=== PATIENT | female | born 1990 | race Caucasian/White ===

== ENCOUNTER 2020-11-30 12:18 | Inpatient (IN) ==
--- NOTE | 2020-11-30 12:40 | Emergency Department Note ---
Impression & Plan Psychosis, Hallucinations ED Provider Note Provider: Kip Lopez MD DATE OF SERVICE: 11/30/2020 CHIEF COMPLAINT: Depression HISTORY OF PRESENT ILLNESS: Patient is a 30-year-old female brought in by EMS today evidently was found wandering outside without clothes on. Neighbors felt saw her and called EMS. Patient reports that she is not really been taking her medications due to "distortions ". She reports that she has been having some loose [place] of hearing some voices and feels a bit anxious and depressed. Denies wanting to harm her self or others. Patient states she currently lives alone. She states has been out walking to try to clear her mind. Patient does present with bag of multiple prescription bottles in them. Patient states she feels thirsty. Patient states she has not been sleeping. Patient denies pain. Patient does not always answer all questions and occasionally will just sit quietly in the room. She occasionally looks around the room. REVIEW OF SYSTEMS: A total of 10 review of systems was obtained and negative except as stated above in the HPI although she is quite a poor historian and only answers some questions. PAST MEDICAL HISTORY: As noted above MEDICATIONS: Reviewed the patient's medications that she presents with. SOCIAL HISTORY: PHYSICAL EXAM: GENERAL: alert and oriented in no acute distress seated on bed, somewhat tearful Head: normocephalic and atraumatic EYES: No injection, discharge or icterus. NECK: Trachea midline. ENT: Mucous membranes pink and moist. LUNGS: Airway patent. No retractions. Breath sounds clear with good air entry bilaterally. HEART: Regular rate and rhythm. No chest wall tenderness ABDOMEN: Soft and non-tender, without guarding or rebound. SKIN: Acyanotic, warm, dry, without rashes EXTREMITIES: Without swelling, tenderness or deformity NEUROLOGICAL: No focal deficits. No aphasia. No facial droop or slurred speech. Ambulatory. Psych: Patient appears somewhat anxious and admits to depression. She denies SI or HI. Patient does appear to be looking around the room and possibly reacting to external stimuli. Patient with lack of insight to questioning and current situation. Patient's laboratory studies reviewed. Differential includes Mood disorder, infection, hypoglycemia, electrolyte abnormalities, cardiac sources, intracerebral event, toxicologic, trauma, neurologic, as well as other pathologies. IMPRESSION/MEDICAL DECISION MAKING: Patient presents found wandering naked outside. Underlying psychiatric history with multiple psychotropic medications. Patient states she has not been compliant with them. Patient appears to be acting somewhat psychotic and possibly restarting to external stimuli. Patient does not appear to have suffered any trauma. Not having any focal neurological deficits. Doubt acute [employer] infection, stroke, CVA, or TBI. She denies any SI or HI but again is not a good historian and only answering limited questions. Basic blood work here without significant anemia or leukocytosis. No severe electrolyte abnormality noted. Tox screen sent. Urinalysis not impressive for infection. Seen with leather case finisher. Patient on multiple times here difficult to obtain a clear history from reports "distortions "and does not want to talk. Appears qu ite anxious and tearful at times. Patient appears to have been on Zyprexa recently from records and thus given a dose of this here to see if this would help with her symptoms. Believe the patient is suffering from underlying psychosis and again given reports that she is not on her medications and her activities. I question her ability to care for self in her current state. Patient later reports that she is scared of the hallucinations to leather case finisher. Again given this state and her presentation feel that further inpatient psychiatric treatment would be beneficial for the patient and do not feel she can care for self at home. Do not feel she is in position to voluntarily signing given her lack of insight at the moment. Will complete an involuntary commitment form to pursue 302. Bed search was initiated to excepted to 3 S. for further inpatient psychiatric care. DIAGNOSIS: Psychosis, hallucinations DISPOSITION: Excepted to [facility]. for further inpatient psychiatric care. Past Med/Surg History Social History Smoking Status: Unknown if ever smoked Feels Safe at Home: No Allergies Allergies Allergy/AdvReac Type Severity Reaction Status Date / Time amoxicillin Allergy _ Verified 07/23/09 20:35 aripiprazole Allergy _ Verified 07/23/09 20:35 Home Meds Home Medications Medication Instructions Recorded Confirmed atorvastatin 10 mg tablet (Lipitor) 10 mg PO DAILY 11/30/20 11/30/20 benztropine 1 mg tablet 1 mg PO DAILY 11/30/20 11/30/20 cholecalciferol (vitamin D3) 50 2,000 unit PO DAILY 11/30/20 11/30/20 mcg (2,000 unit) capsule docusate sodium 100 mg capsule 100 mg PO QPM 11/30/20 11/30/20 (Colace) lamotrigine 100 mg tablet 100 mg PO BID 11/30/20 11/30/20 levothyroxine 25 mcg tablet 25 mcg PO QAM 11/30/20 11/30/20 lithium carbonate 300 mg tablet 300 mg PO BID 11/30/20 11/30/20 olanzapine 10 mg disintegrating 10 mg PO DAILY 11/30/20 11/30/20 tablet perphenazine 2 mg tablet 2 mg PO DAILY 11/30/20 11/30/20 sertraline 100 mg tablet 100 mg PO DAILY 11/30/20 11/30/20 Results & Data (ED) Vital Signs Vital Signs - 24 hr 11/30/20 12:27 11/30/20 14:13 11/30/20 15:53 Temperature 36.7 C Temperature Source Oral Pulse Rate 115 H Pulse Rate [Left Finger] 101 H 109 H Pulse Rhythm Regular Pulse Rhythm [Left Finger] Regular Pulse Strength Normal Pulse Strength [Left Finger] Normal Respiratory Rate 20 20 16 Respiratory Effort / Characteristics Non-Labored Spontaneous Non-Labored Spontaneous Respiratory Depth Normal Normal Respiratory Pattern Regular Blood Pressure 129/106 H Blood Pressure [Left Arm] 120/76 143/90 H Blood Pressure Mean 113 Blood Pressure Mean [Left Arm] 90 107 Blood Pressure Position Sitting Blood Pressure Position [Left Arm] Lying Pulse Oximetry 98 98 99 Oxygen Delivery Method Room Air Room Air Room Air Sepsis Recent Fever Within 48 Hours No Sepsis New/Unexplained Change in Mental Status No Sepsis Action Taken by Nursing No Action Required 11/30/20 17:00 Temperature Temperature Source Pulse Rate Pulse Rate [Left Finger] 68 Pulse Rhythm Pulse Rhythm [Left Finger] Pulse Strength Pulse Strength [Left Finger] Respiratory Rate 21 Respiratory Effort / Characteristics Respiratory Depth Normal Respiratory Pattern Blood Pressure Blood Pressure [Left Arm] 131/79 Blood Pressure Mean Blood Pressure Mean [Left Arm] 96 Blood Pressure Position Blood Pressure Position [Left Arm] Pulse Oximetry 100 Oxygen Delivery Method Room Air Sepsis Recent Fever Within 48 Hours Sepsis New/Unexplained Change in Mental Status Sepsis Action Taken by Nursing Laboratory Data Result diagrams: 11/30/20 12:54 11/30/20 12:54 Lab Results 11/30/20 11/30/20 11/30/20 Range/Units 12:54 12:54 12:54 WBC 9.22 (4.8-10.8) K/uL RBC 4.65 (4.2-5.4) M/uL Hgb 13.5 (12.0-16.0) g/dL Hct 39.4 (37-47) % MCV 84.7 (80-100) fL MCH 29.0 (25-34) pg MCHC 34.3 (32-36) g/dL RDW Std Deviation 39.3 (36.4-46.3) fL RDW Coeff of Kelli 12.8 (11.5-14.5) % Plt Count 427 H (130-400) K/uL MPV 8.6 (7.4-10.4) fL Immature Gran % (Auto) 0.3 % Neut % (Auto) 66.6 % Lymph % (Auto) 26.2 % [place] % (Auto) 6.7 % Eos % (Auto) 0.0 % Baso % (Auto) 0.2 % Neut # (Auto) 6.13 (1.4-6.5) K/uL Lymph # (Auto) 2.42 (1.2-3.4) K/uL [place] # (Auto) 0.62 H (0.11-0.59) K/uL Eos # (Auto) 0.00 (0-0.5) K/uL Baso # (Auto) 0.02 (0-0.2) K/uL Immature Gran # (Auto) 0.03 H (0.00-0.02) K/uL Sodium 137 (136-145) mmol/L Potassium 3.6 (3.5-5.1) mmol/L Chloride 105 (98-107) mmol/L Carbon Dioxide 21 (21-32) mmol/L Anion Gap 11.0 (3-11) BUN 22 H (7-18) mg/dl Creatinine 0.97 (0.6-1.2) mg/dl Est Cr Clr Drug Dosing 81.1 ml/min Est GFR ( Amer) 90.8 ml/min Est GFR (Non-Af Amer) 78.4 ml/min BUN/Creatinine Ratio 23.1 H (10-20) Glucose 91 (70-99) mg/dl Calcium 9.5 (8.5-10.1) mg/dl Total Bilirubin 0.4 (0.2-1) mg/dl AST 43 H (15-37) U/L ALT 86 H (12-78) U/L Alkaline Phosphatase 59 (45-117) U/L Total Protein 8.6 H (6.4-8.2) gm/dl Albumin 4.2 (3.4-5.0) gm/dl Globulin 4.4 H (2.5-4.0) gm/dl Albumin/Globulin Ratio 1.0 (0.9-2) TSH 3.190 (0.300-4.500) uIu/ml HCG, Qual (Negative) Urine Color Urine Appearance (Clear) Urine pH (4.5-7.5) Ur Specific [place] (1.000-1.030) Urine Protein (Negative) Urine Glucose (UA) (Negative) Urine Ketones (Negative) Urine Blood (Negative) Urine Nitrite (Negative) Urine Bilirubin (Negative) Urine Urobilinogen (Negative) Ur Leukocyte Esterase (Negative) Urine WBC (Auto) (0-5) /hpf Urine RBC (Auto) (0-4) /hpf U Hyaline Cast (Auto) (0-5) /lpf U Epithel Cells (Auto) (0-5) /lpf Urine Bacteria (Auto) (Negative) Salicylates 2.9 (2.8-20) mg/dl Urine Opiates Screen (Neg) Ur Methadone, Qual (Neg) Acetaminophen < 2 L (10-30) ug/ml Urine Barbiturates (Neg) Ur Phencyclidine (PCP) (Neg) U Amphetamin/Meth Scrn (Neg) MDMA (Ecstasy) Screen (Neg) U Benzodiazepines Scrn (Neg) [place] < 0.2 L (0.6-1.2) mmol/L Ur Cocaine Metabolite (Neg) U Marijuana (THC) Screen (Neg) Ethyl Alcohol mg/dL (0-3) mg/dl COVID-19 Eval Order SARS-CoV-2, RNA, NAAT (NEGATIVE) 11/30/20 11/30/20 11/30/20 Range/Units 12:54 12:54 13:23 WBC (4.8-10.8) K/uL RBC (4.2-5.4) M/uL Hgb (12.0-16.0) g/dL Hct (37-47) % MCV (80-100) fL MCH (25-34) pg MCHC (32-36) g/dL RDW Std Deviation (36.4-46.3) fL RDW Coeff of Kelli (11.5-14.5) % Plt Count (130-400) K/uL MPV (7.4-10.4) fL Immature Gran % (Auto) % Neut % (Auto) % Lymph % (Auto) % [place] % (Auto) % Eos % (Auto) % Baso % (Auto) % Neut # (Auto) (1.4-6.5) K/uL Lymph # (Auto) (1.2-3.4) K/uL [place] # (Auto) (0.11-0.59) K/uL Eos # (Auto) (0-0.5) K/uL Baso # (Auto) (0-0.2) K/uL Immature Gran # (Auto) (0.00-0.02) K/uL Sodium (136-145) mmol/L Potassium (3.5-5.1) mmol/L Chloride (98-107) mmol/L Carbon Dioxide (21-32) mmol/L Anion Gap (3-11) BUN (7-18) mg/dl Creatinine (0.6-1.2) mg/dl Est Cr Clr Drug Dosing ml/min Est GFR ( Amer) ml/min Est GFR (Non-Af Amer) ml/min BUN/Creatinine Ratio (10-20) Glucose (70-99) mg/dl Calcium (8.5-10.1) mg/dl Total Bilirubin (0.2-1) mg/dl AST (15-37) U/L ALT (12-78) U/L Alkaline Phosphatase (45-117) U/L Total Protein (6.4-8.2) gm/dl Albumin (3.4-5.0) gm/dl Globulin (2.5-4.0) gm/dl Albumin/Globulin Ratio (0.9-2) TSH (0.300-4.500) uIu/ml HCG, Qual Negative (Negative) Urine Color Urine Appearance (Clear) Urine pH (4.5-7.5) Ur Specific [place] (1.000-1.030) Urine Protein (Negative) Urine Glucose (UA) (Negative) Urine Ketones (Negative) Urine Blood (Negative) Urine Nitrite (Negative) Urine Bilirubin (Negative) Urine Urobilinogen (Negative) Ur Leukocyte Esterase (Negative) Urine WBC (Auto) (0-5) /hpf Urine RBC (Auto) (0-4) /hpf U Hyaline Cast (Auto) (0-5) /lpf U Epithel Cells (Auto) (0-5) /lpf Urine Bacteria (Auto) (Negative) Salicylates (2.8-20) mg/dl Urine Opiates Screen (Neg) Ur Methadone, Qual (Neg) Acetaminophen (10-30) ug/ml Urine Barbiturates (Neg) Ur Phencyclidine (PCP) (Neg) U Amphetamin/Meth Scrn (Neg) MDMA (Ecstasy) Screen (Neg) U Benzodiazepines Scrn (Neg) [place] (0.6-1.2) mmol/L Ur Cocaine Metabolite (Neg) U Marijuana (THC) Screen (Neg) Ethyl Alcohol mg/dL < 3.0 (0-3) mg/dl COVID-19 Eval [email or web address] SARS-CoV-2, RNA, NAAT (NEGATIVE) 11/30/20 11/30/20 11/30/20 Range/Units 13:23 17:15 17:15 WBC (4.8-10.8) K/uL RBC (4.2-5.4) M/uL Hgb (12.0-16.0) g/dL Hct (37-47) % MCV (80-100) fL MCH (25-34) pg MCHC (32-36) g/dL RDW Std Deviation (36.4-46.3) fL RDW Coeff of Kelli (11.5-14.5) % Plt Count (130-400) K/uL MPV (7.4-10.4) fL Immature Gran % (Auto) % Neut % (Auto) % Lymph % (Auto) % [place] % (Auto) % Eos % (Auto) % Baso % (Auto) % Neut # (Auto) (1.4-6.5) K/uL Lymph # (Auto) (1.2-3.4) K/uL [place] # (Auto) (0.11-0.59) K/uL Eos # (Auto) (0-0.5) K/uL Baso # (Auto) (0-0.2) K/uL Immature Gran # (Auto) (0.00-0.02) K/uL Sodium (136-145) mmol/L Potassium (3.5-5.1) mmol/L Chloride (98-107) mmol/L Carbon Dioxide (21-32) mmol/L Anion Gap (3-11) BUN (7-18) mg/dl Creatinine (0.6-1.2) mg/dl Est Cr Clr Drug Dosing ml/min Est GFR ( Amer) ml/min Est GFR (Non-Af Amer) ml/min BUN/Creatinine Ratio (10-20) Glucose (70-99) mg/dl Calcium (8.5-10.1) mg/dl Total Bilirubin (0.2-1) mg/dl AST (15-37) U/L ALT (12-78) U/L Alkaline Phosphatase (45-117) U/L Total Protein (6.4-8.2) gm/dl Albumin (3.4-5.0) gm/dl Globulin (2.5-4.0) gm/dl Albumin/Globulin Ratio (0.9-2) TSH (0.300-4.500) uIu/ml HCG, Qual (Negative) Urine Color Dark Yellow Urine Appearance Cloudy A (Clear) Urine pH 6.0 (4.5-7.5) Ur Specific [place] 1.031 H (1.000-1.030) Urine Protein 1+ H (Negative) Urine Glucose (UA) Negative (Negative) Urine Ketones 4+ H (Negative) Urine Blood 3+ H (Negative) Urine Nitrite Negative (Negative) Urine Bilirubin Negative (Negative) Urine Urobilinogen Negative (Negative) Ur Leukocyte Esterase Negative (Negative) Urine WBC (Auto) 5-10 H (0-5) /hpf Urine RBC (Auto) 10-30 H (0-4) /hpf U Hyaline Cast (Auto) 5-10 H (0-5) /lpf U Epithel Cells (Auto) >30 H (0-5) /lpf Urine Bacteria (Auto) 1+ H (Negative) Salicylates (2.8-20) mg/dl Urine Opiates Screen Neg (Neg) Ur Methadone, Qual Neg (Neg) Acetaminophen (10-30) ug/ml Urine Barbiturates Neg (Neg) Ur Phencyclidine (PCP) Neg (Neg) U Amphetamin/Meth Scrn Neg (Neg) MDMA (Ecstasy) Screen Neg (Neg) U Benzodiazepines Scrn Neg (Neg) [place] (0.6-1.2) mmol/L Ur Cocaine Metabolite Neg (Neg) U Marijuana (THC) Screen Neg (Neg) Ethyl Alcohol mg/dL (0-3) mg/dl COVID-19 Eval Order SARS-CoV-2, RNA, NAAT NEGATIVE (NEGATIVE) 11/30/20 Range/Units Unknown WBC (4.8-10.8) K/uL RBC (4.2-5.4) M/uL Hgb (12.0-16.0) g/dL Hct (37-47) % MCV (80-100) fL MCH (25-34) pg MCHC (32-36) g/dL RDW Std Deviation (36.4-46.3) fL RDW Coeff of Kelli (11.5-14.5) % Plt Count (130-400) K/uL MPV (7.4-10.4) fL Immature Gran % (Auto) % Neut % (Auto) % Lymph % (Auto) % [place] % (Auto) % Eos % (Auto) % Baso % (Auto) % Neut # (Auto) (1.4-6.5) K/uL Lymph # (Auto) (1.2-3.4) K/uL [place] # (Auto) (0.11-0.59) K/uL Eos # (Auto) (0-0.5) K/uL Baso # (Auto) (0-0.2) K/uL Immature Gran # (Auto) (0.00-0.02) K/uL Sodium (136-145) mmol/L Potassium (3.5-5.1) mmol/L Chloride (98-107) mmol/L Carbon Dioxide (21-32) mmol/L Anion Gap (3-11) BUN (7-18) mg/dl Creatinine (0.6-1.2) mg/dl Est Cr Clr Drug Dosing ml/min Est GFR ( Amer) ml/min Est GFR (Non-Af Amer) ml/min BUN/Creatinine Ratio (10-20) Glucose (70-99) mg/dl Calcium (8.5-10.1) mg/dl Total Bilirubin (0.2-1) mg/dl AST (15-37) U/L ALT (12-78) U/L Alkaline Phosphatase (45-117) U/L Total Protein (6.4-8.2) gm/dl Albumin (3.4-5.0) gm/dl Globulin (2.5-4.0) gm/dl Albumin/Globulin Ratio (0.9-2) TSH (0.300-4.500) uIu/ml HCG, Qual (Negative) Urine Color Urine Appearance (Clear) Urine pH (4.5-7.5) Ur Specific [place] (1.000-1.030) Urine Protein (Negative) Urine Glucose (UA) (Negative) Urine Ketones (Negative) Urine Blood (Negative) Urine Nitrite (Negative) Urine Bilirubin (Negative) Urine Urobilinogen (Negative) Ur Leukocyte Esterase (Negative) Urine WBC (Auto) (0-5) /hpf Urine RBC (Auto) (0-4) /hpf U Hyaline Cast (Auto) (0-5) /lpf U Epithel Cells (Auto) (0-5) /lpf Urine Bacteria (Auto) (Negative) Salicylates (2.8-20) mg/dl Urine Opiates Screen (Neg) Ur Methadone, Qual (Neg) Acetaminophen (10-30) ug/ml Urine Barbiturates (Neg) Ur Phencyclidine (PCP) (Neg) U Amphetamin/Meth Scrn (Neg) MDMA (Ecstasy) Screen (Neg) U Benzodiazepines Scrn (Neg) [place] (0.6-1.2) mmol/L Ur Cocaine Metabolite (Neg) U Marijuana (THC) Screen (Neg) Ethyl Alcohol mg/dL (0-3) mg/dl COVID-19 Eval Order Cancelled SARS-CoV-2, RNA, NAAT (NEGATIVE) Administered Medications Discontinued Medications Olanzapine (Olanzapine Zydis 5 Mg Orally Dis. Tab) 5 mg PO ONCE ONE Stop: 11/30/20 14:09 Last Admin: 11/30/20 14:16 Dose: 5 mg Documented by: [id number] Discharge Plan Visit Data Chief Complaint: Mental Health Evaluation ED Provider: Kip Lopez Discharge Problem: Psychosis, Hallucinations Patient Disposition: Transfer Behavioral Health Fac Forms Stand Alone Forms: My [facility], Suicide Prevention Resources Prescriptions Prescriptions: No Action perphenazine 2 mg tablet 2 mg PO DAILY RF: 0 atorvastatin [Lipitor] 10 mg tablet 10 mg PO DAILY RF: 0 sertraline 100 mg tablet 100 mg PO DAILY RF: 0 levothyroxine 25 mcg tablet 25 mcg PO QAM RF: 0 benztropine 1 mg tablet 1 mg PO DAILY RF: 0 docusate sodium [Colace] 100 mg capsule 100 mg PO QPM RF: 0 lithium carbonate 300 mg tablet 300 mg PO BID RF: 0 lamotrigine 100 mg tablet 100 mg PO BID RF: 0 cholecalciferol (vitamin D3) 50 mcg (2,000 unit) capsule 2,000 unit PO DAILY RF: 0 olanzapine 10 mg tablet,disintegrating 10 mg PO DAILY RF: 0 Referrals Referrals: PCP,NO [Primary Care Provider] - Discharge Problem: Psychosis Qualifiers: Psychosis type: schizophrenia Schizophrenia type: unspecified Qualified Code(s): F20.9 - Schizophrenia, unspecified
[2020-11-30 13:14] LABS: Basophils # (auto) 0.02 K/uL (0-0.2); Basophils % (auto) 0.2 %; Hematocrit (blood only) 39.4 % (37-47); Hemoglobin 13.5 g/dL (12.0-16.0); Immature Granulocytes # (auto) 0.03 K/uL (0.00-0.02); Immature Granulocytes % (auto) 0.3 %; Lymphocytes # (auto) 2.42 K/uL (1.2-3.4); Lymphocytes % (auto) 26.2 %; Mean Corpuscular Hgb Conc 34.3 g/dL (32-36); Mean Corpuscular Volume 84.7 fL (80-100); Mean Platelet Volume 8.6 fL (7.4-10.4); Monocytes # (auto) 0.62 K/uL (0.11-0.59); Monocytes % (auto) 6.7 %; Neutrophils # (auto) 6.13 K/uL (1.4-6.5); Neutrophils % (auto) 66.6 %; Platelet Count 427 K/uL (130-400); RDW Coefficient of Variation 12.8 % (11.5-14.5); RDW Standard Deviation 39.3 fL (36.4-46.3); Red Blood Count 4.65 M/uL (4.2-5.4); White Blood Count 9.22 K/uL (4.8-10.8)
[2020-11-30 13:29] LABS: Albumin Level 4.2 gm/dl (3.4-5.0); BUN Creatinine Ratio 23.1 (10-20); Calcium 9.5 mg/dl (8.5-10.1); Creatinine Clr Calc Pharmacy 81.1 ml/min; Est GFR (African American) 90.8 ml/min; Est GFR (Non-African American) 78.4 ml/min; Potassium 3.6 mmol/L (3.5-5.1)
[2020-11-30 13:33] LABS: Acetaminophen < 2 ug/ml (10-30)
[2020-11-30 13:34] LABS: Lithium < 0.2 mmol/L (0.6-1.2); Salicylate 2.9 mg/dl (2.8-20)
[2020-11-30 13:39] LABS: Bilirubin,Total 0.4 mg/dl (0.2-1); Globulin 4.4 gm/dl (2.5-4.0); Thyroid Stimulating Hormone 3.19 uIu/ml (0.300-4.500); Total Protein 8.6 gm/dl (6.4-8.2)
[2020-11-30 13:42] LABS: Pregnancy Test, Serum Negative (Negative)
[2020-11-30] MEDS ORDERED: OLANZapine ZYDIS 5 MG ORALLY DIS. TAB PO ONE (14:08)
[2020-11-30 17:27] LABS: Appearance Urine Cloudy (Clear); Bacteria Urine Automated 1+ (Negative); Bilirubin Urine Negative (Negative); Blood Urine 3+ (Negative); Color Urine Dark Yellow; Epithelial Cell Urine Auto >30 /lpf (0-5); Glucose Urine UA Negative (Negative); Ketones Urine 4+ (Negative); Leukocyte Esterase Urine Negative (Negative); Nitrite Urine Negative (Negative); Protein Urine 1+ (Negative); Specific Gravity Urine 1.031 (1.000-1.030); Urobilinogen Urine Negative (Negative)
[2020-11-30 17:47] LABS: Amphetamines+Metham, Urine Neg (Neg); Barbiturates, Urine Neg (Neg); Benzodiazepine, Urine Neg (Neg); Cocaine, Urine Neg (Neg); MDMA (Ecstacy), Urine Neg (Neg); Methadone, Urine Neg (Neg); Opiate, Urine Neg (Neg); Phencyclidine, Urine Neg (Neg)
[2020-11-30] MEDS ORDERED: SODIUM CHLORIDE 0.65% NA SOLN 45 ML (OCEAN) PRN (20:03)
[2020-11-30] MEDS ORDERED: ALUMINUM/MAGNESIUM SUSP 30 ML UDC PO PRN (20:03)
[2020-11-30] MEDS ORDERED: hydrOXYzine HCl 25 MG TAB PO PRN (20:03)
[2020-11-30] MEDS ORDERED: ACETAMINOPHEN 325 MG TAB PO PRN (20:03)
[2020-11-30] MEDS ORDERED: MAGNESIUM HYDROXIDE SUSP 30 ML UDC PO PRN (20:03)
[2020-11-30] MEDS ORDERED: BISMUTH SUBSALICYLATE LIQD 236 ML PO PRN (20:03)
[2020-11-30] MEDS ORDERED: OLANZapine 10 MG TAB PO STA (20:52)
[2020-11-30] MEDS ORDERED: PERPHENAZINE 2 MG TABLET PO STA (20:52)
[2020-11-30] MEDS ORDERED: LORazepam 1 MG TAB PO PRN (20:52)
[2020-11-30] MEDS: BENZTROPINE MESYLATE 1 MG TAB PO SCH (21:54)
[2020-11-30] MEDS: LITHIUM CARBONATE 300 MG TAB PO SCH (21:55)
[2020-11-30] MEDS: DOCUSATE SODIUM 100 MG CAP PO SCH (21:55)
[2020-12-01] MEDS: CHOLECALCIFEROL 1,000 UNITS 25 MCG TAB PO SCH (08:21)
[2020-12-01] MEDS: LITHIUM CARBONATE 300 MG TAB PO SCH ×2 (08:21→20:42)
[2020-12-01] MEDS: LEVOTHYROXINE SODIUM 25 MCG TABLET PO SCH (08:21)
[2020-12-01] MEDS: lamoTRIgine 25 MG TAB PO SCH (08:21)
[2020-12-01] MEDS: ATORVASTATIN 10 MG TAB PO SCH (08:21)
[2020-12-01] MEDS: BENZTROPINE MESYLATE 1 MG TAB PO SCH ×2 (08:21→20:42)
[2020-12-01] MEDS: OLANZapine 10 MG TAB PO SCH (08:22)
[2020-12-01] MEDS: PERPHENAZINE 2 MG TABLET PO SCH (08:22)
[2020-12-01] MEDS ORDERED: SERTRALINE HCL 100 MG TABLET PO SCH (09:00)
[2020-12-01] MEDS ORDERED: lamoTRIgine 25 MG TAB PO SCH (09:00)
--- NOTE | 2020-12-01 10:11 | History & Physical ---
Date of Service December 01, 2020 Impression / Recommendations Impression 30 yo female with well established dx of chronic psychosis (schizophrenia vs schizoaffective disorder) presents to ED acutely psychotic, confused, wandering and responding to internal stimuli following a few weeks of med non-compliance. She required a 302 commitment and also a MNPR given level of disorganization. (1) Psychosis: Psychosis type: schizophrenia Schizophrenia type: unspecified Qualified Code(s): F20.9 - Schizophrenia, unspecified 12/01/20--The patient was [facility] to the [facility] on q15 min checks (behavioral with suicide precautions) for safety. The patient will participate in group, recreational, and milieu therapies when clinically appropriate and will be offered additional individual and family sessions as recovers to aid in discharge planning. Collateral from family. Notification of outpatient psychiatrist. She is unable to fully engage in risks/benefits discussion re: her medications. Will resume home regimen with exception of Zoloft as per discussion in HPI and offer additional prn Zyprexa and Ativan for hallucinations/lability. Inventory Assets Strengths: has outpatient providers, agreed to mother's involvement in care Needs: restart medication, CM, step down programming Risk Factors Assessment Male: No : Yes Do You Have Access To A Gun?: No Mental Health Diagnoses: Yes Substance Use Disorders: No Previous Psychiatric Hospitalization: Yes Protective Factors Assessment : No Responsible for Young Children: No Employed: No (Unknown) Supportive Family: Yes Psychiatric History Identifying Data TEE SALDANA is a 30-year-old F who currently lives in [place], has a history of schizophrenia and/or schizoaffective disorder, and was admitted on 11/30/20 20:39 on a 302 involuntary commitment for psychosis with disorganized behavior. Chief Complaint "I really don't want to talk right now". Then stared at wall and laughed inappropriately. History of Present Illness Patient was brought to ED by police on a 302 warrant as she was found wandering without clothes on and appearing confused, responding to internal stimuli, and seeming dehydrated. Patient admitted to not taking her medication and experiencing auditory and visual miner but would not elaborate. Did receive Zyprexa 5 mg in the ED for symptoms (no agitated) and tolerated transfer to the unit thought given timing only slep 4 hrs. She took fluids this am but hasn't touched her breakfast thus far in her room. She appears to be responding to internal stimuli. She states she hasn't taken medication for about 1 month. She is a poor historian and ended the interview abruptly. She states "I'll eat, sleep when I want to" and did accept her am medication. We are in the process of contacting mother for collateral. She has a significant history of psychosis but has not been hospitalized on our unit since 2009. Her first break (per records) occured in her senior year of high school. She did require hospitalization at [facility] until 2019. It is unclear what other services she is receiving, lists Dr. Mcleod, likely through [facility] than private practice. [place] level was not obtained in the ED due to fact she reported non- compliance. Meds were ordered by change control coordinator psychiatrist as per med rec as records are pending. Nursing staff were directed to decrease Lamictal to 25 mg as effectively a restart of medication and Zoloft was held pending further evaluation/retitration of [place]. Past Psychiatric History Current Psychiatric Diagnosis: Schizophrenia Outpatient Services: need to confirm--Dr. Mcleod Previous Psych Admissions: 18 yo--[facility], 19 yo (07/12) at [facility]--stabbed herself in the hand due to hallucinations, likely others, [facility] as above it is unclear if past self harm was a suicide attempt Do You Have Access To A Gun?: No Past Medication Trials: Seroquel in 2009, likely others plus current meds Allergies Allergy/AdvReac Type Severity Reaction Status Date / Time amoxicillin Allergy _ Verified 07/23/09 20:35 aripiprazole Allergy _ Verified 07/23/09 20:35 Home Medications Medication Instructions Recorded Confirmed Type atorvastatin 10 mg tablet (Lipitor) 10 mg PO DAILY 11/30/20 11/30/20 History benztropine 1 mg tablet 1 mg PO BID 11/30/20 11/30/20 History cholecalciferol (vitamin D3) 50 2,000 unit PO DAILY 11/30/20 11/30/20 History mcg (2,000 unit) capsule docusate sodium 100 mg capsule 100 mg PO QPM 11/30/20 11/30/20 History (Colace) lamotrigine 100 mg tablet 125 mg PO BID 11/30/20 11/30/20 History levothyroxine 25 mcg tablet 25 mcg PO QAM 11/30/20 11/30/20 History lithium carbonate 300 mg tablet 300 mg PO BID 11/30/20 11/30/20 History olanzapine 10 mg disintegrating 10 mg PO DAILY 11/30/20 11/30/20 History tablet perphenazine 2 mg tablet 2 mg PO DAILY 11/30/20 11/30/20 History sertraline 100 mg tablet 100 mg PO DAILY 11/30/20 11/30/20 History Family History Family History of: Doesn't Know Family Mental Health History Comment: Bipolar d/o in father and paternal great gpa per chart Alcohol History Hx of Alcohol Use Over the Past 12 Months: No AUDIT Total Score: 0 Smoking Use Smoking Status: Unknown if ever smoked Substance History Hx of Prescription Med Misuse Over the Past 12 Months: No Hx of Over the Counter Med Misuse Over the Past 12 Months: No Hx of Inhalent Misuse Over the Past 12 Months: No Hx of Organic Substance Use Over the Past 12 Months: No Hx of Illegal Substances/Street Drug Use Over Past 12 Months: No Problems as a Result of Past Substance Use: None Identified Personal History Living Arrangements: Home Childhood: 1/2 sibs (2) and 1 full brother Highest Grade Completed: High School Graduate Employment Status: Disabled Marital Status: Single Number Of Children: 0 Beliefs That Will Affect Care: None Current Legal Problems: No Hx Traumatic Life Events: No (patient unable to provide) Patient History Social History Smoking Status: Unknown if ever smoked Preferred Language: Setswana Communication Ability: Impaired Resource Economist Required: No Beliefs That Will Affect Care: None Feels Safe at Home: No Assistive Devices: None Review of Systems Review of Systems: Unobtainable due to cognitive status Physical Exam Psychiatric: Orientation: alert Apperance: + disheveled Eye Contact: + poor eye contact Motor Behavior: no abnormal motor movements non spontaneous Affect: + labile affect Mood: + anxious mood Thought Process: + thought blocking and + concrete thought process Thought Content: no delusions Suicidal Thoughts: denies suicidal thoughts Homicidal Thoughts: denies homicidal thoughts Hallucinations: + auditory hallucinations (won't elaborate) and + visual hallucinations (won't elaborate) Cognition: language grossly intact; + attention not intact Estimated Intelligence: + below average estimated intelligence Insight: + severely impaired insight Judgement: + severely impaired judgement Vital Signs (Past 24 Hours): Last Vital Signs Temp 36.7 C 12/01/20 08:19 Pulse 120 H 12/01/20 08:19 Resp 16 11/30/20 21:28 BP 145/83 H 12/01/20 08:19 Pulse Ox 96 11/30/20 20:33 Exam Statement: A physical exam was performed in the ED by Dr. Lopez for the purposes of medical clearance. I accept that physical as correct and adequate for the purposes of the inpatient physical exam. Results & Data ([facility]) Laboratory Results Laboratory Results - last 24 hr 11/30/20 11/30/20 11/30/20 12:54 12:54 12:54 WBC 9.22 RBC 4.65 Hgb 13.5 Hct 39.4 MCV 84.7 MCH 29.0 MCHC 34.3 RDW Std Deviation 39.3 RDW Coeff of Kelli 12.8 Plt Count 427 H MPV 8.6 Immature Gran % (Auto) 0.3 Neut % (Auto) 66.6 Lymph % (Auto) 26.2 [place] % (Auto) 6.7 Eos % (Auto) 0.0 Baso % (Auto) 0.2 Neut # (Auto) 6.13 Lymph # (Auto) 2.42 [place] # (Auto) 0.62 H Eos # (Auto) 0.00 Baso # (Auto) 0.02 Immature Gran # (Auto) 0.03 H Sodium 137 Potassium 3.6 Chloride 105 Carbon Dioxide 21 Anion Gap 11.0 BUN 22 H Creatinine 0.97 Est Cr Clr Drug Dosing 81.1 Est GFR ( Amer) 90.8 Est GFR (Non-Af Amer) 78.4 BUN/Creatinine Ratio 23.1 H Glucose 91 Calcium 9.5 Total Bilirubin 0.4 AST 43 H ALT 86 H Alkaline Phosphatase 59 Total Protein 8.6 H Albumin 4.2 Globulin 4.4 H Albumin/Globulin Ratio 1.0 TSH 3.190 HCG, Qual Urine Color Urine Appearance Urine pH Ur Specific [place] Urine Protein Urine Glucose (UA) Urine Ketones Urine Blood Urine Nitrite Urine Bilirubin Urine Urobilinogen Ur Leukocyte Esterase Urine WBC (Auto) Urine RBC (Auto) U Hyaline Cast (Auto) U Epithel Cells (Auto) Urine Bacteria (Auto) Salicylates 2.9 Urine Opiates Screen Ur Methadone, Qual Acetaminophen < 2 L Urine Barbiturates Lamotrigine Ur Phencyclidine (PCP) U Amphetamin/Meth Scrn MDMA (Ecstasy) Screen U Benzodiazepines Scrn [place] < 0.2 L Ur Cocaine Metabolite U Marijuana (THC) Screen Ethyl Alcohol mg/dL COVID-19 Eval Order SARS-CoV-2, RNA, NAAT 11/30/20 11/30/20 11/30/20 12:54 12:54 12:54 WBC RBC Hgb Hct MCV MCH MCHC RDW Std Deviation RDW Coeff of Kelli Plt Count MPV Immature Gran % (Auto) Neut % (Auto) Lymph % (Auto) [place] % (Auto) Eos % (Auto) Baso % (Auto) Neut # (Auto) Lymph # (Auto) [place] # (Auto) Eos # (Auto) Baso # (Auto) Immature Gran # (Auto) Sodium Potassium Chloride Carbon Dioxide Anion Gap BUN Creatinine Est Cr Clr Drug Dosing Est GFR ( Amer) Est GFR (Non-Af Amer) BUN/Creatinine Ratio Glucose Calcium Total Bilirubin AST ALT Alkaline Phosphatase Total Protein Albumin Globulin Albumin/Globulin Ratio TSH HCG, Qual Negative Urine Color Urine Appearance Urine pH Ur Specific [place] Urine Protein Urine Glucose (UA) Urine Ketones Urine Blood Urine Nitrite Urine Bilirubin Urine Urobilinogen Ur Leukocyte Esterase Urine WBC (Auto) Urine RBC (Auto) U Hyaline Cast (Auto) U Epithel Cells (Auto) Urine Bacteria (Auto) Salicylates Urine Opiates Screen Ur Methadone, Qual Acetaminophen Urine Barbiturates Lamotrigine Pending Ur Phencyclidine (PCP) U Amphetamin/Meth Scrn MDMA (Ecstasy) Screen U Benzodiazepines Scrn [place] Ur Cocaine Metabolite U Marijuana (THC) Screen Ethyl Alcohol mg/dL < 3.0 COVID-19 Eval Order SARS-CoV-2, RNA, NAAT 11/30/20 11/30/20 11/30/20 13:23 13:23 17:15 WBC RBC Hgb Hct MCV MCH MCHC RDW Std Deviation RDW Coeff of Kelli Plt Count MPV Immature Gran % (Auto) Neut % (Auto) Lymph % (Auto) [place] % (Auto) Eos % (Auto) Baso % (Auto) Neut # (Auto) Lymph # (Auto) [place] # (Auto) Eos # (Auto) Baso # (Auto) Immature Gran # (Auto) Sodium Potassium Chloride Carbon Dioxide Anion Gap BUN Creatinine Est Cr Clr Drug Dosing Est GFR ( Amer) Est GFR (Non-Af Amer) BUN/Creatinine Ratio Glucose Calcium Total Bilirubin AST ALT Alkaline Phosphatase Total Protein Albumin Globulin Albumin/Globulin Ratio TSH HCG, Qual Urine Color Dark Yellow Urine Appearance Cloudy A Urine pH 6.0 Ur Specific [place] 1.031 H Urine Protein 1+ H Urine Glucose (UA) Negative Urine Ketones 4+ H Urine Blood 3+ H Urine Nitrite Negative Urine Bilirubin Negative Urine Urobilinogen Negative Ur Leukocyte Esterase Negative Urine WBC (Auto) 5-10 H Urine RBC (Auto) 10-30 H U Hyaline Cast (Auto) 5-10 H U Epithel Cells (Auto) >30 H Urine Bacteria (Auto) 1+ H Salicylates Urine Opiates Screen Ur Methadone, Qual Acetaminophen Urine Barbiturates Lamotrigine Ur Phencyclidine (PCP) U Amphetamin/Meth Scrn MDMA (Ecstasy) Screen U Benzodiazepines Scrn [place] Ur Cocaine Metabolite U Marijuana (THC) Screen Ethyl Alcohol mg/dL COVID-19 Eval Order Covid19 IDNow atMGAC SARS-CoV-2, RNA, NAAT NEGATIVE 11/30/20 11/30/20 17:15 Unknown WBC RBC Hgb Hct MCV MCH MCHC RDW Std Deviation RDW Coeff of Kelli Plt Count MPV Immature Gran % (Auto) Neut % (Auto) Lymph % (Auto) [place] % (Auto) Eos % (Auto) Baso % (Auto) Neut # (Auto) Lymph # (Auto) [place] # (Auto) Eos # (Auto) Baso # (Auto) Immature Gran # (Auto) Sodium Potassium Chloride Carbon Dioxide Anion Gap BUN Creatinine Est Cr Clr Drug Dosing Est GFR ( Amer) Est GFR (Non-Af Amer) BUN/Creatinine Ratio Glucose Calcium Total Bilirubin AST ALT Alkaline Phosphatase Total Protein Albumin Globulin Albumin/Globulin Ratio TSH HCG, Qual Urine Color Urine Appearance Urine pH Ur Specific [place] Urine Protein Urine Glucose (UA) Urine Ketones Urine Blood Urine Nitrite Urine Bilirubin Urine Urobilinogen Ur Leukocyte Esterase Urine WBC (Auto) Urine RBC (Auto) U Hyaline Cast (Auto) U Epithel Cells (Auto) Urine Bacteria (Auto) Salicylates Urine Opiates Screen Neg Ur Methadone, Qual Neg Acetaminophen Urine Barbiturates Neg Lamotrigine Ur Phencyclidine (PCP) Neg U Amphetamin/Meth Scrn Neg MDMA (Ecstasy) Screen Neg U Benzodiazepines Scrn Neg [place] Ur Cocaine Metabolite Neg U Marijuana (THC) Screen Neg Ethyl Alcohol mg/dL COVID-19 Eval Order Cancelled SARS-CoV-2, RNA, NAAT Current Inpatient Medications Current Inpatient Medications: Current Inpatient Medications Acetaminophen (Acetaminophen 325 Mg Tab) 650 mg PO Q4H PRN PRN Reason: Headache or Minor Fever Stop: 12/30/20 20:02 Al Hydrox/Mg Hydrox/Simethicone (Aluminum/Magnesium Susp 30 Ml Udc) 30 ml PO Q4H PRN PRN Reason: GI Upset Stop: 12/30/20 20:02 Atorvastatin Calcium (Atorvastatin 10 Mg Tab) 10 mg PO QAM AGAPITO Stop: 12/31/20 08:59 Last Admin: 12/01/20 08:21 Dose: 10 mg Documented by: Benztropine Mesylate (Benztropine Mesylate 1 Mg Tab) 1 mg PO BID AGAPITO Stop: 12/30/20 20:59 Last Admin: 12/01/20 08:21 Dose: 1 mg Documented by: Bismuth Subsalicylate (Bismuth Subsalicylate Liqd 236 Ml) 15 ml PO PRN PRN PRN Reason: Loose Stool Stop: 12/30/20 20:02 Docusate Sodium (Docusate Sodium 100 Mg Cap) 100 mg PO HS AGAPITO Stop: 12/30/20 21:59 Last Admin: 11/30/20 21:55 Dose: 100 mg Documented by: Hydroxyzine HCl (Hydroxyzine Hcl 25 Mg Tab) 50 mg PO HSZ PRN PRN Reason: Insomnia Stop: 12/30/20 20:02 Hydroxyzine HCl (Hydroxyzine Hcl 25 Mg Tab) 25 mg PO Q4H PRN PRN Reason: Anxiety Stop: 12/30/20 20:02 Lamotrigine (Lamotrigine 25 Mg Tab) 25 mg PO QAM AGAPITO Stop: 12/31/20 08:59 Last Admin: 12/01/20 08:21 Dose: 25 mg Documented by: Levothyroxine Sodium (Levothyroxine Sodium 25 Mcg Tablet) 25 mcg PO DAILYBB AGAPITO Stop: 12/31/20 07:59 Last Admin: 12/01/20 08:21 Dose: 25 mcg Documented by: [place] Carbonate ([place] Carbonate 300 Mg Tab) 300 mg PO BID AGAPITO Stop: 12/30/20 20:59 Last Admin: 12/01/20 08:21 Dose: 300 mg Documented by: Lorazepam (Lorazepam 1 Mg Tab) 2 mg PO Q4H PRN PRN Reason: Anxiety/Agitation Stop: 12/30/20 20:51 Last Admin: 12/01/20 08:22 Dose: 2 mg Documented by: Magnesium Hydroxide (Magnesium Hydroxide Susp 30 Ml Udc) 30 ml PO DAILY PRN PRN Reason: Constipation Stop: 12/30/20 20:02 Olanzapine (Olanzapine 10 Mg Tab) 10 mg PO [facility] Stop: 12/31/20 08:59 Last Admin: 12/01/20 08:22 Dose: 10 mg Documented by: Perphenazine (Perphenazine 2 Mg Tablet) 2 mg PO [facility] Stop: 12/31/20 08:59 Last Admin: 12/01/20 08:22 Dose: 2 mg Documented by: Sertraline HCl (Sertraline Hcl 100 Mg Tablet) 100 mg PO [facility] Stop: 12/31/20 08:59 Sodium Chloride (Sodium Chloride 0.65% Na Soln 45 Ml ([place])) 1 - 2 sprays NA PRN PRN PRN Reason: Nasal Dryness/Congestion Stop: 12/30/20 20:02 Vitamin D (Cholecalciferol 1,000 Units 25 Mcg Tab) 2,000 units PO [facility] Stop: 12/31/20 08:59 Last Admin: 12/01/20 08:21 Dose: 2,000 units Documented by:
[2020-12-01] MEDS: DOCUSATE SODIUM 100 MG CAP PO SCH (20:43)
[2020-12-02] MEDS: OLANZapine ZYDIS 5 MG ORALLY DIS. TAB PO PRN (01:27)
[2020-12-02] MEDS: LORazepam 1 MG TAB PO PRN (06:28)
[2020-12-02 08:21] LABS: Glucose Fasting 89 mg/dl (70-99)
[2020-12-02 08:28] LABS: Chol HDL Ratio 7; Cholesterol 189 mg/dl (0-200); HDL Cholesterol 29 mg/dl; LDL Cholesterol Calculated 143 mg/dl; Triglycerides 87 mg/dl (0-150); VLDL Cholesterol 17 mg/dl
[2020-12-02] MEDS: BENZTROPINE MESYLATE 1 MG TAB PO SCH ×2 (08:46→20:31)
[2020-12-02] MEDS: lamoTRIgine 25 MG TAB PO SCH (08:46)
[2020-12-02] MEDS: LEVOTHYROXINE SODIUM 25 MCG TABLET PO SCH (08:46)
[2020-12-02] MEDS: ATORVASTATIN 10 MG TAB PO SCH (08:46)
[2020-12-02] MEDS: CHOLECALCIFEROL 1,000 UNITS 25 MCG TAB PO SCH (08:46)
[2020-12-02] MEDS: PERPHENAZINE 2 MG TABLET PO SCH (08:47)
[2020-12-02] MEDS: OLANZapine 10 MG TAB PO SCH ×2 (08:47→20:32)
[2020-12-02] MEDS: LITHIUM CARBONATE 300 MG TAB PO SCH ×2 (08:47→20:31)
--- NOTE | 2020-12-02 11:57 | Psychiatric Progress Note ---
Date of Service December 02, 2020 Impression / Recommendations Impression 30 yo female with well established dx of chronic psychosis (schizophrenia vs schizoaffective disorder) presents to ED acutely psychotic, confused, wandering and responding to internal stimuli following a few weeks of med non-compliance. She required a 302 commitment and also a MNPR given level of disorganization. 12/02/20--spending lengthy periods staring or in bathroom, avoidant but doesn't appear as labile, tachy with intermittently elevated bp presumably secondary to psychosis. (1) Psychosis: 12/02/20--The patient's med rec is updated. Trilafon and Zyprexa should be BID (will increase Trilafon tomorrow), will add Ativan TID scheduled 1 mg for catatonic features. Risks/benefits briefly reviewed, patient is agreeable to clonidine prn trial for tachy/BP. increase VS to q shift to monitor more closely for withdrawal. Does not appear post ictal, still attempting to confirm seizure hx. 12/01/20--The patient was admitted to the [facility] on q15 min checks (behavioral with suicide precautions) for safety. The patient will participate in group, recreational, and milieu therapies when clinically appropriate and will be offered additional individual and family sessions as recovers to aid in discharge planning. Collateral from family. Notification of outpatient psychiatrist. She is unable to fully engage in risks/benefits discussion re: her medications. Will resume home regimen with exception of Zoloft as per discussion in HPI and offer additional prn Zyprexa and Ativan for hallucinations/lability. Inventory Assets Strengths: has outpatient providers, agreed to mother's involvement in care Needs: restart medication, CM, step down programming Risk Factors Assessment Male: No : Yes Do You Have Access To A Gun?: No Mental Health Diagnoses: Yes Substance Use Disorders: No Previous Psychiatric Hospitalization: Yes Protective Factors Assessment : No Responsible for Young Children: No Employed: No (Unknown) Supportive Family: Yes Interval History Identifying Information 30 yo female with history of chronic psychosis and prior [facility] hospital placement, admit 12/01/20 on 302 commitment (expires 1926 on 12/05) for psychosis. Chief Complaint patient is slow to respond to questions, stares off Review of Systems Sleep Information Total Hours of Sleep: 2 Meal Information Percent Meal Consumed - Breakfast: 10 Percent Meal Consumed - Lunch: 0 Percent Meal Consumed - Dinner: 75 Nutrition Comment: pt. asleep Subjective Subjective Patient was seen & assessed and interval progress reviewed with nursing and social work. She continues to accept medication. Does not appear in withdrawal from any substances or with psychomotor agitation but BP and pulse remain elevated, respond to Ativan. Patient's records from [facility] show different provider and appears Lamictal rx is by a neurologist for unclear indication, patient to sign release. Mother provided limited collateral, is unsure why she would have been in [facility] as mother lives in [place] but out of town. Was in [facility] hospital for 1 year. Patient wanders unit with flat affect, sat in day room with tray and didn't eat, just stared at wall. Sleep disrupted. Has received prn Ativan regularly but no Zyprexa. I assessed patient on 2 separate occasions as she is disorganized and paranoid and cannot tolerate lengthy questioning. She denies use of substances like opiates or benzos that would have contributed to confusion or would cause withdrawal. She reports feeling internally panicky although appears flat/catatonic on outside. No waxy flexibility or posturing at this time. Ativan does not seem to be helping tachy. Physical Exam Psychiatric Orientation: alert Apperance: + disheveled Eye Contact: + poor eye contact Motor Behavior: no abnormal motor movements Affect: + flat affect Mood: + anxious mood Thought Process: + thought blocking and + concrete thought process Thought Content: + paranoid Suicidal Thoughts: denies suicidal thoughts Homicidal Thoughts: denies homicidal thoughts Hallucinations: + auditory hallucinations (won't elaborate) and + visual hallucinations (won't elaborate) Cognition: language grossly intact; + attention not intact Estimated Intelligence: + below average estimated intelligence Insight: + severely impaired insight Judgement: + severely impaired judgement Vital Signs (Past 24 Hours) Last Vital Signs Temp 36.7 C 12/02/20 06:00 Pulse 131 H 12/02/20 06:29 Resp 16 12/02/20 06:00 BP 141/95 H 12/02/20 06:29 Pulse Ox 96 11/30/20 20:33 Results & Data (U) Laboratory Results Laboratory Results - last 24 hr 12/02/20 07:31 Fasting Glucose 89 Triglycerides 87 Cholesterol 189 LDL Cholesterol, Calc 143 VLDL Cholesterol, Calc 17 HDL Cholesterol 29 Cholesterol/HDL Ratio 7 Current Inpatient Medications Current Inpatient Medications: Current Inpatient Medications Acetaminophen (Acetaminophen 325 Mg Tab) 650 mg PO Q4H PRN PRN Reason: Headache or Minor Fever Stop: 12/30/20 20:02 Al Hydrox/Mg Hydrox/Simethicone (Aluminum/Magnesium Susp 30 Ml Udc) 30 ml PO Q4H PRN PRN Reason: GI Upset Stop: 12/30/20 20:02 Atorvastatin Calcium (Atorvastatin 10 Mg Tab) 10 mg PO QAM AGAPITO Stop: 12/31/20 08:59 Last Admin: 12/02/20 08:46 Dose: 10 mg Documented by: Benztropine Mesylate (Benztropine Mesylate 1 Mg Tab) 1 mg PO BID AGAPITO Stop: 12/30/20 20:59 Last Admin: 12/02/20 08:46 Dose: 1 mg Documented by: Bismuth Subsalicylate (Bismuth Subsalicylate Liqd 236 Ml) 15 ml PO PRN PRN PRN Reason: Loose Stool Stop: 12/30/20 20:02 Docusate Sodium (Docusate Sodium 100 Mg Cap) 100 mg PO HS AGAP[facility]O Stop: 12/30/20 21:59 Last Admin: 12/01/20 20:43 Dose: 100 mg Documented by: Hydroxyzine HCl (Hydroxyzine Hcl 25 Mg Tab) 50 mg PO HSZ PRN PRN Reason: Insomnia Stop: 12/30/20 20:02 Hydroxyzine HCl (Hydroxyzine Hcl 25 Mg Tab) 25 mg PO Q4H PRN PRN Reason: Anxiety Stop: 12/30/20 20:02 Lamotrigine (Lamotrigine 25 Mg Tab) 25 mg PO QAM AGAPITO Stop: 12/31/20 08:59 Last Admin: 12/02/20 08:46 Dose: 25 mg Documented by: Levothyroxine Sodium (Levothyroxine Sodium 25 Mcg Tablet) 25 mcg PO DAILYBB [facility] Stop: 12/31/20 07:59 Last Admin: 12/02/20 08:46 Dose: 25 mcg Documented by: [place] Carbonate ([place] Carbonate 300 Mg Tab) 300 mg PO BID AGAP[facility]O Stop: 12/30/20 20:59 Last Admin: 12/02/20 08:47 Dose: 300 mg Documented by: Lorazepam (Lorazepam 1 Mg Tab) 1 mg PO Q6 PRN PRN Reason: Anxiety/Agitation Stop: 12/31/20 10:10 Last Admin: 12/02/20 06:28 Dose: 1 mg Documented by: Magnesium Hydroxide (Magnesium Hydroxide Susp 30 Ml Udc) 30 ml PO DAILY PRN PRN Reason: Constipation Stop: 12/30/20 20:02 Olanzapine (Olanzapine Zydis 5 Mg Orally Dis. Tab) 5 mg PO Q6 PRN PRN Reason: Anxiety/Agitation Stop: 12/31/20 11:59 Last Admin: 12/02/20 01:27 Dose: 5 mg Documented by: Olanzapine (Olanzapine 10 Mg Tab) 10 mg PO BID [facility] Stop: 01/01/21 20:59 Perphenazine (Perphenazine 2 Mg Tablet) 2 mg PO QAM [facility] Stop: 12/31/20 08:59 Last Admin: 12/02/20 08:47 Dose: 2 mg Documented by: Sertraline HCl (Sertraline Hcl 100 Mg Tablet) 100 mg PO QAM [facility] Stop: 12/31/20 08:59 Sodium Chloride (Sodium Chloride 0.65% Na Soln 45 Ml ([place])) 1 - 2 sprays NA PRN PRN PRN Reason: Nasal Dryness/Congestion Stop: 12/30/20 20:02 Vitamin D (Cholecalciferol 1,000 Units 25 Mcg Tab) 2,000 units PO QAM AGAP[facility]O Stop: 12/31/20 08:59 Last Admin: 12/02/20 08:46 Dose: 2,000 units Documented by: Mental Health & Subst Abuse Tx Therapist Name of Therapist: unable to assess at this time due to cognitive status Tax Agent Name of Tax Agent: unable to assess at this time due to cognitive status Post Discharge Appointments Primary Care Physician Name Of Family Doctor: unable to assess at this time due to cognitive status (1) Psychosis Psychosis type: schizophrenia Schizophrenia type: unspecified Qualified Code(s): F20.9 - Schizophrenia, unspecified
[2020-12-02] MEDS: LORazepam 1 MG TAB PO SCH ×2 (13:58→20:33)
[2020-12-02] MEDS: cloNIDine HCL 0.1 MG TAB PO PRN (14:19)
[2020-12-02] MEDS: DOCUSATE SODIUM 100 MG CAP PO SCH (20:32)
[2020-12-03] MEDS: LORazepam 1 MG TAB PO PRN (07:02)
[2020-12-03] MEDS: LEVOTHYROXINE SODIUM 25 MCG TABLET PO SCH (09:00)
[2020-12-03] MEDS: CHOLECALCIFEROL 1,000 UNITS 25 MCG TAB PO SCH (09:01)
[2020-12-03] MEDS: LITHIUM CARBONATE 300 MG TAB PO SCH ×2 (09:01→21:00)
[2020-12-03] MEDS: ATORVASTATIN 10 MG TAB PO SCH (09:01)
[2020-12-03] MEDS: BENZTROPINE MESYLATE 1 MG TAB PO SCH ×2 (09:01→21:01)
[2020-12-03] MEDS: lamoTRIgine 25 MG TAB PO SCH (09:01)
[2020-12-03] MEDS: PERPHENAZINE 2 MG TABLET PO SCH ×2 (09:02→21:00)
[2020-12-03] MEDS: OLANZapine 10 MG TAB PO SCH ×2 (09:02→21:00)
[2020-12-03] MEDS: LORazepam 1 MG TAB PO SCH ×3 (09:02→21:03)
--- NOTE | 2020-12-03 10:46 | Psychiatric Progress Note ---
Date of Service December 03, 2020 Impression / Recommendations Impression 30 yo female with well established dx of chronic psychosis (schizophrenia vs schizoaffective disorder) presents to ED acutely psychotic, confused, wandering and responding to internal stimuli following a few weeks of med non-compliance. She required a 302 commitment and also a MNPR given level of disorganization. 12/03/20--less catatonia, grossly disorganized and unable to care for self. (1) Psychosis: 12/03/20--continue current med plan given some improvement, will need petition for 303. 12/02/20--The patient's med rec is updated. Trilafon and Zyprexa should be BID (will increase Trilafon tomorrow), will add Ativan TID scheduled 1 mg for catatonic features. Risks/benefits briefly reviewed, patient is agreeable to clonidine prn trial for tachy/BP. increase VS to q shift to monitor more closely for withdrawal. Does not appear post ictal, still attempting to confirm seizure hx. 12/01/20--The patient was admitted to the [facility] ([facility] mental health unit) on q15 min checks (behavioral with suicide precautions) for safety. The patient will participate in group, recreational, and milieu therapies when clinically appropriate and will be offered additional individual and family sessions as recovers to aid in discharge planning. Collateral from family. Notification of outpatient psychiatrist. She is unable to fully engage in risks/benefits discussion re: her medications. Will resume home regimen with exception of Zoloft as per discussion in HPI and offer additional prn Zyprexa and Ativan for hallucinations/lability. Inventory Assets Strengths: has outpatient providers, agreed to mother's involvement in care Needs: restart medication, CM, step down programming Risk Factors Assessment Male: No : Yes Do You Have Access To A Gun?: No Mental Health Diagnoses: Yes Substance Use Disorders: No Previous Psychiatric Hospitalization: Yes Protective Factors Assessment : No Responsible for Young Children: No Employed: No (Unknown) Supportive Family: Yes Interval History Identifying Information 30 yo female with history of chronic psychosis and prior [facility] placement, admit 12/01/20 on 302 commitment (expires 1926 on 12/05) for psychosis. Chief Complaint "yeah, I can't talk here, trying to work out insurance, those nightmares are sending me messages". Review of Systems Sleep Information Total Hours of Sleep: 7.5 Sleep Comments: Pt had difficulty falling asleep but refused medication. She woke up once after falling asleep due to a nightmare. Meal Information Percent Meal Consumed - Breakfast: 25 Percent Meal Consumed - Lunch: 10 Percent Meal Consumed - Dinner: 75 Nutrition Comment: Pt was sleeping Subjective Subjective Patient was seen & assessed and interval progress reviewed with treatment team. Sleep and PO intake remain poor. She often stares for extended periods of time but less psychomotor slowing is noted and more able to express needs since starting Ativan. Remains disorganized in conversation and reported waking up with a nightmare. Today she tells me this was a vision sending her a message and didn't want to discuss further. BP improved. Physical Exam Psychiatric Orientation: alert Apperance: + disheveled Eye Contact: + fair eye contact Motor Behavior: no abnormal motor movements Affect: + flat affect Mood: + anxious mood Thought Process: + concrete thought process Thought Content: + paranoid and + ideas of reference Suicidal Thoughts: denies suicidal thoughts Homicidal Thoughts: denies homicidal thoughts Hallucinations: + auditory hallucinations (won't elaborate) and + visual hallucinations (won't elaborate) Cognition: language grossly intact; + attention not intact Estimated Intelligence: + below average estimated intelligence Insight: + severely impaired insight Judgement: + severely impaired judgement Vital Signs (Past 24 Hours) Last Vital Signs Temp 36.6 C 12/03/20 06:00 Pulse 123 H 12/03/20 06:39 Resp 16 12/03/20 06:00 BP 125/90 12/03/20 06:39 Pulse Ox 96 11/30/20 20:33 Results & Data ([facility]) Current Inpatient Medications Current Inpatient Medications: Current Inpatient Medications Acetaminophen (Acetaminophen 325 Mg Tab) 650 mg PO Q4H PRN PRN Reason: Headache or Minor Fever Stop: 12/30/20 20:02 Al Hydrox/Mg Hydrox/Simethicone (Aluminum/Magnesium Susp 30 Ml Udc) 30 ml PO Q4H PRN PRN Reason: GI Upset Stop: 12/30/20 20:02 Atorvastatin Calcium (Atorvastatin 10 Mg Tab) 10 mg PO QAM [facility] Stop: 12/31/20 08:59 Last Admin: 12/03/20 09:01 Dose: 10 mg Documented by: Benztropine Mesylate (Benztropine Mesylate 1 Mg Tab) 1 mg PO BID [facility] Stop: 12/30/20 20:59 Last Admin: 12/03/20 09:01 Dose: 1 mg Documented by: Bismuth Subsalicylate (Bismuth Subsalicylate Liqd 236 Ml) 15 ml PO PRN PRN PRN Reason: Loose Stool Stop: 12/30/20 20:02 Clonidine HCl (Clonidine Hcl 0.1 Mg Tab) 0.05 mg PO Q6 PRN PRN Reason: Blood Pressure - High Stop: 01/01/21 13:17 Last Admin: 12/02/20 14:19 Dose: 0.05 mg Documented by: Docusate Sodium (Docusate Sodium 100 Mg Cap) 100 mg PO HS [facility] Stop: 12/30/20 21:59 Last Admin: 12/02/20 20:32 Dose: 100 mg Documented by: Hydroxyzine HCl (Hydroxyzine Hcl 25 Mg Tab) 50 mg PO HSZ PRN PRN Reason: Insomnia Stop: 12/30/20 20:02 Hydroxyzine HCl (Hydroxyzine Hcl 25 Mg Tab) 25 mg PO Q4H PRN PRN Reason: Anxiety Stop: 12/30/20 20:02 Lamotrigine (Lamotrigine 25 Mg Tab) [address] [facility] Stop: 12/31/20 08:59 Last Admin: 12/03/20 09:01 Dose: 25 mg Documented by: Levothyroxine Sodium (Levothyroxine Sodium 25 Mcg Tablet) [address] [facility] Stop: 12/31/20 07:59 Last Admin: 12/03/20 09:00 Dose: 25 mcg Documented by: [place] Carbonate ([place] Carbonate 300 Mg Tab) 300 mg PO BID [facility] Stop: 12/30/20 20:59 Last Admin: 12/03/20 09:01 Dose: 300 mg Documented by: Lorazepam (Lorazepam 1 Mg Tab) 1 mg PO Q6 PRN PRN Reason: Anxiety/Agitation Stop: 12/31/20 10:10 Last Admin: 12/03/20 07:02 Dose: 1 mg Documented by: Lorazepam (Lorazepam 1 Mg Tab) 1 mg PO TID [facility] Stop: 01/01/21 13:59 Last Admin: 12/03/20 09:02 Dose: 1 mg Documented by: Magnesium Hydroxide (Magnesium Hydroxide Susp 30 Ml Udc) 30 ml PO DAILY PRN PRN Reason: Constipation Stop: 12/30/20 20:02 Olanzapine (Olanzapine Zydis 5 Mg Orally Dis. Tab) 5 mg PO Q6 PRN PRN Reason: Anxiety/Agitation Stop: 12/31/20 11:59 Last Admin: 12/02/20 01:27 Dose: 5 mg Documented by: Olanzapine (Olanzapine 10 Mg Tab) 10 mg PO BID [facility] Stop: 01/01/21 20:59 Last Admin: 12/03/20 09:02 Dose: 10 mg Documented by: Perphenazine (Perphenazine 2 Mg Tablet) 2 mg PO BID [facility] Stop: 01/02/21 08:59 Last Admin: 12/03/20 09:02 Dose: 2 mg Documented by: Sodium Chloride (Sodium Chloride 0.65% Na Soln 45 Ml ([place])) 1 - 2 sprays NA PRN PRN PRN Reason: Nasal Dryness/Congestion Stop: 12/30/20 20:02 Vitamin D (Cholecalciferol 1,000 Units 25 Mcg Tab) 2,000 units PO QAM [facility] Stop: 12/31/20 08:59 Last Admin: 12/03/20 09:01 Dose: 2,000 units Documented by: Mental Health & Subst Abuse Tx Therapist Name of Therapist: unable to assess at this time due to cognitive status Formwork Carpenter Name of Formwork Carpenter: unable to assess at this time due to cognitive status Post Discharge Appointments Primary Care Physician Name Of Family Doctor: unable to assess at this time due to cognitive status (1) Psychosis Psychosis type: schizophrenia Schizophrenia type: unspecified Qualified Code(s): F20.9 - Schizophrenia, unspecified
[2020-12-03] MEDS: DOCUSATE SODIUM 100 MG CAP PO SCH (21:00)
[2020-12-04] MEDS: OLANZapine ZYDIS 5 MG ORALLY DIS. TAB PO PRN (04:04)
[2020-12-04] MEDS: LORazepam 1 MG TAB PO SCH ×3 (07:45→20:36)
[2020-12-04] MEDS: LEVOTHYROXINE SODIUM 25 MCG TABLET PO SCH (07:45)
[2020-12-04] MEDS: BENZTROPINE MESYLATE 1 MG TAB PO SCH ×2 (07:45→20:36)
[2020-12-04] MEDS: CHOLECALCIFEROL 1,000 UNITS 25 MCG TAB PO SCH (07:45)
[2020-12-04] MEDS: LITHIUM CARBONATE 300 MG TAB PO SCH ×2 (07:45→20:36)
[2020-12-04] MEDS: lamoTRIgine 25 MG TAB PO SCH (07:45)
[2020-12-04] MEDS: OLANZapine 10 MG TAB PO SCH (07:46)
[2020-12-04] MEDS: ATORVASTATIN 10 MG TAB PO SCH (07:46)
[2020-12-04] MEDS: PERPHENAZINE 2 MG TABLET PO SCH ×2 (07:46→20:37)
--- NOTE | 2020-12-04 12:17 | Psychiatric Progress Note ---
Date of Service December 04, 2020 Impression / Recommendations Impression 30 yo female with well established dx of chronic psychosis (schizophrenia vs schizoaffective disorder) presents to ED acutely psychotic, confused, wandering and responding to internal stimuli following a few weeks of med non-compliance. She required a 302 commitment and also a MNPR given level of disorganization. 12/04/20--less catatonia but verbalizing more of her paranoid thoughts (1) Psychosis: 12/04/20--shift Zyprexa dosing toward higher dose at hs with hopes to improve sleep and minimize daytime sedation. 303 hearing tomorrow. 12/03/20--continue current med plan given some improvement, will need petition for 303. 12/02/20--The patient's med rec is updated. Trilafon and Zyprexa should be BID (will increase Trilafon tomorrow), will add Ativan TID scheduled 1 mg for catatonic features. Risks/benefits briefly reviewed, patient is agreeable to clonidine prn trial for tachy/BP. increase VS to q shift to monitor more closely for withdrawal. Does not appear post ictal, still attempting to confirm seizure hx. 12/01/20--The [facility] ([facility] inpatient mental health unit) on q15 min checks (behavioral with suicide precautions) for safety. The patient will participate in group, recreational, and milieu therapies when clinically appropriate and will be offered additional individual and family sessions as recovers to aid in discharge planning. Collateral from family. Notification of outpatient psychiatrist. She is unable to fully engage in risks/benefits discussion re: her medications. Will resume home regimen with exception of Zoloft as per discussion in HPI and offer additional prn Zyprexa and Ativan for hallucinations/lability. Inventory Assets Strengths: has outpatient providers, agreed to mother's involvement in care Needs: restart medication, CM, step down programming Risk Factors Assessment Male: No : Yes Do You Have Access To A Gun?: No Mental Health Diagnoses: Yes Substance Use Disorders: No Previous Psychiatric Hospitalization: Yes Protective Factors Assessment : No Responsible for Young Children: No Employed: No (Unknown) Supportive Family: Yes Interval History Identifying Information 30 yo female with history of chronic psychosis and prior [facility] placement, admit 12/01/20 on 302 commitment (expires 1926 on 12/05) for psychosis. Chief Complaint "I'm on the floor as feel weird about the beds, there was a girl and a back story, my sanitary pad". Review of Systems Sleep Information Total Hours of Sleep: 4.75 Sleep Comments: Pt had difficulty falling asleep but refused medication. She woke up once after falling asleep due to a nightmare. Meal Information Percent Meal Consumed - Breakfast: 25 Percent Meal Consumed - Lunch: 75 Percent Meal Consumed - Dinner: 100 Nutrition Comment: Pt ate 2 bowls of fruit, a bowl of jello and drank a chocolate milk. Subjective Subjective Patient was seen & assessed and interval progress reviewed with nursing and social work. Patient is tolerating longer periods of time out of her room, very disorganized in conversation but appears calmer and VS reflect that. She doesn't fully understand 303 process but voiced understanding that doctors signed her in and not ready for discharge. She remains cooperative with medication as ordered. Her sleep remains disrupted but does nap during day. Reports of dreams are actually visual miner, thought there was a little girl in her room. Doesn't want to elaborate on the "spirit" or the "message" she was trying to send her. She is insisting her mattress be on the floor and removed from the other bed. Paranoid that someone will come into the other bed. Physical Exam Psychiatric Orientation: alert Apperance: + disheveled Eye Contact: + poor eye contact Motor Behavior: no abnormal motor movements Affect: + flat affect Mood: + anxious mood Thought Process: + thought blocking and + concrete thought process Thought Content: + delusions and + ideas of reference Suicidal Thoughts: denies suicidal thoughts Homicidal Thoughts: denies homicidal thoughts Hallucinations: + auditory hallucinations (won't elaborate) and + visual hallucinations (won't elaborate) Cognition: language grossly intact; + attention not intact Estimated Intelligence: + below average estimated intelligence Insight: + severely impaired insight Judgement: + severely impaired judgement Vital Signs (Past 24 Hours) Last Vital Signs Temp 36.6 C 12/04/20 06:00 Pulse 103 H 12/04/20 06:34 Resp 16 12/04/20 06:00 BP 128/84 12/04/20 06:34 Pulse Ox 97 12/03/20 13:51 Results & Data ([facility]) Laboratory Results Laboratory Results - last 24 hr 11/30/20 12:54 Lamotrigine <0.5 L Current Inpatient Medications Current Inpatient Medications: Current Inpatient Medications Acetaminophen (Acetaminophen 325 Mg Tab) 650 mg PO Q4H PRN PRN Reason: Headache or Minor Fever Stop: 12/30/20 20:02 Al Hydrox/Mg Hydrox/Simethicone (Aluminum/Magnesium Susp 30 Ml Udc) 30 ml PO Q4H PRN PRN Reason: GI Upset Stop: 12/30/20 20:02 Atorvastatin Calcium (Atorvastatin 10 Mg Tab) 10 mg PO QAM [facility] Stop: 12/31/20 08:59 Last Admin: 12/04/20 07:46 Dose: 10 mg Documented by: Benztropine Mesylate (Benztropine Mesylate 1 Mg Tab) 1 mg PO BID [facility] Stop: 12/30/20 20:59 Last Admin: 12/04/20 07:45 Dose: 1 mg Documented by: Bismuth Subsalicylate (Bismuth Subsalicylate Liqd 236 Ml) 15 ml PO PRN PRN PRN Reason: Loose Stool Stop: 12/30/20 20:02 Clonidine HCl (Clonidine Hcl 0.1 Mg Tab) 0.05 mg PO Q6 PRN PRN Reason: Blood Pressure - High Stop: 01/01/21 13:17 Last Admin: 12/02/20 14:19 Dose: 0.05 mg Documented by: Docusate Sodium (Docusate Sodium 100 Mg Cap) 100 mg PO HS [facility] Stop: 12/30/20 21:59 Last Admin: 12/03/20 21:00 Dose: 100 mg Documented by: Hydroxyzine HCl (Hydroxyzine Hcl 25 Mg Tab) 50 mg PO HSZ PRN PRN Reason: Insomnia Stop: 12/30/20 20:02 Hydroxyzine HCl (Hydroxyzine Hcl 25 Mg Tab) 25 mg PO Q4H PRN PRN Reason: Anxiety Stop: 12/30/20 20:02 Last Admin: 12/04/20 04:03 Dose: 25 mg Documented by: Lamotrigine (Lamotrigine 25 Mg Tab) 25 mg PO QAM [facility] Stop: 12/31/20 08:59 Last Admin: 12/04/20 07:45 Dose: 25 mg Documented by: Levothyroxine Sodium (Levothyroxine Sodium 25 Mcg Tablet) 25 mcg PO DAILYBB [facility] Stop: 12/31/20 07:59 Last Admin: 12/04/20 07:45 Dose: 25 mcg Documented by: [place] Carbonate ([place] Carbonate 300 Mg Tab) 300 mg PO BID [facility] Stop: 12/30/20 20:59 Last Admin: 12/04/20 07:45 Dose: 300 mg Documented by: Lorazepam (Lorazepam 1 Mg Tab) 1 mg PO Q6 PRN PRN Reason: Anxiety/Agitation Stop: 12/31/20 10:10 Last Admin: 12/03/20 07:02 Dose: 1 mg Documented by: Lorazepam (Lorazepam 1 Mg Tab) 1 mg PO TID [facility] Stop: 01/01/21 13:59 Last Admin: 12/04/20 07:45 Dose: 1 mg Documented by: Magnesium Hydroxide (Magnesium Hydroxide Susp 30 Ml Udc) 30 ml PO DAILY PRN PRN Reason: Constipation Stop: 12/30/20 20:02 Olanzapine (Olanzapine Zydis 5 Mg Orally Dis. Tab) 5 mg PO Q6 PRN PRN Reason: Anxiety/Agitation Stop: 12/31/20 11:59 Last Admin: 12/04/20 04:04 Dose: 5 mg Documented by: Olanzapine (Olanzapine 10 Mg Tab) 10 mg PO BID [facility] Stop: 01/01/21 20:59 Last Admin: 12/04/20 07:46 Dose: 10 mg Documented by: Perphenazine (Perphenazine 2 Mg Tablet) 2 mg PO BID [facility] Stop: 01/02/21 08:59 Last Admin: 12/04/20 07:46 Dose: 2 mg Documented by: Sodium Chloride (Sodium Chloride 0.65% Na Soln 45 Ml ([place])) 1 - 2 sprays NA PRN PRN PRN Reason: Nasal Dryness/Congestion Stop: 12/30/20 20:02 Vitamin D (Cholecalciferol 1,000 Units 25 Mcg Tab) 2,000 units PO QAM [facility] Stop: 12/31/20 08:59 Last Admin: 12/04/20 07:45 Dose: 2,000 units Documented by: Mental Health & Subst Abuse Tx Therapist Name of Therapist: unable to assess at this time due to cognitive status Ortho Assistant Name of Ortho Assistant: unable to assess at this time due to cognitive status Post Discharge Appointments Primary Care Physician Name Of Family Doctor: unable to assess at this time due to cognitive status (1) Psychosis Psychosis type: schizophrenia Schizophrenia type: unspecified Qualified Code(s): F20.9 - Schizophrenia, unspecified
[2020-12-04] MEDS: DOCUSATE SODIUM 100 MG CAP PO SCH (20:37)
[2020-12-04] MEDS: cloNIDine HCL 0.1 MG TAB PO PRN (20:41)
[2020-12-04] MEDS ORDERED: OLANZapine 5 MG TABLET PO SCH (22:00)
[2020-12-05] MEDS: PERPHENAZINE 2 MG TABLET PO SCH ×2 (08:31→20:10)
[2020-12-05] MEDS: LEVOTHYROXINE SODIUM 25 MCG TABLET PO SCH (08:31)
[2020-12-05] MEDS: BENZTROPINE MESYLATE 1 MG TAB PO SCH ×2 (08:31→20:11)
[2020-12-05] MEDS: ATORVASTATIN 10 MG TAB PO SCH (08:31)
[2020-12-05] MEDS: CHOLECALCIFEROL 1,000 UNITS 25 MCG TAB PO SCH (08:31)
[2020-12-05] MEDS: lamoTRIgine 25 MG TAB PO SCH (08:31)
[2020-12-05] MEDS: LITHIUM CARBONATE 300 MG TAB PO SCH ×2 (08:31→20:12)
[2020-12-05] MEDS: LORazepam 1 MG TAB PO SCH ×3 (08:33→20:14)
[2020-12-05] MEDS ORDERED: OLANZapine 5 MG TABLET PO SCH (09:00)
--- NOTE | 2020-12-05 15:33 | Psychiatric Progress Note ---
Date of Service December 05, 2020 Impression / Recommendations Impression 30 yo female with well established dx of chronic psychosis (schizophrenia vs schizoaffective disorder) presents to ED acutely psychotic, confused, wandering and responding to internal stimuli following a few weeks of med non-compliance. She required a 302 commitment and also a MNPR given level of disorganization. 12/05/20--sleep improving, still unable to attend groups due to thought disorganization. (1) Psychosis: 12/05/20--continue Zyprexa shift to [address] Alarcon to assess need for am dose when assumes care. 303 granted. 12/04/20--shift Zyprexa dosing toward higher dose at hs with hopes to improve sleep and minimize daytime sedation. 303 hearing tomorrow. 12/03/20--continue current med plan given some improvement, will need petition for 303. 12/02/20--The patient's med rec is updated. Trilafon and Zyprexa should be BID (will increase Trilafon tomorrow), will add Ativan TID scheduled 1 mg for catatonic features. Risks/benefits briefly reviewed, patient is agreeable to clonidine prn trial for tachy/BP. increase VS to q shift to monitor more closely for withdrawal. Does not appear post ictal, still attempting to confirm seizure hx. 12/01/20--[facility]) on q15 min checks (behavioral with suicide precautions) for safety. The patient will participate in group, recreational, and milieu therapies when clinically appropriate and will be offered additional individual and family sessions as recovers to aid in discharge planning. Collateral from family. Notification of outpatient psychiatrist. She is unable to fully engage in risks/benefits discussion re: her medications. Will resume home regimen with exception of Zoloft as per discussion in HPI and offer additional prn Zyprexa and Ativan for hallucinations/lability. Inventory Assets Strengths: has outpatient providers, agreed to mother's involvement in care Needs: restart medication, CM, step down programming Risk Factors Assessment Male: No : Yes Do You Have Access To A Gun?: No Mental Health Diagnoses: Yes Substance Use Disorders: No Previous Psychiatric Hospitalization: Yes Protective Factors Assessment : No Responsible for Young Children: No Employed: No (Unknown) Supportive Family: Yes Interval History Identifying Information 30 yo female with history of chronic psychosis and prior [facility] placement, admit 12/01/20 on 302 commitment (expires 1926 on 12/05) for psychosis. on 303 as of 12/05/2020. Chief Complaint "I"m just braiding my hair and using my pillows as a grave marker" Review of Systems Sleep Information Total Hours of Sleep: 7.5 Sleep Comments: Pt had difficulty falling asleep but refused medication. She woke up once after falling asleep due to a nightmare. Meal Information Percent Meal Consumed - Breakfast: 25 Percent Meal Consumed - Lunch: 100 Percent Meal Consumed - Dinner: 0 Nutrition Comment: Pt ate 2 bowls of fruit, a bowl of jello and drank a chocolate milk. Subjective Subjective Patient was seen & assessed and interval progress reviewed with treatment team. Physical Exam Psychiatric Orientation: alert Apperance: appropriately dressed and appropriately groomed Eye Contact: + fair eye contact Motor Behavior: no abnormal motor movements answers questions more spontaneously contricted Mood: + anxious mood Thought Process: + tangential thought process and + concrete thought process Thought Content: + paranoid, + delusions and + ideas of reference Suicidal Thoughts: denies suicidal thoughts Homicidal Thoughts: denies homicidal thoughts Hallucinations: + auditory hallucinations ("the girl tells me how she got cancer"); no visual hallucinations Cognition: language grossly intact; + attention not intact Estimated Intelligence: + below average estimated intelligence Insight: + severely impaired insight Judgement: + severely impaired judgement Vital Signs (Past 24 Hours) Last Vital Signs Temp 36.2 C L 12/05/20 06:00 Pulse 114 H 12/05/20 06:59 Resp 16 12/04/20 20:32 BP 111/81 12/05/20 06:59 Pulse Ox 100 12/05/20 06:00 Results & Data ([facility]) Laboratory Results Laboratory Results - last 24 hr 12/05/20 08:19 [place] 0.7 Current Inpatient Medications Current Inpatient Medications: Current Inpatient Medications Acetaminophen (Acetaminophen 325 Mg Tab) 650 mg PO Q4H PRN PRN Reason: Headache or Minor Fever Stop: 12/30/20 20:02 Al Hydrox/Mg Hydrox/Simethicone (Aluminum/Magnesium Susp 30 Ml Udc) 30 ml PO Q4H PRN PRN Reason: GI Upset Stop: 12/30/20 20:02 Atorvastatin Calcium (Atorvastatin 10 Mg Tab) 10 mg PO QAM [facility] Stop: 12/31/20 08:59 Last Admin: 12/05/20 08:31 Dose: 10 mg Documented by: Benztropine Mesylate (Benztropine Mesylate 1 Mg Tab) 1 mg PO BID [facility] Stop: 12/30/20 20:59 Last Admin: 12/05/20 08:31 Dose: 1 mg Documented by: Bismuth Subsalicylate (Bismuth Subsalicylate Liqd 236 Ml) 15 ml PO PRN PRN PRN Reason: Loose Stool Stop: 12/30/20 20:02 Clonidine HCl (Clonidine Hcl 0.1 Mg Tab) 0.05 mg PO Q6 PRN PRN Reason: Blood Pressure - High Stop: 01/01/21 13:17 Last Admin: 12/04/20 20:41 Dose: 0.05 mg Documented by: Docusate Sodium (Docusate Sodium 100 Mg Cap) 100 mg PO HS [facility] Stop: 12/30/20 21:59 Last Admin: 12/04/20 20:37 Dose: 100 mg Documented by: Hydroxyzine HCl (Hydroxyzine Hcl 25 Mg Tab) 50 mg PO HSZ PRN PRN Reason: Insomnia Stop: 12/30/20 20:02 Hydroxyzine HCl (Hydroxyzine Hcl 25 Mg Tab) 25 mg PO Q4H PRN PRN Reason: Anxiety Stop: 12/30/20 20:02 Last Admin: 12/04/20 04:03 Dose: 25 mg Documented by: Lamotrigine (Lamotrigine 25 Mg Tab) 25 mg PO QAM [facility] Stop: 12/31/20 08:59 Last Admin: 12/05/20 08:31 Dose: 25 mg Documented by: Levothyroxine Sodium (Levothyroxine Sodium 25 Mcg Tablet) 25 mcg PO DAILYBB [facility] Stop: 12/31/20 07:59 Last Admin: 12/05/20 08:31 Dose: 25 mcg Documented by: [place] Carbonate ([place] Carbonate 300 Mg Tab) 300 mg PO BID [facility] Stop: 12/30/20 20:59 Last Admin: 12/05/20 08:31 Dose: 300 mg Documented by: Lorazepam (Lorazepam 1 Mg Tab) 1 mg PO Q6 PRN PRN Reason: Anxiety/Agitation Stop: 12/31/20 10:10 Last Admin: 12/03/20 07:02 Dose: 1 mg Documented by: Lorazepam (Lorazepam 1 Mg Tab) 1 mg PO TID [facility] Stop: 01/01/21 13:59 Last Admin: 12/05/20 14:47 Dose: 1 mg Documented by: Magnesium Hydroxide (Magnesium Hydroxide Susp 30 Ml Udc) 30 ml PO DAILY PRN PRN Reason: Constipation Stop: 12/30/20 20:02 Olanzapine (Olanzapine Zydis 5 Mg Orally Dis. Tab) 5 mg PO Q6 PRN PRN Reason: Anxiety/Agitation Stop: 12/31/20 11:59 Last Admin: 12/04/20 04:04 Dose: 5 mg Documented by: Olanzapine (Olanzapine 5 Mg Tablet) 15 mg PO HS [facility] Stop: 01/03/21 21:59 Last Admin: 12/04/20 20:40 Dose: 15 mg Documented by: Olanzapine (Olanzapine 5 Mg Tablet) 5 mg PO QAM [facility] Stop: 01/04/21 08:59 Last Admin: 12/05/20 08:31 Dose: 5 mg Documented by: Perphenazine (Perphenazine 2 Mg Tablet) 2 mg PO BID [facility] Stop: 01/02/21 08:59 Last Admin: 12/05/20 08:31 Dose: 2 mg Documented by: Sodium Chloride (Sodium Chloride 0.65% Na Soln 45 Ml ([place])) 1 - 2 sprays NA PRN PRN PRN Reason: Nasal Dryness/Congestion Stop: 12/30/20 20:02 Vitamin D (Cholecalciferol 1,000 Units 25 Mcg Tab) 2,000 units PO QAM [facility] Stop: 12/31/20 08:59 Last Admin: 12/05/20 08:31 Dose: 2,000 units Documented by: Mental Health & Subst Abuse Tx Therapist Name of Therapist: unable to assess at this time due to cognitive status Toe Puller Name of Toe Puller: unable to assess at this time due to cognitive status Post Discharge Appointments Primary Care Physician Name Of Family Doctor: unable to assess at this time due to cognitive status (1) Psychosis Psychosis type: schizophrenia Schizophrenia type: unspecified Qualified Code(s): F20.9 - Schizophrenia, unspecified
[2020-12-05] MEDS: DOCUSATE SODIUM 100 MG CAP PO SCH (20:10)
[2020-12-05] MEDS: hydrOXYzine HCl 25 MG TAB PO PRN (20:10)
[2020-12-05] MEDS: OLANZapine 20 MG TABLET PO SCH (20:12)
[2020-12-06] MEDS: hydrOXYzine HCl 25 MG TAB PO PRN (01:06)
[2020-12-06] MEDS: LEVOTHYROXINE SODIUM 25 MCG TABLET PO SCH (08:02)
[2020-12-06] MEDS: BENZTROPINE MESYLATE 1 MG TAB PO SCH ×2 (08:02→21:13)
[2020-12-06] MEDS: lamoTRIgine 25 MG TAB PO SCH (08:02)
[2020-12-06] MEDS: LITHIUM CARBONATE 300 MG TAB PO SCH ×2 (08:02→21:13)
[2020-12-06] MEDS: ATORVASTATIN 10 MG TAB PO SCH (08:02)
[2020-12-06] MEDS: CHOLECALCIFEROL 1,000 UNITS 25 MCG TAB PO SCH (08:02)
[2020-12-06] MEDS: PERPHENAZINE 2 MG TABLET PO SCH ×2 (08:03→21:14)
[2020-12-06] MEDS: LORazepam 1 MG TAB PO SCH ×3 (08:03→21:14)
--- NOTE | 2020-12-06 16:31 | Psychiatric Progress Note ---
Date of Service December 06, 2020 Impression / Recommendations Impression 30 yo female with well established dx of chronic psychosis (schizophrenia vs schizoaffective disorder) presents to ED acutely psychotic, confused, wandering and responding to internal stimuli following a few weeks of med non-compliance. She required a 302 commitment and also a MNPR given level of disorganization. 1patient remains isolative, delusional, paranoid. Is compliant with medications (1) Psychosis: 1continue current medications, patient appears to be making slow but incremental progress. 12/05/20--continue Zyprexa shift to [address] Alarcon to assess need for am dose when assumes care. 303 granted. 12/04/20--shift Zyprexa dosing toward higher dose at hs with hopes to improve sleep and minimize daytime sedation. 303 hearing tomorrow. 12/03/20--continue current med plan given some improvement, will need petition for 303. 12/02/20--The patient's med rec is updated. Trilafon and Zyprexa should be BID (will increase Trilafon tomorrow), will add Ativan TID scheduled 1 mg for catatonic features. Risks/benefits briefly reviewed, patient is agreeable to clonidine prn trial for tachy/BP. increase VS to q shift to monitor more closely for withdrawal. Does not appear post ictal, still attempting to confirm seizure hx. 12/01/20--[facility] ([facility] mental [facility]) on q15 min checks (behavioral with suicide precautions) for safety. The patient will participate in group, recreational, and milieu therapies when clinically appropriate and will be offered additional individual and family sessions as recovers to aid in discharge planning. Collateral from family. Notification of outpatient psychiatrist. She is unable to fully engage in risks/benefits discussion re: her medications. Will resume home regimen with exception of Zoloft as per discussion in HPI and offer additional prn Zyprexa and Ativan for hallucinations/lability. Inventory Assets Strengths: has outpatient providers, agreed to mother's involvement in care Needs: restart medication, CM, step down programming Risk Factors Assessment Male: No : Yes Do You Have Access To A Gun?: No Mental Health Diagnoses: Yes Substance Use Disorders: No Previous Psychiatric Hospitalization: Yes Protective Factors Assessment : No Responsible for Young Children: No Employed: No (Unknown) Supportive Family: Yes Interval History Identifying Information 30 yo female with history of chronic psychosis and prior [facility], admit 12/01/20 on 302 commitment (expires 1926 on 12/05) for psychosis. on 303 as of 12/05/2020. Chief Complaint "I am filling out paperwork.". Review of Systems Sleep Information Total Hours of Sleep: 5.5 Sleep Comments: Pt had difficulty falling asleep but refused medication. She woke up once after falling asleep due to a nightmare. Meal Information Percent Meal Consumed - Breakfast: 90 Percent Meal Consumed - Lunch: 90 Percent Meal Consumed - Dinner: 100 Nutrition Comment: Pt ate 2 bowls of fruit, a bowl of jello and drank a chocolate milk. Subjective Subjective Patient seen, chart reviewed and case discussed with treatment team, nursing and social work. Patient is compliant with the medication. no side effects reported or observed. Patient continues to eat her meals well, sleep remains impaired at an approximate 5.5 hours of sleep at night. Patient eventually accepted sleeping medication in response to nightmares Patient remains isolated from bizarre, spends most of the time in her room. Minimal peer interaction. Minimal therapeutic activity interaction. No outbursts or episodes of violence I spent 30 minutes with the patient, 50% of which was dedicated to counselling and coordination of care. Physical Exam Psychiatric Orientation: alert Apperance: appropriately dressed, appropriately groomed and + disheveled Eye Contact: + fair eye contact and + poor eye contact Motor Behavior: no abnormal motor movements Affect: + flat affect and + labile affect Mood: + anxious mood Thought Process: + thought blocking, + tangential thought process and + concrete thought process Thought Content: + paranoid, + delusions and + ideas of reference Suicidal Thoughts: denies suicidal thoughts Homicidal Thoughts: denies homicidal thoughts Hallucinations: + auditory hallucinations ("the girl tells me how she got cancer"); no visual hallucinations Cognition: language grossly intact; + attention not intact Estimated Intelligence: + below average estimated intelligence Insight: + severely impaired insight Judgement: + severely impaired judgement Vital Signs (Past 24 Hours) Last Vital Signs Temp 35.9 C L 12/05/20 20:00 Pulse 100 H 12/06/20 14:00 Resp 16 12/05/20 17:08 BP 121/85 12/06/20 08:50 Pulse Ox 100 12/05/20 06:00 Results & Data ([facility]) Current Inpatient Medications Current Inpatient Medications: Current Inpatient Medications Acetaminophen (Acetaminophen 325 Mg Tab) 650 mg PO Q4H PRN PRN Reason: Headache or Minor Fever Stop: 12/30/20 20:02 Al Hydrox/Mg Hydrox/Simethicone (Aluminum/Magnesium Susp 30 Ml Udc) 30 ml PO Q4H PRN PRN Reason: GI Upset Stop: 12/30/20 20:02 Atorvastatin Calcium (Atorvastatin 10 Mg Tab) 10 mg PO QAM [facility] Stop: 12/31/20 08:59 Last Admin: 12/06/20 08:02 Dose: 10 mg Documented by: Benztropine Mesylate (Benztropine Mesylate 1 Mg Tab) 1 mg PO BID [facility] Stop: 12/30/20 20:59 Last Admin: 12/06/20 08:02 Dose: 1 mg Documented by: Bismuth Subsalicylate (Bismuth Subsalicylate Liqd 236 Ml) 15 ml PO PRN PRN PRN Reason: Loose Stool Stop: 12/30/20 20:02 Clonidine HCl (Clonidine Hcl 0.1 Mg Tab) 0.05 mg PO Q6 PRN PRN Reason: Blood Pressure - High Stop: 01/01/21 13:17 Last Admin: 12/04/20 20:41 Dose: 0.05 mg Documented by: Docusate Sodium (Docusate Sodium 100 Mg Cap) 100 mg PO HS [facility] Stop: 12/30/20 21:59 Last Admin: 12/05/20 20:10 Dose: 100 mg Documented by: Hydroxyzine HCl (Hydroxyzine Hcl 25 Mg Tab) 50 mg PO HSZ PRN PRN Reason: Insomnia Stop: 12/30/20 20:02 Last Admin: 12/06/20 01:06 Dose: 50 mg Documented by: Hydroxyzine HCl (Hydroxyzine Hcl 25 Mg Tab) 25 mg PO Q4H PRN PRN Reason: Anxiety Stop: 12/30/20 20:02 Last Admin: 12/04/20 04:03 Dose: 25 mg Documented by: Lamotrigine (Lamotrigine 25 Mg Tab) 25 mg PO QAM [facility] Stop: 12/31/20 08:59 Last Admin: 12/06/20 08:02 Dose: 25 mg Documented by: Levothyroxine Sodium (Levothyroxine Sodium 25 Mcg Tablet) 25 mcg PO DAILYBB [facility] Stop: 12/31/20 07:59 Last Admin: 12/06/20 08:02 Dose: 25 mcg Documented by: [place] Carbonate ([place] Carbonate 300 Mg Tab) 300 mg PO BID [facility] Stop: 12/30/20 20:59 Last Admin: 12/06/20 08:02 Dose: 300 mg Documented by: Lorazepam (Lorazepam 1 Mg Tab) 1 mg PO Q6 PRN PRN Reason: Anxiety/Agitation Stop: 12/31/20 10:10 Last Admin: 12/03/20 07:02 Dose: 1 mg Documented by: Lorazepam (Lorazepam 1 Mg Tab) 1 mg PO TID [facility] Stop: 01/01/21 13:59 Last Admin: 12/06/20 13:56 Dose: 1 mg Documented by: Magnesium Hydroxide (Magnesium Hydroxide Susp 30 Ml Udc) 30 ml PO DAILY PRN PRN Reason: Constipation Stop: 12/30/20 20:02 Olanzapine (Olanzapine Zydis 5 Mg Orally Dis. Tab) 5 mg PO Q6 PRN PRN Reason: Anxiety/Agitation Stop: 12/31/20 11:59 Last Admin: 12/04/20 04:04 Dose: 5 mg Documented by: Olanzapine (Olanzapine 20 Mg Tablet) 20 mg PO HS [facility] Stop: 01/04/21 21:59 Last Admin: 12/05/20 20:12 Dose: 20 mg Documented by: Perphenazine (Perphenazine 2 Mg Tablet) 2 mg PO BID [facility] Stop: 01/02/21 08:59 Last Admin: 12/06/20 08:03 Dose: 2 mg Documented by: Sodium Chloride (Sodium Chloride 0.65% Na Soln 45 Ml ([place])) 1 - 2 sprays NA PRN PRN PRN Reason: Nasal Dryness/Congestion Stop: 12/30/20 20:02 Vitamin D (Cholecalciferol 1,000 Units 25 Mcg Tab) 2,000 units PO QAM [facility] Stop: 12/31/20 08:59 Last Admin: 12/06/20 08:02 Dose: 2,000 units Documented by: Mental Health & Subst Abuse Tx Psychiatrist Name of Psychiatrist: Bruno Mcleod Psychiatrist's Psychiatric Appointment Comment: [address] [facility], [place] [address] Therapist Name of Therapist: Bruno Sherwood Therapist's Therapy Appointment Comment: [address] [facility], [place] [address] Veneer Repairer Machine Name of Veneer Repairer Machine: . Post Discharge Appointments Primary Care Physician Name Of Family Doctor: [facility] - Dr. Shi Primary Care Provider Appointment Comment: [address] [place] [address] Neurologist Name of Neurologist: Mac Strange - Dr. Arroyo Neurologist's Neurology Appointment Comment: [address] [place] [address], [address], [place] [address] Contact Information Discharge Discharge Address: [address] [address], [place] [address] (1) Psychosis Psychosis type: schizophrenia Schizophrenia type: unspecified Qualified Code(s): F20.9 - Schizophrenia, unspecified
[2020-12-06] MEDS: OLANZapine 20 MG TABLET PO SCH (21:15)
[2020-12-06] MEDS: DOCUSATE SODIUM 100 MG CAP PO SCH (21:15)
[2020-12-07] MEDS: CHOLECALCIFEROL 1,000 UNITS 25 MCG TAB PO SCH (09:35)
[2020-12-07] MEDS: LEVOTHYROXINE SODIUM 25 MCG TABLET PO SCH (09:35)
[2020-12-07] MEDS: LITHIUM CARBONATE 300 MG TAB PO SCH ×2 (09:36→22:15)
[2020-12-07] MEDS: ATORVASTATIN 10 MG TAB PO SCH (09:36)
[2020-12-07] MEDS: BENZTROPINE MESYLATE 1 MG TAB PO SCH ×2 (09:36→22:15)
[2020-12-07] MEDS: PERPHENAZINE 2 MG TABLET PO SCH ×2 (09:37→22:13)
[2020-12-07] MEDS: lamoTRIgine 25 MG TAB PO SCH (09:37)
[2020-12-07] MEDS: LORazepam 1 MG TAB PO SCH ×3 (09:37→22:12)
--- NOTE | 2020-12-07 15:36 | Psychiatric Progress Note ---
Date of Service December 07, 2020 Impression / Recommendations Impression 30 yo female with well established dx of chronic psychosis (schizophrenia vs schizoaffective disorder) presents to ED acutely psychotic, confused, wandering and responding to internal stimuli following a few weeks of med non-compliance. She required a 302 commitment and also a MNPR given level of disorganization. 1patient remains isolative, delusional, paranoid. Is compliant with medications (1) Psychosis: 12/07/2020ontinue current medication regimen. Patient does appear somewhat better although still bizarre and not back to baseline. 12/06/2020ontinue current medications, patient appears to be making slow but incremental progress. 12/05/20--continue Zyprexa shift to [address] Alarcon to assess need for am dose when assumes care. 303 granted. 12/04/20--shift Zyprexa dosing toward higher dose at hs with hopes to improve sleep and minimize daytime sedation. 303 hearing tomorrow. 12/03/20--continue current med plan given some improvement, will need petition for 303. 12/02/20--The patient's med rec is updated. Trilafon and Zyprexa should be BID (will increase Trilafon tomorrow), will add Ativan TID scheduled 1 mg for catatonic features. Risks/benefits briefly reviewed, patient is agreeable to clonidine prn trial for tachy/BP. increase VS to q shift to monitor more closely for withdrawal. Does not appear post ictal, still attempting to confirm seizure hx. 12/01/20--The patient was admitted to the [facility] ([facility] unit) on q15 min checks (behavioral with suicide precautions) for safety. The patient will participate in group, recreational, and milieu therapies when clinically appropriate and will be offered additional individual and family sessions as recovers to aid in discharge planning. Collateral from family. Notification of outpatient psychiatrist. She is unable to fully engage in risks/benefits discussion re: her medications. Will resume home regimen with exception of Zoloft as per discussion in HPI and offer additional prn Zyprexa and Ativan for hallucinations/lability. Inventory Assets Strengths: has outpatient providers, agreed to mother's involvement in care Needs: restart medication, CM, step down programming Risk Factors Assessment Male: No : Yes Do You Have Access To A Gun?: No Mental Health Diagnoses: Yes Substance Use Disorders: No Previous Psychiatric Hospitalization: Yes Protective Factors Assessment : No Responsible for Young Children: No Employed: No (Unknown) Supportive Family: Yes Interval History Identifying Information 30 yo female with history of chronic psychosis and prior [facility] placement, admit 12/01/20 on 302 commitment (expires 1926 on 12/05) for psychosis. on 303 as of 12/05/2020. Chief Complaint "Im waiting for dinner". Review of Systems Sleep Information Total Hours of Sleep: 5.75 Sleep Comments: Pt had difficulty falling asleep but refused medication. She woke up once after falling asleep due to a nightmare. Meal Information Percent Meal Consumed - Breakfast: 25 Percent Meal Consumed - Lunch: 100 Percent Meal Consumed - Dinner: 100 Nutrition Comment: Pt ate 2 bowls of fruit, a bowl of jello and drank a chocolate milk. Subjective Subjective Patient seen chart reviewed and case discussed with treatment team. Patient erik isolated in her room for most of the day. Offers no complaints but states that she is waiting for dinner when asked. Denies side effects of medications. Did not attend any groups today. In good behavioral control but still remains bizarre and isolated. Agreeable to continued treatment at this time. Slept 5-1/2 h, ate most of her meals. I spent 30 minutes with the patient, 50% of which was dedicated to counselling and coordination of care. Physical Exam Psychiatric Orientation: alert Apperance: appropriately dressed, appropriately groomed and + disheveled Eye Contact: + fair eye contact and + poor eye contact Motor Behavior: no abnormal motor movements Affect: + flat affect and + labile affect Mood: + anxious mood Thought Process: + thought blocking, + tangential thought process and + concrete thought process Thought Content: + paranoid, + delusions and + ideas of reference Suicidal Thoughts: denies suicidal thoughts Homicidal Thoughts: denies homicidal thoughts Hallucinations: + auditory hallucinations ("the girl tells me how she got cancer"); no visual hallucinations Cognition: language grossly intact; + attention not intact Estimated Intelligence: + below average estimated intelligence Insight: + severely impaired insight Judgement: + severely impaired judgement Vital Signs (Past 24 Hours) Last Vital Signs Temp 36.1 C L 12/07/20 06:47 Pulse 102 H 12/07/20 14:00 Resp 16 12/07/20 06:47 BP 119/84 12/07/20 14:00 Pulse Ox 100 12/05/20 06:00 Results & Data ([facility]) Current Inpatient Medications Current Inpatient Medications: Current Inpatient Medications Acetaminophen (Acetaminophen 325 Mg Tab) 650 mg PO Q4H PRN PRN Reason: Headache or Minor Fever Stop: 12/30/20 20:02 Al Hydrox/Mg Hydrox/Simethicone (Aluminum/Magnesium Susp 30 Ml Udc) 30 ml PO Q4H PRN PRN Reason: GI Upset Stop: 12/30/20 20:02 Atorvastatin Calcium (Atorvastatin 10 Mg Tab) 10 mg PO QAM [facility] Stop: 12/31/20 08:59 Last Admin: 12/07/20 09:36 Dose: 10 mg Documented by: Benztropine Mesylate (Benztropine Mesylate 1 Mg Tab) 1 mg PO BID [facility] Stop: 12/30/20 20:59 Last Admin: 12/07/20 09:36 Dose: 1 mg Documented by: Bismuth Subsalicylate (Bismuth Subsalicylate Liqd 236 Ml) 15 ml PO PRN PRN PRN Reason: Loose Stool Stop: 12/30/20 20:02 Clonidine HCl (Clonidine Hcl 0.1 Mg Tab) 0.05 mg PO Q6 PRN PRN Reason: Blood Pressure - High Stop: 01/01/21 13:17 Last Admin: 12/04/20 20:41 Dose: 0.05 mg Documented by: Docusate Sodium (Docusate Sodium 100 Mg Cap) 100 mg PO HS [facility] Stop: 12/30/20 21:59 Last Admin: 12/06/20 21:15 Dose: 100 mg Documented by: Hydroxyzine HCl (Hydroxyzine Hcl 25 Mg Tab) 50 mg PO HSZ PRN PRN Reason: Insomnia Stop: 12/30/20 20:02 Last Admin: 12/06/20 01:06 Dose: 50 mg Documented by: Hydroxyzine HCl (Hydroxyzine Hcl 25 Mg Tab) 25 mg PO Q4H PRN PRN Reason: Anxiety Stop: 12/30/20 20:02 Last Admin: 12/04/20 04:03 Dose: 25 mg Documented by: Lamotrigine (Lamotrigine 25 Mg Tab) 25 mg PO QAM [facility] Stop: 12/31/20 08:59 Last Admin: 12/07/20 09:37 Dose: 25 mg Documented by: Levothyroxine Sodium (Levothyroxine Sodium 25 Mcg Tablet) 25 mcg PO DAILYBB [facility] Stop: 12/31/20 07:59 Last Admin: 12/07/20 09:35 Dose: 25 mcg Documented by: [place] Carbonate ([place] Carbonate 300 Mg Tab) 300 mg PO BID [facility] Stop: 12/30/20 20:59 Last Admin: 12/07/20 09:36 Dose: 300 mg Documented by: Lorazepam (Lorazepam 1 Mg Tab) 1 mg PO Q6 PRN PRN Reason: Anxiety/Agitation Stop: 12/31/20 10:10 Last Admin: 12/03/20 07:02 Dose: 1 mg Documented by: Lorazepam (Lorazepam 1 Mg Tab) 1 mg PO TID [facility] Stop: 01/01/21 13:59 Last Admin: 12/07/20 13:47 Dose: 1 mg Documented by: Magnesium Hydroxide (Magnesium Hydroxide Susp 30 Ml Udc) 30 ml PO DAILY PRN PRN Reason: Constipation Stop: 12/30/20 20:02 Olanzapine (Olanzapine Zydis 5 Mg Orally Dis. Tab) 5 mg PO Q6 PRN PRN Reason: Anxiety/Agitation Stop: 12/31/20 11:59 Last Admin: 12/04/20 04:04 Dose: 5 mg Documented by: Olanzapine (Olanzapine 20 Mg Tablet) 20 mg PO HS [facility] Stop: 01/04/21 21:59 Last Admin: 12/06/20 21:15 Dose: 20 mg Documented by: Perphenazine (Perphenazine 2 Mg Tablet) 2 mg PO BID [facility] Stop: 01/02/21 08:59 Last Admin: 12/07/20 09:37 Dose: 2 mg Documented by: Sodium Chloride (Sodium Chloride 0.65% Na Soln 45 Ml ([place])) 1 - 2 sprays NA PRN PRN PRN Reason: Nasal Dryness/Congestion Stop: 12/30/20 20:02 Vitamin D (Cholecalciferol 1,000 Units 25 Mcg Tab) 2,000 units PO QAM [facility] Stop: 12/31/20 08:59 Last Admin: 12/07/20 09:35 Dose: 2,000 units Documented by: Mental Health & Subst Abuse Tx Psychiatrist Name of Psychiatrist: Bruno Mcleod Psychiatrist's Psychiatric Appointment Comment: [address] [facility] [address], [place] [address] Therapist Name of Therapist: Bruno Sherwood Therapist's Therapy Appointment Comment: [address] [facility] [address], [place] [address] Bread Panner Name of Bread Panner: . Post Discharge Appointments Primary Care Physician Name Of Family Doctor: [facility] - Dr. Shi Primary Care Provider Appointment Comment: [address] [place] [address] Neurologist Name of Neurologist: Mac Arroyo Neurologist's Neurology Appointment Comment: [address] [place] [address], [address], [place] [address] Contact Information Discharge Discharge Address: [address] [address], [place] [address] (1) Psychosis Psychosis type: schizophrenia Schizophrenia type: unspecified Qualified Code(s): F20.9 - Schizophrenia, unspecified
[2020-12-07] MEDS: OLANZapine 20 MG TABLET PO SCH (22:13)
[2020-12-07] MEDS: DOCUSATE SODIUM 100 MG CAP PO SCH (22:14)
[2020-12-08] MEDS: LEVOTHYROXINE SODIUM 25 MCG TABLET PO SCH (08:20)
[2020-12-08] MEDS: BENZTROPINE MESYLATE 1 MG TAB PO SCH ×2 (08:20→20:43)
[2020-12-08] MEDS: ATORVASTATIN 10 MG TAB PO SCH (08:20)
[2020-12-08] MEDS: lamoTRIgine 25 MG TAB PO SCH (08:21)
[2020-12-08] MEDS: LITHIUM CARBONATE 300 MG TAB PO SCH ×2 (08:21→20:43)
[2020-12-08] MEDS: CHOLECALCIFEROL 1,000 UNITS 25 MCG TAB PO SCH (08:21)
[2020-12-08] MEDS: PERPHENAZINE 2 MG TABLET PO SCH ×2 (08:21→20:44)
[2020-12-08] MEDS: LORazepam 1 MG TAB PO SCH ×3 (08:22→20:43)
--- NOTE | 2020-12-08 14:07 | Psychiatric Progress Note ---
Date of Service December 08, 2020 Impression / Recommendations Impression 30 yo female with well established dx of chronic psychosis (schizophrenia vs schizoaffective disorder) presents to ED acutely psychotic, confused, wandering and responding to internal stimuli following a few weeks of med non-compliance. She required a 302 commitment and also a MNPR given level of disorganization. 12/07/2020atient remains isolative, delusional, paranoid. Is compliant with medications (1) Psychosis: 12/08/2020atient continues to be compliant with medication, making slow progress. 12/07/2020ontinue current medication regimen. Patient does appear somewhat better although still bizarre and not back to baseline. 12/06/2020ontinue current medications, patient appears to be making slow but incremental progress. 12/05/20--continue Zyprexa shift to [address] Alarcon to assess need for am dose when assumes care. 303 granted. 12/04/20--shift Zyprexa dosing toward higher dose at hs with hopes to improve sleep and minimize daytime sedation. 303 hearing tomorrow. 12/03/20--continue current med plan given some improvement, will need petition for 303. 12/02/20--The patient's med rec is updated. Trilafon and Zyprexa should be BID (will increase Trilafon tomorrow), will add Ativan TID scheduled 1 mg for catatonic features. Risks/benefits briefly reviewed, patient is agreeable to clonidine prn trial for tachy/BP. increase VS to q shift to monitor more closely for withdrawal. Does not appear post ictal, still attempting to confirm seizure hx. 12/01/20--The patient was admitted to the [facility] ([facility] mental health unit) on q15 min checks (behavioral with suicide precautions) for safety. The patient will participate in group, recreational, and milieu therapies when clinically appropriate and will be offered additional individual and family sessions as recovers to aid in discharge planning. Collateral from family. Notification of outpatient psychiatrist. She is unable to fully engage in risks/benefits discussion re: her medications. Will resume home regimen with exception of Zoloft as per discussion in HPI and offer additional prn Zyprexa and Ativan for hallucinations/lability. Inventory Assets Strengths: has outpatient providers, agreed to mother's involvement in care Needs: restart medication, CM, step down programming Risk Factors Assessment Male: No : Yes Do You Have Access To A Gun?: No Mental Health Diagnoses: Yes Substance Use Disorders: No Previous Psychiatric Hospitalization: Yes Protective Factors Assessment : No Responsible for Young Children: No Employed: No (Unknown) Supportive Family: Yes Interval History Identifying Information 30 yo female with history of chronic psychosis and [facility], admit 12/01/20 on 302 commitment (expires 1926 on 12/05) for psychosis. on 303 as of 12/05/2020. Chief Complaint "You are welcome". Review of Systems Sleep Information Total Hours of Sleep: 7.5 Sleep Comments: Pt had difficulty falling asleep but refused medication. She woke up once after falling asleep due to a nightmare. Meal Information Percent Meal Consumed - Breakfast: 100 Percent Meal Consumed - Lunch: 100 Percent Meal Consumed - Dinner: 100 Nutrition Comment: pt. typically eats only fruit with juice and hot herbal tea Subjective Subjective Patient seen chart reviewed case discussed with treatment team. Patient remains bizarre although is in good behavioral control. She is seen eating and sleeping well. She is still unable to attend groups or to function appropriately with peers, but has been cooperative without any episodes of agitation. She is compliant with medications and is not reporting any adverse effects. I spent 30 minutes with the patient, 50% of which was dedicated to counselling and coordination of care. Physical Exam Psychiatric Orientation: alert Apperance: appropriately dressed, appropriately groomed and + disheveled Eye Contact: + fair eye contact and + poor eye contact Motor Behavior: no abnormal motor movements Affect: + flat affect and + labile affect Mood: + anxious mood Thought Process: + thought blocking, + tangential thought process and + concrete thought process Thought Content: + paranoid, + delusions and + ideas of reference Suicidal Thoughts: denies suicidal thoughts Homicidal Thoughts: denies homicidal thoughts Hallucinations: + auditory hallucinations ("the girl tells me how she got cancer"); no visual hallucinations Cognition: language grossly intact; + attention not intact Estimated Intelligence: + below average estimated intelligence Insight: + severely impaired insight Judgement: + severely impaired judgement Vital Signs (Past 24 Hours) Last Vital Signs Temp 36.8 C 12/08/20 06:54 Pulse 123 H 12/08/20 06:54 Resp 18 12/08/20 06:54 BP 120/83 12/08/20 06:54 Pulse Ox 100 12/05/20 06:00 Results & Data ([facility]) Current Inpatient Medications Current Inpatient Medications: Current Inpatient Medications Acetaminophen (Acetaminophen 325 Mg Tab) 650 mg PO Q4H PRN PRN Reason: Headache or Minor Fever Stop: 12/30/20 20:02 Al Hydrox/Mg Hydrox/Simethicone (Aluminum/Magnesium Susp 30 Ml Udc) 30 ml PO Q4H PRN PRN Reason: GI Upset Stop: 12/30/20 20:02 Atorvastatin Calcium (Atorvastatin 10 Mg Tab) 10 mg PO QAM [facility] Stop: 12/31/20 08:59 Last Admin: 12/08/20 08:20 Dose: 10 mg Documented by: Benztropine Mesylate (Benztropine Mesylate 1 Mg Tab) 1 mg PO BID [facility] Stop: 12/30/20 20:59 Last Admin: 12/08/20 08:20 Dose: 1 mg Documented by: Bismuth Subsalicylate (Bismuth Subsalicylate Liqd 236 Ml) 15 ml PO PRN PRN PRN Reason: Loose Stool Stop: 12/30/20 20:02 Clonidine HCl (Clonidine Hcl 0.1 Mg Tab) 0.05 mg PO Q6 PRN PRN Reason: Blood Pressure - High Stop: 01/01/21 13:17 Last Admin: 12/04/20 20:41 Dose: 0.05 mg Documented by: Docusate Sodium (Docusate Sodium 100 Mg Cap) 100 mg PO HS [facility] Stop: 12/30/20 21:59 Last Admin: 12/07/20 22:14 Dose: 100 mg Documented by: Hydroxyzine HCl (Hydroxyzine Hcl 25 Mg Tab) 50 mg PO HSZ PRN PRN Reason: Insomnia Stop: 12/30/20 20:02 Last Admin: 12/06/20 01:06 Dose: 50 mg Documented by: Hydroxyzine HCl (Hydroxyzine Hcl 25 Mg Tab) 25 mg PO Q4H PRN PRN Reason: Anxiety Stop: 12/30/20 20:02 Last Admin: 12/04/20 04:03 Dose: 25 mg Documented by: Lamotrigine (Lamotrigine 25 Mg Tab) 25 mg PO QAM [facility] Stop: 12/31/20 08:59 Last Admin: 12/08/20 08:21 Dose: 25 mg Documented by: Levothyroxine Sodium (Levothyroxine Sodium 25 Mcg Tablet) 25 mcg PO DAILYBB [facility] Stop: 12/31/20 07:59 Last Admin: 12/08/20 08:20 Dose: 25 mcg Documented by: [place] Carbonate ([place] Carbonate 300 Mg Tab) 300 mg PO BID AGAP[facility]O Stop: 12/30/20 20:59 Last Admin: 12/08/20 08:21 Dose: 300 mg Documented by: Lorazepam (Lorazepam 1 Mg Tab) 1 mg PO Q6 PRN PRN Reason: Anxiety/Agitation Stop: 12/31/20 10:10 Last Admin: 12/03/20 07:02 Dose: 1 mg Documented by: Lorazepam (Lorazepam 1 Mg Tab) 1 mg PO TID [facility] Stop: 01/01/21 13:59 Last Admin: 12/08/20 13:36 Dose: 1 mg Documented by: Magnesium Hydroxide (Magnesium Hydroxide Susp 30 Ml Udc) 30 ml PO DAILY PRN PRN Reason: Constipation Stop: 12/30/20 20:02 Olanzapine (Olanzapine Zydis 5 Mg Orally Dis. Tab) 5 mg PO Q6 PRN PRN Reason: Anxiety/Agitation Stop: 12/31/20 11:59 Last Admin: 12/04/20 04:04 Dose: 5 mg Documented by: Olanzapine (Olanzapine 20 Mg Tablet) 20 mg PO HS [facility] Stop: 01/04/21 21:59 Last Admin: 12/07/20 22:13 Dose: 20 mg Documented by: Perphenazine (Perphenazine 2 Mg Tablet) 2 mg PO BID [place] Stop: 01/02/21 08:59 Last Admin: 12/08/20 08:21 Dose: 2 mg Documented by: Sodium Chloride (Sodium Chloride 0.65% Na Soln 45 Ml ([place])) 1 - 2 sprays NA PRN PRN PRN Reason: Nasal Dryness/Congestion Stop: 12/30/20 20:02 Vitamin D (Cholecalciferol 1,000 Units 25 Mcg Tab) 2,000 units PO QAM [facility] Stop: 12/31/20 08:59 Last Admin: 12/08/20 08:21 Dose: 2,000 units Documented by: Mental Health & Subst Abuse Tx Psychiatrist Name of Psychiatrist: Bruno Mcleod Psychiatrist's Psychiatric Appointment Comment: [address] [facility], [place] [address] Therapist Name of Therapist: Bruno Sherwood Therapist's Therapy Appointment Comment: [address] [facility], [place] [address] Automotive Quality Engineer Name of Automotive Quality Engineer: . Post Discharge Appointments Primary Care Physician Name Of Family Doctor: [facility] - Dr. Shi Primary Care Provider Appointment Comment: [address] [place] [address] Neurologist Name of Neurologist: [facility] - Dr. Arroyo Neurologist's Neurology Appointment Comment: [address] [place] [address], [address], [place] [address] Contact Information Discharge Discharge Address: [address] [address] (1) Psychosis Psychosis type: schizophrenia Schizophrenia type: unspecified Qualified Code(s): F20.9 - Schizophrenia, unspecified
[2020-12-08] MEDS: OLANZapine 20 MG TABLET PO SCH (20:44)
[2020-12-08] MEDS: DOCUSATE SODIUM 100 MG CAP PO SCH (20:45)
[2020-12-09] MEDS: CHOLECALCIFEROL 1,000 UNITS 25 MCG TAB PO SCH (08:35)
[2020-12-09] MEDS: lamoTRIgine 25 MG TAB PO SCH (08:35)
[2020-12-09] MEDS: LEVOTHYROXINE SODIUM 25 MCG TABLET PO SCH (08:35)
[2020-12-09] MEDS: ATORVASTATIN 10 MG TAB PO SCH (08:35)
[2020-12-09] MEDS: LITHIUM CARBONATE 300 MG TAB PO SCH ×2 (08:35→20:48)
[2020-12-09] MEDS: BENZTROPINE MESYLATE 1 MG TAB PO SCH ×2 (08:35→20:48)
[2020-12-09] MEDS: LORazepam 1 MG TAB PO SCH ×3 (08:36→20:48)
[2020-12-09] MEDS: PERPHENAZINE 2 MG TABLET PO SCH ×2 (08:36→20:48)
--- NOTE | 2020-12-09 10:21 | Psychiatric Progress Note ---
Date of Service December 09, 2020 Impression / Recommendations Impression 30 yo female with well established dx of chronic psychosis (schizophrenia vs schizoaffective disorder) presents to ED acutely psychotic, confused, wandering and responding to internal stimuli following a few weeks of med non-compliance. She required a 302 commitment and also a MNPR given level of disorganization. 12/07/2020atient remains isolative, delusional, paranoid. Is compliant with medications (1) Psychosis: 12/09/2020atient making incremental progress. Less isolative today. Still remains bizarre at times, although compliant with medications. 12/08/2020atient continues to be compliant with medication, making slow progress. 12/07/2020ontinue current medication regimen. Patient does appear somewhat better although still bizarre and not back to baseline. 12/06/2020ontinue current medications, patient appears to be making slow but incremental progress. 12/05/20--continue Zyprexa shift to [address] Alarcon to assess need for am dose when assumes care. 303 granted. 12/04/20--shift Zyprexa dosing toward higher dose at hs with hopes to improve sleep and minimize daytime sedation. 303 hearing tomorrow. 12/03/20--continue current med plan given some improvement, will need petition for 303. 12/02/20--The patient's med rec is updated. Trilafon and Zyprexa should be BID (will increase Trilafon tomorrow), will add Ativan TID scheduled 1 mg for catatonic features. Risks/benefits briefly reviewed, patient is agreeable to clonidine prn trial for tachy/BP. increase VS to q shift to monitor more closely for withdrawal. Does not appear post ictal, still attempting to confirm seizure hx. 12/01/20--The patient was admitted to [facility] ([facility] mental health unit) on q15 min checks (behavioral with suicide precautions) for safety. The patient will participate in group, recreational, and milieu therapies when clinically appropriate and will be offered additional individual and family sessions as recovers to aid in discharge planning. Collateral from family. Notification of outpatient psychiatrist. She is unable to fully engage in risks/benefits discussion re: her medications. Will resume home regimen with exception of Zoloft as per discussion in HPI and offer additional prn Zyprexa and Ativan for hallucinations/lability. Inventory Assets Strengths: has outpatient providers, agreed to mother's involvement in care Needs: restart medication, CM, step down programming Risk Factors Assessment Male: No : Yes Do You Have Access To A Gun?: No Mental Health Diagnoses: Yes Substance Use Disorders: No Previous Psychiatric Hospitalization: Yes Protective Factors Assessment : No Responsible for Young Children: No Employed: No (Unknown) Supportive Family: Yes Interval History Identifying Information 30 yo female with history of chronic psychosis and prior [facility] placement, admit 12/01/20 on 302 commitment (expires 1926 on 12/05) for psychosis. on 303 as of 12/05/2020. Chief Complaint "Is it okay if I stay here in the art room". Review of Systems Sleep Information Total Hours of Sleep: 6.25 Sleep Comments: pt on q-15 minute checks. pt drank apple juice before returning back to bed. Meal Information Percent Meal Consumed - Breakfast: 100 Percent Meal Consumed - Lunch: 100 Percent Meal Consumed - Dinner: 100 Nutrition Comment: pt. typically eats only fruit with juice and hot herbal tea Subjective Subjective Patient was seen & assessed and interval progress reviewed with treatment team nursing and social work. Patient is eating and sleeping well. Today patient came out of her room and was attending groups. This is an improvement from before as she was previously just isolating. Patient was encouraged to continue to attend groups as she sees fit. Mood remains labile with some bizarre statements, although patient is improving. No side effects of medication reported or observed. I spent 30 minutes with the patient, 50% of which was dedicated to counselling and coordination of care. Physical Exam Psychiatric Orientation: alert Apperance: appropriately dressed, appropriately groomed and + disheveled Eye Contact: + fair eye contact and + poor eye contact Motor Behavior: no abnormal motor movements Affect: + flat affect and + labile affect Mood: + anxious mood Thought Process: + thought blocking, + tangential thought process and + concrete thought process Thought Content: + paranoid, + delusions and + ideas of reference Suicidal Thoughts: denies suicidal thoughts Homicidal Thoughts: denies homicidal thoughts Hallucinations: + auditory hallucinations ("the girl tells me how she got cancer"); no visual hallucinations Cognition: language grossly intact; + attention not intact Estimated Intelligence: + below average estimated intelligence Insight: + severely impaired insight Judgement: + severely impaired judgement Vital Signs (Past 24 Hours) Last Vital Signs Temp 36.8 C 12/09/20 06:38 Pulse 86 12/09/20 06:39 Resp 16 12/09/20 06:38 BP 130/84 12/09/20 06:39 Pulse Ox 100 12/05/20 06:00 Results & Data ([facility]) Current Inpatient Medications Current Inpatient Medications: Current Inpatient Medications Acetaminophen (Acetaminophen 325 Mg Tab) 650 mg PO Q4H PRN PRN Reason: Headache or Minor Fever Stop: 12/30/20 20:02 Al Hydrox/Mg Hydrox/Simethicone (Aluminum/Magnesium Susp 30 Ml Udc) 30 ml PO Q4H PRN PRN Reason: GI Upset Stop: 12/30/20 20:02 Atorvastatin Calcium (Atorvastatin 10 Mg Tab) 10 mg PO QAM [facility] Stop: 12/31/20 08:59 Last Admin: 12/09/20 08:35 Dose: 10 mg Documented by: Benztropine Mesylate (Benztropine Mesylate 1 Mg Tab) 1 mg PO BID [facility] Stop: 12/30/20 20:59 Last Admin: 12/09/20 08:35 Dose: 1 mg Documented by: Bismuth Subsalicylate (Bismuth Subsalicylate Liqd 236 Ml) 15 ml PO PRN PRN PRN Reason: Loose Stool Stop: 12/30/20 20:02 Clonidine HCl (Clonidine Hcl 0.1 Mg Tab) 0.05 mg PO Q6 PRN PRN Reason: Blood Pressure - High Stop: 01/01/21 13:17 Last Admin: 12/04/20 20:41 Dose: 0.05 mg Documented by: Docusate Sodium (Docusate Sodium 100 Mg Cap) 100 mg PO HS [facility] Stop: 12/30/20 21:59 Last Admin: 12/08/20 20:45 Dose: 100 mg Documented by: Hydroxyzine HCl (Hydroxyzine Hcl 25 Mg Tab) 50 mg PO HSZ PRN PRN Reason: Insomnia Stop: 12/30/20 20:02 Last Admin: 12/06/20 01:06 Dose: 50 mg Documented by: Hydroxyzine HCl (Hydroxyzine Hcl 25 Mg Tab) 25 mg PO Q4H PRN PRN Reason: Anxiety Stop: 12/30/20 20:02 Last Admin: 12/04/20 04:03 Dose: 25 mg Documented by: Lamotrigine (Lamotrigine 25 Mg Tab) 25 mg PO QAM [facility] Stop: 12/31/20 08:59 Last Admin: 12/09/20 08:35 Dose: 25 mg Documented by: Levothyroxine Sodium (Levothyroxine Sodium 25 Mcg Tablet) 25 mcg PO DAILYBB [facility] Stop: 12/31/20 07:59 Last Admin: 12/09/20 08:35 Dose: 25 mcg Documented by: [place] Carbonate ([place] Carbonate 300 Mg Tab) 300 mg PO BID [facility] Stop: 12/30/20 20:59 Last Admin: 12/09/20 08:35 Dose: 300 mg Documented by: Lorazepam (Lorazepam 1 Mg Tab) 1 mg PO Q6 PRN PRN Reason: Anxiety/Agitation Stop: 12/31/20 10:10 Last Admin: 12/03/20 07:02 Dose: 1 mg Documented by: Lorazepam (Lorazepam 1 Mg Tab) 1 mg PO TID [facility] Stop: 01/01/21 13:59 Last Admin: 12/09/20 08:36 Dose: 1 mg Documented by: Magnesium Hydroxide (Magnesium Hydroxide Susp 30 Ml Udc) 30 ml PO DAILY PRN PRN Reason: Constipation Stop: 12/30/20 20:02 Olanzapine (Olanzapine Zydis 5 Mg Orally Dis. Tab) 5 mg PO Q6 PRN PRN Reason: Anxiety/Agitation Stop: 12/31/20 11:59 Last Admin: 12/04/20 04:04 Dose: 5 mg Documented by: Olanzapine (Olanzapine 20 Mg Tablet) 20 mg PO HS [facility] Stop: 01/04/21 21:59 Last Admin: 12/08/20 20:44 Dose: 20 mg Documented by: Perphenazine (Perphenazine 2 Mg Tablet) 2 mg PO BID [facility] Stop: 01/02/21 08:59 Last Admin: 12/09/20 08:36 Dose: 2 mg Documented by: Sodium Chloride (Sodium Chloride 0.65% Na Soln 45 Ml ([place])) 1 - 2 sprays NA PRN PRN PRN Reason: Nasal Dryness/Congestion Stop: 12/30/20 20:02 Vitamin D (Cholecalciferol 1,000 Units 25 Mcg Tab) 2,000 units PO QAM [facility] Stop: 12/31/20 08:59 Last Admin: 12/09/20 08:35 Dose: 2,000 units Documented by: Mental Health & Subst Abuse Tx Psychiatrist Name of Psychiatrist: Bruno Mcleod Psychiatrist's Psychiatric Appointment Comment: [address], [place] [address] Therapist Name of Therapist: Bruno Sherwood Therapist's Therapy Appointment Comment: [address] [facility] [place], [place] [address] Action Installer Name of Action Installer: . Post Discharge Appointments Primary Care Physician Name Of Family Doctor: [facility] - Dr. Shi Primary Care Provider Appointment Comment: [address] [facility] [place] [address] Neurologist Name of Neurologist: Mac Arroyo Neurologist's Neurology Appointment Comment: [address] [place] [address], [address], [place] [address] Contact Information Discharge Discharge Address: [address] [address], [place] [address] (1) Psychosis Psychosis type: schizophrenia Schizophrenia type: unspecified Qualified Code(s): F20.9 - Schizophrenia, unspecified
[2020-12-09] MEDS: OLANZapine 20 MG TABLET PO SCH (20:47)
[2020-12-09] MEDS: DOCUSATE SODIUM 100 MG CAP PO SCH (20:48)
[2020-12-10] MEDS: CHOLECALCIFEROL 1,000 UNITS 25 MCG TAB PO SCH (09:01)
[2020-12-10] MEDS: LITHIUM CARBONATE 300 MG TAB PO SCH ×2 (09:01→20:38)
[2020-12-10] MEDS: BENZTROPINE MESYLATE 1 MG TAB PO SCH ×2 (09:01→20:38)
[2020-12-10] MEDS: PERPHENAZINE 2 MG TABLET PO SCH ×2 (09:01→20:39)
[2020-12-10] MEDS: lamoTRIgine 25 MG TAB PO SCH (09:01)
[2020-12-10] MEDS: LEVOTHYROXINE SODIUM 25 MCG TABLET PO SCH (09:01)
[2020-12-10] MEDS: LORazepam 1 MG TAB PO SCH ×3 (09:01→20:39)
[2020-12-10] MEDS: DOCUSATE SODIUM 100 MG CAP PO SCH ×2 (09:01→20:38)
[2020-12-10] MEDS: ATORVASTATIN 10 MG TAB PO SCH (09:01)
--- NOTE | 2020-12-10 12:03 | Psychiatric Progress Note ---
Date of Service December 10, 2020 Impression / Recommendations Impression 30 yo female with well established dx of chronic psychosis (schizophrenia vs schizoaffective disorder) presents to ED acutely psychotic, confused, wandering and responding to internal stimuli following a few weeks of med non-compliance. She required a 302 commitment and also a MNPR given level of disorganization. 12/07/2020atient remains isolative, delusional, paranoid. Is compliant with medications (1) Psychosis: 12/10/2020erphenazine dose will be increased from 2 mg twice daily to 3 mg twice daily 12/09/2020atient making incremental progress. Less isolative today. Still remains bizarre at times, although compliant with medications. 12/08/2020atient continues to be compliant with medication, making slow progress. 12/07/2020ontinue current medication regimen. Patient does appear somewhat better although still bizarre and not back to baseline. 12/06/2020ontinue current medications, patient appears to be making slow but incremental progress. 12/05/20--continue Zyprexa shift to [address] Alarcon to assess need for am dose when assumes care. 303 granted. 12/04/20--shift Zyprexa dosing toward higher dose at hs with hopes to improve sl eep and minimize daytime sedation. 303 hearing tomorrow. 12/03/20--continue current med plan given some improvement, will need petition for 303. 12/02/20--The patient's med rec is updated. Trilafon and Zyprexa should be BID (will increase Trilafon tomorrow), will add Ativan TID scheduled 1 mg for catatonic features. Risks/benefits briefly reviewed, patient is agreeable to clonidine prn trial for tachy/BP. increase VS to q shift to monitor more closely for withdrawal. Does not appear post ictal, still attempting to confirm seizure hx. 12/01/20--The patient was [facility] on q15 min checks (behavioral with suicide precautions) for safety. The patient will participate in group, recreational, and milieu therapies when clinically appropriate and will be offered additional individual and family sessions as recovers to aid in discharge planning. Collateral from family. Notification of outpatient psychiatrist. She is unable to fully engage in risks/benefits discussion re: her medications. Will resume home regimen with exception of Zoloft as per discussion in HPI and offer additional prn Zyprexa and Ativan for hallucinations/lability. Inventory Assets Strengths: has outpatient providers, agreed to mother's involvement in care Needs: restart medication, CM, step down programming Risk Factors Assessment Male: No : Yes Do You Have Access To A Gun?: No Mental Health Diagnoses: Yes Substance Use Disorders: No Previous Psychiatric Hospitalization: Yes Protective Factors Assessment : No Responsible for Young Children: No Employed: No (Unknown) Supportive Family: Yes Interval History Identifying Information 30 yo female with history of chronic psychosis and prior [facility] hospital placement, admit 12/01/20 on 302 commitment (expires 1926 on 12/05) for psychosis. on 303 as of 12/05/2020. Chief Complaint "Im cleaning the bathroom, i don't want to talk about it". Review of Systems Sleep Information Total Hours of Sleep: 3.75 Sleep Comments: pt on q-15 minute checks. pt drank apple juice before returning back to bed. Meal Information Percent Meal Consumed - Breakfast: 80 Percent Meal Consumed - Lunch: 100 Percent Meal Consumed - Dinner: 100 Nutrition Comment: pt. typically eats only fruit with juice and hot herbal tea Subjective Subjective Patient was seen & assessed and interval progress reviewed with treatment team nursing and social work Patient was seen in her room, where she continues to spend most of her time. She does attend occasional groups and is calm when interacting with peers. Today she was observed crying but when asked what was wrong she refused to speak about it. She did make some delusional statements and continues to be paranoid and psychotic. Agreeable to increase dosage of medication. Eating okay, sleep was poor last night. I spent 30 minutes with the patient, 50% of which was dedicated to counselling and coordination of care. Physical Exam Psychiatric Orientation: alert Apperance: appropriately dressed, appropriately groomed and + disheveled Eye Contact: + fair eye contact and + poor eye contact Motor Behavior: no abnormal motor movements Affect: + flat affect and + labile affect Mood: + anxious mood Thought Process: + thought blocking, + tangential thought process and + concrete thought process Thought Content: + paranoid, + delusions and + ideas of reference Suicidal Thoughts: denies suicidal thoughts Homicidal Thoughts: denies homicidal thoughts Hallucinations: + auditory hallucinations ("the girl tells me how she got cancer"); no visual hallucinations Cognition: language grossly intact; + attention not intact Estimated Intelligence: + below average estimated intelligence Insight: + severely impaired insight Judgement: + severely impaired judgement Vital Signs (Past 24 Hours) Last Vital Signs Temp 36.7 C 12/10/20 06:51 Pulse 98 H 12/10/20 06:51 Resp 16 12/10/20 06:51 BP 98/80 L 12/10/20 06:51 Pulse Ox 100 12/05/20 06:00 Results & Data ([facility]) Current Inpatient Medications Current Inpatient Medications: Current Inpatient Medications Acetaminophen (Acetaminophen 325 Mg Tab) 650 mg PO Q4H PRN PRN Reason: Headache or Minor Fever Stop: 12/30/20 20:02 Al Hydrox/Mg Hydrox/Simethicone (Aluminum/Magnesium Susp 30 Ml Udc) 30 ml PO Q4H PRN PRN Reason: GI Upset Stop: 12/30/20 20:02 Atorvastatin Calcium (Atorvastatin 10 Mg Tab) 10 mg PO QAM [facility] Stop: 12/31/20 08:59 Last Admin: 12/10/20 09:01 Dose: 10 mg Documented by: Benztropine Mesylate (Benztropine Mesylate 1 Mg Tab) 1 mg PO BID [facility] Stop: 12/30/20 20:59 Last Admin: 12/10/20 09:01 Dose: 1 mg Documented by: Bismuth Subsalicylate (Bismuth Subsalicylate Liqd 236 Ml) 15 ml PO PRN PRN PRN Reason: Loose Stool Stop: 12/30/20 20:02 Clonidine HCl (Clonidine Hcl 0.1 Mg Tab) 0.05 mg PO Q6 PRN PRN Reason: Blood Pressure - High Stop: 01/01/21 13:17 Last Admin: 12/04/20 20:41 Dose: 0.05 mg Documented by: Docusate Sodium (Docusate Sodium 100 Mg Cap) 100 mg PO BID [facility] Stop: 01/08/21 20:59 Last Admin: 12/10/20 09:01 Dose: 100 mg Documented by: Hydroxyzine HCl (Hydroxyzine Hcl 25 Mg Tab) 50 mg PO HSZ PRN PRN Reason: Insomnia Stop: 12/30/20 20:02 Last Admin: 12/06/20 01:06 Dose: 50 mg Documented by: Hydroxyzine HCl (Hydroxyzine Hcl 25 Mg Tab) 25 mg PO Q4H PRN PRN Reason: Anxiety Stop: 12/30/20 20:02 Last Admin: 12/04/20 04:03 Dose: 25 mg Documented by: Lamotrigine (Lamotrigine 25 Mg Tab) 25 mg PO QAM [facility] Stop: 12/31/20 08:59 Last Admin: 12/10/20 09:01 Dose: 25 mg Documented by: Levothyroxine Sodium (Levothyroxine Sodium 25 Mcg Tablet) 25 mcg PO DAILYBB [facility] Stop: 12/31/20 07:59 Last Admin: 12/10/20 09:01 Dose: 25 mcg Documented by: [place] Carbonate ([place] Carbonate 300 Mg Tab) 300 mg PO BID [facility] Stop: 12/30/20 20:59 Last Admin: 12/10/20 09:01 Dose: 300 mg Documented by: Lorazepam (Lorazepam 1 Mg Tab) 1 mg PO Q6 PRN PRN Reason: Anxiety/Agitation Stop: 12/31/20 10:10 Last Admin: 12/03/20 07:02 Dose: 1 mg Documented by: Lorazepam (Lorazepam 1 Mg Tab) 1 mg PO TID [facility] Stop: 01/01/21 13:59 Last Admin: 12/10/20 09:01 Dose: 1 mg Documented by: Magnesium Hydroxide (Magnesium Hydroxide Susp 30 Ml Udc) 30 ml PO DAILY PRN PRN Reason: Constipation Stop: 12/30/20 20:02 Olanzapine (Olanzapine Zydis 5 Mg Orally Dis. Tab) 5 mg PO Q6 PRN PRN Reason: Anxiety/Agitation Stop: 12/31/20 11:59 Last Admin: 12/04/20 04:04 Dose: 5 mg Documented by: Olanzapine (Olanzapine 20 Mg Tablet) 20 mg PO HS [facility] Stop: 01/04/21 21:59 Last Admin: 12/09/20 20:47 Dose: 20 mg Documented by: Perphenazine (Perphenazine 2 Mg Tablet) 3 mg PO BID [facility] Stop: 01/09/21 20:59 Sodium Chloride (Sodium Chloride 0.65% Na Soln 45 Ml ([place])) 1 - 2 sprays NA PRN PRN PRN Reason: Nasal Dryness/Congestion Stop: 09/28/21 20:02 Vitamin D (Cholecalciferol 1,000 Units 25 Mcg Tab) [facility]: 12/31/20 08:59 Last Admin: 12/10/20 09:01 Dose: 2,000 units Documented by: Mental Health & Subst Abuse Tx Psychiatrist Name of Psychiatrist: Bruno Mcleod Psychiatrist's Psychiatric Appointment Comment: [address], [place] [address] Therapist Name of Therapist: Bruno Sherwood Therapist's Therapy Appointment Comment: [address], [place] [address] Engineering Manager Name of Engineering Manager: . Post Discharge Appointments Primary Care Physician Name Of Family Doctor: [facility] - Dr. Shi Primary Care Provider Appointment Comment: [address] [facility] [place] [address] Neurologist Name of Neurologist: Mac Strange - Dr. Arroyo Neurologist's Neurology Appointment Comment: [address] [place] [address], [address], [place] [address] Contact Information Discharge Discharge Address: [place] [address], [place] [address] (1) Psychosis Psychosis type: schizophrenia Schizophrenia type: unspecified Qualified Code(s): F20.9 - Schizophrenia, unspecified
[2020-12-10] MEDS: OLANZapine 20 MG TABLET PO SCH (20:42)
[2020-12-11] MEDS: LEVOTHYROXINE SODIUM 25 MCG TABLET PO SCH (09:03)
[2020-12-11] MEDS: ATORVASTATIN 10 MG TAB PO SCH (09:04)
[2020-12-11] MEDS: CHOLECALCIFEROL 1,000 UNITS 25 MCG TAB PO SCH (09:04)
[2020-12-11] MEDS: LORazepam 1 MG TAB PO SCH ×3 (09:04→20:47)
[2020-12-11] MEDS: BENZTROPINE MESYLATE 1 MG TAB PO SCH ×2 (09:04→20:47)
[2020-12-11] MEDS: LITHIUM CARBONATE 300 MG TAB PO SCH ×2 (09:04→20:47)
[2020-12-11] MEDS: PERPHENAZINE 2 MG TABLET PO SCH ×2 (09:04→20:46)
[2020-12-11] MEDS: lamoTRIgine 25 MG TAB PO SCH (09:04)
[2020-12-11] MEDS: DOCUSATE SODIUM 100 MG CAP PO SCH ×2 (09:04→20:47)
--- NOTE | 2020-12-11 11:45 | Psychiatric Progress Note ---
Date of Service December 11, 2020 Impression / Recommendations Impression 30 yo female with well established dx of chronic psychosis (schizophrenia vs schizoaffective disorder) presents to ED acutely psychotic, confused, wandering and responding to internal stimuli following a few weeks of med non-compliance. She required a 302 commitment and also a MNPR given level of disorganization. 12/07/2020atient remains isolative, delusional, paranoid. Is compliant with medications (1) Psychosis: 12/11/2020ontinue with perphenazine 3 mg p.o. twice daily. Continue with Zyprexa 20 mg nightly. Patient still currently taking 300 mg of lithium twice daily, initially reluctant to increase this dose although continues to display mood lability may benefit from additional dosing. 12/10/2020erphenazine dose will be increased from 2 mg twice daily to 3 mg twice daily 12/09/2020atient making incremental progress. Less isolative today. Still remains bizarre at times, although compliant with medications. 12/08/2020atient continues to be compliant with medication, making slow progress. 12/07/2020ontinue current medication regimen. Patient does appear somewhat better although still bizarre and not back to baseline. 12/06/2020ontinue current medications, patient appears to be making slow but incremental progress. 12/05/20--continue Zyprexa shift to [address] Alarcon to assess need for am dose when assumes care. 303 granted. 12/04/20--shift Zyprexa dosing toward higher dose at hs with hopes to improve sleep and minimize daytime sedation. 303 hearing tomorrow. 12/03/20--continue current med plan given some improvement, will need petition for 303. 12/02/20--The patient's med rec is updated. Trilafon and Zyprexa should be BID (will increase Trilafon tomorrow), will add Ativan TID scheduled 1 mg for catatonic features. Risks/benefits briefly reviewed, patient is agreeable to clonidine prn trial for tachy/BP. increase VS to q shift to monitor more closely for withdrawal. Does not appear post ictal, still attempting to confirm seizure hx. 12/01/20--The patient was admitted to the [facility] (locked inpatient mental health unit) on q15 min checks (behavioral with suicide precautions) for safety. The patient will participate in group, recreational, and milieu therapies when clinically appropriate and will be offered additional individual and family sessions as recovers to aid in discharge planning. Collateral from family. Notification of outpatient psychiatrist. She is unable to fully engage in risks/benefits discussion re: her medications. Will resume home regimen with exception of Zoloft as per discussion in HPI and offer additional prn Zyprexa and Ativan for hallucinations/lability. Inventory Assets Strengths: has outpatient providers, agreed to mother's involvement in care Needs: restart medication, CM, step down programming Risk Factors Assessment Male: No : Yes Do You Have Access To A Gun?: No Mental Health Diagnoses: Yes Substance Use Disorders: No Previous Psychiatric Hospitalization: Yes Protective Factors Assessment : No Responsible for Young Children: No Employed: No (Unknown) Supportive Family: Yes Interval History Identifying Information 30 yo female with history of chronic psychosis and prior [facility] hospital placement, admit 12/01/20 on 302 commitment (expires 1926 on 12/05) for psychosis. on 303 as of 12/05/2020. Chief Complaint "I do not want to talk about it". Review of Systems Sleep Information Total Hours of Sleep: 4 Sleep Comments: pt on q-15 minute checks. pt drank apple juice before returning back to bed. Meal Information Percent Meal Consumed - Breakfast: 100 Percent Meal Consumed - Lunch: 0 Percent Meal Consumed - Dinner: 100 Nutrition Comment: sleeping Subjective Subjective Patient was seen & assessed and interval progress reviewed with treatment team nursing and social work Patient continues to be labile with regard to her mood. She is often seen crying but when approached refused to speak about her feelings. Is still showcase in some odd behaviors such as reorganizing her room, cleaning her bathroom multiple times. She reports stability superficially, but when questioned deeper continues to showcase delusions. Denies any adverse effects from the medications. Denies any side effects from the increased dose of perphenazine. Otherwise cooperative, verbally redirectable. Attending more groups although minimally interactive during them. I spent 30 minutes with the patient, 50% of which was dedicated to counselling and coordination of care. Physical Exam Psychiatric Orientation: alert Apperance: appropriately dressed, appropriately groomed and + disheveled Eye Contact: + fair eye contact and + poor eye contact Motor Behavior: no abnormal motor movements Affect: + flat affect and + labile affect Mood: + anxious mood Thought Process: + thought blocking, + tangential thought process and + concrete thought process Thought Content: + paranoid, + delusions and + ideas of reference Suicidal Thoughts: denies suicidal thoughts Homicidal Thoughts: denies homicidal thoughts Hallucinations: + auditory hallucinations ("the girl tells me how she got cancer"); no visual hallucinations Cognition: language grossly intact; + attention not intact Estimated Intelligence: + below average estimated intelligence Insight: + severely impaired insight Judgement: + severely impaired judgement Vital Signs (Past 24 Hours) Last Vital Signs Temp 36.7 C 12/11/20 04:42 Pulse 101 H 12/11/20 04:42 Resp 16 12/11/20 04:42 BP 113/81 12/11/20 04:42 Pulse Ox 100 12/05/20 06:00 Results & Data ([facility]) Current Inpatient Medications Current Inpatient Medications: Current Inpatient Medications Acetaminophen (Acetaminophen 325 Mg Tab) 650 mg PO Q4H PRN PRN Reason: Headache or Minor Fever Stop: 12/30/20 20:02 Al Hydrox/Mg Hydrox/Simethicone (Aluminum/Magnesium Susp 30 Ml Udc) 30 ml PO Q4H PRN PRN Reason: GI Upset Stop: 12/30/20 20:02 Atorvastatin Calcium (Atorvastatin 10 Mg Tab) 10 mg PO QAM [facility] Stop: 12/31/20 08:59 Last Admin: 12/11/20 09:04 Dose: 10 mg Documented by: Benztropine Mesylate (Benztropine Mesylate 1 Mg Tab) 1 mg PO BID [facility] Stop: 12/30/20 20:59 Last Admin: 12/11/20 09:04 Dose: 1 mg Documented by: Bismuth Subsalicylate (Bismuth Subsalicylate Liqd 236 Ml) 15 ml PO PRN PRN PRN Reason: Loose Stool Stop: 12/30/20 20:02 Clonidine HCl (Clonidine Hcl 0.1 Mg Tab) 0.05 mg PO Q6 PRN PRN Reason: Blood Pressure - High Stop: 01/01/21 13:17 Last Admin: 12/04/20 20:41 Dose: 0.05 mg Documented by: Docusate Sodium (Docusate Sodium 100 Mg Cap) 100 mg PO BID [facility] Stop: 01/08/21 20:59 Last Admin: 12/11/20 09:04 Dose: 100 mg Documented by: Hydroxyzine HCl (Hydroxyzine Hcl 25 Mg Tab) 50 mg PO HSZ PRN PRN Reason: Insomnia Stop: 12/30/20 20:02 Last Admin: 12/06/20 01:06 Dose: 50 mg Documented by: Hydroxyzine HCl (Hydroxyzine Hcl 25 Mg Tab) 25 mg PO Q4H PRN PRN Reason: Anxiety Stop: 12/30/20 20:02 Last Admin: 12/04/20 04:03 Dose: 25 mg Documented by: Lamotrigine (Lamotrigine 25 Mg Tab) 25 mg PO QAM [facility] Stop: 12/31/20 08:59 Last Admin: 12/11/20 09:04 Dose: 25 mg Documented by: Levothyroxine Sodium (Levothyroxine Sodium 25 Mcg Tablet) 25 mcg PO DAILYBB [facility] Stop: 12/31/20 07:59 Last Admin: 12/11/20 09:03 Dose: 25 mcg Documented by: [place] Carbonate ([place] Carbonate 300 Mg Tab) 300 mg PO BID [facility] Stop: 12/30/20 20:59 Last Admin: 12/11/20 09:04 Dose: 300 mg Documented by: Lorazepam (Lorazepam 1 Mg Tab) 1 mg PO Q6 PRN PRN Reason: Anxiety/Agitation Stop: 12/31/20 10:10 Last Admin: 12/03/20 07:02 Dose: 1 mg Documented by: Lorazepam (Lorazepam 1 Mg Tab) 1 mg PO TID [facility] Stop: 01/01/21 13:59 Last Admin: 12/11/20 09:04 Dose: 1 mg Documented by: Magnesium Hydroxide (Magnesium Hydroxide Susp 30 Ml Udc) 30 ml PO DAILY PRN PRN Reason: Constipation Stop: 12/30/20 20:02 Olanzapine (Olanzapine Zydis 5 Mg Orally Dis. Tab) 5 mg PO Q6 PRN PRN Reason: Anxiety/Agitation Stop: 12/31/20 11:59 Last Admin: 12/04/20 04:04 Dose: 5 mg Documented by: Olanzapine (Olanzapine 20 Mg Tablet) 20 mg PO HS [facility] Stop: 01/04/21 21:59 Last Admin: 12/10/20 20:42 Dose: 20 mg Documented by: Perphenazine (Perphenazine 2 Mg Tablet) 3 mg PO BID [facility] Stop: 01/09/21 20:59 Last Admin: 12/11/20 09:04 Dose: 3 mg Documented by: Sodium Chloride (Sodium Chloride 0.65% Na Soln 45 Ml ([place])) 1 - 2 sprays NA PRN PRN PRN Reason: Nasal Dryness/Congestion Stop: 12/30/20 20:02 Vitamin D (Cholecalciferol 1,000 Units 25 Mcg Tab) 2,000 units PO QAM [facility] Stop: 12/31/20 08:59 Last Admin: 12/11/20 09:04 Dose: 2,000 units Documented by: Mental Health & Subst Abuse Tx Psychiatrist Name of Psychiatrist: Bruno Mcleod Psychiatrist's Psychiatric Appointment Comment: [address], [place] [address] Therapist Name of Therapist: Bruno Sherwood Therapist's Therapy Appointment Comment: [address] [place] [address] Manager Etl Name of Manager Etl: . Post Discharge Appointments Primary Care Physician Name Of Family Doctor: [facility] - Dr. Shi Primary Care Provider Appointment Comment: [address] [facility] [place] [address] Neurologist Name of Neurologist: Mac Arroyo Neurologist's Neurology Appointment Comment: [address] [place] [address], [address], [place] [address] Contact Information Discharge Discharge Address: [place] [address], [place] [address] (1) Psychosis Psychosis type: schizophrenia Schizophrenia type: unspecified Qualified Code(s): F20.9 - Schizophrenia, unspecified
[2020-12-11] MEDS: OLANZapine 20 MG TABLET PO SCH (20:45)
[2020-12-12] MEDS: LEVOTHYROXINE SODIUM 25 MCG TABLET PO SCH (08:06)
[2020-12-12] MEDS: BENZTROPINE MESYLATE 1 MG TAB PO SCH ×2 (08:07→20:26)
[2020-12-12] MEDS: ATORVASTATIN 10 MG TAB PO SCH (08:07)
[2020-12-12] MEDS: CHOLECALCIFEROL 1,000 UNITS 25 MCG TAB PO SCH (08:07)
[2020-12-12] MEDS: lamoTRIgine 25 MG TAB PO SCH (08:07)
[2020-12-12] MEDS: PERPHENAZINE 2 MG TABLET PO SCH ×2 (08:08→20:26)
[2020-12-12] MEDS: LITHIUM CARBONATE 300 MG TAB PO SCH ×2 (08:08→20:26)
[2020-12-12] MEDS: DOCUSATE SODIUM 100 MG CAP PO SCH ×2 (08:09→20:26)
[2020-12-12] MEDS: LORazepam 1 MG TAB PO SCH ×3 (08:11→20:26)
[2020-12-12] MEDS: OLANZapine ZYDIS 5 MG ORALLY DIS. TAB PO PRN (11:32)
--- NOTE | 2020-12-12 14:22 | Psychiatric Progress Note ---
Date of Service December 12, 2020 Impression / Recommendations Impression 30 yo female with well established dx of chronic psychosis (schizophrenia vs schizoaffective disorder) presents to ED acutely psychotic, confused, wandering and responding to internal stimuli following a few weeks of med non-compliance. She required a 302 commitment and also a MNPR given level of disorganization. 12/07/2020atient remains isolative, delusional, paranoid. Is compliant with medications (1) Psychosis: 12/12/2020ontinue with current regimen for now, patient does seem to be making some progress albeit slow. 12/11/2020ontinue with perphenazine 3 mg p.o. twice daily. Continue with Zyprexa 20 mg nightly. Patient still currently taking 300 mg of lithium twice daily, initially reluctant to increase this dose although continues to display mood lability may benefit from additional dosing. 12/10/2020erphenazine dose will be increased from 2 mg twice daily to 3 mg twice daily 12/09/2020atient making incremental progress. Less isolative today. Still remains bizarre at times, although compliant with medications. 12/08/2020atient continues to be compliant with medication, making slow progress. 12/07/2020ontinue current medication regimen. Patient does appear somewhat better although still bizarre and not back to baseline. 12/06/2020ontinue current medications, patient appears to be making slow but incremental progress. 12/05/20--continue Zyprexa shift to [address] Alarcon to assess need for am dose when assumes care. 303 granted. 12/04/20--shift Zyprexa dosing toward higher dose at hs with hopes to improve sleep and minimize daytime sedation. 303 hearing tomorrow. 12/03/20--continue current med plan given some improvement, will need petition for 303. 12/02/20--The patient's med rec is updated. Trilafon and Zyprexa should be BID (will increase Trilafon tomorrow), will add Ativan TID scheduled 1 mg for catatonic features. Risks/benefits briefly reviewed, patient is agreeable to clonidine prn trial for tachy/BP. increase VS to q shift to monitor more closely for withdrawal. Does not appear post ictal, still attempting to confirm seizure hx. 12/01/20--The patient was admitted to the [facility] ([facility]) on q15 min checks (behavioral with suicide precautions) for safety. The patient will participate in group, recreational, and milieu therapies when clinically appropriate and will be offered additional individual and family sessions as recovers to aid in discharge planning. Collateral from family. Notification of outpatient psychiatrist. She is unable to fully engage in risks/benefits discussion re: her medications. Will resume home regimen with exception of Zoloft as per discussion in HPI and offer additional prn Zyprexa and Ativan for hallucinations/lability. Inventory Assets Strengths: has outpatient providers, agreed to mother's involvement in care Needs: restart medication, CM, step down programming Risk Factors Assessment Male: No : Yes Do You Have Access To A Gun?: No Mental Health Diagnoses: Yes Substance Use Disorders: No Previous Psychiatric Hospitalization: Yes Protective Factors Assessment : No Responsible for Young Children: No Employed: No (Unknown) Supportive Family: Yes Interval History Identifying Information 30 yo female with history of chronic psychosis and prior [facility] placement, admit 12/01/20 on 302 commitment (expires 1926 on 12/05) for psychosis. on 303 as of 12/05/2020. Chief Complaint "No thank you". Review of Systems Sleep Information Total Hours of Sleep: 4 Sleep Comments: pt on q-15 minute checks. pt drank apple juice before returning back to bed. Meal Information Percent Meal Consumed - Breakfast: 100 Percent Meal Consumed - Lunch: 100 Percent Meal Consumed - Dinner: 100 Nutrition Comment: sleeping Subjective Subjective Patient was seen & assessed and interval progress reviewed with treatment team nursing and social work Patient continues to be somewhat bizarre at times. Mood still appears labile as patient is seen crying but refused to speak about why. Does attend groups although minimally so. She is seen eating and drinking appropriately. Describes her sleep as poor with approximately 4 hours or so. Denies any adverse effects of the increased doses of perphenazine. I spent 30 minutes with the patient, 50% of which was dedicated to counselling and coordination of care. Physical Exam Psychiatric Orientation: alert Apperance: appropriately dressed, appropriately groomed and + disheveled Eye Contact: + fair eye contact and + poor eye contact Motor Behavior: no abnormal motor movements Affect: + flat affect and + labile affect Mood: + anxious mood Thought Process: + thought blocking, + tangential thought process and + concrete thought process Thought Content: + paranoid, + delusions and + ideas of reference Suicidal Thoughts: denies suicidal thoughts Homicidal Thoughts: denies homicidal thoughts Hallucinations: + auditory hallucinations ("the girl tells me how she got cancer"); no visual hallucinations Cognition: language grossly intact; + attention not intact Estimated Intelligence: + below average estimated intelligence Insight: + severely impaired insight Judgement: + severely impaired judgement Vital Signs (Past 24 Hours) Last Vital Signs Temp 36.6 C 12/12/20 06:00 Pulse 107 H 12/12/20 06:39 Resp 16 12/12/20 06:00 BP 115/85 12/12/20 06:39 Pulse Ox 100 12/05/20 06:00 Results & Data ([facility]) Current Inpatient Medications Current Inpatient Medications: Current Inpatient Medications Acetaminophen (Acetaminophen 325 Mg Tab) 650 mg PO Q4H PRN PRN Reason: Headache or Minor Fever Stop: 12/30/20 20:02 Al Hydrox/Mg Hydrox/Simethicone (Aluminum/Magnesium Susp 30 Ml Udc) 30 ml PO Q4H PRN PRN Reason: GI Upset Stop: 12/30/20 20:02 Atorvastatin Calcium (Atorvastatin 10 Mg Tab) 10 mg PO QAM [facility] Stop: 12/31/20 08:59 Last Admin: 12/12/20 08:07 Dose: 10 mg Documented by: Benztropine Mesylate (Benztropine Mesylate 1 Mg Tab) 1 mg PO BID [facility] Stop: 12/30/20 20:59 Last Admin: 12/12/20 08:07 Dose: 1 mg Documented by: Bismuth Subsalicylate (Bismuth Subsalicylate Liqd 236 Ml) 15 ml PO PRN PRN PRN Reason: Loose Stool Stop: 12/30/20 20:02 Clonidine HCl (Clonidine Hcl 0.1 Mg Tab) 0.05 mg PO Q6 PRN PRN Reason: Blood Pressure - High Stop: 01/01/21 13:17 Last Admin: 12/04/20 20:41 Dose: 0.05 mg Documented by: Docusate Sodium (Docusate Sodium 100 Mg Cap) 100 mg PO BID [facility] Stop: 01/08/21 20:59 Last Admin: 12/12/20 08:09 Dose: 100 mg Documented by: Hydroxyzine HCl (Hydroxyzine Hcl 25 Mg Tab) 50 mg PO HSZ PRN PRN Reason: Insomnia Stop: 12/30/20 20:02 Last Admin: 12/06/20 01:06 Dose: 50 mg Documented by: Hydroxyzine HCl (Hydroxyzine Hcl 25 Mg Tab) 25 mg PO Q4H PRN PRN Reason: Anxiety Stop: 12/30/20 20:02 Last Admin: 12/04/20 04:03 Dose: 25 mg Documented by: Lamotrigine (Lamotrigine 25 Mg Tab) 25 mg PO QAM [facility] Stop: 12/31/20 08:59 Last Admin: 12/12/20 08:07 Dose: 25 mg Documented by: Levothyroxine Sodium (Levothyroxine Sodium 25 Mcg Tablet) 25 mcg PO DAILYBB [facility] Stop: 12/31/20 07:59 Last Admin: 12/12/20 08:06 Dose: 25 mcg Documented by: Zarephath Carbonate (Zarephath Carbonate 300 Mg Tab) 300 mg PO BID [facility] Stop: 12/30/20 20:59 Last Admin: 12/12/20 08:08 Dose: 300 mg Documented by: Lorazepam (Lorazepam 1 Mg Tab) 1 mg PO Q6 PRN PRN Reason: Anxiety/Agitation Stop: 12/31/20 10:10 Last Admin: 12/03/20 07:02 Dose: 1 mg Documented by: Lorazepam (Lorazepam 1 Mg Tab) 1 mg PO TID [facility] Stop: 01/01/21 13:59 Last Admin: 12/12/20 13:22 Dose: 1 mg Documented by: Magnesium Hydroxide (Magnesium Hydroxide Susp 30 Ml Udc) 30 ml PO DAILY PRN PRN Reason: Constipation Stop: 12/30/20 20:02 Olanzapine (Olanzapine Zydis 5 Mg Orally Dis. Tab) 5 mg PO Q6 PRN PRN Reason: Anxiety/Agitation Stop: 12/31/20 11:59 Last Admin: 12/12/20 11:32 Dose: 5 mg Documented by: Olanzapine (Olanzapine 20 Mg Tablet) 20 mg PO HS [facility] Stop: 01/04/21 21:59 Last Admin: 12/11/20 20:45 Dose: 20 mg Documented by: Perphenazine (Perphenazine 2 Mg Tablet) 3 mg PO BID [facility] Stop: 01/09/21 20:59 Last Admin: 12/12/20 08:08 Dose: 3 mg Documented by: Sodium Chloride (Sodium Chloride 0.65% Na Soln 45 Ml ([place])) 1 - 2 sprays NA PRN PRN PRN Reason: Nasal Dryness/Congestion Stop: 12/30/20 20:02 Vitamin D (Cholecalciferol 1,000 Units 25 Mcg Tab) 2,000 units PO QAM [facility] Stop: 12/31/20 08:59 Last Admin: 12/12/20 08:07 Dose: 2,000 units Documented by: Mental Health & Subst Abuse Tx Psychiatrist Name of Psychiatrist: Bruno Mcleod Psychiatrist's Psychiatric Appointment Comment: [address], [place] [address] Therapist Name of Therapist: Bruno Sherwood Therapist's Therapy Appointment Comment: [address], [place] [address] [employer] Name of [employer]: . Post Discharge Appointments Primary Care Physician Name Of Family Doctor: [facility] - Dr. Shi Primary Care Provider Appointment Comment: [address] [facility] [place] [address] Neurologist Name of Neurologist: Mac Arroyo [facility]'s Neurology Appointment Comment: [address] [place] [address], [address], [place] [address] Contact Information Discharge Discharge Address: [place] [address], [place] [address] (1) Psychosis Psychosis type: schizophrenia Schizophrenia type: unspecified Qualified Code(s): F20.9 - Schizophrenia, unspecified
[2020-12-12] MEDS: OLANZapine 20 MG TABLET PO SCH (20:28)
[2020-12-13] MEDS: BENZTROPINE MESYLATE 1 MG TAB PO SCH ×2 (09:29→21:18)
[2020-12-13] MEDS: LEVOTHYROXINE SODIUM 25 MCG TABLET PO SCH (09:29)
[2020-12-13] MEDS: ATORVASTATIN 10 MG TAB PO SCH (09:29)
[2020-12-13] MEDS: CHOLECALCIFEROL 1,000 UNITS 25 MCG TAB PO SCH (09:29)
[2020-12-13] MEDS: PERPHENAZINE 2 MG TABLET PO SCH ×2 (09:30→21:20)
[2020-12-13] MEDS: LORazepam 1 MG TAB PO SCH ×3 (09:30→21:19)
[2020-12-13] MEDS: lamoTRIgine 25 MG TAB PO SCH (09:30)
[2020-12-13] MEDS: LITHIUM CARBONATE 300 MG TAB PO SCH ×2 (09:30→21:19)
[2020-12-13] MEDS: DOCUSATE SODIUM 100 MG CAP PO SCH ×2 (09:30→21:19)
--- NOTE | 2020-12-13 18:49 | Psychiatric Progress Note ---
Date of Service December 13, 2020 Impression / Recommendations Impression 30 yo female with well established dx of chronic psychosis (schizophrenia vs schizoaffective disorder) presented to ED acutely psychotic, confused, wandering and responding to internal stimuli following a few weeks of med non-compliance. She required a 302 commitment and also a MNPR given level of disorganization. 12/13/2020esidual paranoia and thought disorganization but improving (1) Psychosis: for ease of dosing and persistent symptoms increase Trilafon to 4 mg BID, gets benefit from prn Zyprexa, patient declines am dose or additional hs dose. Consider Ativan taper soon as no catatonic features at this time. Cannot exclude subclinical seizure activity in staring spells--increase Lamictal to 50 mg for 2 weeks (goal is previously effectie of 125 mg). Reviewed Italics 12/12/2020ontinue with current regimen for now, patient does seem to be making some progress albeit slow. 12/11/2020ontinue with perphenazine 3 mg p.o. twice daily. Continue with Zyprexa 20 mg nightly. Patient still currently taking 300 mg of lithium twice daily, initially reluctant to increase this dose although continues to display mood lability may benefit from additional dosing. 12/10/2020erphenazine dose will be increased from 2 mg twice daily to 3 mg twice daily 12/09/2020atient making incremental progress. Less isolative today. Still remains bizarre at times, although compliant with medications. 12/08/2020atient continues to be compliant with medication, making slow progress. 12/07/2020ontinue current medication regimen. Patient does appear somewhat better although still bizarre and not back to baseline. 12/06/2020ontinue current medications, patient appears to be making slow but incremental progress. 12/05/20--continue Zyprexa shift to [address] Alarcon to assess need for am dose when assumes care. 303 granted. 12/04/20--shift Zyprexa dosing toward higher dose at hs with hopes to improve sleep and minimize daytime sedation. 303 hearing tomorrow. 12/03/20--continue current med plan given some improvement, will need petition for 303. 12/02/20--The patient's med rec is updated. Trilafon and Zyprexa should be BID (will increase Trilafon tomorrow), will add Ativan TID scheduled 1 mg for catatonic features. Risks/benefits briefly reviewed, patient is agreeable to clonidine prn trial for tachy/BP. increase VS to q shift to monitor more closely for withdrawal. Does not appear post ictal, still attempting to confirm seizure hx. 12/01/20--The patient was [facility] on q15 min checks (behavioral with suicide precautions) for safety. The patient will participate in group, recreational, and milieu therapies when clinically appropriate and will be offered additional individual and family sessions as recovers to aid in discharge planning. Collateral from family. Notification of outpatient psychiatrist. She is unable to fully engage in risks/benefits discussion re: her medications. Will resume home regimen with exception of Zoloft as per discussion in HPI and offer additional prn Zyprexa and Ativan for hallucinations/lability. Inventory Assets Strengths: has outpatient providers, agreed to mother's involvement in care Needs: restart medication, CM, step down programming Risk Factors Assessment Male: No : Yes Do You Have Access To A Gun?: No Mental Health Diagnoses: Yes Substance Use Disorders: No Previous Psychiatric Hospitalization: Yes Protective Factors Assessment : No Responsible for Young Children: No Employed: No (Unknown) Supportive Family: Yes Interval History Identifying Information 30 yo female with history of chronic psychosis and prior [facility] placement, admit 12/01/20, on 303 as of 12/05/2020. Chief Complaint "I want to go over my medicine". Review of Systems Sleep Information Total Hours of Sleep: 5 Sleep Comments: pt on q-15 minute checks. pt drank apple juice before returning back to bed. Meal Information Percent Meal Consumed - Breakfast: 100 Percent Meal Consumed - Lunch: 100 Percent Meal Consumed - Dinner: 100 Nutrition Comment: sleeping Subjective Subjective Patient was seen & assessed and interval progress reviewed with nursing and social work. Patient is much improved since my last contact with her early in her stay, she is more organized re: meals and ADLs and continues to take medications as prescribed but has periods of time where staring off and has difficulty communicating with staff. She stated she had med concerns but ultimately no questions and started piecing together her psych history. She was concerned about her patient bracelet. She still won't sleep with sheet on her bed, less paranoid and states her hallucinations are gone but doesn't feel c omfortable attending groups. Physical Exam Psychiatric Orientation: alert Apperance: appropriately dressed and appropriately groomed Eye Contact: + fair eye contact and + poor eye contact Motor Behavior: no abnormal motor movements Affect: + flat affect Mood: + anxious mood Thought Process: + tangential thought process and + concrete thought process Thought Content: + paranoid Suicidal Thoughts: denies suicidal thoughts Homicidal Thoughts: denies homicidal thoughts Hallucinations: no auditory hallucinations and no visual hallucinations Cognition: language grossly intact; + attention not intact Estimated Intelligence: + below average estimated intelligence Insight: + impaired insight Judgement: + impaired judgement Vital Signs (Past 24 Hours) Last Vital Signs Temp 36.7 C 12/13/20 06:42 Pulse 85 12/13/20 06:43 Resp 16 12/13/20 06:42 BP 127/85 12/13/20 06:43 Pulse Ox 100 12/05/20 06:00 Results & Data ([facility]) Current Inpatient Medications Current Inpatient Medications: Current Inpatient Medications Acetaminophen (Acetaminophen 325 Mg Tab) 650 mg PO Q4H PRN PRN Reason: Headache or Minor Fever Stop: 12/30/20 20:02 Al Hydrox/Mg Hydrox/Simethicone (Aluminum/Magnesium Susp 30 Ml Udc) 30 ml PO Q4H PRN PRN Reason: GI Upset Stop: 12/30/20 20:02 Atorvastatin Calcium (Atorvastatin 10 Mg Tab) 10 mg PO QAM [facility] Stop: 12/31/20 08:59 Last Admin: 12/13/20 09:29 Dose: 10 mg Documented by: Benztropine Mesylate (Benztropine Mesylate 1 Mg Tab) 1 mg PO BID [facility] Stop: 12/30/20 20:59 Last Admin: 12/13/20 09:29 Dose: 1 mg Documented by: Bismuth Subsalicylate (Bismuth Subsalicylate Liqd 236 Ml) 15 ml PO PRN PRN PRN Reason: Loose Stool Stop: 12/30/20 20:02 Clonidine HCl (Clonidine Hcl 0.1 Mg Tab) 0.05 mg PO Q6 PRN PRN Reason: Blood Pressure - High Stop: 01/01/21 13:17 Last Admin: 12/04/20 20:41 Dose: 0.05 mg Documented by: Docusate Sodium (Docusate Sodium 100 Mg Cap) 100 mg PO BID [facility] Stop: 01/08/21 20:59 Last Admin: 12/13/20 09:30 Dose: 100 mg Documented by: Hydroxyzine HCl (Hydroxyzine Hcl 25 Mg Tab) 50 mg PO HSZ PRN PRN Reason: Insomnia Stop: 12/30/20 20:02 Last Admin: 12/06/20 01:06 Dose: 50 mg Documented by: Hydroxyzine HCl (Hydroxyzine Hcl 25 Mg Tab) 25 mg PO Q4H PRN PRN Reason: Anxiety Stop: 12/30/20 20:02 Last Admin: 12/04/20 04:03 Dose: 25 mg Documented by: Lamotrigine (Lamotrigine 25 Mg Tab) 50 mg PO QAM [facility] Stop: 01/13/21 08:59 Levothyroxine Sodium (Levothyroxine Sodium 25 Mcg Tablet) 25 mcg PO DAILYBB [facility] Stop: 12/31/20 07:59 Last Admin: 12/13/20 09:29 Dose: 25 mcg Documented by: [place] Carbonate ([place] Carbonate 300 Mg Tab) 300 mg PO BID [facility] Stop: 12/30/20 20:59 Last Admin: 12/13/20 09:30 Dose: 300 mg Documented by: Lorazepam (Lorazepam 1 Mg Tab) 1 mg PO Q6 PRN PRN Reason: Anxiety/Agitation Stop: 12/31/20 10:10 Last Admin: 12/03/20 07:02 Dose: 1 mg Documented by: Lorazepam (Lorazepam 1 Mg Tab) 1 mg PO TID [facility] Stop: 01/01/21 13:59 Last Admin: 12/13/20 14:18 Dose: 1 mg Documented by: Magnesium Hydroxide (Magnesium Hydroxide Susp 30 Ml Udc) 30 ml PO DAILY PRN PRN Reason: Constipation Stop: 12/30/20 20:02 Olanzapine (Olanzapine Zydis 5 Mg Orally Dis. Tab) 5 mg PO Q6 PRN PRN Reason: Anxiety/Agitation Stop: 12/31/20 11:59 Last Admin: 12/12/20 11:32 Dose: 5 mg Documented by: Olanzapine (Olanzapine 20 Mg Tablet) 20 mg PO HS [facility] Stop: 01/04/21 21:59 Last Admin: 09/10/21 20:28 Dose: 20 mg Documented by: Perphenazine (Perphenazine 2 Mg Tablet) 4 mg PO BID [facility] Stop: 01/12/21 20:59 Sodium Chloride (Sodium Chloride 0.65% Na Soln 45 Ml ([place])) 1 - 2 sprays NA PRN PRN PRN Reason: Nasal Dryness/Congestion Stop: 12/30/20 20:02 Vitamin D (Cholecalciferol 1,000 Units 25 Mcg Tab) 2,000 units PO QAM [facility] Stop: 12/31/20 08:59 Last Admin: 12/13/20 09:29 Dose: 2,000 units Documented by: Mental Health & Subst Abuse Tx Psychiatrist Name of Psychiatrist: Bruno Mcleod Psychiatrist's Psychiatric Appointment Comment: [address], [place] [address] Therapist Name of Therapist: Bruno Sherwood Therapist's Therapy Appointment Comment: [address] [place] [address] Copy Machine Operator Name of Copy Machine Operator: . Post Discharge Appointments Primary Care Physician Name Of Family Doctor: [facility] - Dr. Shi Primary Care Provider Appointment Comment: [address] [facility] [place] [address] Neurologist Name of Neurologist: Mac Arroyo Neurologist's Neurology Appointment Comment: [address] [place] [address], [address], [place] [address] Contact Information Discharge Discharge Address: [place] [address], [place] [address] (1) Psychosis Psychosis type: schizophrenia Schizophrenia type: unspecified Qualified Code(s): F20.9 - Schizophrenia, unspecified
[2020-12-13] MEDS: OLANZapine 20 MG TABLET PO SCH (21:21)
[2020-12-14] MEDS: BENZTROPINE MESYLATE 1 MG TAB PO SCH ×2 (08:33→21:01)
[2020-12-14] MEDS: ATORVASTATIN 10 MG TAB PO SCH (08:33)
[2020-12-14] MEDS: DOCUSATE SODIUM 100 MG CAP PO SCH ×2 (08:33→21:02)
[2020-12-14] MEDS: CHOLECALCIFEROL 1,000 UNITS 25 MCG TAB PO SCH (08:33)
[2020-12-14] MEDS: LEVOTHYROXINE SODIUM 25 MCG TABLET PO SCH (08:33)
[2020-12-14] MEDS: LITHIUM CARBONATE 300 MG TAB PO SCH ×2 (08:36→21:02)
[2020-12-14] MEDS: PERPHENAZINE 2 MG TABLET PO SCH ×2 (08:36→21:02)
[2020-12-14] MEDS: LORazepam 1 MG TAB PO SCH ×3 (08:38→21:06)
[2020-12-14] MEDS: lamoTRIgine 25 MG TAB PO SCH (09:13)
--- NOTE | 2020-12-14 16:02 | Psychiatric Progress Note ---
Date of Service December 14, 2020 Impression / Recommendations Impression 30 yo female with well established dx of chronic psychosis (schizophrenia vs schizoaffective disorder) presented to ED acutely psychotic, confused, wandering and responding to internal stimuli following a few weeks of med non-compliance. She required a 302 commitment and also a MNPR given level of disorganization. 12/13/2020bility to engage with treatment varies widely shift to shift. Plan: dose of Trilafon increased yesterday, will monitor. (1) Psychosis: Inventory Assets Strengths: has outpatient providers, agreed to mother's involvement in care Needs: restart medication, CM, step down programming Risk Factors Assessment Male: No : Yes Do You Have Access To A Gun?: No Mental Health Diagnoses: Yes Substance Use Disorders: No Previous Psychiatric Hospitalization: Yes Protective Factors Assessment : No Responsible for Young Children: No Employed: No (Unknown) Supportive Family: Yes Interval History Identifying Information 30 yo female with history of chronic psychosis and prior [facility] placement, admit 12/01/20, on 303 as of 12/05/2020. Chief Complaint "I'm not ready for that". Review of Systems Sleep Information Total Hours of Sleep: 9 Sleep Comments: pt on q-15 minute checks. pt drank apple juice before returning back to bed. Meal Information Percent Meal Consumed - Breakfast: 100 Percent Meal Consumed - Lunch: 100 Percent Meal Consumed - Dinner: 100 Nutrition Comment: sleeping Subjective Subjective Patient was seen & assessed and interval progress reviewed with nursing and social work. Continues to fail to respond to staff by staring at times but otherwise doesn't appear to be responding to internal stimuli. She has been spending longer time outside of her room. I spoke with her about having a meeting with her mother soon in upcoming days to discuss her progress and support needs after leaves the hospital (date undetermined) and the patient refused to continue the conversation and pretended to fall asleep. Physical Exam Psychiatric Orientation: alert Apperance: appropriately dressed and appropriately groomed Eye Contact: + poor eye contact Motor Behavior: no abnormal motor movements Affect: + flat affect Mood: + anxious mood Thought Process: + concrete thought process Thought Content: + paranoid Suicidal Thoughts: denies suicidal thoughts Homicidal Thoughts: denies homicidal thoughts Hallucinations: no auditory hallucinations and no visual hallucinations Cognition: language grossly intact; + attention not intact Estimated Intelligence: + below average estimated intelligence Insight: + impaired insight Judgement: + impaired judgement Vital Signs (Past 24 Hours) Last Vital Signs Temp 36.4 C L 12/14/20 06:52 Pulse 104 H 12/14/20 06:54 Resp 16 12/14/20 06:52 BP 118/86 12/14/20 06:54 Pulse Ox 100 12/05/20 06:00 Results & Data ([facility]) Current Inpatient Medications Current Inpatient Medications: Current Inpatient Medications Acetaminophen (Acetaminophen 325 Mg Tab) 650 mg PO Q4H PRN PRN Reason: Headache or Minor Fever Stop: 12/30/20 20:02 Al Hydrox/Mg Hydrox/Simethicone (Aluminum/Magnesium Susp 30 Ml Udc) 30 ml PO Q4H PRN PRN Reason: GI Upset Stop: 12/30/20 20:02 Atorvastatin Calcium (Atorvastatin 10 Mg Tab) 10 mg PO QAM [facility] Stop: 12/31/20 08:59 Last Admin: 12/14/20 08:33 Dose: 10 mg Documented by: Benztropine Mesylate (Benztropine Mesylate 1 Mg Tab) 1 mg PO BID [facility] Stop: 12/30/20 20:59 Last Admin: 12/14/20 08:33 Dose: 1 mg Documented by: Bismuth Subsalicylate (Bismuth Subsalicylate Liqd 236 Ml) 15 ml PO PRN PRN PRN Reason: Loose Stool Stop: 12/30/20 20:02 Clonidine HCl (Clonidine Hcl 0.1 Mg Tab) 0.05 mg PO Q6 PRN PRN Reason: Blood Pressure - High Stop: 01/01/21 13:17 Last Admin: 12/04/20 20:41 Dose: 0.05 mg Documented by: Docusate Sodium (Docusate Sodium 100 Mg Cap) 100 mg PO BID [facility] Stop: 01/08/21 20:59 Last Admin: 12/14/20 08:33 Dose: 100 mg Documented by: Hydroxyzine HCl (Hydroxyzine Hcl 25 Mg Tab) 50 mg PO HSZ PRN PRN Reason: Insomnia Stop: 12/30/20 20:02 Last Admin: 12/06/20 01:06 Dose: 50 mg Documented by: Hydroxyzine HCl (Hydroxyzine Hcl 25 Mg Tab) 25 mg PO Q4H PRN PRN Reason: Anxiety Stop: 12/30/20 20:02 Last Admin: 12/04/20 04:03 Dose: 25 mg Documented by: Lamotrigine (Lamotrigine 25 Mg Tab) 50 mg PO QAM [facility] Stop: 01/13/21 08:59 Last Admin: 12/14/20 09:13 Dose: 50 mg Documented by: Levothyroxine Sodium (Levothyroxine Sodium 25 Mcg Tablet) 25 mcg PO DAILYBB [facility] Stop: 12/31/20 07:59 Last Admin: 12/14/20 08:33 Dose: 25 mcg Documented by: [place] Carbonate ([place] Carbonate 300 Mg Tab) 300 mg PO BID [facility] Stop: 12/30/20 20:59 Last Admin: 12/14/20 08:36 Dose: 300 mg Documented by: Lorazepam (Lorazepam 1 Mg Tab) 1 mg PO Q6 PRN PRN Reason: Anxiety/Agitation Stop: 12/31/20 10:10 Last Admin: 12/03/20 07:02 Dose: 1 mg Documented by: Lorazepam (Lorazepam 1 Mg Tab) 1 mg PO TID [facility] Stop: 01/01/21 13:59 Last Admin: 12/14/20 13:57 Dose: 1 mg Documented by: Magnesium Hydroxide (Magnesium Hydroxide Susp 30 Ml Udc) 30 ml PO DAILY PRN PRN Reason: Constipation Stop: 12/30/20 20:02 Olanzapine (Olanzapine Zydis 5 Mg Orally Dis. Tab) 5 mg PO Q6 PRN PRN Reason: Anxiety/Agitation Stop: 12/31/20 11:59 Last Admin: 12/12/20 11:32 Dose: 5 mg Documented by: Olanzapine (Olanzapine 20 Mg Tablet) 20 mg PO HS [facility] Stop: 01/04/21 21:59 Last Admin: 12/13/20 21:21 Dose: 20 mg Documented by: Perphenazine (Perphenazine 2 Mg Tablet) 4 mg PO BID [facility] Stop: 01/12/21 20:59 Last Admin: 12/14/20 08:36 Dose: 4 mg Documented by: Sodium Chloride (Sodium Chloride 0.65% Na Soln 45 Ml ([place])) 1 - 2 sprays NA PRN PRN PRN Reason: Nasal Dryness/Congestion Stop: 12/30/20 20:02 Vitamin D (Cholecalciferol 1,000 Units 25 Mcg Tab) 2,000 units PO QAM [facility] Stop: 12/31/20 08:59 Last Admin: 12/14/20 08:33 Dose: 2,000 units Documented by: Mental Health & Subst Abuse Tx Psychiatrist Name of Psychiatrist: Bruno Mcleod Psychiatrist's Psychiatric Appointment Comment: [address], [place] [address] Therapist Name of Therapist: Bruno Sherwood Therapist's Therapy Appointment Comment: [address] [facility] [address], [place] [address] Inventory Technician Name of Inventory Technician: . Post Discharge Appointments Primary Care Physician Name Of Family Doctor: [place] [facility] - Dr. Shi Primary Care Provider Appointment Comment: [address] [facility] [place] [address] Neurologist Name of Neurologist: Mac Arroyo Neurologist's Neurology Appointment Comment: [address] [place] [address], [address], [place] [address] Contact Information Discharge Discharge Address: [place] [address], [place] [address] (1) Psychosis Psychosis type: schizophrenia Schizophrenia type: unspecified Qualified Code(s): F20.9 - Schizophrenia, unspecified
[2020-12-14] MEDS: OLANZapine 20 MG TABLET PO SCH (21:02)
[2020-12-15] MEDS: BENZTROPINE MESYLATE 1 MG TAB PO SCH ×2 (08:18→20:40)
[2020-12-15] MEDS: CHOLECALCIFEROL 1,000 UNITS 25 MCG TAB PO SCH (08:18)
[2020-12-15] MEDS: LEVOTHYROXINE SODIUM 25 MCG TABLET PO SCH (08:18)
[2020-12-15] MEDS: ATORVASTATIN 10 MG TAB PO SCH (08:18)
[2020-12-15] MEDS: PERPHENAZINE 2 MG TABLET PO SCH ×2 (08:19→20:41)
[2020-12-15] MEDS: LITHIUM CARBONATE 300 MG TAB PO SCH ×2 (08:19→20:41)
[2020-12-15] MEDS: lamoTRIgine 25 MG TAB PO SCH (08:19)
[2020-12-15] MEDS: DOCUSATE SODIUM 100 MG CAP PO SCH ×2 (08:19→20:41)
[2020-12-15] MEDS: LORazepam 1 MG TAB PO SCH ×3 (08:20→20:41)
--- NOTE | 2020-12-15 16:47 | Psychiatric Progress Note ---
Date of Service December 15, 2020 Impression / Recommendations Impression 30 yo female with well established dx of chronic psychosis (schizophrenia vs schizoaffective disorder) presented to ED acutely psychotic, confused, wandering and responding to internal stimuli following a few weeks of med non-compliance. She required a 302 commitment and also a MNPR given level of disorganization. 12/15/20: unchanged, suspect depressive component (1) Psychosis: 12/15/20--retrial of Zoloft, restart at 50 mg in am. Patient is unsure she will accept. Family phone meeting tomorrow with provider around med options as interest in [facility]. for ease of dosing and persistent symptoms increase Trilafon to 4 mg BID, gets benefit from prn Zyprexa, patient declines am dose or additional hs dose. Consider Ativan taper soon as no catatonic features at this time. Cannot exclude subclinical seizure activity in staring spells--increase Lamictal to 50 mg for 2 weeks (goal is previously effectie of 125 mg). Reviewed Italics 12/12/2020ontinue with current regimen for now, patient does seem to be making some progress albeit slow. 12/11/2020ontinue with perphenazine 3 mg p.o. twice daily. Continue with Zyprexa 20 mg nightly. Patient still currently taking 300 mg of lithium twice daily, initially reluctant to increase this dose although continues to display mood lability may benefit from additional dosing. 12/10/2020erphenazine dose will be increased from 2 mg twice daily to 3 mg twice daily 12/09/2020atient making incremental progress. Less isolative today. Still remains bizarre at times, although compliant with medications. 12/08/2020atient continues to be compliant with medication, making slow progress. 12/07/2020ontinue current medication regimen. Patient does appear somewhat better although still bizarre and not back to baseline. 12/06/2020ontinue current medications, patient appears to be making slow but incremental progress. 12/05/20--continue Zyprexa shift to [address] Alarcon to assess need for am dose when assumes care. 303 granted. 12/04/20--shift Zyprexa dosing toward higher dose at hs with hopes to improve sleep and minimize daytime sedation. 303 hearing tomorrow. 12/03/20--continue current med plan given some improvement, will need petition for 303. 12/02/20--The patient's med rec is updated. Trilafon and Zyprexa should be BID (will increase Trilafon tomorrow), will add Ativan TID scheduled 1 mg for catatonic features. Risks/benefits briefly reviewed, patient is agreeable to clonidine prn trial for tachy/BP. increase VS to q shift to monitor more closely for withdrawal. Does not appear post ictal, still attempting to confirm seizure hx. 12/01/20--The patient was admitted to the [facility] ([facility] inpatient mental health [facility]) on q15 min checks (behavioral with suicide precautions) for safety. The patient will participate in group, recreational, and milieu therapies when clinically appropriate and will be offered additional individual and family sessions as recovers to aid in discharge planning. Collateral from family. Notification of outpatient psychiatrist. She is unable to fully engage in risks/benefits discussion re: her medications. Will resume home regimen with exception of Zoloft as per discussion in HPI and offer additional prn Zyprexa and Ativan for hallucinations/lability. Inventory Assets Strengths: has outpatient providers, agreed to mother's involvement in care Needs: restart medication, CM, step down programming Risk Factors Assessment Male: No : Yes Do You Have Access To A Gun?: No Mental Health Diagnoses: Yes Substance Use Disorders: No Previous Psychiatric Hospitalization: Yes Protective Factors Assessment : No Responsible for Young Children: No Employed: No (Unknown) Supportive Family: Yes Interval History Identifying Information 30 yo female with history of chronic psychosis and prior [facility] placement, admit 12/01/20, on 303 as of 12/05/2020. Chief Complaint isolative this am, staring Review of Systems Sleep Information Total Hours of Sleep: 5.75 Sleep Comments: pt on q-15 minute checks. pt drank apple juice before returning back to bed. Meal Information Percent Meal Consumed - Breakfast: 100 Percent Meal Consumed - Lunch: 100 Percent Meal Consumed - Dinner: 100 Nutrition Comment: sleeping Subjective Subjective Patient was seen & assessed and interval progress reviewed with treatment team. No records from [facility], little detail re: past med trials. staff to check with family and pharmacy. Per case liner patient is social at baseline. she will not say where she wants to live, family reportedly concerned she may need to return to [facility]. patient is resistant to restarting antidepressant medication. Physical Exam Psychiatric Orientation: alert Apperance: appropriately dressed and appropriately groomed Eye Contact: + poor eye contact Motor Behavior: no abnormal motor movements Affect: + flat affect Mood: + anxious mood Thought Process: + tangential thought process and + concrete thought process Thought Content: + paranoid Suicidal Thoughts: denies suicidal thoughts Homicidal Thoughts: denies homicidal thoughts Hallucinations: no auditory hallucinations and no visual hallucinations Cognition: language grossly intact; + attention not intact Estimated Intelligence: + below average estimated intelligence Insight: + impaired insight Judgement: + impaired judgement Vital Signs (Past 24 Hours) Last Vital Signs Temp 36.4 C L 12/15/20 06:40 Pulse 80 12/15/20 06:41 Resp 16 12/15/20 06:40 BP 106/68 12/15/20 06:41 Pulse Ox 100 12/05/20 06:00 Results & Data ([facility]) Current Inpatient Medications Current Inpatient Medications: Current Inpatient Medications Acetaminophen (Acetaminophen 325 Mg Tab) 650 mg PO Q4H PRN PRN Reason: Headache or Minor Fever Stop: 12/30/20 20:02 Al Hydrox/Mg Hydrox/Simethicone (Aluminum/Magnesium Susp 30 Ml Udc) 30 ml PO Q4H PRN PRN Reason: GI Upset Stop: 12/30/20 20:02 Atorvastatin Calcium (Atorvastatin 10 Mg Tab) 10 mg PO QAM [facility] Stop: 12/31/20 08:59 Last Admin: 12/15/20 08:18 Dose: 10 mg Documented by: Benztropine Mesylate (Benztropine Mesylate 1 Mg Tab) 1 mg PO BID [facility] Stop: 12/30/20 20:59 Last Admin: 12/15/20 08:18 Dose: 1 mg Documented by: Bismuth Subsalicylate (Bismuth Subsalicylate Liqd 236 Ml) 15 ml PO PRN PRN PRN Reason: Loose Stool Stop: 12/30/20 20:02 Clonidine HCl (Clonidine Hcl 0.1 Mg Tab) 0.05 mg PO Q6 PRN PRN Reason: Blood Pressure - High Stop: 01/01/21 13:17 Last Admin: 12/04/20 20:41 Dose: 0.05 mg Documented by: Docusate Sodium (Docusate Sodium 100 Mg Cap) 100 mg PO BID [facility] Stop: 01/08/21 20:59 Last Admin: 12/15/20 08:19 Dose: 100 mg Documented by: Hydroxyzine HCl (Hydroxyzine Hcl 25 Mg Tab) 50 mg PO HSZ PRN PRN Reason: Insomnia Stop: 12/30/20 20:02 Last Admin: 12/06/20 01:06 Dose: 50 mg Documented by: Hydroxyzine HCl (Hydroxyzine Hcl 25 Mg Tab) 25 mg PO Q4H PRN PRN Reason: Anxiety Stop: 12/30/20 20:02 Last Admin: 12/04/20 04:03 Dose: 25 mg Documented by: Lamotrigine (Lamotrigine 25 Mg Tab) 50 mg PO QAM [facility] Stop: 01/13/21 08:59 Last Admin: 12/15/20 08:19 Dose: 50 mg Documented by: Levothyroxine Sodium (Levothyroxine Sodium 25 Mcg Tablet) 25 mcg PO DAILYBB [facility] Stop: 12/31/20 07:59 Last Admin: 12/15/20 08:18 Dose: 25 mcg Documented by: [place] Carbonate ([place] Carbonate 300 Mg Tab) 300 mg PO BID [facility] Stop: 12/30/20 20:59 Last Admin: 12/15/20 08:19 Dose: 300 mg Documented by: Lorazepam (Lorazepam 1 Mg Tab) 1 mg PO Q6 PRN PRN Reason: Anxiety/Agitation Stop: 12/31/20 10:10 Last Admin: 12/03/20 07:02 Dose: 1 mg Documented by: Lorazepam (Lorazepam 1 Mg Tab) 1 mg PO TID [facility] Stop: 01/01/21 13:59 Last Admin: 12/15/20 13:56 Dose: 1 mg Documented by: Magnesium Hydroxide (Magnesium Hydroxide Susp 30 Ml Udc) 30 ml PO DAILY PRN PRN Reason: Constipation Stop: 12/30/20 20:02 Olanzapine (Olanzapine Zydis 5 Mg Orally Dis. Tab) 5 mg PO Q6 PRN PRN Reason: Anxiety/Agitation Stop: 12/31/20 11:59 Last Admin: 12/12/20 11:32 Dose: 5 mg Documented by: Olanzapine (Olanzapine 20 Mg Tablet) 20 mg PO HS [facility] Stop: 01/04/21 21:59 Last Admin: 12/14/20 21:02 Dose: 20 mg Documented by: Perphenazine (Perphenazine 2 Mg Tablet) 4 mg PO BID [facility] Stop: 01/12/21 20:59 Last Admin: 12/15/20 08:19 Dose: 4 mg Documented by: Sertraline HCl (Sertraline Hcl 50 Mg Tablet) 50 mg PO QAM [facility] Stop: 01/15/21 08:59 Sodium Chloride (Sodium Chloride 0.65% Na Soln 45 Ml ([place])) 1 - 2 sprays NA PRN PRN PRN Reason: Nasal Dryness/Congestion Stop: 12/30/20 20:02 Vitamin D (Cholecalciferol 1,000 Units 25 Mcg Tab) 2,000 units PO QAM [facility] Stop: 12/31/20 08:59 Last Admin: 12/15/20 08:18 Dose: 2,000 units Documented by: Mental Health & Subst Abuse Tx Psychiatrist Name of Psychiatrist: Bruno Mcleod Psychiatrist's Psychiatric Appointment Comment: [address] [place] [address] Therapist [facility] Comment: [address] [place] [address] Counseling Center Director Name of Counseling Center Director: . Post Discharge Appointments Primary Care Physician Name Of Family Doctor: [facility] [place] [facility] - Dr. Shi Primary Care Provider Appointment Comment: [address] [facility] [place] [address] Neurologist Name of Neurologist: Mac Arroyo Neurologist's Neurology Appointment Comment: [address] [place] [address], [address], [place] [address] Contact Information Discharge Discharge Address: [place] [address], [place] [address] (1) Psychosis Psychosis type: schizophrenia Schizophrenia type: unspecified Qualified Code(s): F20.9 - Schizophrenia, unspecified
[2020-12-15] MEDS: OLANZapine 20 MG TABLET PO SCH (20:41)
[2020-12-16] MEDS: BENZTROPINE MESYLATE 1 MG TAB PO SCH ×2 (09:10→20:32)
[2020-12-16] MEDS: CHOLECALCIFEROL 1,000 UNITS 25 MCG TAB PO SCH (09:10)
[2020-12-16] MEDS: ATORVASTATIN 10 MG TAB PO SCH (09:10)
[2020-12-16] MEDS: LEVOTHYROXINE SODIUM 25 MCG TABLET PO SCH (09:10)
[2020-12-16] MEDS: lamoTRIgine 25 MG TAB PO SCH (09:10)
[2020-12-16] MEDS: DOCUSATE SODIUM 100 MG CAP PO SCH ×2 (09:10→20:32)
[2020-12-16] MEDS: PERPHENAZINE 2 MG TABLET PO SCH ×2 (09:11→20:32)
[2020-12-16] MEDS: SERTRALINE HCL 50 MG TABLET PO SCH (09:11)
[2020-12-16] MEDS: LITHIUM CARBONATE 300 MG TAB PO SCH ×2 (09:11→20:32)
[2020-12-16] MEDS: LORazepam 1 MG TAB PO SCH ×3 (09:11→20:32)
--- NOTE | 2020-12-16 19:58 | Psychiatric Progress Note ---
Date of Service December 16, 2020 Impression / Recommendations Impression 30 yo female with well established dx of chronic psychosis (schizophrenia vs schizoaffective disorder) presented to ED acutely psychotic, confused, wandering and responding to internal stimuli following a few weeks of med non-compliance. She required a 302 commitment and also a MNPR given level of disorganization. 12/16/20: unchanged (1) Psychosis: 12/16/20--following family meeting (see above) will present patient with option to swap Trilafon for a trial of Invega to assess tolerability for GARNER. Reviewed that patient will still require polypharmacy to manage her mood but agree would provide some protection against more severe psychotic breakthroughs if noncompliance. 12/15/20--retrial of Zoloft, restart at 50 mg in am. Patient is unsure she will accept. Family phone meeting tomorrow with provider around med options as interest in GARNER. for ease of dosing and persistent symptoms increase Trilafon to 4 mg BID, gets benefit from prn Zyprexa, patient declines am dose or additional hs dose. Consider Ativan taper soon as no catatonic features at this time. Cannot exclude subclinical seizure activity in staring spells--increase Lamictal to 50 mg for 2 weeks (goal is previously effectie of 125 mg). Reviewed Italics 12/12/2020ontinue with current regimen for now, patient does seem to be making some progress albeit slow. 12/11/2020ontinue with perphenazine 3 mg p.o. twice daily. Continue with Zyprexa 20 mg nightly. Patient still currently taking 300 mg of lithium twice daily, initially reluctant to increase this dose although continues to display mood lability may benefit from additional dosing. 12/10/2020erphenazine dose will be increased from 2 mg twice daily to 3 mg twice daily 12/09/2020atient making incremental progress. Less isolative today. Still remains bizarre at times, although compliant with medications. 12/08/2020atient continues to be compliant with medication, making slow progress. 12/07/2020ontinue current medication regimen. Patient does appear somewhat better although still bizarre and not back to baseline. 12/06/2020ontinue current medications, patient appears to be making slow but incremental progress. 12/05/20--continue Zyprexa shift to [address] Alarcon to assess need for am dose when assumes care. 303 granted. 12/04/20--shift Zyprexa dosing toward higher dose at hs with hopes to improve sleep and minimize daytime sedation. 303 hearing tomorrow. 12/03/20--continue current med plan given some improvement, will need petition for 303. 12/02/20--The patient's med rec is updated. Trilafon and Zyprexa should be BID (will increase Trilafon tomorrow), will add Ativan TID scheduled 1 mg for catatonic features. Risks/benefits briefly reviewed, patient is agreeable to clonidine prn trial for tachy/BP. increase VS to q shift to monitor more closely for withdrawal. Does not appear post ictal, still attempting to confirm seizure hx. 12/01/20--The patient was admitted to the [facility]) on q15 min checks (behavioral with suicide precautions) for safety. The patient will participate in group, recreational, and milieu therapies when clinically appropriate and will be offered additional individual and family sessions as recovers to aid in discharge planning. Collateral from family. Notification of outpatient psychiatrist. She is unable to fully engage in risks/benefits discussion re: her medications. Will resume home regimen with exception of Zoloft as per discussion in HPI and offer additional prn Zyprexa and Ativan for hallucinations/lability. Inventory Assets Strengths: has outpatient providers, agreed to mother's involvement in care Needs: restart medication, CM, step down programming Risk Factors Assessment Male: No : Yes Do You Have Access To A Gun?: No Mental Health Diagnoses: Yes Substance Use Disorders: No Previous Psychiatric Hospitalization: Yes Protective Factors Assessment : No Responsible for Young Children: No Employed: No (Unknown) Supportive Family: Yes Interval History Identifying Information 30 yo female with history of chronic psychosis and prior [facility] placement, admit 12/01/20, on 303 as of 12/05/2020. Chief Complaint "I guess i'm OK". Review of Systems Sleep Information Total Hours of Sleep: 6.25 Sleep Comments: pt on q-15 minute checks. pt drank apple juice before returning back to bed. Meal Information Percent Meal Consumed - Breakfast: 100 Percent Meal Consumed - Lunch: 75 Percent Meal Consumed - Dinner: 100 Nutrition Comment: sleeping Subjective Subjective Patient was seen & assessed and interval progress reviewed with nursing and social work. has been attending some groups but minimal participation in open ended conversation. met by phone with patient's father and social work to review slow progress and med plan. Father is ambivalent re: patient staying with them for any significant period of time post discharge as hopes she can remain independent. He asked about extended care unit and reviewed that [facility] no longer a referral option. He described his own hx of bipolar disorder. Family would not support referral to a CRR as again want to maintain her in an apartment in [place]. He was very invested in GARNER for patient to provide stability if she does stop medication (typically only does when they travel). Her wandering naked did create some stress within their neighborhood association. Reviewed past med trials and that no local resources for Zyprexa GARNER given 2 hour monitoring. Options would be Abilify (she has hx of arrhythmia), Invega (PRL would need monitored as hx of elevated PRL per [facility] records, unclear which agent), Haldol (typically blunting). Reinforced that follow up would take place at [facility] in [facility], not [facility] as [facility] resident/ (needs to re-open case) and no outpatient services here. Reviewed that to this point she has been refusing transition to GARNER. Family woul d not support a trial of clozaril given metabolic profile and are hoping to minimize residential exposure to Zyprexa despite efficacy. Medication Trials hx of Abilify, Seroquel, Klonopin, Zyprexa, Lamictal. Physical Exam Psychiatric Orientation: alert Apperance: appropriately dressed and appropriately groomed Eye Contact: + poor eye contact Motor Behavior: no abnormal motor movements Affect: + flat affect Mood: + anxious mood Thought Process: + tangential thought process and + concrete thought process Thought Content: + paranoid Suicidal Thoughts: denies suicidal thoughts Homicidal Thoughts: denies homicidal thoughts Hallucinations: + auditory hallucinations; no visual hallucinations Cognition: language grossly intact; + attention not intact Estimated Intelligence: + below average estimated intelligence Insight: + impaired insight Judgement: + impaired judgement Vital Signs (Past 24 Hours) Last Vital Signs Temp 36.5 C 12/16/20 06:51 Pulse 93 H 12/16/20 06:51 Resp 18 12/16/20 06:51 BP 118/87 12/16/20 06:51 Pulse Ox 100 12/05/20 06:00 Results & Data ([facility]) Current Inpatient Medications Current Inpatient Medications: Current Inpatient Medications Acetaminophen (Acetaminophen 325 Mg Tab) 650 mg PO Q4H PRN PRN Reason: Headache or Minor Fever Stop: 12/30/20 20:02 Al Hydrox/Mg Hydrox/Simethicone (Aluminum/Magnesium Susp 30 Ml Udc) 30 ml PO Q4H PRN PRN Reason: GI Upset Stop: 12/30/20 20:02 Atorvastatin Calcium (Atorvastatin 10 Mg Tab) 10 mg PO QAM [facility] Stop: 12/31/20 08:59 Last Admin: 12/16/20 09:10 Dose: 10 mg Documented by: Benztropine Mesylate (Benztropine Mesylate 1 Mg Tab) 1 mg PO BID [facility] Stop: 12/30/20 20:59 Last Admin: 12/16/20 09:10 Dose: 1 mg Documented by: Bismuth Subsalicylate (Bismuth Subsalicylate Liqd 236 Ml) 15 ml PO PRN PRN PRN Reason: Loose Stool Stop: 12/30/20 20:02 Clonidine HCl (Clonidine Hcl 0.1 Mg Tab) 0.05 mg PO Q6 PRN PRN Reason: Blood Pressure - High Stop: 01/01/21 13:17 Last Admin: 12/04/20 20:41 Dose: 0.05 mg Documented by: Docusate Sodium (Docusate Sodium 100 Mg Cap) 100 mg PO BID [facility] Stop: 01/08/21 20:59 Last Admin: 12/16/20 09:10 Dose: 100 mg Documented by: Hydroxyzine HCl (Hydroxyzine Hcl 25 Mg Tab) 50 mg PO HSZ PRN PRN Reason: Insomnia Stop: 12/30/20 20:02 Last Admin: 12/06/20 01:06 Dose: 50 mg Documented by: Hydroxyzine HCl (Hydroxyzine Hcl 25 Mg Tab) 25 mg PO Q4H PRN PRN Reason: Anxiety Stop: 12/30/20 20:02 Last Admin: 12/04/20 04:03 Dose: 25 mg Documented by: Lamotrigine (Lamotrigine 25 Mg Tab) 50 mg PO QAM [facility] Stop: 01/13/21 08:59 Last Admin: 12/16/20 09:10 Dose: 50 mg Documented by: Levothyroxine Sodium (Levothyroxine Sodium 25 Mcg Tablet) 25 mcg PO DAILYBB [facility] Stop: 12/31/20 07:59 Last Admin: 12/16/20 09:10 Dose: 25 mcg Documented by: [place] Carbonate ([place] Carbonate 300 Mg Tab) 300 mg PO BID [facility] Stop: 12/30/20 20:59 Last Admin: 12/16/20 09:11 Dose: 300 mg Documented by: Lorazepam (Lorazepam 1 Mg Tab) 1 mg PO Q6 PRN PRN Reason: Anxiety/Agitation Stop: 12/31/20 10:10 Last Admin: 12/03/20 07:02 Dose: 1 mg Documented by: Lorazepam (Lorazepam 1 Mg Tab) 1 mg PO TID [facility] Stop: 01/01/21 13:59 Last Admin: 12/16/20 14:00 Dose: 1 mg Documented by: Magnesium Hydroxide (Magnesium Hydroxide Susp 30 Ml Udc) 30 ml PO DAILY PRN PRN Reason: Constipation Stop: 12/30/20 20:02 Olanzapine (Olanzapine Zydis 5 Mg Orally Dis. Tab) 5 mg PO Q6 PRN PRN Reason: Anxiety/Agitation Stop: 12/31/20 11:59 Last Admin: 12/12/20 11:32 Dose: 5 mg Documented by: Olanzapine (Olanzapine 20 Mg Tablet) 20 mg PO HS [facility] Stop: 01/04/21 21:59 Last Admin: 12/15/20 20:41 Dose: 20 mg Documented by: Perphenazine (Perphenazine 2 Mg Tablet) 4 mg PO BID [facility] Stop: 01/12/21 20:59 Last Admin: 12/16/20 09:11 Dose: 4 mg Documented by: Sertraline HCl (Sertraline Hcl 50 Mg Tablet) 50 mg PO QAM [facility] Stop: 01/15/21 08:59 Last Admin: 12/16/20 09:11 Dose: 50 mg Documented by: Sodium Chloride (Sodium Chloride 0.65% Na Soln 45 Ml ([place])) 1 - 2 sprays NA PRN PRN PRN Reason: Nasal Dryness/Congestion Stop: 12/30/20 20:02 Vitamin D (Cholecalciferol 1,000 Units 25 Mcg Tab) 2,000 units PO QAM [facility] Stop: 12/31/20 08:59 Last Admin: 12/16/20 09:10 Dose: 2,000 units Documented by: Mental Health & Subst Abuse Tx Psychiatrist Name of Psychiatrist: [facility] - Dr. Mcleod Psychiatrist's Psychiatric Appointment Comment: [address], [place] [address] Therapist Name of Therapist: discharged from [facility] Therapist's Therapy Appointment Comment: [address] [facility] [address], [place] [address] Supervisor Of Operations Name of Supervisor Of Operations: . Post Discharge Appointments Primary Care Physician Name Of Family Doctor: [facility] [place] [facility] - Dr. Shi Primary Care Provider Appointment Comment: [address] [facility] [place] [address] Neurologist Name of Neurologist: Mac Strange - Dr. Arroyo Neurologist's Neurology Appointment Comment: [address] [place] [address], [address], [place] [address] Contact Information Discharge Discharge Address: [address], [place] [address] (1) Psychosis Psychosis type: schizophrenia Schizophrenia type: unspecified Qualified Code(s): F20.9 - Schizophrenia, unspecified
[2020-12-16] MEDS: OLANZapine 20 MG TABLET PO SCH (20:32)
[2020-12-17] MEDS: LEVOTHYROXINE SODIUM 25 MCG TABLET PO SCH (09:36)
[2020-12-17] MEDS: LITHIUM CARBONATE 300 MG TAB PO SCH ×2 (09:36→20:35)
[2020-12-17] MEDS: LORazepam 1 MG TAB PO SCH ×3 (09:36→20:37)
[2020-12-17] MEDS: BENZTROPINE MESYLATE 1 MG TAB PO SCH ×2 (09:36→20:35)
[2020-12-17] MEDS: DOCUSATE SODIUM 100 MG CAP PO SCH ×2 (09:36→20:35)
[2020-12-17] MEDS: ATORVASTATIN 10 MG TAB PO SCH (09:36)
[2020-12-17] MEDS: CHOLECALCIFEROL 1,000 UNITS 25 MCG TAB PO SCH (09:36)
[2020-12-17] MEDS: lamoTRIgine 25 MG TAB PO SCH (09:36)
[2020-12-17] MEDS: SERTRALINE HCL 50 MG TABLET PO SCH (09:37)
[2020-12-17] MEDS: PERPHENAZINE 2 MG TABLET PO SCH (09:37)
--- NOTE | 2020-12-17 18:29 | Psychiatric Progress Note ---
Date of Service December 17, 2020 Impression / Recommendations Impression 30 yo female with well established dx of chronic psychosis (schizophrenia vs schizoaffective disorder) presented to ED acutely psychotic, confused, wandering and responding to internal stimuli following a few weeks of med non-compliance. She required a 302 commitment and also a MNPR given level of disorganization. 12/17/20: more engaged today, agreeable to GARNER. (1) Psychosis: 12/17/20--taper Trilafon to 4 mg today then d/c in favor of Invega 3 mg daily in am. Titrate Zoloft 100 mg daily. 12/16/20--following family meeting (see above) will present patient with option to swap Trilafon for a trial of Invega to assess tolerability for GARNER. Reviewed that patient will still require polypharmacy to manage her mood but agree would provide some protection against more severe psychotic breakthroughs if noncompliance. 12/15/20--retrial of Zoloft, restart at 50 mg in am. Patient is unsure she will accept. Family phone meeting tomorrow with provider around med options as interest in GARNER. for ease of dosing and persistent symptoms increase Trilafon to 4 mg BID, gets benefit from prn Zyprexa, patient declines am dose or additional hs dose. Consider Ativan taper soon as no catatonic features at this time. Cannot exclude subclinical seizure activity in staring spells--increase Lamictal to 50 mg for 2 weeks (goal is previously effectie of 125 mg). Reviewed Italics 12/12/2020ontinue with current regimen for now, patient does seem to be making some progress albeit slow. 12/11/2020ontinue with perphenazine 3 mg p.o. twice daily. Continue with Zyprexa 20 mg nightly. Patient still currently taking 300 mg of lithium twice daily, initially reluctant to increase this dose although continues to display mood lability may benefit from additional dosing. 12/10/2020erphenazine dose will be increased from 2 mg twice daily to 3 mg twice daily 12/09/2020atient making incremental progress. Less isolative today. Still remains bizarre at times, although compliant with medications. 12/08/2020atient continues to be compliant with medication, making slow progress. 12/07/2020ontinue current medication regimen. Patient does appear somewhat better although still bizarre and not back to baseline. 12/06/2020ontinue current medications, patient appears to be making slow but incremental progress. 12/05/20--continue Zyprexa shift to [address] Alarcon to assess need for am dose when assumes care. 303 granted. 12/04/20--shift Zyprexa dosing toward higher dose at hs with hopes to improve sleep and minimize daytime sedation. 303 hearing tomorrow. 12/03/20--continue current med plan given some improvement, will need petition for 303. 12/02/20--The patient's med rec is updated. Trilafon and Zyprexa should be BID (will increase Trilafon tomorrow), will add Ativan TID scheduled 1 mg for catatonic features. Risks/benefits briefly reviewed, patient is agreeable to clonidine prn trial for tachy/BP. increase VS to q shift to monitor more closely for withdrawal. Does not appear post ictal, still attempting to confirm seizure hx. 12/01/20--The patient was admitted to the [facility] ([facility] mental health unit) on q15 min checks (behavioral with suicide precautions) for safety. The patient will participate in group, recreational, and milieu therapies when clinically appropriate and will be offered additional individual and family sessions as recovers to aid in discharge planning. Collateral from family. Notification of outpatient psychiatrist. She is unable to fully engage in risks/benefits discussion re: her medications. Will resume home regimen with exception of Zoloft as per discussion in HPI and offer additional prn Zyprexa and Ativan for hallucinations/lability. Inventory Assets Strengths: has outpatient providers, agreed to mother's involvement in care Needs: restart medication, CM, step down programming Risk Factors Assessment Male: No : Yes Do You Have Access To A Gun?: No Mental Health Diagnoses: Yes Substance Use Disorders: No Previous Psychiatric Hospitalization: Yes Protective Factors Assessment : No Responsible for Young Children: No Employed: No (Unknown) Supportive Family: Yes Interval History Identifying Information 30 yo female with history of chronic psychosis and prior [facility] placement, admit 12/01/20, on 303 as of 12/05/2020. Chief Complaint "what's with this injectable thing?". Review of Systems Sleep Information Total Hours of Sleep: 6.5 Meal Information Percent Meal Consumed - Breakfast: 100 Percent Meal Consumed - Lunch: 100 Percent Meal Consumed - Dinner: 100 Nutrition Comment: sleeping Medication Trials hx of Abilify, Seroquel, Klonopin, Zyprexa, Lamictal. Subjective Subjective Patient was seen & assessed and interval progress reviewed with treatment team. Reviewed my session with father yesterday, patient invited me to sit in her room today. Reviewed rationale for injectable and she related past experience, reports taking Invega previously. Reviewed that I suspect it was discontinued for PRL elevation. She states was due to N. Reviewed difficulties in obtaining records from [facility]. She maintains that she would like to live independently in [place] and take fewer pills (knows that monotherapy unlikely). She reported liking music as a coping skill (Mirela) Medication Trials hx of Abilify, Seroquel, Klonopin, Zyprexa, Lamictal. Physical Exam Psychiatric Orientation: alert Apperance: appropriately dressed and appropriately groomed Eye Contact: + fair eye contact Motor Behavior: no abnormal motor movements Affect: + flat affect Mood: + anxious mood Thought Process: + concrete thought process Thought Content: + paranoid Suicidal Thoughts: denies suicidal thoughts Homicidal Thoughts: denies homicidal thoughts Hallucinations: + auditory hallucinations; no visual hallucinations Cognition: language grossly intact; + attention not intact Estimated Intelligence: + below average estimated intelligence Insight: + impaired insight Judgement: + impaired judgement Vital Signs (Past 24 Hours) Last Vital Signs Temp 36.5 C 12/17/20 06:40 Pulse 107 H 12/17/20 06:41 Resp 16 12/17/20 06:40 BP 114/81 12/17/20 06:41 Pulse Ox 100 12/05/20 06:00 Results & Data (U) Current Inpatient Medications Current Inpatient Medications: Current Inpatient Medications Acetaminophen (Acetaminophen 325 Mg Tab) 650 mg PO Q4H PRN PRN Reason: Headache or Minor Fever Stop: 12/30/20 20:02 Al Hydrox/Mg Hydrox/Simethicone (Aluminum/Magnesium Susp 30 Ml Udc) 30 ml PO Q4H PRN PRN Reason: GI Upset Stop: 12/30/20 20:02 Atorvastatin Calcium (Atorvastatin 10 Mg Tab) 10 mg PO QAM [facility] Stop: 12/31/20 08:59 Last Admin: 12/17/20 09:36 Dose: 10 mg Documented by: Benztropine Mesylate (Benztropine Mesylate 1 Mg Tab) 1 mg PO BID [facility] Stop: 12/30/20 20:59 Last Admin: 12/17/20 09:36 Dose: 1 mg Documented by: Bismuth Subsalicylate (Bismuth Subsalicylate Liqd 236 Ml) 15 ml PO PRN PRN PRN Reason: Loose Stool Stop: 12/30/20 20:02 Clonidine HCl (Clonidine Hcl 0.1 Mg Tab) 0.05 mg PO Q6 PRN PRN Reason: Blood Pressure - High Stop: 01/01/21 13:17 Last Admin: 12/04/20 20:41 Dose: 0.05 mg Documented by: Docusate Sodium (Docusate Sodium 100 Mg Cap) 100 mg PO BID [facility] Stop: 01/08/21 20:59 Last Admin: 12/17/20 09:36 Dose: 100 mg Documented by: Hydroxyzine HCl (Hydroxyzine Hcl 25 Mg Tab) 50 mg PO HSZ PRN PRN Reason: Insomnia Stop: 12/30/20 20:02 Last Admin: 12/06/20 01:06 Dose: 50 mg Documented by: Hydroxyzine HCl (Hydroxyzine Hcl 25 Mg Tab) 25 mg PO Q4H PRN PRN Reason: Anxiety Stop: 12/30/20 20:02 Last Admin: 12/04/20 04:03 Dose: 25 mg Documented by: Lamotrigine (Lamotrigine 25 Mg Tab) 50 mg PO QAM [facility] Stop: 01/13/21 08:59 Last Admin: 12/17/20 09:36 Dose: 50 mg Documented by: Levothyroxine Sodium (Levothyroxine Sodium 25 Mcg Tablet) 25 mcg PO DAILYBB [facility] Stop: 12/31/20 07:59 Last Admin: 12/17/20 09:36 Dose: 25 mcg Documented by: [place] Carbonate ([place] Carbonate 300 Mg Tab) 300 mg PO BID [facility] Stop: 12/30/20 20:59 Last Admin: 12/17/20 09:36 Dose: 300 mg Documented by: Lorazepam (Lorazepam 1 Mg Tab) 1 mg PO Q6 PRN PRN Reason: Anxiety/Agitation Stop: 12/31/20 10:10 Last Admin: 12/03/20 07:02 Dose: 1 mg Documented by: Lorazepam (Lorazepam 1 Mg Tab) 1 mg PO TID [facility] Stop: 01/01/21 13:59 Last Admin: 12/17/20 14:13 Dose: 1 mg Documented by: Magnesium Hydroxide (Magnesium Hydroxide Susp 30 Ml Udc) 30 ml PO DAILY PRN PRN Reason: Constipation Stop: 12/30/20 20:02 Olanzapine (Olanzapine Zydis 5 Mg Orally Dis. Tab) 5 mg PO Q6 PRN PRN Reason: Anxiety/Agitation Stop: 12/31/20 11:59 Last Admin: 12/12/20 11:32 Dose: 5 mg Documented by: Olanzapine (Olanzapine 20 Mg Tablet) 20 mg PO HS [facility] Stop: 01/04/21 21:59 Last Admin: 12/16/20 20:32 Dose: 20 mg Documented by: Paliperidone (Paliperidone 3 Mg Tabcr) 3 mg PO DAILY [facility] Stop: 01/17/21 08:59 Sertraline HCl (Sertraline Hcl 100 Mg Tablet) 100 mg PO QAM [facility] Stop: 01/17/21 08:59 Sodium Chloride (Sodium Chloride 0.65% Na Soln 45 Ml ([place])) 1 - 2 sprays NA PRN PRN PRN Reason: Nasal Dryness/Congestion Stop: 12/30/20 20:02 Vitamin D (Cholecalciferol 1,000 Units 25 Mcg Tab) 2,000 units PO QAM [facility] Stop: 12/31/20 08:59 Last Admin: 12/17/20 09:36 Dose: 2,000 units Documented by: Mental Health & Subst Abuse Tx Psychiatrist Name of Psychiatrist: [facility]od Psychiatrist's Psychiatric Appointment Comment: [address] [place] [address] Therapist [facility]: [facility] Comment: [address] [place] [address] Supervisor Of Research Name of Supervisor Of Research: . Post Discharge Appointments Primary Care Physician Name Of Family Doctor: [facility] - Dr. Shi Primary Care Provider Appointment Comment: [address] [place] [address] Neurologist Name of Neurologist: Mac Strange - Dr. Arroyo Neurologist's Neurology Appointment Comment: [address] [place] [address], [address], [place] [address] Contact Information Discharge Discharge Address: [facility] [address], [place] [address] (1) Psychosis Psychosis type: schizophrenia Schizophrenia type: unspecified Qualified Code(s): F20.9 - Schizophrenia, unspecified
[2020-12-17] MEDS: OLANZapine 20 MG TABLET PO SCH (20:34)
[2020-12-18] MEDS: ATORVASTATIN 10 MG TAB PO SCH (09:34)
[2020-12-18] MEDS: LEVOTHYROXINE SODIUM 25 MCG TABLET PO SCH (09:34)
[2020-12-18] MEDS: DOCUSATE SODIUM 100 MG CAP PO SCH ×2 (09:34→21:10)
[2020-12-18] MEDS: lamoTRIgine 25 MG TAB PO SCH (09:34)
[2020-12-18] MEDS: BENZTROPINE MESYLATE 1 MG TAB PO SCH ×2 (09:34→21:10)
[2020-12-18] MEDS: CHOLECALCIFEROL 1,000 UNITS 25 MCG TAB PO SCH (09:34)
[2020-12-18] MEDS: SERTRALINE HCL 100 MG TABLET PO SCH (09:35)
[2020-12-18] MEDS: LITHIUM CARBONATE 300 MG TAB PO SCH ×2 (09:35→21:10)
[2020-12-18] MEDS: PALIPERIDONE 3 MG TABCR PO SCH (09:35)
[2020-12-18] MEDS: LORazepam 1 MG TAB PO SCH ×3 (09:35→21:10)
--- NOTE | 2020-12-18 16:24 | Psychiatric Progress Note ---
Date of Service December 18, 2020 Impression / Recommendations Impression 30 yo female with well established dx of chronic psychosis (schizophrenia vs schizoaffective disorder) presented to ED acutely psychotic, confused, wandering and responding to internal stimuli following a few weeks of med non-compliance. She required a 302 commitment and also a MNPR given level of disorganization. She is now agreeing to PO Invega retrial with conversion to GANRER. 12/18/20: desires to remain hospitalized on a commtiment (1) Psychosis: 12/18/20--consider Invega titration tomorrow. If tolerating 6 mg for 2 days then give Invegga maintenna dose. Prefer 6 rather than 9 mg Invegga given ?hx of PRL elevation. 12/17/20--taper Trilafon to 4 mg today then d/c in favor of Invega 3 mg daily in am. Titrate Zoloft 100 mg daily. 12/16/20--following family meeting (see above) will present patient with option to swap Trilafon for a trial of Invega to assess tolerability for GARNER. Reviewed that patient will still require polypharmacy to manage her mood but agree would provide some protection against more severe psychotic breakthroughs if noncompliance. 12/15/20--retrial of Zoloft, restart at 50 mg in am. Patient is unsure she will accept. Family phone meeting tomorrow with provider around med options as interest in GARNER. for ease of dosing and persistent symptoms increase Trilafon to 4 mg BID, gets benefit from prn Zyprexa, patient declines am dose or additional hs dose. Consider Ativan taper soon as no catatonic features at this time. Cannot exclude subclinical seizure activity in staring spells--increase Lamictal to 50 mg for 2 weeks (goal is previously effectie of 125 mg). Reviewed Italics 12/12/2020ontinue with current regimen for now, patient does seem to be making some progress albeit slow. 12/11/2020ontinue with perphenazine 3 mg p.o. twice daily. Continue with Zyprexa 20 mg nightly. Patient still currently taking 300 mg of lithium twice daily, initially reluctant to increase this dose although continues to display mood lability may benefit from additional dosing. 12/10/2020erphenazine dose will be increased from 2 mg twice daily to 3 mg twice daily 1patient making incremental progress. Less isolative today. Still remains bizarre at times, although compliant with medications. 12/08/2020atient continues to be compliant with medication, making slow progress. 12/07/2020ontinue current medication regimen. Patient does appear somewhat better although still bizarre and not back to baseline. 12/06/2020ontinue current medications, patient appears to be making slow but incremental progress. 12/05/20--continue Zyprexa shift to [address] Alarcon to assess need for am dose when assumes care. 303 granted. 12/04/20--shift Zyprexa dosing toward higher dose at hs with hopes to improve sleep and minimize daytime sedation. 303 hearing tomorrow. 12/03/20--continue current med plan given some improvement, will need petition for 303. 12/02/20--The patient's med rec is updated. Trilafon and Zyprexa should be BID (will increase Trilafon tomorrow), will add Ativan TID scheduled 1 mg for catatonic features. Risks/benefits briefly reviewed, patient is agreeable to clonidine prn trial for tachy/BP. increase VS to q shift to monitor more closely for withdrawal. Does not appear post ictal, still attempting to confirm seizure hx. 12/01/20--The patient was admitted to the [facility] on q15 min checks (behavioral with suicide precautions) for safety. The patient will participate in group, recreational, and milieu therapies when clinically appropriate and will be offered additional individual and family sessions as recovers to aid in discharge planning. Collateral from family. Notification of outpatient psychiatrist. She is unable to fully engage in risks/benefits discussion re: her medications. Will resume home regimen with exception of Zoloft as per discussion in HPI and offer additional prn Zyprexa and Ativan for hallucinations/lability. Inventory Assets Strengths: has outpatient providers, agreed to mother's involvement in care Needs: restart medication, CM, step down programming Risk Factors Assessment Male: No : Yes Do You Have Access To A Gun?: No Mental Health Diagnoses: Yes Substance Use Disorders: No Previous Psychiatric Hospitalization: Yes Protective Factors Assessment : No Responsible for Young Children: No Employed: No (Unknown) Supportive Family: Yes Interval History Identifying Information 30 yo female with history of chronic psychosis and [facility], admit 12/01/20, on 303 as of 12/05/2020. Chief Complaint "yeah I just want the court to take care of it". referring to her agreement to remain hospitalized. Review of Systems Sleep Information Total Hours of Sleep: 5 Sleep Comments: pt TOMMY @0430 and thereafter. pt on q-15 minute checks Meal Information Percent Meal Consumed - Breakfast: 100 Percent Meal Consumed - Lunch: 100 Percent Meal Consumed - Dinner: 100 Nutrition Comment: sleeping Medication Trials hx of Abilify, Seroquel, Klonopin, Zyprexa, Lamictal. Subjective Subjective Patient was seen & assessed and interval progress reviewed with nursing and social work. Patient is tolerating 1st dose of Invega, sitting in the back of more groups and will spontaneously speak when I enter room. She seems confused re: 201 and 303 paperwork and maintains that signing releases was signing herself in. Medication Trials hx of Abilify, Seroquel, Klonopin, Zyprexa, Lamictal. Physical Exam Psychiatric Orientation: alert Apperance: appropriately dressed and appropriately groomed Eye Contact: + fair eye contact Motor Behavior: no abnormal motor movements Affect: + constricted affect Mood: + anxious mood Thought Process: + concrete thought process Thought Content: + paranoid Suicidal Thoughts: denies suicidal thoughts Homicidal Thoughts: denies homicidal thoughts Hallucinations: no auditory hallucinations and no visual hallucinations Cognition: language grossly intact; + attention not intact Estimated Intelligence: + below average estimated intelligence Insight: + impaired insight Judgement: + impaired judgement Vital Signs (Past 24 Hours) Last Vital Signs Temp 36.7 C 12/18/20 06:57 Pulse 87 12/18/20 06:58 Resp 18 12/18/20 06:57 BP 119/89 12/18/20 06:58 Pulse Ox 100 12/05/20 06:00 Results & Data ([facility]) Current Inpatient Medications Current Inpatient Medications: Current Inpatient Medications Acetaminophen (Acetaminophen 325 Mg Tab) 650 mg PO Q4H PRN PRN Reason: Headache or Minor Fever Stop: 12/30/20 20:02 Al Hydrox/Mg Hydrox/Simethicone (Aluminum/Magnesium Susp 30 Ml Udc) 30 ml PO Q4H PRN PRN Reason: GI Upset Stop: 12/30/20 20:02 Atorvastatin Calcium (Atorvastatin 10 Mg Tab) 10 mg PO QAM [facility] Stop: 12/31/20 08:59 Last Admin: 12/18/20 09:34 Dose: 10 mg Documented by: Benztropine Mesylate (Benztropine Mesylate 1 Mg Tab) 1 mg PO BID [facility] Stop: 12/30/20 20:59 Last Admin: 12/18/20 09:34 Dose: 1 mg Documented by: Bismuth Subsalicylate (Bismuth Subsalicylate Liqd 236 Ml) 15 ml PO PRN PRN PRN Reason: Loose Stool Stop: 12/30/20 20:02 Clonidine HCl (Clonidine Hcl 0.1 Mg Tab) 0.05 mg PO Q6 PRN PRN Reason: Blood Pressure - High Stop: 01/01/21 13:17 Last Admin: 12/04/20 20:41 Dose: 0.05 mg Documented by: Docusate Sodium (Docusate Sodium 100 Mg Cap) 100 mg PO BID [facility] Stop: 01/08/21 20:59 Last Admin: 12/18/20 09:34 Dose: 100 mg Documented by: Hydroxyzine HCl (Hydroxyzine Hcl 25 Mg Tab) 50 mg PO HSZ PRN PRN Reason: Insomnia Stop: 12/30/20 20:02 Last Admin: 12/06/20 01:06 Dose: 50 mg Documented by: Hydroxyzine HCl (Hydroxyzine Hcl 25 Mg Tab) 25 mg PO Q4H PRN PRN Reason: Anxiety Stop: 12/30/20 20:02 Last Admin: 12/04/20 04:03 Dose: 25 mg Documented by: Lamotrigine (Lamotrigine 25 Mg Tab) 50 mg PO QAM [facility] Stop: 01/13/21 08:59 Last Admin: 12/18/20 09:34 Dose: 50 mg Documented by: Levothyroxine Sodium (Levothyroxine Sodium 25 Mcg Tablet) 25 mcg PO DAILYBB [facility] Stop: 12/31/20 07:59 Last Admin: 12/18/20 09:34 Dose: 25 mcg Documented by: [place] Carbonate ([place] Carbonate 300 Mg Tab) 300 mg PO BID [facility] Stop: 12/30/20 20:59 Last Admin: 12/18/20 09:35 Dose: 300 mg Documented by: Lorazepam (Lorazepam 1 Mg Tab) 1 mg PO Q6 PRN PRN Reason: Anxiety/Agitation Stop: 12/31/20 10:10 Last Admin: 12/03/20 07:02 Dose: 1 mg Documented by: Lorazepam (Lorazepam 1 Mg Tab) 1 mg PO TID [facility] Stop: 01/01/21 13:59 Last Admin: 12/18/20 14:04 Dose: 1 mg Documented by: Magnesium Hydroxide (Magnesium Hydroxide Susp 30 Ml Udc) 30 ml PO DAILY PRN PRN Reason: Constipation Stop: 12/30/20 20:02 Olanzapine (Olanzapine Zydis 5 Mg Orally Dis. Tab) 5 mg PO Q6 PRN PRN Reason: Anxiety/Agitation Stop: 12/31/20 11:59 Last Admin: 12/12/20 11:32 Dose: 5 mg Documented by: Olanzapine (Olanzapine 20 Mg Tablet) 20 mg PO HS [facility] Stop: 01/04/21 21:59 Last Admin: 12/17/20 20:34 Dose: 20 mg Documented by: Paliperidone (Paliperidone 3 Mg Tabcr) 3 mg PO DAILY [facility] Stop: 01/17/21 08:59 Last Admin: 12/18/20 09:35 Dose: 3 mg Documented by: Sertraline HCl (Sertraline Hcl 100 Mg Tablet) 100 mg PO QAM [facility] Stop: 01/17/21 08:59 Last Admin: 12/18/20 09:35 Dose: 100 mg Documented by: Sodium Chloride (Sodium Chloride 0.65% Na Soln 45 Ml ([place])) 1 - 2 sprays NA PRN PRN PRN Reason: Nasal Dryness/Congestion Stop: 12/30/20 20:02 Vitamin D (Cholecalciferol 1,000 Units 25 Mcg Tab) 2,000 units PO QAM [facility] Stop: 12/31/20 08:59 Last Admin: 12/18/20 09:34 Dose: 2,000 units Documented by: Mental Health & Subst Abuse Tx Psychiatrist Name of Psychiatrist: Bruno Mcleod Psychiatrist's Psychiatric Appointment Comment: [address] [place] [address] Rd, [place] [address] Therapist Name of Therapist: discharged from [facility] Therapist's Therapy Appointment Comment: [address] [facility], [place] [address] Digitizer Operator Name of Digitizer Operator: . Post Discharge Appointments Primary Care Physician Name Of Family Doctor: [facility] - Dr. Shi Primary Care Provider Appointment Comment: [address] [facility], [place] [address] Neurologist Name of Neurologist: Mac Strange - Dr. Arroyo Neurologist's Neurology Appointment Comment: [address] [place] [address], [address], [place] [address] Contact Information Discharge Discharge Address: [place] [address], [place] [address] (1) Psychosis Psychosis type: schizophrenia Schizophrenia type: unspecified Qualified Code(s): F20.9 - Schizophrenia, unspecified
[2020-12-18] MEDS: OLANZapine 20 MG TABLET PO SCH (21:10)
[2020-12-19] MEDS: ATORVASTATIN 10 MG TAB PO SCH (08:37)
[2020-12-19] MEDS: CHOLECALCIFEROL 1,000 UNITS 25 MCG TAB PO SCH (08:37)
[2020-12-19] MEDS: LEVOTHYROXINE SODIUM 25 MCG TABLET PO SCH (08:37)
[2020-12-19] MEDS: BENZTROPINE MESYLATE 1 MG TAB PO SCH ×2 (08:37→20:27)
[2020-12-19] MEDS: lamoTRIgine 25 MG TAB PO SCH (08:38)
[2020-12-19] MEDS: DOCUSATE SODIUM 100 MG CAP PO SCH ×2 (08:38→20:27)
[2020-12-19] MEDS: LITHIUM CARBONATE 300 MG TAB PO SCH ×2 (08:38→20:28)
[2020-12-19] MEDS: LORazepam 1 MG TAB PO SCH ×3 (08:39→20:28)
[2020-12-19] MEDS: SERTRALINE HCL 100 MG TABLET PO SCH (08:39)
[2020-12-19] MEDS: PALIPERIDONE 3 MG TABCR PO SCH (08:39)
[2020-12-19] MEDS: LORazepam 1 MG TAB PO PRN (11:25)
--- NOTE | 2020-12-19 12:48 | Psychiatric Progress Note ---
Date of Service December 19, 2020 Impression / Recommendations Impression 30 yo female with well established dx of chronic psychosis (schizophrenia vs schizoaffective disorder) presented to ED acutely psychotic, confused, wandering and responding to internal stimuli following a few weeks of med non-compliance. She required a 302 commitment and also a MNPR given level of disorganization. She is now agreeing to PO Invega retrial with conversion to GARNER. 12/19/20: some N today, unclear if Zoloft increase or start of Invega. States it is not constant and denies emesis. (1) Psychosis: 12/19/20--continue current meds and treatment plan. If N persists, consider decrease in Zoloft. Patient converted to 201 commitment. 12/18/20--consider Invega titration tomorrow. If tolerating 6 mg for 2 days then give Invegga maintenna dose. Prefer 6 rather than 9 mg Invegga given ?hx of PRL elevation. 12/17/20--taper Trilafon to 4 mg today then d/c in favor of Invega 3 mg daily in am. Titrate Zoloft 100 mg daily. 12/16/20--following family meeting (see above) will present patient with option to swap Trilafon for a trial of Invega to assess tolerability for GARNER. Reviewed that patient will still require polypharmacy to manage her mood but agree would provide some protection against more severe psychotic breakthroughs if noncompliance. 12/15/20--retrial of Zoloft, restart at 50 mg in am. Patient is unsure she will accept. Family phone meeting tomorrow with provider around med options as interest in GARNER. for ease of dosing and persistent symptoms increase Trilafon to 4 mg BID, gets benefit from prn Zyprexa, patient declines am dose or additional hs dose. Consider Ativan taper soon as no catatonic features at this time. Cannot exclude subclinical seizure activity in staring spells--increase Lamictal to 50 mg for 2 weeks (goal is previously effectie of 125 mg). Reviewed Italics 12/12/2020ontinue with current regimen for now, patient does seem to be making some progress albeit slow. 12/11/2020ontinue with perphenazine 3 mg p.o. twice daily. Continue with Zyprexa 20 mg nightly. Patient still currently taking 300 mg of lithium twice daily, initially reluctant to increase this dose although continues to display mood lability may benefit from additional dosing. 12/10/2020erphenazine dose will be increased from 2 mg twice daily to 3 mg twice daily 12/09/2020atient making incremental progress. Less isolative today. Still remains bizarre at times, although compliant with medications. 12/08/2020atient continues to be compliant with medication, making slow progress. 12/07/2020ontinue current medication regimen. Patient does appear somewhat better although still bizarre and not back to baseline. 12/06/2020ontinue current medications, patient appears to be making slow but incremental progress. 12/05/20--continue Zyprexa shift to [address] Alarcon to assess need for am dose when assumes care. 303 granted. 12/04/20--shift Zyprexa dosing toward higher dose at hs with hopes to improve slee p and minimize daytime sedation. 303 hearing tomorrow. 12/03/20--continue current med plan given some improvement, will need petition for 303. 12/02/20--The patient's med rec is updated. Trilafon and Zyprexa should be BID (will increase Trilafon tomorrow), will add Ativan TID scheduled 1 mg for catatonic features. Risks/benefits briefly reviewed, patient is agreeable to clonidine prn trial for tachy/BP. increase VS to q shift to monitor more closely for withdrawal. Does not appear post ictal, still attempting to confirm seizure hx. 12/01/20--The patient was admitted to the [facility] on q15 min checks (behavioral with suicide precautions) for safety. The patient will participate in group, recreational, and milieu therapies when clinically appropriate and will be offered additional individual and family sessions as recovers to aid in discharge planning. Collateral from family. Notification of outpatient psychiatrist. She is unable to fully engage in risks/benefits discussion re: her medications. Will resume home regimen with exception of Zoloft as per discussion in HPI and offer additional prn Zyprexa and Ativan for hallucinations/lability. Inventory Assets Strengths: has outpatient providers, agreed to mother's involvement in care Needs: restart medication, CM, step down programming Risk Factors Assessment Male: No : Yes Do You Have Access To A Gun?: No Mental Health Diagnoses: Yes Substance Use Disorders: No Previous Psychiatric Hospitalization: Yes Protective Factors Assessment : No Responsible for Young Children: No Employed: No (Unknown) Supportive Family: Yes Interval History Identifying Information 30 yo female with history of chronic psychosis and prior [facility] hospital placement, admit 12/01/20, on 303 as of 12/05/2020. Chief Complaint "I'm a little nauseated". Review of Systems Sleep Information Total Hours of Sleep: 5 Sleep Comments: pt TOMMY @0515 and thereafter. pt on q-15 minute checks Meal Information Percent Meal Consumed - Breakfast: 75 Percent Meal Consumed - Lunch: 100 Percent Meal Consumed - Dinner: 100 Nutrition Comment: sleeping Medication Trials hx of Abilify, Seroquel, Klonopin, Zyprexa, Lamictal. Subjective Subjective Patient was seen & assessed and interval progress reviewed with treatment team. Patient is organized today and desires to sign into the hospital rather than "deal with" an railroad signal and switch operator for the 304 hearing. She has been cooperative with care for some time and is readily agreeable to ongoing stay and coversion to [facility]. Medication Trials hx of Abilify, Seroquel, Klonopin, Zyprexa, Lamictal. Physical Exam Psychiatric Orientation: alert Apperance: appropriately dressed and appropriately groomed Eye Contact: + fair eye contact Motor Behavior: no abnormal motor movements Affect: + constricted affect Mood: + anxious mood Thought Process: + tangential thought process and + concrete thought process Thought Content: + paranoid Suicidal Thoughts: denies suicidal thoughts Homicidal Thoughts: denies homicidal thoughts Hallucinations: no auditory hallucinations and no visual hallucinations Cognition: language grossly intact; + attention not intact Insight: + impaired insight Judgement: + impaired judgement Vital Signs (Past 24 Hours) Last Vital Signs Temp 36.7 C 12/19/20 06:42 Pulse 78 12/19/20 06:43 Resp 16 12/19/20 06:42 BP 126/86 12/19/20 06:43 Pulse Ox 100 12/05/20 06:00 Results & Data ([facility]) Current Inpatient Medications Current Inpatient Medications: Current Inpatient Medications Acetaminophen (Acetaminophen 325 Mg Tab) 650 mg PO Q4H PRN PRN Reason: Headache or Minor Fever Stop: 12/30/20 20:02 Al Hydrox/Mg Hydrox/Simethicone (Aluminum/Magnesium Susp 30 Ml Udc) 30 ml PO Q4H PRN PRN Reason: GI Upset Stop: 12/30/20 20:02 Atorvastatin Calcium (Atorvastatin 10 Mg Tab) 10 mg PO QAM [facility] Stop: 12/31/20 08:59 Last Admin: 12/19/20 08:37 Dose: 10 mg Documented by: Benztropine Mesylate (Benztropine Mesylate 1 Mg Tab) 1 mg PO BID [facility] Stop: 12/30/20 20:59 Last Admin: 12/19/20 08:37 Dose: 1 mg Documented by: Bismuth Subsalicylate (Bismuth Subsalicylate Liqd 236 Ml) 15 ml PO PRN PRN PRN Reason: Loose Stool Stop: 12/30/20 20:02 Docusate Sodium (Docusate Sodium 100 Mg Cap) 100 mg PO BID [facility] Stop: 01/08/21 20:59 Last Admin: 12/19/20 08:38 Dose: 100 mg Documented by: Hydroxyzine HCl (Hydroxyzine Hcl 25 Mg Tab) 50 mg PO HSZ PRN PRN Reason: Insomnia Stop: 12/30/20 20:02 Last Admin: 12/06/20 01:06 Dose: 50 mg Documented by: Hydroxyzine HCl (Hydroxyzine Hcl 25 Mg Tab) 25 mg PO Q4H PRN PRN Reason: Anxiety Stop: 12/30/20 20:02 Last Admin: 12/04/20 04:03 Dose: 25 mg Documented by: Lamotrigine (Lamotrigine 25 Mg Tab) [facility] Stop: 01/13/21 08:59 Last Admin: 12/19/20 08:38 Dose: 50 mg Documented by: Levothyroxine Sodium (Levothyroxine Sodium 25 Mcg Tablet) 25 mcg PO DAILYBB [facility] Stop: 12/31/20 07:59 Last Admin: 12/19/20 08:37 Dose: 25 mcg Documented by: [place] Carbonate ([place] Carbonate 300 Mg Tab) 300 mg PO BID [facility] Stop: 12/30/20 20:59 Last Admin: 12/19/20 08:38 Dose: 300 mg Documented by: Lorazepam (Lorazepam 1 Mg Tab) 1 mg PO Q6 PRN PRN Reason: Anxiety/Agitation Stop: 12/31/20 10:10 Last Admin: 12/19/20 11:25 Dose: 1 mg Documented by: Lorazepam (Lorazepam 1 Mg Tab) 1 mg PO TID [facility] Stop: 01/01/21 13:59 Last Admin: 12/19/20 08:39 Dose: 1 mg Documented by: Magnesium Hydroxide (Magnesium Hydroxide Susp 30 Ml Udc) 30 ml PO DAILY PRN PRN Reason: Constipation Stop: 12/30/20 20:02 Olanzapine (Olanzapine Zydis 5 Mg Orally Dis. Tab) 5 mg PO Q6 PRN PRN Reason: Anxiety/Agitation Stop: 12/31/20 11:59 Last Admin: 12/12/20 11:32 Dose: 5 mg Documented by: Olanzapine (Olanzapine 20 Mg Tablet) 20 mg PO HS [facility] Stop: 01/04/21 21:59 Last Admin: 12/18/20 21:10 Dose: 20 mg Documented by: Paliperidone (Paliperidone 3 Mg Tabcr) 3 mg PO DAILY [facility] Stop: 01/17/21 08:59 Last Admin: 12/19/20 08:39 Dose: 3 mg Documented by: Sertraline HCl (Sertraline Hcl 100 Mg Tablet) 100 mg PO QAM [facility] Stop: 01/17/21 08:59 Last Admin: 12/19/20 08:39 Dose: 100 mg Documented by: Sodium Chloride (Sodium Chloride 0.65% Na Soln 45 Ml ([place])) 1 - 2 sprays NA PRN PRN PRN Reason: Nasal Dryness/Congestion Stop: 12/30/20 20:02 Vitamin D (Cholecalciferol 1,000 Units 25 Mcg Tab) 2,000 units PO QAM [facility] Stop: 12/31/20 08:59 Last Admin: 12/19/20 08:37 Dose: 2,000 units Documented by: Mental Health & Subst Abuse Tx Psychiatrist Name of Psychiatrist: Bruno Mcleod Psychiatrist's Psychiatric Appointment Comment: [address] [place] [address] Therapist Name of Therapist: discharged from [facility] Therapist's Therapy Appointment Comment: [address] [place] [address] Prop Attendant Name of Prop Attendant: . Post Discharge Appointments Primary Care Physician Name Of Family Doctor: [facility] - Dr. Shi Primary Care Provider Appointment Comment: [address] [place] [address] Neurologist Name of Neurologist: Mac Strange - Dr. Arroyo Neurologist's Neurology Appointment Comment: [address] [place] [address], [address], [place] [address] Contact Information Discharge Discharge Address: [address] [address] (1) Psychosis Psychosis type: schizophrenia Schizophrenia type: unspecified Qualified Code(s): F20.9 - Schizophrenia, unspecified
[2020-12-19] MEDS: OLANZapine 20 MG TABLET PO SCH (20:28)
--- NOTE | 2020-12-20 08:34 | Psychiatric Progress Note ---
Date of Service December 20, 2020 Impression / Recommendations Impression 30 yo female with well established dx of chronic psychosis (schizophrenia vs schizoaffective disorder) presented to ED acutely psychotic, confused, wandering and responding to internal stimuli following a few weeks of med non-compliance. She required a 302 commitment and also a MNPR given level of disorganization. She is now agreeing to PO Invega retrial with conversion to GARNER. 12/20/20--improving (1) Psychosis: 12/20/20: increase Invega to 6 mg with conversion to GARNER likely 12/22/20. 12/19/20--continue current meds and treatment plan. If N persists, consider dec rease in Zoloft. Patient converted to 201 commitment. 12/18/20--consider Invega titration tomorrow. If tolerating 6 mg for 2 days then give Invegga maintenna dose. Prefer 6 rather than 9 mg Invegga given ?hx of PRL elevation. 12/17/20--taper Trilafon to 4 mg today then d/c in favor of Invega 3 mg daily in am. Titrate Zoloft 100 mg daily. 12/16/20--following family meeting (see above) will present patient with option to swap Trilafon for a trial of Invega to assess tolerability for GARNER. Reviewed that patient will still require polypharmacy to manage her mood but agree would provide some protection against more severe psychotic breakthroughs if noncompliance. 12/15/20--retrial of Zoloft, restart at 50 mg in am. Patient is unsure she will accept. Family phone meeting tomorrow with provider around med options as interest in GARNER. for ease of dosing and persistent symptoms increase Trilafon to 4 mg BID, gets benefit from prn Zyprexa, patient declines am dose or additional hs dose. Consi rizwana Ativan taper soon as no catatonic features at this time. Cannot exclude subclinical seizure activity in staring spells--increase Lamictal to 50 mg for 2 weeks (goal is previously effectie of 125 mg). Reviewed Italics 12/12/2020ontinue with current regimen for now, patient does seem to be making some progress albeit slow. 12/11/2020ontinue with perphenazine 3 mg p.o. twice daily. Continue with Zyprexa 20 mg nightly. Patient still currently taking 300 mg of lithium twice daily, initially reluctant to increase this dose although continues to display mood lability may benefit from additional dosing. 12/10/2020erphenazine dose will be increased from 2 mg twice daily to 3 mg twice daily 12/09/2020atient making incremental progress. Less isolative today. Still remains bizarre at times, although compliant with medications. 12/08/2020atient continues to be compliant with medication, making slow progress. 12/07/2020ontinue current medication regimen. Patient does appear somewhat better although still bizarre and not back to baseline. 12/06/2020ontinue current medications, patient appears to be making slow but incremental progress. 12/05/20--continue Zyprexa shift to [address] Alarcon to assess need for am dose when assumes care. 303 granted. 12/04/20--shift Zyprexa dosing toward higher dose at hs with hopes to improve sleep and minimize daytime sedation. 303 hearing tomorrow. 12/03/20--continue current med plan given some improvement, will need petition for 303. 12/02/20--The patient's med rec is updated. Trilafon and Zyprexa should be BID (w ill increase Trilafon tomorrow), will add Ativan TID scheduled 1 mg for catatonic features. Risks/benefits briefly reviewed, patient is agreeable to clonidine prn trial for tachy/BP. increase VS to q shift to monitor more closely for withdrawal. Does not appear post ictal, still attempting to confirm seizure hx. 12/01/20--The patient was admitted to the [facility] ([facility] inpatient mental health unit) on q15 min checks (behavioral with suicide precautions) for safety. The patient will participate in group, recreational, and milieu therapies when clinically appropriate and will be offered additional individual and family sessions as recovers to aid in discharge planning. Collateral from family. Notification of outpatient psychiatrist. She is unable to fully engage in risks/benefits discussion re: her medications. Will resume home regimen with exception of Zoloft as per discussion in HPI and offer additional prn Zyprexa and Ativan for hallucinations/lability. Inventory Assets Strengths: has outpatient providers, agreed to mother's involvement in care Needs: restart medication, CM, step down programming Risk Factors Assessment Male: No : Yes Do You Have Access To A Gun?: No Mental Health Diagnoses: Yes Substance Use Disorders: No Previous Psychiatric Hospitalization: Yes Protective Factors Assessment : No Responsible for Young Children: No Employed: No (Unknown) Supportive Family: Yes Interval History Identifying Information 30 yo female with history of chronic psychosis and prior state hospital [facility], admit 12/01/20, on 303 as of 12/05/2020, converted to 201 on 12/19/20. Chief Complaint "I like my new room and playing the Wii". Review of Systems Sleep Information Total Hours of Sleep: 4.75 Sleep Comments: pt TOMMY @0515 and thereafter. pt on q-15 minute checks Meal Information Percent Meal Consumed - Breakfast: 75 Percent Meal Consumed - Lunch: 95 Percent Meal Consumed - Dinner: 100 Nutrition Comment: sleeping Medication Trials hx of Abilify, Seroquel, Klonopin, Zyprexa, Lamictal. Subjective Subjective Patient was seen & assessed and interval progress reviewed with nursing and social work. Tolerated room transition. Denies N today. Medication Trials hx of Abilify, Seroquel, Klonopin, Zyprexa, Lamictal. Physical Exam Psychiatric Orientation: alert Apperance: appropriately dressed and appropriately groomed Eye Contact: + fair eye contact Motor Behavior: no abnormal motor movements Affect: euthymic affect Mood: no anxious mood Thought Process: + concrete thought process Thought Content: + paranoid (minimal) Suicidal Thoughts: denies suicidal thoughts Homicidal Thoughts: denies homicidal thoughts Hallucinations: no auditory hallucinations and no visual hallucinations Cognition: language grossly intact; + attention not intact Insight: + impaired insight Judgement: + impaired judgement Vital Signs (Past 24 Hours) Last Vital Signs Temp 36.5 C 12/19/20 20:13 Pulse 101 H 12/20/20 06:34 Resp 16 12/20/20 06:00 BP 134/92 12/20/20 06:34 Pulse Ox 100 12/05/20 06:00 Results & Data ([facility]) Current Inpatient Medications Current Inpatient Medications: Current Inpatient Medications Acetaminophen (Acetaminophen 325 Mg Tab) 650 mg PO Q4H PRN PRN Reason: Headache or Minor Fever Stop: 12/30/20 20:02 Al Hydrox/Mg Hydrox/Simethicone (Aluminum/Magnesium Susp 30 Ml Udc) 30 ml PO Q4H PRN PRN Reason: GI Upset Stop: 12/30/20 20:02 Atorvastatin Calcium (Atorvastatin 10 Mg Tab) 10 mg PO QAM [facility] Stop: 12/31/20 08:59 Last Admin: 12/19/20 08:37 Dose: 10 mg Documented by: Benztropine Mesylate (Benztropine Mesylate 1 Mg Tab) 1 mg PO BID [facility] Stop: 12/30/20 20:59 Last Admin: 12/19/20 20:27 Dose: 1 mg Documented by: Bismuth Subsalicylate (Bismuth Subsalicylate Liqd 236 Ml) 15 ml PO PRN PRN PRN Reason: Loose Stool Stop: 12/30/20 20:02 Docusate Sodium (Docusate Sodium 100 Mg Cap) 100 mg PO BID [facility] Stop: 01/08/21 20:59 Last Admin: 12/19/20 20:27 Dose: 100 mg Documented by: Hydroxyzine HCl (Hydroxyzine Hcl 25 Mg Tab) 50 mg PO HSZ PRN PRN Reason: Insomnia Stop: 12/30/20 20:02 Last Admin: 12/06/20 01:06 Dose: 50 mg Documented by: Hydroxyzine HCl (Hydroxyzine Hcl 25 Mg Tab) 25 mg PO Q4H PRN PRN Reason: Anxiety Stop: 12/30/20 20:02 Last Admin: 12/04/20 04:03 Dose: 25 mg Documented by: Lamotrigine (Lamotrigine 25 Mg Tab) 50 mg PO QAM [facility] Stop: 01/13/21 08:59 Last Admin: 12/19/20 08:38 Dose: 50 mg Documented by: Levothyroxine Sodium (Levothyroxine Sodium 25 Mcg Tablet) 25 mcg PO DAILYBB [facility] Stop: 12/31/20 07:59 Last Admin: 12/19/20 08:37 Dose: 25 mcg Documented by: [place] Carbonate ([place] Carbonate 300 Mg Tab) 300 mg PO BID [facility] Stop: 12/30/20 20:59 Last Admin: 12/19/20 20:28 Dose: 300 mg Documented by: Lorazepam (Lorazepam 1 Mg Tab) 1 mg PO Q6 PRN PRN Reason: Anxiety/Agitation Stop: 12/31/20 10:10 Last Admin: 12/19/20 11:25 Dose: 1 mg Documented by: Lorazepam (Lorazepam 1 Mg Tab) 1 mg PO TID [facility] Stop: 01/01/21 13:59 Last Admin: 12/19/20 20:28 Dose: 1 mg Documented by: Magnesium Hydroxide (Magnesium Hydroxide Susp 30 Ml Udc) 30 ml PO DAILY PRN PRN Reason: Constipation Stop: 12/30/20 20:02 Olanzapine (Olanzapine Zydis 5 Mg Orally Dis. Tab) 5 mg PO Q6 PRN PRN Reason: Anxiety/Agitation Stop: 12/31/20 11:59 Last Admin: 12/12/20 11:32 Dose: 5 mg Documented by: Olanzapine (Olanzapine 20 Mg Tablet) 20 mg PO HS [facility] Stop: 01/04/21 21:59 Last Admin: 12/19/20 20:28 Dose: 20 mg Documented by: Paliperidone (Paliperidone 3 Mg Tabcr) 3 mg PO DAILY [facility] Stop: 01/17/21 08:59 Last Admin: 12/19/20 08:39 Dose: 3 mg Documented by: Sertraline HCl (Sertraline Hcl 100 Mg Tablet) 100 mg PO QAM [facility] Stop: 01/17/21 08:59 Last Admin: 12/19/20 08:39 Dose: 100 mg Documented by: Sodium Chloride (Sodium Chloride 0.65% Na Soln 45 Ml ([place])) 1 - 2 sprays NA PRN PRN PRN Reason: Nasal Dryness/Congestion Stop: 12/30/20 20:02 Vitamin D (Cholecalciferol 1,000 Units 25 Mcg Tab) 2,000 units PO QAM [facility] Stop: 12/31/20 08:59 Last Admin: 12/19/20 08:37 Dose: 2,000 units Documented by: Mental Health & Subst Abuse Tx Psychiatrist Name of Psychiatrist: Bruno Mcleod Psychiatrist's Psychiatric Appointment Comment: [address] [place] [address] Therapist Name of Therapist: discharged from [facility] Therapist's Therapy Appointment Comment: [address] [place] [address] Central Supply Supervisor Name of Central Supply Supervisor: . Post Discharge Appointments Primary Care Physician Name Of Family Doctor: Mac [facility] - Dr. Shi Primary Care Provider Appointment Comment: [address] [facility], [place] [address] Neurologist Name of Neurologist: Mac Strange - Dr. Arroyo Neurologist's Neurology Appointment Comment: [address] [place] [address], [address], [place] [address] Contact Information Discharge Discharge Address: [address] [address], [place] [address] (1) Psychosis Psychosis type: schizophrenia Schizophrenia type: unspecified Qualified Code(s): F20.9 - Schizophrenia, unspecified
[2020-12-20] MEDS: LEVOTHYROXINE SODIUM 25 MCG TABLET PO SCH (08:45)
[2020-12-20] MEDS: CHOLECALCIFEROL 1,000 UNITS 25 MCG TAB PO SCH (08:45)
[2020-12-20] MEDS: DOCUSATE SODIUM 100 MG CAP PO SCH ×2 (08:45→21:01)
[2020-12-20] MEDS: LITHIUM CARBONATE 300 MG TAB PO SCH ×2 (08:45→21:01)
[2020-12-20] MEDS: BENZTROPINE MESYLATE 1 MG TAB PO SCH ×2 (08:45→21:01)
[2020-12-20] MEDS: ATORVASTATIN 10 MG TAB PO SCH (08:45)
[2020-12-20] MEDS: lamoTRIgine 25 MG TAB PO SCH (08:45)
[2020-12-20] MEDS: PALIPERIDONE 3 MG TABCR PO SCH (08:46)
[2020-12-20] MEDS: SERTRALINE HCL 100 MG TABLET PO SCH (08:46)
[2020-12-20] MEDS: LORazepam 1 MG TAB PO SCH ×3 (08:47→21:01)
[2020-12-20] MEDS ORDERED: PALIPERIDONE 3 MG TABCR PO ONE (14:45)
[2020-12-20] MEDS: OLANZapine 20 MG TABLET PO SCH (21:02)
--- NOTE | 2020-12-21 08:54 | Psychiatric Progress Note ---
Date of Service December 21, 2020 Impression / Recommendations Impression 30 yo female with schizoaffective disorder. slow progress, level of psychosis varies shift to shift. (1) Psychosis: continue current meds and treatment plan, anticipate transition of Invega to GARNER over next few days. Risk Factors Assessment Male: No : Yes Do You Have Access To A Gun?: No Mental Health Diagnoses: Yes Substance Use Disorders: No Previous Psychiatric Hospitalization: Yes Protective Factors Assessment : No Responsible for Young Children: No Employed: No (Unknown) Supportive Family: Yes Interval History Identifying Information 30 female with schizoaffective disorder admit on 302 commitment for disorganized psychosis, was converted to 201 prior to expiration of 303. Chief Complaint tearful this am Review of Systems Sleep Information Total Hours of Sleep: 6.5 Sleep Comments: pt TOMMY @0515 and thereafter. pt on q-15 minute checks Meal Information Percent Meal Consumed - Breakfast: 100 Percent Meal Consumed - Lunch: 100 Percent Meal Consumed - Dinner: 100 Nutrition Comment: sleeping Subjective Subjective Patient was seen & assessed and interval progress reviewed with nursing and social work. Harder time on evenings, more isolative saying the tv was too loud, tearful this am with staff and won't verbalize why other than she needs to pray for her family but won't elaborate. Is still attending to ADLs. Flatter and won't engage over breakfast. Physical Exam Psychiatric Orientation: alert Apperance: + disheveled Eye Contact: + poor eye contact Motor Behavior: no abnormal motor movements Affect: + flat affect Mood: no anxious mood Thought Process: + concrete thought process Thought Content: + paranoid and + delusions Suicidal Thoughts: denies suicidal thoughts Homicidal Thoughts: denies homicidal thoughts Hallucinations: no auditory hallucinations and no visual hallucinations Cognition: language grossly intact; + attention not intact Insight: + impaired insight Judgement: + impaired judgement Vital Signs (Past 24 Hours) Last Vital Signs Temp 36.5 C 12/21/20 06:38 Pulse 86 12/21/20 06:38 Resp 14 12/21/20 06:38 BP 128/84 12/21/20 06:38 Pulse Ox 100 12/05/20 06:00 Results & Data ([facility]) Current Inpatient Medications Current Inpatient Medications: Current Inpatient Medications Acetaminophen (Acetaminophen 325 Mg Tab) 650 mg PO Q4H PRN PRN Reason: Headache or Minor Fever Stop: 12/30/20 20:02 Al Hydrox/Mg Hydrox/Simethicone (Aluminum/Magnesium Susp 30 Ml Udc) 30 ml PO Q4H PRN PRN Reason: GI Upset Stop: 12/30/20 20:02 Atorvastatin Calcium (Atorvastatin 10 Mg Tab) 10 mg PO QAM [facility] Stop: 12/31/20 08:59 Last Admin: 12/20/20 08:45 Dose: 10 mg Documented by: Benztropine Mesylate (Benztropine Mesylate 1 Mg Tab) 1 mg PO BID [facility] Stop: 12/30/20 20:59 Last Admin: 12/20/20 21:01 Dose: 1 mg Documented by: Bismuth Subsalicylate (Bismuth Subsalicylate Liqd 236 Ml) 15 ml PO PRN PRN PRN Reason: Loose Stool Stop: 12/30/20 20:02 Docusate Sodium (Docusate Sodium 100 Mg Cap) 100 mg PO BID [facility] Stop: 01/08/21 20:59 Last Admin: 12/20/20 21:01 Dose: 100 mg Documented by: Hydroxyzine HCl (Hydroxyzine Hcl 25 Mg Tab) 50 mg PO HSZ PRN PRN Reason: Insomnia Stop: 12/30/20 20:02 Last Admin: 12/06/20 01:06 Dose: 50 mg Documented by: Hydroxyzine HCl (Hydroxyzine Hcl 25 Mg Tab) 25 mg PO Q4H PRN PRN Reason: Anxiety Stop: 12/30/20 20:02 Last Admin: 12/04/20 04:03 Dose: 25 mg Documented by: Lamotrigine (Lamotrigine 25 Mg Tab) 50 mg PO QAM [facility] Stop: 01/13/21 08:59 Last Admin: 12/20/20 08:45 Dose: 50 mg Documented by: Levothyroxine Sodium (Levothyroxine Sodium 25 Mcg Tablet) 25 mcg PO DAILYBB [facility] Stop: 12/31/20 07:59 Last Admin: 12/20/20 08:45 Dose: 25 mcg Documented by: [place] Carbonate ([place] Carbonate 300 Mg Tab) 300 mg PO BID [facility] Stop: 12/30/20 20:59 Last Admin: 12/20/20 21:01 Dose: 300 mg Documented by: Lorazepam (Lorazepam 1 Mg Tab) 1 mg PO Q6 PRN PRN Reason: Anxiety/Agitation Stop: 12/31/20 10:10 Last Admin: 12/19/20 11:25 Dose: 1 mg Documented by: Lorazepam (Lorazepam 1 Mg Tab) 1 mg PO TID [facility] Stop: 01/01/21 13:59 Last Admin: 12/20/20 21:01 Dose: 1 mg Documented by: Magnesium Hydroxide (Magnesium Hydroxide Susp 30 Ml Udc) 30 ml PO DAILY PRN PRN Reason: Constipation Stop: 12/30/20 20:02 Olanzapine (Olanzapine Zydis 5 Mg Orally Dis. Tab) 5 mg PO Q6 PRN PRN Reason: Anxiety/Agitation Stop: 12/31/20 11:59 Last Admin: 12/12/20 11:32 Dose: 5 mg Documented by: Olanzapine (Olanzapine 20 Mg Tablet) 20 mg PO HS [facility] Stop: 01/04/21 21:59 Last Admin: 12/20/20 21:02 Dose: 20 mg Documented by: Paliperidone (Paliperidone 3 Mg Tabcr) 6 mg PO DAILY [facility] Stop: 01/20/21 08:59 Sertraline HCl (Sertraline Hcl 100 Mg Tablet) 100 mg PO QAM [facility] Stop: 01/17/21 08:59 Last Admin: 12/20/20 08:46 Dose: 100 mg Documented by: Sodium Chloride (Sodium Chloride 0.65% Na Soln 45 Ml ([place])) 1 - 2 sprays NA PRN PRN PRN Reason: Nasal Dryness/Congestion Stop: 12/30/20 20:02 Vitamin D (Cholecalciferol 1,000 Units 25 Mcg Tab) 2,000 units PO QAM [facility] Stop: 12/31/20 08:59 Last Admin: 12/20/20 08:45 Dose: 2,000 units Documented by: Mental Health & Subst Abuse Tx Psychiatrist Name of Psychiatrist: Bruno Mcleod Psychiatrist's Psychiatric Appointment Comment: [address] [place] [address] Therapist Name of Therapist: discharged from [facility] Therapist's Therapy Appointment Comment: [address] [place] [address] Pole Climber Name of Pole Climber: . Post Discharge Appointments Primary Care Physician Name Of Family Doctor: Mac Wakull[facility]av[facility] - Dr. Shi Primary Care Provider Appointment Comment: [address] [facility], [place] [address] Neurologist Name of Neurologist: Mac Strange - Dr. Arroyo Neurologist's Neurology Appointment Comment: [address] [place] [address], [address], [place] [address] Contact Information Discharge Discharge Address: [address] [address], [place] [address] (1) Psychosis Psychosis type: schizophrenia Schizophrenia type: unspecified Qualified Code(s): F20.9 - Schizophrenia, unspecified
[2020-12-21] MEDS: LEVOTHYROXINE SODIUM 25 MCG TABLET PO SCH (09:13)
[2020-12-21] MEDS: ATORVASTATIN 10 MG TAB PO SCH (09:13)
[2020-12-21] MEDS: lamoTRIgine 25 MG TAB PO SCH (09:14)
[2020-12-21] MEDS: CHOLECALCIFEROL 1,000 UNITS 25 MCG TAB PO SCH (09:14)
[2020-12-21] MEDS: LITHIUM CARBONATE 300 MG TAB PO SCH ×2 (09:14→21:53)
[2020-12-21] MEDS: DOCUSATE SODIUM 100 MG CAP PO SCH ×2 (09:14→21:53)
[2020-12-21] MEDS: BENZTROPINE MESYLATE 1 MG TAB PO SCH ×2 (09:14→21:54)
[2020-12-21] MEDS: SERTRALINE HCL 100 MG TABLET PO SCH (09:15)
[2020-12-21] MEDS: PALIPERIDONE 3 MG TABCR PO SCH (09:15)
[2020-12-21] MEDS: LORazepam 1 MG TAB PO SCH ×3 (09:15→21:52)
[2020-12-21] MEDS: OLANZapine 20 MG TABLET PO SCH (21:54)
[2020-12-22] MEDS: LEVOTHYROXINE SODIUM 25 MCG TABLET PO SCH (08:05)
[2020-12-22] MEDS: ATORVASTATIN 10 MG TAB PO SCH (08:06)
[2020-12-22] MEDS: BENZTROPINE MESYLATE 1 MG TAB PO SCH ×2 (08:06→21:01)
[2020-12-22] MEDS: lamoTRIgine 25 MG TAB PO SCH (08:07)
[2020-12-22] MEDS: DOCUSATE SODIUM 100 MG CAP PO SCH ×2 (08:07→21:01)
[2020-12-22] MEDS: CHOLECALCIFEROL 1,000 UNITS 25 MCG TAB PO SCH (08:07)
[2020-12-22] MEDS: PALIPERIDONE 3 MG TABCR PO SCH (08:08)
[2020-12-22] MEDS: LORazepam 1 MG TAB PO SCH ×3 (08:08→21:01)
[2020-12-22] MEDS: LITHIUM CARBONATE 300 MG TAB PO SCH ×2 (08:08→21:01)
[2020-12-22] MEDS: SERTRALINE HCL 100 MG TABLET PO SCH (08:09)
--- NOTE | 2020-12-22 15:39 | Psychiatric Progress Note ---
Date of Service December 22, 2020 Impression / Recommendations Impression 30 yo female with schizoaffective disorder. Less emotionally labile, still psychotic (1) Psychosis: continue current meds and treatment plan, anticipate transition of Invega to GARNER over next few days. Risk Factors Assessment Male: No : Yes Do You Have Access To A Gun?: No Mental Health Diagnoses: Yes Substance Use Disorders: No Previous Psychiatric Hospitalization: Yes Protective Factors Assessment : No Responsible for Young Children: No Employed: No (Unknown) Supportive Family: Yes Interval History Identifying Information 30 female with schizoaffective disorder admit on 302 commitment for disorganized psychosis, was converted to 201 prior to expiration of 303. Chief Complaint "I saw this picture in a book and I did not know if it was my family or if they were ". Review of Systems Sleep Information Total Hours of Sleep: 6.75 Sleep Comments: pt TOMMY @0515 and thereafter. pt on q-15 minute checks Meal Information Percent Meal Consumed - Breakfast: 100 Percent Meal Consumed - Lunch: 100 Percent Meal Consumed - Dinner: 100 Nutrition Comment: pt. ordered only juice and milk Subjective Subjective Patient was seen & assessed and interval progress reviewed with treatment team nursing and social work Per chart review patient has been emotionally labile over the last several days. Today she presents better with regards to her mood, as she is logically able to speak to jingle writer for the beginning half of the conversation. She did not show any emotional lability, but did make several delusional and psychotic statements. She continues to be agreeable to treatment and have insight into her illness. Patient today asked not to be discharged too early as she felt her previous admissions with early discharges were detrimental for her. She continues to eat and sleep appropriately. She is compliant with medications without any reported or observed side effects. I spent 30 minutes with the patient, 50% of which was dedicated to counselling and coordination of care. Physical Exam Psychiatric Orientation: alert Apperance: appropriately dressed, appropriately groomed and + disheveled Eye Contact: + fair eye contact and + poor eye contact Motor Behavior: no abnormal motor movements Affect: euthymic affect, + flat affect, + labile affect and + constricted affect Mood: no anxious mood Thought Process: + thought blocking, + tangential thought process and + concrete thought process Thought Content: + paranoid, + delusions and + ideas of reference Suicidal Thoughts: denies suicidal thoughts Homicidal Thoughts: denies homicidal thoughts Hallucinations: no auditory hallucinations and no visual hallucinations Cognition: language grossly intact; + attention not intact Estimated Intelligence: + below average estimated intelligence Insight: + impaired insight and + severely impaired insight Judgement: + impaired judgement and + severely impaired judgement Vital Signs (Past 24 Hours) Last Vital Signs Temp 36.6 C 12/22/20 06:56 Pulse 109 H 12/22/20 06:56 Resp 16 12/22/20 06:56 BP 131/92 12/22/20 06:56 Pulse Ox 100 12/05/20 06:00 Results & Data ([facility]) Current Inpatient Medications Current Inpatient Medications: Current Inpatient Medications Acetaminophen (Acetaminophen 325 Mg Tab) 650 mg PO Q4H PRN PRN Reason: Headache or Minor Fever Stop: 12/30/20 20:02 Al Hydrox/Mg Hydrox/Simethicone (Aluminum/Magnesium Susp 30 Ml Udc) 30 ml PO Q4H PRN PRN Reason: GI Upset Stop: 12/30/20 20:02 Atorvastatin Calcium (Atorvastatin 10 Mg Tab) 10 mg PO QAM [facility] Stop: 12/31/20 08:59 Last Admin: 12/22/20 08:06 Dose: 10 mg Documented by: Benztropine Mesylate (Benztropine Mesylate 1 Mg Tab) 1 mg PO BID [facility] Stop: 12/30/20 20:59 Last Admin: 12/22/20 08:06 Dose: 1 mg Documented by: Bismuth Subsalicylate (Bismuth Subsalicylate Liqd 236 Ml) 15 ml PO PRN PRN PRN Reason: Loose Stool Stop: 12/30/20 20:02 Docusate Sodium (Docusate Sodium 100 Mg Cap) 100 mg PO BID [facility] Stop: 01/08/21 20:59 Last Admin: 12/22/20 08:07 Dose: 100 mg Documented by: Hydroxyzine HCl (Hydroxyzine Hcl 25 Mg Tab) 50 mg PO HSZ PRN PRN Reason: Insomnia Stop: 12/30/20 20:02 Last Admin: 12/06/20 01:06 Dose: 50 mg Documented by: Hydroxyzine HCl (Hydroxyzine Hcl 25 Mg Tab) 25 mg PO Q4H PRN PRN Reason: Anxiety Stop: 12/30/20 20:02 Last Admin: 12/04/20 04:03 Dose: 25 mg Documented by: Lamotrigine (Lamotrigine 25 Mg Tab) 50 mg PO QAM [facility] Stop: 01/13/21 08:59 Last Admin: 12/22/20 08:07 Dose: 50 mg Documented by: Levothyroxine Sodium (Levothyroxine Sodium 25 Mcg Tablet) 25 mcg PO DAILYBB [facility] Stop: 12/31/20 07:59 Last Admin: 12/22/20 08:05 Dose: 25 mcg Documented by: [place] Carbonate ([place] Carbonate 300 Mg Tab) 300 mg PO BID [facility] Stop: 12/30/20 20:59 Last Admin: 12/22/20 08:08 Dose: 300 mg Documented by: Lorazepam (Lorazepam 1 Mg Tab) 1 mg PO Q6 PRN PRN Reason: Anxiety/Agitation Stop: 12/31/20 10:10 Last Admin: 12/19/20 11:25 Dose: 1 mg Documented by: Lorazepam (Lorazepam 1 Mg Tab) 1 mg PO TID [facility] Stop: 01/01/21 13:59 Last Admin: 12/22/20 13:59 Dose: 1 mg Documented by: Magnesium Hydroxide (Magnesium Hydroxide Susp 30 Ml Udc) 30 ml PO DAILY PRN PRN Reason: Constipation Stop: 12/30/20 20:02 Olanzapine (Olanzapine Zydis 5 Mg Orally Dis. Tab) 5 mg PO Q6 PRN PRN Reason: Anxiety/Agitation Stop: 12/31/20 11:59 Last Admin: 12/12/20 11:32 Dose: 5 mg Documented by: Olanzapine (Olanzapine 20 Mg Tablet) 20 mg PO HS [facility] Stop: 01/04/21 21:59 Last Admin: 12/21/20 21:54 Dose: 20 mg Documented by: Paliperidone (Paliperidone 3 Mg Tabcr) 6 mg PO DAILY [facility] Stop: 01/20/21 08:59 Last Admin: 12/22/20 08:08 Dose: 6 mg Documented by: Sertraline HCl (Sertraline Hcl 100 Mg Tablet) 100 mg PO QAM [facility] Stop: 01/17/21 08:59 Last Admin: 12/22/20 08:09 Dose: 100 mg Documented by: Sodium Chloride (Sodium Chloride 0.65% Na Soln 45 Ml ([place])) 1 - 2 sprays NA PRN PRN PRN Reason: Nasal Dryness/Congestion Stop: 12/30/20 20:02 Vitamin D (Cholecalciferol 1,000 Units 25 Mcg Tab) 2,000 units PO QAM [facility] Stop: 12/31/20 08:59 Last Admin: 12/22/20 08:07 Dose: 2,000 units Documented by: Mental Health & Subst Abuse Tx Psychiatrist Name of Psychiatrist: Bruno - Dr. Mcleod Psychiatrist's Psychiatric Appointment Comment: [address], [place] [address] Therapist Name of Therapist: discharged from [facility] Therapist's Therapy Appointment Comment: [address] [place] [address] Shoe Planner Name of Shoe Planner: . Post Discharge Appointments Primary Care Physician Name Of Family Doctor: Mac [facility] - Dr. Shi Primary Care Provider Appointment Comment: [address] [facility] [place] [address] Neurologist Name of Neurologist: Mac Strange - Dr. Arroyo Neurologist's Neurology Appointment Comment: [address] [place] [address], [address], [place] [address] Contact Information Discharge Discharge Address: [address] [facility], [place] [address] (1) Psychosis Psychosis type: schizophrenia Schizophrenia type: unspecified Qualified Code(s): F20.9 - Schizophrenia, unspecified
[2020-12-22] MEDS: OLANZapine 20 MG TABLET PO SCH (21:01)
[2020-12-23] MEDS: LORazepam 1 MG TAB PO SCH ×3 (11:14→21:10)
[2020-12-23] MEDS: ATORVASTATIN 10 MG TAB PO SCH (12:38)
[2020-12-23] MEDS: LEVOTHYROXINE SODIUM 25 MCG TABLET PO SCH (12:38)
[2020-12-23] MEDS: LITHIUM CARBONATE 300 MG TAB PO SCH ×2 (12:39→21:10)
[2020-12-23] MEDS: CHOLECALCIFEROL 1,000 UNITS 25 MCG TAB PO SCH (12:39)
[2020-12-23] MEDS: DOCUSATE SODIUM 100 MG CAP PO SCH ×2 (12:39→21:11)
[2020-12-23] MEDS: lamoTRIgine 25 MG TAB PO SCH (12:39)
[2020-12-23] MEDS: haloperidoL 5 MG TAB PO SCH ×2 (12:39→21:10)
[2020-12-23] MEDS: BENZTROPINE MESYLATE 1 MG TAB PO SCH ×2 (12:39→21:11)
--- NOTE | 2020-12-23 15:41 | Psychiatric Progress Note ---
Date of Service December 23, 2020 Impression / Recommendations Impression 30 yo female with schizoaffective disorder. Less emotionally labile, still psychotic (1) Psychosis: 12/23/2020Will discontinue Invega and replace with haloperidol 2.5 mg 3 times daily. We will continue Lamictal, lithium, Zyprexa for now. Will consider Haldol Decanoate if helpful for patient. Risk Factors Assessment Male: No : Yes Do You Have Access To A Gun?: No Mental Health Diagnoses: Yes Substance Use Disorders: No Previous Psychiatric Hospitalization: Yes Protective Factors Assessment : No Responsible for Young Children: No Employed: No (Unknown) Supportive Family: Yes Interval History Identifying Information 30 female with schizoaffective disorder admit on 302 commitment for disorganized psychosis, was converted to 201 prior to expiration of 303. Chief Complaint "I did not want to take my medications this morning because the know if they are working or not.". Review of Systems Sleep Information Total Hours of Sleep: 7 Sleep Comments: pt on q-15 minute checks Meal Information Percent Meal Consumed - Breakfast: 50 Percent Meal Consumed - Lunch: 10 Percent Meal Consumed - Dinner: 100 Nutrition Comment: Pt needed encouragement to eat Subjective Subjective Patient was seen & assessed and interval progress reviewed with treatment team nursing and social work. Patient initially refused to take her medication today. When questioned she informed blurb writer that she does not feel her medication is working. A conversation was had about the difficulty of understanding the effects of medication when taking multiple medications at the same time. Patient states that she was familiar with most of them, but felt that specifically the Invega medication was not helping her and making her feel "off". She described a feeling as similar to the reaction she had to Abilify some years ago. Patient was informed as to the necessity of her to be on multiple medications including mood stabilizers and likely multiple antipsychotics to control her significant delusions, paranoia, psychosis, mood lability.Patient in agreement with this and at this time became agreeable to try supplementation of her Zyprexa dose with haloperidol. Following the encounter she was seen eating. She reports a good night of sleep last night. No side effects reported or observed. I spent 30 minutes with the patient, 50% of which was dedicated to counselling and coordination of care. Physical Exam Psychiatric Orientation: alert Apperance: appropriately dressed, appropriately groomed and + disheveled Eye Contact: + fair eye contact and + poor eye contact Motor Behavior: no abnormal motor movements Affect: euthymic affect, + flat affect, + labile affect and + constricted affect Mood: no anxious mood Thought Process: + thought blocking, + tangential thought process and + concrete thought process Thought Content: + paranoid, + delusions and + ideas of reference Suicidal Thoughts: denies suicidal thoughts Homicidal Thoughts: denies homicidal thoughts Hallucinations: no auditory hallucinations and no visual hallucinations Cognition: language grossly intact; + attention not intact Estimated Intelligence: + below average estimated intelligence Insight: + impaired insight and + severely impaired insight Judgement: + impaired judgement and + severely impaired judgement Vital Signs (Past 24 Hours) Last Vital Signs Temp 36.5 C 12/23/20 06:43 Pulse 101 H 12/23/20 06:43 Resp 18 12/23/20 06:43 BP 119/81 12/23/20 06:43 Pulse Ox 100 12/05/20 06:00 Results & Data ([facility]) Current Inpatient Medications Current Inpatient Medications: Current Inpatient Medications Acetaminophen (Acetaminophen 325 Mg Tab) 650 mg PO Q4H PRN PRN Reason: Headache or Minor Fever Stop: 12/30/20 20:02 Al Hydrox/Mg Hydrox/Simethicone (Aluminum/Magnesium Susp 30 Ml Udc) 30 ml PO Q4H PRN PRN Reason: GI Upset Stop: 12/30/20 20:02 Atorvastatin Calcium (Atorvastatin 10 Mg Tab) 10 mg PO QAM [facility] Stop: 12/31/20 08:59 Last Admin: 12/23/20 12:38 Dose: 10 mg Documented by: Benztropine Mesylate (Benztropine Mesylate 1 Mg Tab) 1 mg PO BID [facility] Stop: 12/30/20 20:59 Last Admin: 12/23/20 12:39 Dose: 1 mg Documented by: Bismuth Subsalicylate (Bismuth Subsalicylate Liqd 236 Ml) 15 ml PO PRN PRN PRN Reason: Loose Stool Stop: 12/30/20 20:02 Docusate Sodium (Docusate Sodium 100 Mg Cap) 100 mg PO BID [facility] Stop: 01/08/21 20:59 Last Admin: 12/23/20 12:39 Dose: 100 mg Documented by: Haloperidol (Haloperidol 5 Mg Tab) 2.5 mg PO TID [facility] Stop: 01/22/21 13:59 Last Admin: 12/23/20 12:39 Dose: 2.5 mg Documented by: Hydroxyzine HCl (Hydroxyzine Hcl 25 Mg Tab) 50 mg PO HSZ PRN PRN Reason: Insomnia Stop: 12/30/20 20:02 Last Admin: 12/06/20 01:06 Dose: 50 mg Documented by: Hydroxyzine HCl (Hydroxyzine Hcl 25 Mg Tab) 25 mg PO Q4H PRN PRN Reason: Anxiety Stop: 12/30/20 20:02 Last Admin: 12/04/20 04:03 Dose: 25 mg Documented by: Lamotrigine (Lamotrigine 25 Mg Tab) 50 mg PO QAM [facility] Stop: 01/13/21 08:59 Last Admin: 12/23/20 12:39 Dose: 50 mg Documented by: Levothyroxine Sodium (Levothyroxine Sodium 25 Mcg Tablet) 25 mcg PO DAILYBB [facility] Stop: 12/31/20 07:59 Last Admin: 12/23/20 12:38 Dose: 25 mcg Documented by: [place] Carbonate ([place] Carbonate 300 Mg Tab) 300 mg PO BID [facility] Stop: 12/30/20 20:59 Last Admin: 12/23/20 12:39 Dose: 300 mg Documented by: Lorazepam (Lorazepam 1 Mg Tab) 1 mg PO Q6 PRN PRN Reason: Anxiety/Agitation Stop: 12/31/20 10:10 Last Admin: 12/19/20 11:25 Dose: 1 mg Documented by: Lorazepam (Lorazepam 1 Mg Tab) 1 mg PO TID [facility] Stop: 01/01/21 13:59 Last Admin: 12/23/20 12:39 Dose: 1 mg Documented by: Magnesium Hydroxide (Magnesium Hydroxide Susp 30 Ml Udc) 30 ml PO DAILY PRN PRN Reason: Constipation Stop: 12/30/20 20:02 Olanzapine (Olanzapine Zydis 5 Mg Orally Dis. Tab) 5 mg PO Q6 PRN PRN Reason: Anxiety/Agitation Stop: 12/31/20 11:59 Last Admin: 12/12/20 11:32 Dose: 5 mg Documented by: Olanzapine (Olanzapine 20 Mg Tablet) 20 mg PO HS [facility] Stop: 01/04/21 21:59 Last Admin: 12/22/20 21:01 Dose: 20 mg Documented by: Sertraline HCl (Sertraline Hcl 50 Mg Tablet) 50 mg PO QAM [facility] Stop: 01/23/21 08:59 Sodium Chloride (Sodium Chloride 0.65% Na Soln 45 Ml ([place])) 1 - 2 sprays NA PRN PRN PRN Reason: Nasal Dryness/Congestion Stop: 12/30/20 20:02 Vitamin D (Cholecalciferol 1,000 Units 25 Mcg Tab) 2,000 units PO QAM [facility] Stop: 12/31/20 08:59 Last Admin: 12/23/20 12:39 Dose: 2,000 units Documented by: Mental Health & Subst Abuse Tx Psychiatrist Name of Psychiatrist: [facility] Psychiatrist's Psychiatric Appointment Comment: [address], [place] [address] Therapist Name of Therapist: discharged from [facility] Therapist's Therapy Appointment Comment: [address] [place] [address] Edge Finisher Name of Edge Finisher: . Post Discharge Appointments Primary Care Physician Name Of Family Doctor: [facility] - Dr. Shi Primary Care Provider Appointment Comment: [address] [facility] [place] [address] Neurologist Name of Neurologist: Mac Arroyo Neurologist's Neurology Appointment Comment: [address] [place] [address], [address], [place] [address] Contact Information Discharge Discharge Address: [address] [place] [address], [place] [address] (1) Psychosis Psychosis type: schizophrenia Schizophrenia type: unspecified Qualified Code(s): F20.9 - Schizophrenia, unspecified
[2020-12-23] MEDS: OLANZapine 20 MG TABLET PO SCH (21:10)
[2020-12-24] MEDS: ATORVASTATIN 10 MG TAB PO SCH (10:01)
[2020-12-24] MEDS: BENZTROPINE MESYLATE 1 MG TAB PO SCH ×2 (10:01→20:55)
[2020-12-24] MEDS: LEVOTHYROXINE SODIUM 25 MCG TABLET PO SCH (10:01)
[2020-12-24] MEDS: CHOLECALCIFEROL 1,000 UNITS 25 MCG TAB PO SCH (10:01)
[2020-12-24] MEDS: lamoTRIgine 25 MG TAB PO SCH (10:02)
[2020-12-24] MEDS: DOCUSATE SODIUM 100 MG CAP PO SCH ×2 (10:02→20:55)
[2020-12-24] MEDS: LITHIUM CARBONATE 300 MG TAB PO SCH ×2 (10:02→20:54)
[2020-12-24] MEDS: haloperidoL 5 MG TAB PO SCH ×3 (10:02→20:54)
[2020-12-24] MEDS: LORazepam 1 MG TAB PO SCH ×3 (10:02→20:54)
[2020-12-24] MEDS: SERTRALINE HCL 50 MG TABLET PO SCH (10:03)
--- NOTE | 2020-12-24 15:05 | Psychiatric Progress Note ---
Date of Service December 24, 2020 Impression / Recommendations Impression 30 yo female with schizoaffective disorder. Less emotionally labile, still psychotic (1) Psychosis: 12/23/2020Will discontinue Invega and replace with haloperidol 2.5 mg 3 times daily. We will continue Lamictal, lithium, Zyprexa for now. Will consider Haldol Decanoate if helpful for patient. 12/24/1020we will continue current regimen for now, patient seems to be making improvements. Risk Factors Assessment Male: No : Yes Do You Have Access To A Gun?: No Mental Health Diagnoses: Yes Substance Use Disorders: No Previous Psychiatric Hospitalization: Yes Protective Factors Assessment : No Responsible for Young Children: No Employed: No (Unknown) Supportive Family: Yes Interval History Identifying Information 30 female with schizoaffective disorder admit on 302 commitment for disorganized psychosis, was converted to 201 prior to expiration of 303. Chief Complaint "Good morning". Review of Systems Sleep Information Total Hours of Sleep: 5 Sleep Comments: pt on q-15 minute checks Meal Information Percent Meal Consumed - Breakfast: 75 Percent Meal Consumed - Lunch: 100 Percent Meal Consumed - Dinner: 100 Nutrition Comment: Pt needed encouragement to eat Subjective Subjective Patient seen, chart reviewed and case discussed with treatment team, nursing and social work. Patient reports a good night of sleep and strong appetite. No side effects reported or observed. Regarding mood, patient reports some improvement which they attribute to the medications as well as the therapy they have received on the unit. Patient's mood is reported as improved from yesterday. Patient feels the medication is helping him more than previously. She is seen mostly isolative but at times interacts appropriately with peers. I spent 30 minutes with the patient, 50% of which was dedicated to counselling and coordination of care. Physical Exam Psychiatric Orientation: alert Apperance: appropriately dressed, appropriately groomed and + disheveled Eye Contact: + fair eye contact and + poor eye contact Motor Behavior: no abnormal motor movements Affect: euthymic affect, + flat affect, + labile affect and + constricted affect Mood: no anxious mood Thought Process: + thought blocking, + tangential thought process and + concrete thought process Thought Content: + paranoid, + delusions and + ideas of reference Suicidal Thoughts: denies suicidal thoughts Homicidal Thoughts: denies homicidal thoughts Hallucinations: no auditory hallucinations and no visual hallucinations Cognition: language grossly intact; + attention not intact Estimated Intelligence: + below average estimated intelligence Insight: + impaired insight and + severely impaired insight Judgement: + impaired judgement and + severely impaired judgement Vital Signs (Past 24 Hours) Last Vital Signs Temp 36.6 C 12/24/20 06:40 Pulse 96 H 12/24/20 06:41 Resp 16 12/24/20 06:40 BP 123/80 12/24/20 06:41 Pulse Ox 100 12/05/20 06:00 Results & Data ([facility]) Current Inpatient Medications Current Inpatient Medications: Current Inpatient Medications Acetaminophen (Acetaminophen 325 Mg Tab) 650 mg PO Q4H PRN PRN Reason: Headache or Minor Fever Stop: 12/30/20 20:02 Al Hydrox/Mg Hydrox/Simethicone (Aluminum/Magnesium Susp 30 Ml Udc) 30 ml PO Q4H PRN PRN Reason: GI Upset Stop: 12/30/20 20:02 Atorvastatin Calcium (Atorvastatin 10 Mg Tab) 10 mg PO QAM [facility] Stop: 12/31/20 08:59 Last Admin: 12/24/20 10:01 Dose: 10 mg Documented by: Benztropine Mesylate (Benztropine Mesylate 1 Mg Tab) 1 mg PO BID [facility] Stop: 12/30/20 20:59 Last Admin: 12/24/20 10:01 Dose: 1 mg Documented by: Bismuth Subsalicylate (Bismuth Subsalicylate Liqd 236 Ml) 15 ml PO PRN PRN PRN Reason: Loose Stool Stop: 12/30/20 20:02 Docusate Sodium (Docusate Sodium 100 Mg Cap) 100 mg PO BID [facility] Stop: 01/08/21 20:59 Last Admin: 12/24/20 10:02 Dose: 100 mg Documented by: Haloperidol (Haloperidol 5 Mg Tab) 2.5 mg PO TID [facility] Stop: 01/22/21 13:59 Last Admin: 12/24/20 14:14 Dose: 2.5 mg Documented by: Hydroxyzine HCl (Hydroxyzine Hcl 25 Mg Tab) 50 mg PO HSZ PRN PRN Reason: Insomnia Stop: 12/30/20 20:02 Last Admin: 12/06/20 01:06 Dose: 50 mg Documented by: Hydroxyzine HCl (Hydroxyzine Hcl 25 Mg Tab) 25 mg PO Q4H PRN PRN Reason: Anxiety Stop: 12/30/20 20:02 Last Admin: 12/04/20 04:03 Dose: 25 mg Documented by: Lamotrigine (Lamotrigine 25 Mg Tab) 50 mg PO QAM [facility] Stop: 01/13/21 08:59 Last Admin: 12/24/20 10:02 Dose: 50 mg Documented by: Levothyroxine Sodium (Levothyroxine Sodium 25 Mcg Tablet) 25 mcg PO DAILYBB [facility] Stop: 12/31/20 07:59 Last Admin: 12/24/20 10:01 Dose: 25 mcg Documented by: [place] Carbonate ([place] Carbonate 300 Mg Tab) 300 mg PO BID [facility] Stop: 12/30/20 20:59 Last Admin: 12/24/20 10:02 Dose: 300 mg Documented by: Lorazepam (Lorazepam 1 Mg Tab) 1 mg PO Q6 PRN PRN Reason: Anxiety/Agitation Stop: 12/31/20 10:10 Last Admin: 12/19/20 11:25 Dose: 1 mg Documented by: Lorazepam (Lorazepam 1 Mg Tab) 1 mg PO TID [facility] Stop: 01/01/21 13:59 Last Admin: 12/24/20 14:13 Dose: 1 mg Documented by: Magnesium Hydroxide (Magnesium Hydroxide Susp 30 Ml Udc) 30 ml PO DAILY PRN PRN Reason: Constipation Stop: 12/30/20 20:02 Olanzapine (Olanzapine Zydis 5 Mg Orally Dis. Tab) 5 mg PO Q6 PRN PRN Reason: Anxiety/Agitation Stop: 12/31/20 11:59 Last Admin: 12/12/20 11:32 Dose: 5 mg Documented by: Olanzapine (Olanzapine 20 Mg Tablet) 20 mg PO HS [facility] Stop: 01/04/21 21:59 Last Admin: 12/23/20 21:10 Dose: 20 mg Documented by: Sertraline HCl (Sertraline Hcl 50 Mg Tablet) 50 mg PO QAM [facility] Stop: 01/23/21 08:59 Last Admin: 12/24/20 10:03 Dose: 50 mg Documented by: Sodium Chloride (Sodium Chloride 0.65% Na Soln 45 Ml ([place])) 1 - 2 sprays NA PRN PRN PRN Reason: Nasal Dryness/Congestion Stop: 12/30/20 20:02 Vitamin D (Cholecalciferol 1,000 Units 25 Mcg Tab) 2,000 units PO QAM [facility] Stop: 12/31/20 08:59 Last Admin: 12/24/20 10:01 Dose: 2,000 units Documented by: Mental Health & Subst Abuse Tx Psychiatrist Name of Psychiatrist: [facility] - Dr. Mcleod Psychiatrist's Psychiatric Appointment Comment: [address] [facility], [place] [address] Therapist Name of Therapist: discharged from [facility] Therapist's Therapy Appointment Comment: [address] [facility], [place] [address] [employer] Name of [employer]: . Post Discharge Appointments Primary Care Physician Name Of Family Doctor: [facility] - Dr. Shi Primary Care Provider Appointment Comment: [address] [place] [address] Neurologist Name of Neurologist: Mac Strange - Dr. Arroyo Neurologist's Neurology Appointment Comment: [address] [place] [address], [address], [place] [address] Contact Information Discharge Discharge Address: [address], [place] [address] (1) Psychosis Psychosis type: schizophrenia Schizophrenia type: unspecified Qualified Code(s): F20.9 - Schizophrenia, unspecified
[2020-12-24] MEDS: OLANZapine 20 MG TABLET PO SCH (20:54)
[2020-12-25] MEDS: LEVOTHYROXINE SODIUM 25 MCG TABLET PO SCH (07:34)
[2020-12-25] MEDS: ATORVASTATIN 10 MG TAB PO SCH (08:35)
[2020-12-25] MEDS: CHOLECALCIFEROL 1,000 UNITS 25 MCG TAB PO SCH (08:35)
[2020-12-25] MEDS: DOCUSATE SODIUM 100 MG CAP PO SCH ×2 (08:35→20:54)
[2020-12-25] MEDS: BENZTROPINE MESYLATE 1 MG TAB PO SCH ×2 (08:35→20:56)
[2020-12-25] MEDS: haloperidoL 5 MG TAB PO SCH ×3 (08:35→20:55)
[2020-12-25] MEDS: lamoTRIgine 25 MG TAB PO SCH (08:36)
[2020-12-25] MEDS: LITHIUM CARBONATE 300 MG TAB PO SCH ×2 (08:37→20:55)
[2020-12-25] MEDS: LORazepam 1 MG TAB PO SCH ×3 (08:37→20:56)
[2020-12-25] MEDS: SERTRALINE HCL 50 MG TABLET PO SCH (08:37)
--- NOTE | 2020-12-25 15:26 | Psychiatric Progress Note ---
Date of Service December 25, 2020 Impression / Recommendations Impression 30 yo female with schizoaffective disorder. Less emotionally labile, still psychotic (1) Psychosis: 12/23/2020Will discontinue Invega and replace with haloperidol 2.5 mg 3 times daily. We will continue Lamictal, lithium, Zyprexa for now. Will consider Haldol Decanoate if helpful for patient. 12/24/1020we will continue current regimen for now, patient seems to be making improvements. 12/25/2020we will increase the haloperidol from 2.5 mg 3 times daily to 5 mg twice daily. We will also draw labs tomorrow for lithium level, CBC, CMP, LFTs Risk Factors Assessment Male: No : Yes Do You Have Access To A Gun?: No Mental Health Diagnoses: Yes Substance Use Disorders: No Previous Psychiatric Hospitalization: Yes Protective Factors Assessment : No Responsible for Young Children: No Employed: No (Unknown) Supportive Family: Yes Interval History Identifying Information 30 female with schizoaffective disorder admit on 302 commitment for disorganized psychosis, was converted to 201 prior to expiration of 303. Chief Complaint "Good morning". Review of Systems Sleep Information Total Hours of Sleep: 6.5 Sleep Comments: pt on q-15 minute checks Meal Information Percent Meal Consumed - Breakfast: 0 Percent Meal Consumed - Lunch: 50 Percent Meal Consumed - Dinner: 100 Nutrition Comment: pt. had fluids only Subjective Subjective Patient was seen & assessed and interval progress reviewed with treatment team nursing and social work Patient continues to be isolative and somewhat bizarre at times. She arranges her room and bizarre way and appears to be somewhat paranoid when speaking to her. Self reportedly, she states that she is feeling better with the changes in the medication. She does however still remain isolative unwilling to engage with peers meaningfully. Less mood lability witnessed today from days prior. Patient is eating and sleeping appropriately. No side effects of medication observed or reported. I spent 30 minutes with the patient, 50% of which was dedicated to counselling and coordination of care. Physical Exam Psychiatric Orientation: alert Apperance: appropriately dressed, appropriately groomed and + disheveled Eye Contact: + fair eye contact and + poor eye contact Motor Behavior: no abnormal motor movements Affect: euthymic affect, + flat affect, + labile affect and + constricted affect Mood: no anxious mood Thought Process: + thought blocking, + tangential thought process and + concrete thought process Thought Content: + paranoid, + delusions and + ideas of reference Suicidal Thoughts: denies suicidal thoughts Homicidal Thoughts: denies homicidal thoughts Hallucinations: no auditory hallucinations and no visual hallucinations Cognition: language grossly intact; + attention not intact Estimated Intelligence: + below average estimated intelligence Insight: + impaired insight and + severely impaired insight Judgement: + impaired judgement and + severely impaired judgement Vital Signs (Past 24 Hours) Last Vital Signs Temp 36.7 C 12/25/20 06:30 Pulse 90 12/25/20 06:30 Resp 16 12/25/20 06:30 BP 123/85 12/25/20 06:30 Pulse Ox 100 12/05/20 06:00 Results & Data ([facility]) Current Inpatient Medications Current Inpatient Medications: Current Inpatient Medications Acetaminophen (Acetaminophen 325 Mg Tab) 650 mg PO Q4H PRN PRN Reason: Headache or Minor Fever Stop: 12/30/20 20:02 Al Hydrox/Mg Hydrox/Simethicone (Aluminum/Magnesium Susp 30 Ml Udc) 30 ml PO Q4H PRN PRN Reason: GI Upset Stop: 12/30/20 20:02 Atorvastatin Calcium (Atorvastatin 10 Mg Tab) 10 mg PO QAM [facility] Stop: 12/31/20 08:59 Last Admin: 12/25/20 08:35 Dose: 10 mg Documented by: Benztropine Mesylate (Benztropine Mesylate 1 Mg Tab) 1 mg PO BID [facility] Stop: 12/30/20 20:59 Last Admin: 12/25/20 08:35 Dose: 1 mg Documented by: Bismuth Subsalicylate (Bismuth Subsalicylate Liqd 236 Ml) 15 ml PO PRN PRN PRN Reason: Loose Stool Stop: 12/30/20 20:02 Docusate Sodium (Docusate Sodium 100 Mg Cap) 100 mg PO BID [facility] Stop: 01/08/21 20:59 Last Admin: 12/25/20 08:35 Dose: 100 mg Documented by: Haloperidol (Haloperidol 5 Mg Tab) 5 mg PO BID [facility] Stop: 01/24/21 20:59 Hydroxyzine HCl (Hydroxyzine Hcl 25 Mg Tab) 50 mg PO HSZ PRN PRN Reason: Insomnia Stop: 12/30/20 20:02 Last Admin: 12/06/20 01:06 Dose: 50 mg Documented by: Hydroxyzine HCl (Hydroxyzine Hcl 25 Mg Tab) 25 mg PO Q4H PRN PRN Reason: Anxiety Stop: 12/30/20 20:02 Last Admin: 12/04/20 04:03 Dose: 25 mg Documented by: Lamotrigine (Lamotrigine 25 Mg Tab) 50 mg PO QAM [facility] Stop: 01/13/21 08:59 Last Admin: 12/25/20 08:36 Dose: 50 mg Documented by: Levothyroxine Sodium (Levothyroxine Sodium 25 Mcg Tablet) 25 mcg PO DAILYBB [facility] Stop: 12/31/20 07:59 Last Admin: 12/25/20 07:34 Dose: 25 mcg Documented by: [place] Carbonate ([place] Carbonate 300 Mg Tab) 300 mg PO BID [facility] Stop: 12/30/20 20:59 Last Admin: 12/25/20 08:37 Dose: 300 mg Documented by: Lorazepam (Lorazepam 1 Mg Tab) 1 mg PO Q6 PRN PRN Reason: Anxiety/Agitation Stop: 12/31/20 10:10 Last Admin: 12/19/20 11:25 Dose: 1 mg Documented by: Lorazepam (Lorazepam 1 Mg Tab) 1 mg PO TID [facility] Stop: 01/01/21 13:59 Last Admin: 12/25/20 13:18 Dose: 1 mg Documented by: Magnesium Hydroxide (Magnesium Hydroxide Susp 30 Ml Udc) 30 ml PO DAILY PRN PRN Reason: Constipation Stop: 12/30/20 20:02 Olanzapine (Olanzapine Zydis 5 Mg Orally Dis. Tab) 5 mg PO Q6 PRN PRN Reason: Anxiety/Agitation Stop: 12/31/20 11:59 Last Admin: 12/12/20 11:32 Dose: 5 mg Documented by: Olanzapine (Olanzapine 20 Mg Tablet) 20 mg PO HS [facility] Stop: 01/04/21 21:59 Last Admin: 12/24/20 20:54 Dose: 20 mg Documented by: Sertraline HCl (Sertraline Hcl 50 Mg Tablet) 50 mg PO QAM [facility] Stop: 01/23/21 08:59 Last Admin: 12/25/20 08:37 Dose: 50 mg Documented by: Sodium Chloride (Sodium Chloride 0.65% Na Soln 45 Ml ([place])) 1 - 2 sprays NA PRN PRN PRN Reason: Nasal Dryness/Congestion Stop: 12/30/20 20:02 Vitamin D (Cholecalciferol 1,000 Units 25 Mcg Tab) 2,000 units PO QAM [facility] Stop: 12/31/20 08:59 Last Admin: 12/25/20 08:35 Dose: 2,000 units Documented by: Mental Health & Subst Abuse Tx Psychiatrist Name of Psychiatrist: [facility] - Dr. Mcleod Psychiatrist's Psychiatric Appointment Comment: [address], [place] [address] Therapist Name of Therapist: discharged from [facility] Therapist's Therapy Appointment Comment: [address], [place] [address] Environmental Health Safety Manager Name of Environmental Health Safety Manager: . Post Discharge Appointments Primary Care Physician Name Of Family Doctor: [facility] - Dr. Shi Primary Care Provider Appointment Comment: [address] [facility], [place] [address] Neurologist Name of Neurologist: Mac Strange - Dr. Arroyo Neurologist's Neurology Appointment Comment: [address] [place] [address], [address], [place] [address] Contact Information Discharge Discharge Address: [address], [place] [address] (1) Psychosis Psychosis type: schizophrenia Schizophrenia type: unspecified Qualified Code(s): F20.9 - Schizophrenia, unspecified
[2020-12-25] MEDS: OLANZapine 20 MG TABLET PO SCH (20:55)
[2020-12-26] MEDS: ATORVASTATIN 10 MG TAB PO SCH (07:20)
[2020-12-26] MEDS: LEVOTHYROXINE SODIUM 25 MCG TABLET PO SCH (07:20)
[2020-12-26] MEDS: CHOLECALCIFEROL 1,000 UNITS 25 MCG TAB PO SCH (07:20)
[2020-12-26] MEDS: BENZTROPINE MESYLATE 1 MG TAB PO SCH ×2 (07:20→20:30)
[2020-12-26] MEDS: LITHIUM CARBONATE 300 MG TAB PO SCH ×2 (07:21→20:29)
[2020-12-26] MEDS: haloperidoL 5 MG TAB PO SCH ×2 (07:21→20:30)
[2020-12-26] MEDS: LORazepam 1 MG TAB PO SCH ×3 (07:21→20:31)
[2020-12-26] MEDS: SERTRALINE HCL 50 MG TABLET PO SCH (07:21)
[2020-12-26] MEDS: DOCUSATE SODIUM 100 MG CAP PO SCH ×2 (07:21→20:30)
[2020-12-26] MEDS: lamoTRIgine 25 MG TAB PO SCH (07:21)
[2020-12-26 07:35] LABS: Basophils # (auto) 0.02 K/uL (0-0.2); Basophils % (auto) 0.2 %; Hematocrit (blood only) 46.7 % (37-47); Hemoglobin 15.2 g/dL (12.0-16.0); Immature Granulocytes # (auto) 0.02 K/uL (0.00-0.02); Immature Granulocytes % (auto) 0.2 %; Lymphocytes # (auto) 2.32 K/uL (1.2-3.4); Lymphocytes % (auto) 26.3 %; Mean Corpuscular Hemoglobin 28.7 pg (25-34); Mean Corpuscular Hgb Conc 32.5 g/dL (32-36); Mean Corpuscular Volume 88.1 fL (80-100); Mean Platelet Volume 9.1 fL (7.4-10.4); Monocytes # (auto) 0.66 K/uL (0.11-0.59); Monocytes % (auto) 7.5 %; Neutrophils # (auto) 5.81 K/uL (1.4-6.5); Neutrophils % (auto) 65.8 %; Platelet Count 397 K/uL (130-400); RDW Coefficient of Variation 13.3 % (11.5-14.5); White Blood Count 8.83 K/uL (4.8-10.8)
[2020-12-26 08:08] LABS: Albumin Level 4.3 gm/dl (3.4-5.0); BUN Creatinine Ratio 6.9 (10-20); Calcium 9.8 mg/dl (8.5-10.1); Creatinine Clr Calc Pharmacy 80.2 ml/min; Est GFR (African American) 87.6 ml/min; Est GFR (Non-African American) 75.5 ml/min; Potassium 3.7 mmol/L (3.5-5.1)
[2020-12-26 08:11] LABS: Bilirubin Direct 0.1 mg/dl (0-0.2); Bilirubin,Total 0.3 mg/dl (0.2-1); Globulin 4.3 gm/dl (2.5-4.0); Total Protein 8.6 gm/dl (6.4-8.2)
--- NOTE | 2020-12-26 15:43 | Psychiatric Progress Note ---
Date of Service December 26, 2020 Impression / Recommendations Impression 30 yo female with schizoaffective disorder. Less emotionally labile, still psychotic (1) Psychosis: 12/23/2020Will discontinue Invega and replace with haloperidol 2.5 mg 3 times daily. We will continue Lamictal, lithium, Zyprexa for now. Will consider Haldol Decanoate if helpful for patient. 12/24/1020we will continue current regimen for now, patient seems to be making improvements. 12/25/2020we will increase the haloperidol from 2.5 mg 3 times daily to 5 mg twice daily. We will also draw labs tomorrow for lithium level, CBC, CMP, LFTs 12/26/2020we will increase patient's nightly lithium to 450 mg. Will likely increase Haldol in the coming days as it seems to be helpful Risk Factors Assessment Male: No : Yes Do You Have Access To A Gun?: No Mental Health Diagnoses: Yes Substance Use Disorders: No Previous Psychiatric Hospitalization: Yes Protective Factors Assessment : No Responsible for Young Children: No Employed: No (Unknown) Supportive Family: Yes Interval History Identifying Information 30 female with schizoaffective disorder admit on 302 commitment for disorganized psychosis, was converted to 201 prior to expiration of 303. Chief Complaint "I am concerned about my ancestors". Review of Systems Sleep Information Total Hours of Sleep: 4.5 Sleep Comments: pt on q-15 minute checks Meal Information Percent Meal Consumed - Breakfast: 25 Percent Meal Consumed - Lunch: 100 Percent Meal Consumed - Dinner: 75 Nutrition Comment: pt. had fluids only Subjective Subjective Patient was seen & assessed and interval progress reviewed with treatment team nursing and social work Patient seen today to be more interactive. She attended group and participated. The content of her thoughts are still somewhat bizarre, as she made a comment about her ancestors and group therapy which was off-topic. She was able to r espond well to verbal redirection. No episodes of tearfulness or crying today. Patient is maintaining her ADLs and continues to be compliant with the medication. No side effects of the medication reported or observed. Patient is eating and sleeping decently without issue. [place] level back at 0.7 I spent 30 minutes with the patient, 50% of which was dedicated to counselling and coordination of care. Physical Exam Psychiatric Orientation: alert Apperance: appropriately dressed, appropriately groomed and + disheveled Eye Contact: + fair eye contact and + poor eye contact Motor Behavior: no abnormal motor movements Affect: euthymic affect, + flat affect, + labile affect and + constricted affect Mood: no anxious mood Thought Process: + thought blocking, + tangential thought process and + concrete thought process Thought Content: + paranoid, + delusions and + ideas of reference Suicidal Thoughts: denies suicidal thoughts Homicidal Thoughts: denies homicidal thoughts Hallucinations: no auditory hallucinations and no visual hallucinations Cognition: language grossly intact; + attention not intact Estimated Intelligence: + below average estimated intelligence Insight: + impaired insight and + severely impaired insight Judgement: + impaired judgement and + severely impaired judgement Vital Signs (Past 24 Hours) Last Vital Signs Temp 36.4 C L 12/26/20 06:00 Pulse 82 12/26/20 06:48 Resp 14 12/26/20 06:00 BP 133/93 12/26/20 06:48 Pulse Ox 100 12/05/20 06:00 Results & Data ([facility]) Laboratory Results Laboratory Results - last 24 hr 12/26/20 12/26/20 12/26/20 07:20 07:20 07:20 WBC 8.83 RBC 5.30 Hgb 15.2 Hct 46.7 MCV 88.1 MCH 28.7 MCHC 32.5 RDW Std Deviation 43.0 RDW Coeff of Kelli 13.3 Plt Count 397 MPV 9.1 Immature Gran % (Auto) 0.2 Neut % (Auto) 65.8 Lymph % (Auto) 26.3 [place] % (Auto) 7.5 Eos % (Auto) 0.0 Baso % (Auto) 0.2 Neut # (Auto) 5.81 Lymph # (Auto) 2.32 [place] # (Auto) 0.66 H Eos # (Auto) 0.00 Baso # (Auto) 0.02 Immature Gran # (Auto) 0.02 Sodium 138 Potassium 3.7 Chloride 105 Carbon Dioxide 26 Anion Gap 6.0 BUN 7 Creatinine 1.00 Est Cr Clr Drug Dosing 80.2 Est GFR ( Amer) 87.6 Est GFR (Non-Af Amer) 75.5 BUN/Creatinine Ratio 6.9 L Glucose 100 H Calcium 9.8 Total Bilirubin 0.3 Direct Bilirubin 0.1 AST 33 ALT 117 H Alkaline Phosphatase 58 Total Protein 8.6 H Albumin 4.3 Globulin 4.3 H Albumin/Globulin Ratio 1.0 [place] 0.7 Current Inpatient Medications Current Inpatient Medications: Current Inpatient Medications Acetaminophen (Acetaminophen 325 Mg Tab) 650 mg PO Q4H PRN PRN Reason: Headache or Minor Fever Stop: 12/30/20 20:02 Al Hydrox/Mg Hydrox/Simethicone (Aluminum/Magnesium Susp 30 Ml Udc) 30 ml PO Q4H PRN PRN Reason: GI Upset Stop: 12/30/20 20:02 Atorvastatin Calcium (Atorvastatin 10 Mg Tab) 10 mg PO QAM [facility] Stop: 12/31/20 08:59 Last Admin: 12/26/20 07:20 Dose: 10 mg Documented by: Benztropine Mesylate (Benztropine Mesylate 1 Mg Tab) 1 mg PO BID [facility] Stop: 12/30/20 20:59 Last Admin: 12/26/20 07:20 Dose: 1 mg Documented by: Bismuth Subsalicylate (Bismuth Subsalicylate Liqd 236 Ml) 15 ml PO PRN PRN PRN Reason: Loose Stool Stop: 12/30/20 20:02 Docusate Sodium (Docusate Sodium 100 Mg Cap) 100 mg PO BID [facility] Stop: 01/08/21 20:59 Last Admin: 12/26/20 07:21 Dose: 100 mg Documented by: Haloperidol (Haloperidol 5 Mg Tab) 5 mg PO BID [facility] Stop: 01/24/21 20:59 Last Admin: 12/26/20 07:21 Dose: 5 mg Documented by: Hydroxyzine HCl (Hydroxyzine Hcl 25 Mg Tab) 50 mg PO HSZ PRN PRN Reason: Insomnia Stop: 12/30/20 20:02 Last Admin: 12/06/20 01:06 Dose: 50 mg Documented by: Hydroxyzine HCl (Hydroxyzine Hcl 25 Mg Tab) 25 mg PO Q4H PRN PRN Reason: Anxiety Stop: 12/30/20 20:02 Last Admin: 12/04/20 04:03 Dose: 25 mg Documented by: Lamotrigine (Lamotrigine 25 Mg Tab) 50 mg PO QAM [facility] Stop: 01/13/21 08:59 Last Admin: 12/26/20 07:21 Dose: 50 mg Documented by: Levothyroxine Sodium (Levothyroxine Sodium 25 Mcg Tablet) 25 mcg PO DAILYBB [facility] Stop: 12/31/20 07:59 Last Admin: 12/26/20 07:20 Dose: 25 mcg Documented by: [place] Carbonate ([place] Carbonate 300 Mg Tab) 300 mg PO BID [facility] Stop: 12/30/20 20:59 Last Admin: 12/26/20 07:21 Dose: 300 mg Documented by: Lorazepam (Lorazepam 1 Mg Tab) 1 mg PO Q6 PRN PRN Reason: Anxiety/Agitation Stop: 12/31/20 10:10 Last Admin: 12/19/20 11:25 Dose: 1 mg Documented by: Lorazepam (Lorazepam 1 Mg Tab) 1 mg PO TID [facility] Stop: 01/01/21 13:59 Last Admin: 12/26/20 14:08 Dose: 1 mg Documented by: Magnesium Hydroxide (Magnesium Hydroxide Susp 30 Ml Udc) 30 ml PO DAILY PRN PRN Reason: Constipation Stop: 12/30/20 20:02 Olanzapine (Olanzapine Zydis 5 Mg Orally Dis. Tab) 5 mg PO Q6 PRN PRN Reason: Anxiety/Agitation Stop: 12/31/20 11:59 Last Admin: 12/12/20 11:32 Dose: 5 mg Documented by: Olanzapine (Olanzapine 20 Mg Tablet) 20 mg PO HS [facility] Stop: 01/04/21 21:59 Last Admin: 12/25/20 20:55 Dose: 20 mg Documented by: Sertraline HCl (Sertraline Hcl 50 Mg Tablet) 50 mg PO QAM [facility] Stop: 01/23/21 08:59 Last Admin: 12/26/20 07:21 Dose: 50 mg Documented by: Sodium Chloride (Sodium Chloride 0.65% Na Soln 45 Ml ([place])) 1 - 2 sprays NA PRN PRN PRN Reason: Nasal Dryness/Congestion Stop: 12/30/20 20:02 Vitamin D (Cholecalciferol 1,000 Units 25 Mcg Tab) 2,000 units PO QAM [facility] Stop: 12/31/20 08:59 Last Admin: 12/26/20 07:20 Dose: 2,000 units Documented by: Mental Health & Subst Abuse Tx Psychiatrist Name of Psychiatrist: Bruno Mcleod Psychiatrist's Psychiatric Appointment Comment: [address] [facility] [address], [place] [address] Therapist Name of Therapist: discharged from [facility] Therapist's Therapy Appointment Comment: [address], [place] [address] Erp Consultant Name of Erp Consultant: . Post Discharge Appointments Primary Care Physician Name Of Family Doctor: [facility] - Dr. Shi Primary Care Provider Appointment Comment: [address] [facility], [place] [address] Neurologist Name of Neurologist: Mac Strange - Dr. Arroyo Neurologist's Neurology Appointment Comment: [address] [place] [address], [address], [place] [address] Contact Information Discharge Discharge Address: [place] [address], [place] [address] (1) Psychosis Psychosis type: schizophrenia Schizophrenia type: unspecified Qualified Code(s): F20.9 - Schizophrenia, unspecified
[2020-12-26] MEDS: OLANZapine 20 MG TABLET PO SCH (20:28)
[2020-12-27] MEDS: BENZTROPINE MESYLATE 1 MG TAB PO SCH ×2 (08:33→21:46)
[2020-12-27] MEDS: DOCUSATE SODIUM 100 MG CAP PO SCH ×2 (08:33→21:44)
[2020-12-27] MEDS: CHOLECALCIFEROL 1,000 UNITS 25 MCG TAB PO SCH (08:33)
[2020-12-27] MEDS: LEVOTHYROXINE SODIUM 25 MCG TABLET PO SCH (08:33)
[2020-12-27] MEDS: ATORVASTATIN 10 MG TAB PO SCH (08:33)
[2020-12-27] MEDS: haloperidoL 5 MG TAB PO SCH ×2 (08:34→21:46)
[2020-12-27] MEDS: lamoTRIgine 100 MG TAB PO SCH (08:34)
[2020-12-27] MEDS: LORazepam 1 MG TAB PO SCH ×3 (08:34→21:44)
[2020-12-27] MEDS: LITHIUM CARBONATE 300 MG TAB PO SCH ×2 (08:34→21:45)
[2020-12-27] MEDS: SERTRALINE HCL 50 MG TABLET PO SCH (08:34)
--- NOTE | 2020-12-27 12:25 | Psychiatric Progress Note ---
Date of Service December 27, 2020 Impression / Recommendations Impression 30 yo female with schizoaffective disorder. Less emotionally labile, still psychotic (1) Psychosis: 12/23/2020Will discontinue Invega and replace with haloperidol 2.5 mg 3 times daily. We will continue Lamictal, lithium, Zyprexa for now. Will consider Haldol Decanoate if helpful for patient. 12/24/1020we will continue current regimen for now, patient seems to be making improvements. 12/25/2020we will increase the haloperidol from 2.5 mg 3 times daily to 5 mg twice daily. We will also draw labs tomorrow for lithium level, CBC, CMP, LFTs 12/26/2020we will increase patient's nightly lithium to 450 mg. Will likely increase Haldol in the coming days as it seems to be helpful 12/27/2020atient's Lamictal was increased to 100 mg p.o. every morning. We will continue with Zyprexa, Haldol, lithium, Zoloft Risk Factors Assessment Male: No : Yes Do You Have Access To A Gun?: No Mental Health Diagnoses: Yes Substance Use Disorders: No Previous Psychiatric Hospitalization: Yes Protective Factors Assessment : No Responsible for Young Children: No Employed: No (Unknown) Supportive Family: Yes Interval History Identifying Information 30 female with schizoaffective disorder admit on 302 commitment for disorganized psychosis, was converted to 201 prior to expiration of 303. Chief Complaint "Good morning". Review of Systems Sleep Information Total Hours of Sleep: 6.5 Sleep Comments: pt on q-15 minute checks Meal Information Percent Meal Consumed - Breakfast: 25 Percent Meal Consumed - Lunch: 100 Percent Meal Consumed - Dinner: 100 Nutrition Comment: pt. had fluids only Subjective Subjective Patient was seen & assessed and interval progress reviewed with treatment team nursing and social work Patient reports feeling good. Denies any adverse effects from the increased dosages of lithium Lamictal. She is seen maintaining her ADLs, participating in group, and eating and sleeping well. Superficially patient appears quite well, however when spoken to on a deeper level she is still somewhat bizarre and seems to still be slightly psychotic with regards to her delusions surrounding her family members and ancestors. I spent 30 minutes with the patient, 50% of which was dedicated to counselling and coordination of care. Physical Exam Psychiatric Orientation: alert Apperance: appropriately dressed, appropriately groomed and + disheveled Eye Contact: + fair eye contact and + poor eye contact Motor Behavior: no abnormal motor movements Affect: euthymic affect, + flat affect, + labile affect and + constricted affect Mood: no anxious mood Thought Process: + thought blocking, + tangential thought process and + concrete thought process Thought Content: + paranoid, + delusions and + ideas of reference Suicidal Thoughts: denies suicidal thoughts Homicidal Thoughts: denies homicidal thoughts Hallucinations: no auditory hallucinations and no visual hallucinations Cognition: language grossly intact; + attention not intact Estimated Intelligence: + below average estimated intelligence Insight: + impaired insight and + severely impaired insight Judgement: + impaired judgement and + severely impaired judgement Vital Signs (Past 24 Hours) Last Vital Signs Temp 36.6 C 12/27/20 06:31 Pulse 102 H 12/27/20 06:32 Resp 16 12/27/20 06:31 BP 106/78 12/27/20 06:32 Pulse Ox 100 12/05/20 06:00 Results & Data ([facility]) Current Inpatient Medications Current Inpatient Medications: Current Inpatient Medications Acetaminophen (Acetaminophen 325 Mg Tab) 650 mg PO Q4H PRN PRN Reason: Headache or Minor Fever Stop: 12/30/20 20:02 Al Hydrox/Mg Hydrox/Simethicone (Aluminum/Magnesium Susp 30 Ml Udc) 30 ml PO Q4H PRN PRN Reason: GI Upset Stop: 12/30/20 20:02 Atorvastatin Calcium (Atorvastatin 10 Mg Tab) 10 mg PO QAM [facility] Stop: 12/31/20 08:59 Last Admin: 12/27/20 08:33 Dose: 10 mg Documented by: Benztropine Mesylate (Benztropine Mesylate 1 Mg Tab) 1 mg PO BID [facility] Stop: 12/30/20 20:59 Last Admin: 12/27/20 08:33 Dose: 1 mg Documented by: Bismuth Subsalicylate (Bismuth Subsalicylate Liqd 236 Ml) 15 ml PO PRN PRN PRN Reason: Loose Stool Stop: 12/30/20 20:02 Docusate Sodium (Docusate Sodium 100 Mg Cap) 100 mg PO BID [facility] Stop: 01/08/21 20:59 Last Admin: 12/27/20 08:33 Dose: 100 mg Documented by: Haloperidol (Haloperidol 5 Mg Tab) 5 mg PO BID [facility] Stop: 01/24/21 20:59 Last Admin: 12/27/20 08:34 Dose: 5 mg Documented by: Hydroxyzine HCl (Hydroxyzine Hcl 25 Mg Tab) 50 mg PO HSZ PRN PRN Reason: Insomnia Stop: 12/30/20 20:02 Last Admin: 12/06/20 01:06 Dose: 50 mg Documented by: Hydroxyzine HCl (Hydroxyzine Hcl 25 Mg Tab) 25 mg PO Q4H PRN PRN Reason: Anxiety Stop: 12/30/20 20:02 Last Admin: 12/04/20 04:03 Dose: 25 mg Documented by: Lamotrigine (Lamotrigine 100 Mg Tab) 100 mg PO QAM [facility] Stop: 01/26/21 08:59 Last Admin: 12/27/20 08:34 Dose: 100 mg Documented by: Levothyroxine Sodium (Levothyroxine Sodium 25 Mcg Tablet) 25 mcg PO DAILYBB [facility] Stop: 12/31/20 07:59 Last Admin: 12/27/20 08:33 Dose: 25 mcg Documented by: [place] Carbonate ([place] Carbonate 300 Mg Tab) 300 mg PO QAM [facility] Stop: 01/26/21 08:59 Last Admin: 12/27/20 08:34 Dose: 300 mg Documented by: [place] Carbonate ([place] Carbonate 300 Mg Tab) 450 mg PO HS [facility] Stop: 01/25/21 21:59 Last Admin: 12/26/20 20:29 Dose: 450 mg Documented by: Lorazepam (Lorazepam 1 Mg Tab) 1 mg PO Q6 PRN PRN Reason: Anxiety/Agitation Stop: 12/31/20 10:10 Last Admin: 12/19/20 11:25 Dose: 1 mg Documented by: Lorazepam (Lorazepam 1 Mg Tab) 1 mg PO TID [facility] Stop: 01/01/21 13:59 Last Admin: 12/27/20 08:34 Dose: 1 mg Documented by: Magnesium Hydroxide (Magnesium Hydroxide Susp 30 Ml Udc) 30 ml PO DAILY PRN PRN Reason: Constipation Stop: 12/30/20 20:02 Olanzapine (Olanzapine Zydis 5 Mg Orally Dis. Tab) 5 mg PO Q6 PRN PRN Reason: Anxiety/Agitation Stop: 12/31/20 11:59 Last Admin: 12/12/20 11:32 Dose: 5 mg Documented by: Olanzapine (Olanzapine 20 Mg Tablet) 20 mg PO HS [facility] Stop: 01/04/21 21:59 Last Admin: 12/26/20 20:28 Dose: 20 mg Documented by: Sertraline HCl (Sertraline Hcl 50 Mg Tablet) 50 mg PO QAM [facility] Stop: 01/23/21 08:59 Last Admin: 12/27/20 08:34 Dose: 50 mg Documented by: Sodium Chloride (Sodium Chloride 0.65% Na Soln 45 Ml ([place])) 1 - 2 sprays NA PRN PRN PRN Reason: Nasal Dryness/Congestion Stop: 12/30/20 20:02 Vitamin D (Cholecalciferol 1,000 Units 25 Mcg Tab) 2,000 units PO QAM [facility] Stop: 12/31/20 08:59 Last Admin: 12/27/20 08:33 Dose: 2,000 units Documented by: Mental Health & Subst Abuse Tx Psychiatrist Name of Psychiatrist: Bruno Mcleod Psychiatrist's Psychiatric Appointment Comment: [address], [place] [address] Therapist Name of Therapist: discharged from [facility] Therapist's Therapy Appointment Comment: [address] [place] [address] Field Engineer Name of Field Engineer: . Post Discharge Appointments Primary Care Physician Name Of Family Doctor: [facility] - Dr. Shi Primary Care Provider Appointment Comment: [address] [facility] [place] [address] Neurologist Name of Neurologist: Mac Arroyo Neurologist's Neurology Appointment Comment: [address] [place] [address], [address], [place] [address] Contact Information Discharge Discharge Address: [place] [address], [place] [address] (1) Psychosis Psychosis type: schizophrenia Schizophrenia type: unspecified Qualified Code(s): F20.9 - Schizophrenia, unspecified
[2020-12-27] MEDS: OLANZapine 20 MG TABLET PO SCH (21:44)
[2020-12-28] MEDS: ATORVASTATIN 10 MG TAB PO SCH (09:10)
[2020-12-28] MEDS: SERTRALINE HCL 50 MG TABLET PO SCH (09:10)
[2020-12-28] MEDS: LEVOTHYROXINE SODIUM 25 MCG TABLET PO SCH (09:10)
[2020-12-28] MEDS: BENZTROPINE MESYLATE 1 MG TAB PO SCH ×2 (09:10→21:17)
[2020-12-28] MEDS: haloperidoL 5 MG TAB PO SCH ×2 (09:11→21:17)
[2020-12-28] MEDS: LITHIUM CARBONATE 300 MG TAB PO SCH ×2 (09:11→21:22)
[2020-12-28] MEDS: LORazepam 1 MG TAB PO SCH ×3 (09:11→21:21)
[2020-12-28] MEDS: CHOLECALCIFEROL 1,000 UNITS 25 MCG TAB PO SCH (09:11)
[2020-12-28] MEDS: DOCUSATE SODIUM 100 MG CAP PO SCH ×2 (09:11→21:23)
[2020-12-28] MEDS: lamoTRIgine 100 MG TAB PO SCH (09:11)
--- NOTE | 2020-12-28 14:56 | Psychiatric Progress Note ---
Date of Service December 28, 2020 Impression / Recommendations Impression 30 yo female with schizoaffective disorder. Less emotionally labile, still psychotic (1) Psychosis: 12/23/2020Will discontinue Invega and replace with haloperidol 2.5 mg 3 times daily. We will continue Lamictal, lithium, Zyprexa for now. Will consider Haldol Decanoate if helpful for patient. 12/24/1020we will continue current regimen for now, patient seems to be making improvements. 12/25/2020we will increase the haloperidol from 2.5 mg 3 times daily to 5 mg twice daily. We will also draw labs tomorrow for lithium level, CBC, CMP, LFTs 12/26/2020 will increase patient's nightly lithium to 450 mg. Will likely increase Haldol in the coming days as it seems to be helpful 12/27/2020atient's Lamictal was increased to 100 mg p.o. every morning. We will continue with Zyprexa, Haldol, lithium, Zoloft 12/28/2020we will increase Haldol to 7.5 mg twice daily Risk Factors Assessment Male: No : Yes Do You Have Access To A Gun?: No Mental Health Diagnoses: Yes Substance Use Disorders: No Previous Psychiatric Hospitalization: Yes Protective Factors Assessment : No Responsible for Young Children: No Employed: No (Unknown) Supportive Family: Yes Interval History Identifying Information 30 female with schizoaffective disorder admit on 302 commitment for disorganized psychosis, was converted to 201 prior to expiration of 303. Chief Complaint "I am good". Review of Systems Sleep Information Total Hours of Sleep: 5.75 Sleep Comments: pt on q-15 minute checks Meal Information Percent Meal Consumed - Breakfast: 25 Percent Meal Consumed - Lunch: 100 Percent Meal Consumed - Dinner: 100 Nutrition Comment: pt. had fluids only Subjective Subjective Patient was seen & assessed and interval progress reviewed with treatment team nursing and social work Patient continues to display psychotic behavior at times. Appears to be worse in the morning and in the afternoon. She self reports that she is fine without issue, but upon deeper questioning begins to display psychotic behavior. She is eating and sleeping well and making her needs known. She is compliant with medications without any reported side effects. I spent 30 minutes with the patient, 50% of which was dedicated to counselling and coordination of care. Physical Exam Psychiatric Orientation: alert Apperance: appropriately dressed, appropriately groomed and + disheveled Eye Contact: + fair eye contact and + poor eye contact Motor Behavior: no abnormal motor movements Affect: euthymic affect, + flat affect, + labile affect and + constricted affect Mood: no anxious mood Thought Process: + thought blocking, + tangential thought process and + concrete thought process Thought Content: + paranoid, + delusions and + ideas of reference Suicidal Thoughts: denies suicidal thoughts Homicidal Thoughts: denies homicidal thoughts Hallucinations: no auditory hallucinations and no visual hallucinations Cognition: language grossly intact; + attention not intact Estimated Intelligence: + below average estimated intelligence Insight: + impaired insight and + severely impaired insight Judgement: + impaired judgement and + severely impaired judgement Vital Signs (Past 24 Hours) Last Vital Signs Temp 36.7 C 12/28/20 06:32 Pulse 80 12/28/20 06:33 Resp 16 12/28/20 06:32 BP 117/87 12/28/20 06:33 Pulse Ox 100 12/05/20 06:00 Results & Data ([facility]) Current Inpatient Medications Current Inpatient Medications: Current Inpatient Medications Acetaminophen (Acetaminophen 325 Mg Tab) 650 mg PO Q4H PRN PRN Reason: Headache or Minor Fever Stop: 12/30/20 20:02 Al Hydrox/Mg Hydrox/Simethicone (Aluminum/Magnesium Susp 30 Ml Udc) 30 ml PO Q4H PRN PRN Reason: GI Upset Stop: 12/30/20 20:02 Atorvastatin Calcium (Atorvastatin 10 Mg Tab) 10 mg PO QAM [facility] Stop: 12/31/20 08:59 Last Admin: 12/28/20 09:10 Dose: 10 mg Documented by: Benztropine Mesylate (Benztropine Mesylate 1 Mg Tab) 1 mg PO BID [facility] Stop: 12/30/20 20:59 Last Admin: 12/28/20 09:10 Dose: 1 mg Documented by: Bismuth Subsalicylate (Bismuth Subsalicylate Liqd 236 Ml) 15 ml PO PRN PRN PRN Reason: Loose Stool Stop: 12/30/20 20:02 Docusate Sodium (Docusate Sodium 100 Mg Cap) 100 mg PO BID [facility] Stop: 01/08/21 20:59 Last Admin: 12/28/20 09:11 Dose: 100 mg Documented by: Haloperidol (Haloperidol 5 Mg Tab) 7.5 mg PO BID [facility] Stop: 01/27/21 20:59 Hydroxyzine HCl (Hydroxyzine Hcl 25 Mg Tab) 50 mg PO HSZ PRN PRN Reason: Insomnia Stop: 12/30/20 20:02 Last Admin: 12/06/20 01:06 Dose: 50 mg Documented by: Hydroxyzine HCl (Hydroxyzine Hcl 25 Mg Tab) 25 mg PO Q4H PRN PRN Reason: Anxiety Stop: 12/30/20 20:02 Last Admin: 12/04/20 04:03 Dose: 25 mg Documented by: Lamotrigine (Lamotrigine 100 Mg Tab) 100 mg PO QAM [facility] Stop: 01/26/21 08:59 Last Admin: 12/28/20 09:11 Dose: 100 mg Documented by: Levothyroxine Sodium (Levothyroxine Sodium 25 Mcg Tablet) 25 mcg PO DAILYBB [facility] Stop: 12/31/20 07:59 Last Admin: 12/28/20 09:10 Dose: 25 mcg Documented by: [place] Carbonate ([place] Carbonate 300 Mg Tab) 300 mg PO QAM [facility] Stop: 01/26/21 08:59 Last Admin: 12/28/20 09:11 Dose: 300 mg Documented by: [place] Carbonate ([place] Carbonate 300 Mg Tab) 450 mg PO HS [facility] Stop: 01/25/21 21:59 Last Admin: 12/27/20 21:45 Dose: 450 mg Documented by: Lorazepam (Lorazepam 1 Mg Tab) 1 mg PO Q6 PRN PRN Reason: Anxiety/Agitation Stop: 12/31/20 10:10 Last Admin: 12/19/20 11:25 Dose: 1 mg Documented by: Lorazepam (Lorazepam 1 Mg Tab) 1 mg PO TID [facility] Stop: 01/01/21 13:59 Last Admin: 12/28/20 09:11 Dose: 1 mg Documented by: Magnesium Hydroxide (Magnesium Hydroxide Susp 30 Ml Udc) 30 ml PO DAILY PRN PRN Reason: Constipation Stop: 12/30/20 20:02 Olanzapine (Olanzapine Zydis 5 Mg Orally Dis. Tab) 5 mg PO Q6 PRN PRN Reason: Anxiety/Agitation Stop: 12/31/20 11:59 Last Admin: 12/12/20 11:32 Dose: 5 mg Documented by: Olanzapine (Olanzapine 20 Mg Tablet) 20 mg PO HS [facility] Stop: 01/04/21 21:59 Last Admin: 12/27/20 21:44 Dose: 20 mg Documented by: Sertraline HCl (Sertraline Hcl 50 Mg Tablet) 50 mg PO QAM [facility] Stop: 01/23/21 08:59 Last Admin: 12/28/20 09:10 Dose: 50 mg Documented by: Sodium Chloride (Sodium Chloride 0.65% Na Soln 45 Ml ([place])) 1 - 2 sprays NA PRN PRN PRN Reason: Nasal Dryness/Congestion Stop: 12/30/20 20:02 Vitamin D (Cholecalciferol 1,000 Units 25 Mcg Tab) 2,000 units PO QAM [facility] Stop: 12/31/20 08:59 Last Admin: 12/28/20 09:11 Dose: 2,000 units Documented by: Mental Health & Subst Abuse Tx Psychiatrist Name of Psychiatrist: Bruno Mcleod Psychiatrist's Psychiatric Appointment Comment: [address] [place] [address] Therapist Name of Therapist: Bruno Therapist's Therapy Appointment Comment: [address] [place] [address] Infantry Assaultman Name of Infantry Assaultman: . Post Discharge Appointments Primary Care Physician Name Of Family Doctor: Mac [facility] - Dr. Shi Primary Care Provider Appointment Comment: [address] [facility] [place] [address] Neurologist Name of Neurologist: Mac Arroyo Neurologist's Neurology Appointment Comment: [address] [place] [address], [address], [place] [address] Contact Information Discharge Discharge Address: [place] [address], [place] [address] (1) Psychosis Psychosis type: schizophrenia Schizophrenia type: unspecified Qualified Code(s): F20.9 - Schizophrenia, unspecified
[2020-12-28] MEDS: OLANZapine 20 MG TABLET PO SCH (21:23)
[2020-12-29] MEDS: LEVOTHYROXINE SODIUM 25 MCG TABLET PO SCH (09:13)
[2020-12-29] MEDS: BENZTROPINE MESYLATE 1 MG TAB PO SCH ×2 (09:14→20:37)
[2020-12-29] MEDS: lamoTRIgine 100 MG TAB PO SCH (09:14)
[2020-12-29] MEDS: SERTRALINE HCL 50 MG TABLET PO SCH (09:14)
[2020-12-29] MEDS: CHOLECALCIFEROL 1,000 UNITS 25 MCG TAB PO SCH (09:14)
[2020-12-29] MEDS: LITHIUM CARBONATE 300 MG TAB PO SCH ×2 (09:14→21:34)
[2020-12-29] MEDS: DOCUSATE SODIUM 100 MG CAP PO SCH ×2 (09:14→20:37)
[2020-12-29] MEDS: ATORVASTATIN 10 MG TAB PO SCH (09:14)
[2020-12-29] MEDS: LORazepam 1 MG TAB PO SCH ×3 (09:16→20:37)
[2020-12-29] MEDS: haloperidoL 5 MG TAB PO SCH ×2 (09:16→20:37)
--- NOTE | 2020-12-29 16:28 | Psychiatric Progress Note ---
Date of Service December 29, 2020 Impression / Recommendations Impression 30 yo female with schizoaffective disorder. Less emotionally labile, still psychotic (1) Psychosis: 12/23/2020Will discontinue Invega and replace with haloperidol 2.5 mg 3 times daily. We will continue Lamictal, lithium, Zyprexa for now. Will consider Haldol Decanoate if helpful for patient. 12/24/1020we will continue current regimen for now, patient seems to be making improvements. 12/25/2020we will increase the haloperidol from 2.5 mg 3 times daily to 5 mg twice daily. We will also draw labs tomorrow for lithium level, CBC, CMP, LFTs 12/26/2020 will increase patient's nightly lithium to 450 mg. Will likely increase Haldol in the coming days as it seems to be helpful 12/27/2020atient's Lamictal was increased to 100 mg p.o. every morning. We will continue with Zyprexa, Haldol, lithium, Zoloft 12/28/2020we will increase Haldol to 7.5 mg twice daily 12/29/2020we will continue on the current regimen for now. Patient seems to be making good progress on the Haldol medication. We will consider long-acting injectable if she continues to do well on the current regimen. Risk Factors Assessment Male: No : Yes Do You Have Access To A Gun?: No Mental Health Diagnoses: Yes Substance Use Disorders: No Previous Psychiatric Hospitalization: Yes Protective Factors Assessment : No Responsible for Young Children: No Employed: No (Unknown) Supportive Family: Yes Interval History Identifying Information 30 female with schizoaffective disorder admit on 302 commitment for disorganized psychosis, was converted to 201 prior to expiration of 303. Chief Complaint "I am doing okay, just reading the dictionary". Review of Systems Sleep Information Total Hours of Sleep: 6.5 Sleep Comments: pt on q-15 minute checks Meal Information Percent Meal Consumed - Breakfast: 40 Percent Meal Consumed - Lunch: 100 Percent Meal Consumed - Dinner: 100 Nutrition Comment: pt. had fluids only Subjective Subjective Patient was seen & assessed and interval progress reviewed with treatment team nursing and social work Patient continues to be compliant with medications, making a final, eat her meals without issue. She reports approximately 6 and half hours of sleep last night. She denies any adverse effects of the medications, none reported or observed. She does still remain somewhat bizarre, although more interactive with peers and willing to engage in groups. Today she was seen holding the dictionary, for which she stated she was planning on reading it and testing her spelling. She was questioned about the Malik Leonel book, about which she was previously delusional. Patient states that she slept up in her room but she has not been attributed. No delusions verbalized today. I spent 30 minutes with the patient, 50% of which was dedicated to counselling and coordination of care. Physical Exam Psychiatric Orientation: alert Apperance: appropriately dressed, appropriately groomed and + disheveled Eye Contact: + fair eye contact and + poor eye contact Motor Behavior: no abnormal motor movements Affect: euthymic affect, + flat affect, + labile affect and + constricted affect Mood: no anxious mood Thought Process: + thought blocking, + tangential thought process and + concrete thought process Thought Content: + paranoid, + delusions and + ideas of reference Suicidal Thoughts: denies suicidal thoughts Homicidal Thoughts: denies homicidal thoughts Hallucinations: no auditory hallucinations and no visual hallucinations Cognition: language grossly intact; + attention not intact Estimated Intelligence: + below average estimated intelligence Insight: + impaired insight and + severely impaired insight Judgement: + impaired judgement and + severely impaired judgement Vital Signs (Past 24 Hours) Last Vital Signs Temp 36.5 C 12/29/20 06:49 Pulse 95 H 12/29/20 06:49 Resp 14 12/29/20 06:49 BP 142/102 H 12/29/20 06:49 Pulse Ox 100 12/05/20 06:00 Results & Data ([facility]) Current Inpatient Medications Current Inpatient Medications: Current Inpatient Medications Acetaminophen (Acetaminophen 325 Mg Tab) 650 mg PO Q4H PRN PRN Reason: Headache or Minor Fever Stop: 01/12/21 20:02 Al Hydrox/Mg Hydrox/Simethicone (Aluminum/Magnesium Susp 30 Ml Udc) 30 ml PO Q4H PRN PRN Reason: GI Upset Stop: 01/12/21 20:02 Atorvastatin Calcium (Atorvastatin 10 Mg Tab) 10 mg PO QAM AGAPITO Stop: 01/12/21 08:59 Last Admin: 12/29/20 09:14 Dose: 10 mg Documented by: Benztropine Mesylate (Benztropine Mesylate 1 Mg Tab) 1 mg PO BID AGAPITO Stop: 01/12/21 20:59 Last Admin: 12/29/20 09:14 Dose: 1 mg Documented by: Bismuth Subsalicylate (Bismuth Subsalicylate Liqd 236 Ml) 15 ml PO PRN PRN PRN Reason: Loose Stool Stop: 01/12/21 20:02 Docusate Sodium (Docusate Sodium 100 Mg Cap) 100 mg PO BID AGAPITO Stop: 01/12/21 20:59 Last Admin: 12/29/20 09:14 Dose: 100 mg Documented by: Haloperidol (Haloperidol 5 Mg Tab) 7.5 mg PO BID AGAPITO Stop: 01/27/21 20:59 Last Admin: 12/29/20 09:16 Dose: 7.5 mg Documented by: Hydroxyzine HCl (Hydroxyzine Hcl 25 Mg Tab) 50 mg PO HSZ PRN PRN Reason: Insomnia Stop: 01/12/21 20:02 Last Admin: 12/06/20 01:06 Dose: 50 mg Documented by: Hydroxyzine HCl (Hydroxyzine Hcl 25 Mg Tab) 25 mg PO Q4H PRN PRN Reason: Anxiety Stop: 01/12/21 20:02 Last Admin: 12/04/20 04:03 Dose: 25 mg Documented by: Lamotrigine (Lamotrigine 100 Mg Tab) 100 mg PO QAM AGAPITO Stop: 01/26/21 08:59 Last Admin: 12/29/20 09:14 Dose: 100 mg Documented by: Levothyroxine Sodium (Levothyroxine Sodium 25 Mcg Tablet) 25 mcg PO DAILYBB AGAPITO Stop: 01/12/21 07:59 Last Admin: 12/29/20 09:13 Dose: 25 mcg Documented by: [place] Carbonate ([place] Carbonate 300 Mg Tab) 300 mg PO QAM AGAPITO Stop: 01/26/21 08:59 Last Admin: 12/29/20 09:14 Dose: 300 mg Documented by: [place] Carbonate ([place] Carbonate 300 Mg Tab) 450 mg PO HS AGAPITO Stop: 01/25/21 21:59 Last Admin: 12/28/20 21:22 Dose: 450 mg Documented by: Lorazepam (Lorazepam 1 Mg Tab) 1 mg PO Q6 PRN PRN Reason: Anxiety/Agitation Stop: 01/12/21 10:10 Last Admin: 12/19/20 11:25 Dose: 1 mg Documented by: Lorazepam (Lorazepam 1 Mg Tab) 1 mg PO TID AGAPITO Stop: 01/12/21 13:59 Last Admin: 12/29/20 13:47 Dose: 1 mg Documented by: Magnesium Hydroxide (Magnesium Hydroxide Susp 30 Ml Udc) 30 ml PO DAILY PRN PRN Reason: Constipation Stop: 01/12/21 20:02 Olanzapine (Olanzapine Zydis 5 Mg Orally Dis. Tab) 5 mg PO Q6 PRN PRN Reason: Anxiety/Agitation Stop: 01/12/21 10:10 Last Admin: 12/12/20 11:32 Dose: 5 mg Documented by: Olanzapine (Olanzapine 20 Mg Tablet) 20 mg PO HS AGAPITO Stop: 01/12/21 21:59 Last Admin: 12/28/20 21:23 Dose: 20 mg Documented by: Sertraline HCl (Sertraline Hcl 50 Mg Tablet) 50 mg PO QAM AGAPITO Stop: 01/23/21 08:59 Last Admin: 12/29/20 09:14 Dose: 50 mg Documented by: Sodium Chloride (Sodium Chloride 0.65% Na Soln 45 Ml ([place])) 1 - 2 sprays NA PRN PRN PRN Reason: Nasal Dryness/Congestion Stop: 01/12/21 20:02 Vitamin D (Cholecalciferol 1,000 Units 25 Mcg Tab) 2,000 units PO QAM AGAPITO Stop: 01/12/21 08:59 Last Admin: 12/29/20 09:14 Dose: 2,000 units Documented by: Mental Health & Subst Abuse Tx Psychiatrist Name of Psychiatrist: Bruno Mcleod Psychiatrist's Psychiatric Appointment Comment: [address] [facility], [place] [address] Therapist Name of Therapist: Bruno Therapist's Therapy Appointment Comment: [address] [facility] [place] [address] [facility] Name of [facility]: . Post Discharge Appointments Primary Care Physician Name Of Family Doctor: [facility] - Dr. Shi Primary Care Provider Appointment Comment: [address] [place] [address] Neurologist Name of Neurologist: Mac Arroyo [facility]rolog[facility]'s Neurology Appointment Comment: [address] [place] [address], [address], [place] [address] Contact Information Discharge Discharge Address: [facility] [address], [place] [address] (1) Psychosis Psychosis type: schizophrenia Schizophrenia type: unspecified Qualified Code(s): F20.9 - Schizophrenia, unspecified
[2020-12-29] MEDS: OLANZapine 20 MG TABLET PO SCH (21:34)
[2020-12-30] MEDS: LEVOTHYROXINE SODIUM 25 MCG TABLET PO SCH (07:28)
[2020-12-30] MEDS: ATORVASTATIN 10 MG TAB PO SCH (09:10)
[2020-12-30] MEDS: BENZTROPINE MESYLATE 1 MG TAB PO SCH ×2 (09:10→21:32)
[2020-12-30] MEDS: CHOLECALCIFEROL 1,000 UNITS 25 MCG TAB PO SCH (09:11)
[2020-12-30] MEDS: DOCUSATE SODIUM 100 MG CAP PO SCH ×2 (09:11→21:32)
[2020-12-30] MEDS: haloperidoL 5 MG TAB PO SCH ×2 (09:12→21:31)
[2020-12-30] MEDS: lamoTRIgine 100 MG TAB PO SCH (09:13)
[2020-12-30] MEDS: LITHIUM CARBONATE 300 MG TAB PO SCH ×2 (09:13→21:30)
[2020-12-30] MEDS: SERTRALINE HCL 50 MG TABLET PO SCH (09:14)
[2020-12-30] MEDS: LORazepam 1 MG TAB PO SCH ×3 (09:14→21:32)
--- NOTE | 2020-12-30 11:22 | Psychiatric Progress Note ---
Date of Service December 30, 2020 Impression / Recommendations Impression 30 yo female with schizoaffective disorder. Less emotionally labile, still psychotic (1) Psychosis: 12/23/2020Will discontinue Invega and replace with haloperidol 2.5 mg 3 times daily. We will continue Lamictal, lithium, Zyprexa for now. Will consider Haldol Decanoate if helpful for patient. 12/24/1020we will continue current regimen for now, patient seems to be making improvements. 12/25/2020we will increase the haloperidol from 2.5 mg 3 times daily to 5 mg twice daily. We will also draw labs tomorrow for lithium level, CBC, CMP, LFTs 12/26/2020 will increase patient's nightly lithium to 450 mg. Will likely increase Haldol in the coming days as it seems to be helpful 12/27/2020atient's Lamictal was increased to 100 mg p.o. every morning. We will continue with Zyprexa, Haldol, lithium, Zoloft 12/28/2020we will increase Haldol to 7.5 mg twice daily 12/29/2020we will continue on the current regimen for now. Patient seems to be making good progress on the Haldol medication. We will consider long-acting injectable if she continues to do well on the current regimen. 12/30/2020atient still displaying some psychosis. Patient is taking a good amount of medication, and therefore we will continue to up titrate the dose of Haldol but in a slow fashion as to avoid any side effects. Plan to increase her nighttime dose of haloperidol to 10 mg and leave her morning dose of haloperidol at 7.5 mg for now. Risk Factors Assessment Male: No : Yes Do You Have Access To A Gun?: No Mental Health Diagnoses: Yes Substance Use Disorders: No Previous Psychiatric Hospitalization: Yes Protective Factors Assessment : No Responsible for Young Children: No Employed: No (Unknown) Supportive Family: Yes Interval History Identifying Information 30 female with schizoaffective disorder admit on 302 commitment for disorganized psychosis, was converted to 201 prior to expiration of 303. Chief Complaint "Good morning". Review of Systems Sleep Information Total Hours of Sleep: 7 Sleep Comments: pt on q-15 minute checks Meal Information Percent Meal Consumed - Breakfast: 100 Percent Meal Consumed - Lunch: 100 Percent Meal Consumed - Dinner: 75 Nutrition Comment: pt. had fluids only Subjective Subjective Patient was seen & assessed and interval progress reviewed with treatment team nursing and social work Patient reports feeling "good". Denies any adverse effects of the medications. She is still noted by the nursing staff to be somewhat bizarre, especially in the mornings. Initially on approach, patient is able to maintain a superficial conversation. When questioned deeper, patient starts to display some psychotic thinking. She self reports feeling better, and is more willing and able to engage with peers and group therapy. She is eating, sleeping and making her needs known. I spent 30 minutes with the patient, 50% of which was dedicated to counselling and coordination of care. Physical Exam Psychiatric Orientation: alert Apperance: appropriately dressed, appropriately groomed and + disheveled Eye Contact: + fair eye contact and + poor eye contact Motor Behavior: no abnormal motor movements Affect: euthymic affect, + flat affect, + labile affect and + constricted affect Mood: no anxious mood Thought Process: + thought blocking, + tangential thought process and + concrete thought process Thought Content: + paranoid, + delusions and + ideas of reference Suicidal Thoughts: denies suicidal thoughts Homicidal Thoughts: denies homicidal thoughts Hallucinations: no auditory hallucinations and no visual hallucinations Cognition: language grossly intact; + attention not intact Estimated Intelligence: + below average estimated intelligence Insight: + impaired insight and + severely impaired insight Judgement: + impaired judgement and + severely impaired judgement Vital Signs (Past 24 Hours) Last Vital Signs Temp 36.6 C 12/30/20 06:42 Pulse 87 12/30/20 06:42 Resp 14 12/30/20 06:42 BP 117/81 12/30/20 06:42 Pulse Ox 100 12/05/20 06:00 Results & Data ([facility]) Current Inpatient Medications Current Inpatient Medications: Current Inpatient Medications Acetaminophen (Acetaminophen 325 Mg Tab) 650 mg PO Q4H PRN PRN Reason: Headache or Minor Fever Stop: 01/12/21 20:02 Al Hydrox/Mg Hydrox/Simethicone (Aluminum/Magnesium Susp 30 Ml Udc) 30 ml PO Q4H PRN PRN Reason: GI Upset Stop: 01/12/21 20:02 Atorvastatin Calcium (Atorvastatin 10 Mg Tab) 10 mg PO QAM AGAPITO Stop: 01/12/21 08:59 Last Admin: 12/30/20 09:10 Dose: 10 mg Documented by: Benztropine Mesylate (Benztropine Mesylate 1 Mg Tab) 1 mg PO BID AGAPITO Stop: 01/12/21 20:59 Last Admin: 12/30/20 09:10 Dose: 1 mg Documented by: Bismuth Subsalicylate (Bismuth Subsalicylate Liqd 236 Ml) 15 ml PO PRN PRN PRN Reason: Loose Stool Stop: 01/12/21 20:02 Docusate Sodium (Docusate Sodium 100 Mg Cap) 100 mg PO BID AGAPITO Stop: 01/12/21 20:59 Last Admin: 12/30/20 09:11 Dose: 100 mg Documented by: Haloperidol (Haloperidol 5 Mg Tab) 7.5 mg PO BID AGAPITO Stop: 01/27/21 20:59 Last Admin: 12/30/20 09:12 Dose: 7.5 mg Documented by: Hydroxyzine HCl (Hydroxyzine Hcl 25 Mg Tab) 50 mg PO HSZ PRN PRN Reason: Insomnia Stop: 01/12/21 20:02 Last Admin: 12/06/20 01:06 Dose: 50 mg Documented by: Hydroxyzine HCl (Hydroxyzine Hcl 25 Mg Tab) 25 mg PO Q4H PRN PRN Reason: Anxiety Stop: 01/12/21 20:02 Last Admin: 12/04/20 04:03 Dose: 25 mg Documented by: Lamotrigine (Lamotrigine 100 Mg Tab) 100 mg PO QAM AGAPITO Stop: 01/26/21 08:59 Last Admin: 12/30/20 09:13 Dose: 100 mg Documented by: Levothyroxine Sodium (Levothyroxine Sodium 25 Mcg Tablet) 25 mcg PO DAILYBB AGAPITO Stop: 01/12/21 07:59 Last Admin: 12/30/20 07:28 Dose: 25 mcg Documented by: [place] Carbonate ([place] Carbonate 300 Mg Tab) 300 mg PO QAM AGAPITO Stop: 01/26/21 08:59 Last Admin: 12/30/20 09:13 Dose: 300 mg Documented by: [place] Carbonate ([place] Carbonate 300 Mg Tab) 450 mg PO HS AGAPITO Stop: 01/25/21 21:59 Last Admin: 12/29/20 21:34 Dose: 450 mg Documented by: Lorazepam (Lorazepam 1 Mg Tab) 1 mg PO Q6 PRN PRN Reason: Anxiety/Agitation Stop: 01/12/21 10:10 Last Admin: 12/19/20 11:25 Dose: 1 mg Documented by: Lorazepam (Lorazepam 1 Mg Tab) 1 mg PO TID AGAPITO Stop: 01/12/21 13:59 Last Admin: 12/30/20 09:14 Dose: 1 mg Documented by: Magnesium Hydroxide (Magnesium Hydroxide Susp 30 Ml Udc) 30 ml PO DAILY PRN PRN Reason: Constipation Stop: 01/12/21 20:02 Olanzapine (Olanzapine Zydis 5 Mg Orally Dis. Tab) 5 mg PO Q6 PRN PRN Reason: Anxiety/Agitation Stop: 01/12/21 10:10 Last Admin: 12/12/20 11:32 Dose: 5 mg Documented by: Olanzapine (Olanzapine 20 Mg Tablet) 20 mg PO HS AGAPITO Stop: 01/12/21 21:59 Last Admin: 12/29/20 21:34 Dose: 20 mg Documented by: Sertraline HCl (Sertraline Hcl 50 Mg Tablet) 50 mg PO QAM AGAPITO Stop: 01/23/21 08:59 Last Admin: 12/30/20 09:14 Dose: 50 mg Documented by: Sodium Chloride (Sodium Chloride 0.65% Na Soln 45 Ml ([place])) 1 - 2 sprays NA PRN PRN PRN Reason: Nasal Dryness/Congestion Stop: 01/12/21 20:02 Vitamin D (Cholecalciferol 1,000 Units 25 Mcg Tab) 2,000 units PO QAM AGAPITO Stop: 01/12/21 08:59 Last Admin: 12/30/20 09:11 Dose: 2,000 units Documented by: Mental Health & Subst Abuse Tx Psychiatrist Name of Psychiatrist: Bruno Mcleod Psychiatrist's Psychiatric Appointment Comment: [address], [place] [address] Therapist Name of Therapist: Bruno Therapist's Therapy Appointment Comment: [address] [place] [address] Information Tech Name of Information Tech: . Post Discharge Appointments Primary Care Physician Name Of Family Doctor: [facility] [place] [facility] - Dr. Shi Primary Care Provider Appointment Comment: [address] [place] [address] Neurologist Name of Neurologist: Mac Strange - Dr. Arroyo Neurologist's Neurology Appointment Comment: [address] [place] [address], [address], [place] [address] Contact Information Discharge Discharge Address: [address] [address], [place] [address] (1) Psychosis Psychosis type: schizophrenia Schizophrenia type: unspecified Qualified Code(s): F20.9 - Schizophrenia, unspecified
[2020-12-30] MEDS: OLANZapine 20 MG TABLET PO SCH (21:30)
[2020-12-31] MEDS: LEVOTHYROXINE SODIUM 25 MCG TABLET PO SCH (07:49)
[2020-12-31] MEDS: ATORVASTATIN 10 MG TAB PO SCH (08:52)
[2020-12-31] MEDS: BENZTROPINE MESYLATE 1 MG TAB PO SCH ×2 (08:52→20:46)
[2020-12-31] MEDS: DOCUSATE SODIUM 100 MG CAP PO SCH ×2 (08:53→20:46)
[2020-12-31] MEDS: haloperidoL 5 MG TAB PO SCH ×2 (08:53→20:45)
[2020-12-31] MEDS: CHOLECALCIFEROL 1,000 UNITS 25 MCG TAB PO SCH (08:53)
[2020-12-31] MEDS: LITHIUM CARBONATE 300 MG TAB PO SCH ×2 (08:55→20:46)
[2020-12-31] MEDS: lamoTRIgine 100 MG TAB PO SCH (08:55)
[2020-12-31] MEDS: SERTRALINE HCL 50 MG TABLET PO SCH (08:56)
[2020-12-31] MEDS: LORazepam 1 MG TAB PO SCH ×3 (08:56→20:46)
--- NOTE | 2020-12-31 14:53 | Psychiatric Progress Note ---
Date of Service December 31, 2020 Impression / Recommendations Impression 30 yo female with schizoaffective disorder. Less emotionally labile, still psychotic (1) Psychosis: 12/23/2020Will discontinue Invega and replace with haloperidol 2.5 mg 3 times daily. We will continue Lamictal, lithium, Zyprexa for now. Will consider Haldol Decanoate if helpful for patient. 12/24/1020we will continue current regimen for now, patient seems to be making improvements. 12/25/2020we will increase the haloperidol from 2.5 mg 3 times daily to 5 mg twice daily. We will also draw labs tomorrow for lithium level, CBC, CMP, LFTs 12/26/2020 will increase patient's nightly lithium to 450 mg. Will likely increase Haldol in the coming days as it seems to be helpful 12/27/2020atient's Lamictal was increased to 100 mg p.o. every morning. We will continue with Zyprexa, Haldol, lithium, Zoloft 12/28/2020we will increase Haldol to 7.5 mg twice daily 12/29/2020we will continue on the current regimen for now. Patient seems to be making good progress on the Haldol medication. We will consider long-acting injectable if she continues to do well on the current regimen. 12/30/2020atient still displaying some psychosis. Patient is taking a good amount of medication, and therefore we will continue to up titrate the dose of Haldol but in a slow fashion as to avoid any side effects. Plan to increase her nighttime dose of haloperidol to 10 mg and leave her morning dose of haloperidol at 7.5 mg for now. 12/31/2020ontinue current regimen. Patient making slow progress. Risk Factors Assessment Male: No : Yes Do You Have Access To A Gun?: No Mental Health Diagnoses: Yes Substance Use Disorders: No Previous Psychiatric Hospitalization: Yes Protective Factors Assessment : No Responsible for Young Children: No Employed: No (Unknown) Supportive Family: Yes Interval History Identifying Information 30 female with schizoaffective disorder admit on 302 commitment for disorganized psychosis, was converted to 201 prior to expiration of 303. Chief Complaint "Today is a different day". Review of Systems Sleep Information Total Hours of Sleep: 7.25 Sleep Comments: pt on q-15 minute checks Meal Information Percent Meal Consumed - Breakfast: 100 Percent Meal Consumed - Lunch: 100 Percent Meal Consumed - Dinner: 100 Nutrition Comment: pt. had fluids only Subjective Subjective Patient was seen & assessed and interval progress reviewed with treatment team nursing and social work Patient rates her mood as much improved. States it is an 8 out of 10. Patient continues to eat and sleep well. She is making her needs known interacting appropriate with peers. Patient has definitely made some progress while here on the unit, and is much more organized and less distressed by her psychosis. However on upon careful examination, patient still does display some psychotic-like behaviors. These do appear to be improving although slowly. She denies any side effects of the medications. None reported or observed. I spent 30 minutes with the patient, 50% of which was dedicated to counselling and coordination of care. Physical Exam Psychiatric Orientation: alert Apperance: appropriately dressed, appropriately groomed and + disheveled Eye Contact: + fair eye contact and + poor eye contact Motor Behavior: no abnormal motor movements Affect: euthymic affect, + flat affect, + labile affect and + constricted affect Mood: no anxious mood Thought Process: + thought blocking, + tangential thought process and + concrete thought process Thought Content: + paranoid, + delusions and + ideas of reference Suicidal Thoughts: denies suicidal thoughts Homicidal Thoughts: denies homicidal thoughts Hallucinations: no auditory hallucinations and no visual hallucinations Cognition: language grossly intact; + attention not intact Estimated Intelligence: + below average estimated intelligence Insight: + impaired insight and + severely impaired insight Judgement: + impaired judgement and + severely impaired judgement Vital Signs (Past 24 Hours) Last Vital Signs Temp 36.6 C 12/31/20 06:27 Pulse 95 H 12/31/20 06:27 Resp 16 12/31/20 06:27 BP 113/74 12/31/20 06:27 Pulse Ox 100 12/05/20 06:00 Results & Data ([facility]) Current Inpatient Medications Current Inpatient Medications: Current Inpatient Medications Acetaminophen (Acetaminophen 325 Mg Tab) 650 mg PO Q4H PRN PRN Reason: Headache or Minor Fever Stop: 01/12/21 20:02 Al Hydrox/Mg Hydrox/Simethicone (Aluminum/Magnesium Susp 30 Ml Udc) 30 ml PO Q4H PRN PRN Reason: GI Upset Stop: 01/12/21 20:02 Atorvastatin Calcium (Atorvastatin 10 Mg Tab) 10 mg PO QAM [facility] Stop: 01/12/21 08:59 Last Admin: 12/31/20 08:52 Dose: 10 mg Documented by: Benztropine Mesylate (Benztropine Mesylate 1 Mg Tab) 1 mg PO BID [facility] Stop: 01/12/21 20:59 Last Admin: 12/31/20 08:52 Dose: 1 mg Documented by: Bismuth Subsalicylate (Bismuth Subsalicylate Liqd 236 Ml) 15 ml PO PRN PRN PRN Reason: Loose Stool Stop: 01/12/21 20:02 Docusate Sodium (Docusate Sodium 100 Mg Cap) 100 mg PO BID [facility] Stop: 01/12/21 20:59 Last Admin: 12/31/20 08:53 Dose: 100 mg Documented by: Haloperidol (Haloperidol 5 Mg Tab) 7.5 mg PO QAM [facility] Stop: 01/30/21 08:59 Last Admin: 12/31/20 08:53 Dose: 7.5 mg Documented by: Haloperidol (Haloperidol 5 Mg Tab) 10 mg PO HS [facility] Stop: 01/29/21 21:59 Last Admin: 12/30/20 21:31 Dose: 10 mg Documented by: Hydroxyzine HCl (Hydroxyzine Hcl 25 Mg Tab) 50 mg PO HSZ PRN PRN Reason: Insomnia Stop: 01/12/21 20:02 Last Admin: 12/06/20 01:06 Dose: 50 mg Documented by: Hydroxyzine HCl (Hydroxyzine Hcl 25 Mg Tab) 25 mg PO Q4H PRN PRN Reason: Anxiety Stop: 01/12/21 20:02 Last Admin: 12/04/20 04:03 Dose: 25 mg Documented by: Lamotrigine ([facility] 100 Mg Tab) [facility] Stop: 01/26/21 08:59 Last Admin: 12/31/20 08:55 Dose: 100 mg Documented by: Levothyroxine Sodium (Levothyroxine Sodium 25 Mcg Tablet) 25 mcg PO DAILYBB [facility] Stop: 01/12/21 07:59 Last Admin: 12/31/20 07:49 Dose: 25 mcg Documented by: [place]amo[place] Carbonate (Anamoose Carbonate 300 Mg Tab) 300 [facility] Stop: 01/26/21 08:59 Last Admin: 12/31/20 08:55 Dose: 300 mg Documented by: Anamoose Carbonate ([place]amo[place] Carbonate 300 Mg Tab) 450 mg PO HS [facility] Stop: 01/25/21 21:59 Last Admin: 12/30/20 21:30 Dose: 450 mg Documented by: Lorazepam (Lorazepam 1 Mg Tab) 1 mg PO Q6 PRN PRN Reason: Anxiety/Agitation Stop: 01/12/21 10:10 Last Admin: 12/19/20 11:25 Dose: 1 mg Documented by: Lorazepam (Lorazepam 1 Mg Tab) 1 mg PO TID [facility] Stop: 01/12/21 13:59 Last Admin: 12/31/20 14:16 Dose: 1 mg Documented by: Magnesium Hydroxide (Magnesium Hydroxide Susp 30 Ml Udc) 30 ml PO DAILY PRN PRN Reason: Constipation Stop: 01/12/21 20:02 Olanzapine (Olanzapine Zydis 5 Mg Orally Dis. Tab) 5 mg PO Q6 PRN PRN Reason: Anxiety/Agitation Stop: 01/12/21 10:10 Last Admin: 12/12/20 11:32 Dose: 5 mg Documented by: Olanzapine (Olanzapine 20 Mg Tablet) 20 mg PO HS [facility] Stop: 01/12/21 21:59 Last Admin: 12/30/20 21:30 Dose: 20 mg Documented by: Sertraline HCl (Sertraline Hcl 50 Mg Tablet) 50 mg PO QAM [facility] Stop: 01/23/21 08:59 Last Admin: 12/31/20 08:56 Dose: 50 mg Documented by: Sodium Chloride (Sodium Chloride 0.65% Na Soln 45 Ml ([place])) 1 - 2 sprays NA PRN PRN PRN Reason: Nasal Dryness/Congestion Stop: 01/12/21 20:02 Vitamin D (Cholecalciferol 1,000 Units 25 Mcg Tab) 2,000 units PO QAM [facility] Stop: 01/12/21 08:59 Last Admin: 12/31/20 08:53 Dose: 2,000 units Documented by: Mental Health & Subst Abuse Tx Psychiatrist Name of Psychiatrist: Bruno Mcleod Psychiatrist's Psychiatric Appointment Comment: [address], [place] [address] Therapist Name of Therapist: Bruno Therapist's Therapy Appointment Comment: [address] [facility], [place] [address] General Cleaner Name of General Cleaner: . Post Discharge Appointments Primary Care Physician Name Of Family Doctor: [facility] [place] [facility] - Dr. Shi Primary Care Provider Appointment Comment: [address] [facility] [place] [address] Neurologist Name of Neurologist: Mac Strange - Dr. Arroyo Neurologist's Neurology Appointment Comment: [address] [place] [address], [address], [place] [address] Contact Information Discharge Discharge Address: [place] [address], [place] [address] (1) Psychosis Psychosis type: schizophrenia Schizophrenia type: unspecified Qualified Code(s): F20.9 - Schizophrenia, unspecified
[2020-12-31] MEDS: OLANZapine 20 MG TABLET PO SCH (20:46)
[2021-01-01] MEDS: LEVOTHYROXINE SODIUM 25 MCG TABLET PO SCH (08:07)
[2021-01-01] MEDS: ATORVASTATIN 10 MG TAB PO SCH (08:54)
[2021-01-01] MEDS: CHOLECALCIFEROL 1,000 UNITS 25 MCG TAB PO SCH (08:55)
[2021-01-01] MEDS: haloperidoL 5 MG TAB PO SCH ×2 (08:55→20:39)
[2021-01-01] MEDS: BENZTROPINE MESYLATE 1 MG TAB PO SCH ×2 (08:55→20:39)
[2021-01-01] MEDS: DOCUSATE SODIUM 100 MG CAP PO SCH ×2 (08:55→20:39)
[2021-01-01] MEDS: LITHIUM CARBONATE 300 MG TAB PO SCH ×2 (08:56→20:40)
[2021-01-01] MEDS: LORazepam 1 MG TAB PO SCH ×3 (08:56→20:39)
[2021-01-01] MEDS: lamoTRIgine 100 MG TAB PO SCH (08:56)
[2021-01-01] MEDS: SERTRALINE HCL 50 MG TABLET PO SCH (08:57)
--- NOTE | 2021-01-01 15:39 | Psychiatric Progress Note ---
Date of Service January 01, 2021 Impression / Recommendations (1) Psychosis: 12/23/2020Will discontinue Invega and replace with haloperidol 2.5 mg 3 times daily. We will continue Lamictal, lithium, Zyprexa for now. Will consider Haldol Decanoate if helpful for patient. 12/24/1020we will continue current regimen for now, patient seems to be making improvements. 12/25/2020we will increase the haloperidol from 2.5 mg 3 times daily to 5 mg twice daily. We will also draw labs tomorrow for lithium level, CBC, CMP, LFTs 12/26/2020we will increase patient's nightly lithium to 450 mg. Will likely increase Haldol in the coming days as it seems to be helpful 12/27/2020atient's Lamictal was increased to 100 mg p.o. every morning. We will continue with Zyprexa, Haldol, lithium, Zoloft 12/28/2020we will increase Haldol to 7.5 mg twice daily 12/29/2020we will continue on the current regimen for now. Patient seems to be making good progress on the Haldol medication. We will consider long-acting injectable if she continues to do well on the current regimen. 12/30/2020atient still displaying some psychosis. Patient is taking a good amount of medication, and therefore we will continue to up titrate the dose of Haldol but in a slow fashion as to avoid any side effects. Plan to increase her nighttime dose of haloperidol to 10 mg and leave her morning dose of haloperidol at 7.5 mg for now. 12/31/2020ontinue current regimen. Patient making slow progress. 01/01/2021--continue current regimen for now. Patient making incremental progress we will discuss the idea of long-acting injectable Haldol with the patient and proceed with Depo shot if desired. Risk Factors Assessment Male: No : Yes Do You Have Access To A Gun?: No Mental Health Diagnoses: Yes Substance Use Disorders: No Previous Psychiatric Hospitalization: Yes Protective Factors Assessment : No Responsible for Young Children: No Employed: No (Unknown) Supportive Family: Yes Interval History Chief Complaint "Im doing okay". Review of Systems Sleep Information Total Hours of Sleep: 7.5 Sleep Comments: pt on q-15 minute checks Meal Information Percent Meal Consumed - Breakfast: 100 Percent Meal Consumed - Lunch: 100 Percent Meal Consumed - Dinner: 100 Nutrition Comment: pt. had fluids only Subjective Subjective Patient seen, chart reviewed and case discussed with treatment team, nursing and social work. Patient reports a good night of sleep and strong appetite. No side effects reported or observed. Regarding mood, patient reports some improvement which they attribute to the medications as well as the therapy they have received on the unit. Continues to improve on a daily basis. Was noted to be somewhat tearful this morning, but was able to be calmer as the day went on. I spent 30 minutes with the patient, 50% of which was dedicated to counselling and coordination of care. Physical Exam Mental Examination Appearance: Disheveled and Bizarre Eye Contact: Fleeting Contact Motor Behavior: Slowed and Tremulous Speech: Pressured, Delayed, Nonverbal and Poverty of Speech Mood: Depressed and Sad Affect: Anxious, Flat, Labile and Withdrawn Thought Process: Disorganized, Poverty of Content, Slowed Thinking and Thought Blocking Hallucinations: Auditory Insight: Poor Judgement: Poor Psychiatric Orientation: alert Apperance: appropriately dressed, appropriately groomed and + disheveled Eye Contact: + fair eye contact and + poor eye contact Motor Behavior: no abnormal motor movements Affect: euthymic affect, + flat affect, + labile affect and + constricted affect Mood: no anxious mood Thought Process: + thought blocking, + tangential thought process and + concrete thought process Thought Content: + paranoid, + delusions and + ideas of reference Suicidal Thoughts: denies suicidal thoughts Homicidal Thoughts: denies homicidal thoughts Hallucinations: no auditory hallucinations and no visual hallucinations Cognition: language grossly intact; + attention not intact Estimated Intelligence: + below average estimated intelligence Insight: + impaired insight and + severely impaired insight Judgement: + impaired judgement and + severely impaired judgement Vital Signs (Past 24 Hours) Last Vital Signs Temp 36.7 C 01/01/21 06:26 Pulse 109 H 01/01/21 06:26 Resp 16 01/01/21 06:26 BP 136/82 01/01/21 06:26 Pulse Ox 100 12/05/20 06:00 Results & Data ([facility]) Current Inpatient Medications Current Inpatient Medications: Current Inpatient Medications Acetaminophen (Acetaminophen 325 Mg Tab) 650 mg PO Q4H PRN PRN Reason: Headache or Minor Fever Stop: 01/12/21 20:02 Al Hydrox/Mg Hydrox/Simethicone (Aluminum/Magnesium Susp 30 Ml Udc) 30 ml PO Q4H PRN PRN Reason: GI Upset Stop: 01/12/21 20:02 Atorvastatin Calcium (Atorvastatin 10 Mg Tab) 10 mg PO QAM [facility] Stop: 01/12/21 08:59 Last Admin: 01/01/21 08:54 Dose: 10 mg Documented by: Benztropine Mesylate (Benztropine Mesylate 1 Mg Tab) 1 mg PO BID [facility] Stop: 01/12/21 20:59 Last Admin: 01/01/21 08:55 Dose: 1 mg Documented by: Bismuth Subsalicylate (Bismuth Subsalicylate Liqd 236 Ml) 15 ml PO PRN PRN PRN Reason: Loose Stool Stop: 01/12/21 20:02 Docusate Sodium (Docusate Sodium 100 Mg Cap) 100 mg PO BID [facility] Stop: 01/12/21 20:59 Last Admin: 01/01/21 08:55 Dose: 100 mg Documented by: Haloperidol (Haloperidol 5 Mg Tab) 7.5 mg PO QAM [facility] Stop: 01/30/21 08:59 Last Admin: 01/01/21 08:55 Dose: 7.5 mg Documented by: Haloperidol (Haloperidol 5 Mg Tab) 10 mg PO HS [facility] Stop: 01/29/21 21:59 Last Admin: 12/31/20 20:45 Dose: 10 mg Documented by: Hydroxyzine HCl (Hydroxyzine Hcl 25 Mg Tab) 50 mg PO HSZ PRN PRN Reason: Insomnia Stop: 01/12/21 20:02 Last Admin: 12/06/20 01:06 Dose: 50 mg Documented by: Hydroxyzine HCl (Hydroxyzine Hcl 25 Mg Tab) 25 mg PO Q4H PRN PRN Reason: Anxiety Stop: 01/12/21 20:02 Last Admin: 12/04/20 04:03 Dose: 25 mg Documented by: Lamotrigine (Lamotrigine 100 Mg Tab) 100 mg PO QAM [facility] Stop: 01/26/21 08:59 Last Admin: 01/01/21 08:56 Dose: 100 mg Documented by: Levothyroxine Sodium (Levothyroxine Sodium 25 Mcg Tablet) [facility] Stop: 01/12/21 07:59 Last Admin: 01/01/21 08:07 Dose: 25 mcg Documented by: [place] Carbonate ([place] Carbonate 300 Mg Tab) 300 mg PO QAM [facility] Stop: 01/26/21 08:59 Last Admin: 01/01/21 08:56 Dose: 300 mg Documented by: [place] Carbonate ([place] Carbonate 300 Mg Tab) 450 mg PO HS [facility] Stop: 01/25/21 21:59 Last Admin: 12/31/20 20:46 Dose: 450 mg Documented by: Lorazepam (Lorazepam 1 Mg Tab) 1 mg PO Q6 PRN PRN Reason: Anxiety/Agitation Stop: 01/12/21 10:10 Last Admin: 12/19/20 11:25 Dose: 1 mg Documented by: Lorazepam (Lorazepam 1 Mg Tab) 1 mg PO TID [facility] Stop: 01/12/21 13:59 Last Admin: 01/01/21 13:59 Dose: 1 mg Documented by: Magnesium Hydroxide (Magnesium Hydroxide Susp 30 Ml Udc) 30 ml PO DAILY PRN PRN Reason: Constipation Stop: 01/12/21 20:02 Olanzapine (Olanzapine Zydis 5 Mg Orally Dis. Tab) 5 mg PO Q6 PRN PRN Reason: Anxiety/Agitation Stop: 01/12/21 10:10 Last Admin: 12/12/20 11:32 Dose: 5 mg Documented by: Olanzapine (Olanzapine 20 Mg Tablet) 20 mg PO [facility] Stop: 01/12/21 21:59 Last Admin: 12/31/20 20:46 Dose: 20 mg Documented by: Sertraline HCl (Sertraline Hcl 50 Mg Tablet) 50 mg PO QAM [facility] Stop: 01/23/21 08:59 Last Admin: 01/01/21 08:57 Dose: 50 mg Documented by: Sodium Chloride (Sodium Chloride 0.65% Na Soln 45 Ml ([place])) 1 - 2 sprays NA PRN PRN PRN Reason: Nasal Dryness/Congestion Stop: 01/12/21 20:02 Vitamin D (Cholecalciferol 1,000 Units 25 Mcg Tab) 2,000 units PO QAM [facility] Stop: 01/12/21 08:59 Last Admin: 01/01/21 08:55 Dose: 2,000 units Documented by: Mental Health & Subst Abuse Tx Psychiatrist Name of Psychiatrist: Bruno Mcleod Psychiatrist's Psychiatric Appointment Comment: [address], [place] [address] Therapist Name of Therapist: Bruno Therapist's Therapy Appointment Comment: [address] [place] [address] Medical Reimbursement Manager Name of Medical Reimbursement Manager: . Post Discharge Appointments Primary Care Physician Name Of Family Doctor: Mac [place] [facility] - Dr. Shi Primary Care Provider Appointment Comment: [address] [facility], [place] [address] Neurologist Name of Neurologist: Mac Strange - Dr. Arroyo Neurologist's Neurology Appointment Comment: [address] [place] [address], [address], [place] [address] Contact Information Discharge Discharge Address: [place] [address], [place] [address] (1) Psychosis Psychosis type: schizophrenia Schizophrenia type: unspecified Qualified Code(s): F20.9 - Schizophrenia, unspecified
[2021-01-01] MEDS: OLANZapine 20 MG TABLET PO SCH (20:40)
[2021-01-02] MEDS: haloperidoL 5 MG TAB PO SCH ×2 (08:51→20:27)
[2021-01-02] MEDS: CHOLECALCIFEROL 1,000 UNITS 25 MCG TAB PO SCH (08:51)
[2021-01-02] MEDS: BENZTROPINE MESYLATE 1 MG TAB PO SCH ×2 (08:51→20:26)
[2021-01-02] MEDS: LEVOTHYROXINE SODIUM 25 MCG TABLET PO SCH (08:51)
[2021-01-02] MEDS: ATORVASTATIN 10 MG TAB PO SCH (08:51)
[2021-01-02] MEDS: DOCUSATE SODIUM 100 MG CAP PO SCH ×2 (08:51→20:26)
[2021-01-02] MEDS: SERTRALINE HCL 50 MG TABLET PO SCH (08:53)
[2021-01-02] MEDS: lamoTRIgine 100 MG TAB PO SCH (08:53)
[2021-01-02] MEDS: LITHIUM CARBONATE 300 MG TAB PO SCH ×2 (08:53→20:26)
[2021-01-02] MEDS: LORazepam 1 MG TAB PO SCH ×3 (08:55→20:29)
--- NOTE | 2021-01-02 14:58 | Psychiatric Progress Note ---
Date of Service January 02, 2021 Impression / Recommendations (1) Psychosis: 12/23/2020Will discontinue Invega and replace with haloperidol 2.5 mg 3 times daily. We will continue Lamictal, lithium, Zyprexa for now. Will consider Haldol Decanoate if helpful for patient. 12/24/1020 will continue current regimen for now, patient seems to be making improvements. 12/25/2020we will increase the haloperidol from 2.5 mg 3 times daily to 5 mg twice daily. We will also draw labs tomorrow for lithium level, CBC, CMP, LFTs 12/26/2020 will increase patient's nightly lithium to 450 mg. Will likely increase Haldol in the coming days as it seems to be helpful 12/27/2020atient's Lamictal was increased to 100 mg p.o. every morning. We will continue with Zyprexa, Haldol, lithium, Zoloft 12/28/2020we will increase Haldol to 7.5 mg twice daily 12/29/2020we will continue on the current regimen for now. Patient seems to be making good progress on the Haldol medication. We will consider long-acting injectable if she continues to do well on the current regimen. 12/30/2020atient still displaying some psychosis. Patient is taking a good amount of medication, and therefore we will continue to up titrate the dose of Haldol but in a slow fashion as to avoid any side effects. Plan to increase her nighttime dose of haloperidol to 10 mg and leave her morning dose of haloperidol at 7.5 mg for now. 12/31/2020ontinue current regimen. Patient making slow progress. 01/01/2021--continue current regimen for now. Patient making incremental progress we will discuss the idea of long-acting injectable Haldol with the patient and proceed with Depo shot if desired. 01/02/2021 will continue current regimen for now. Risk Factors Assessment Male: No : Yes Do You Have Access To A Gun?: No Mental Health Diagnoses: Yes Substance Use Disorders: No Previous Psychiatric Hospitalization: Yes Protective Factors Assessment : No Responsible for Young Children: No Employed: No (Unknown) Supportive Family: Yes Interval History Chief Complaint "I do not want to be in the family meeting, but I want to get my point across". Review of Systems Sleep Information Total Hours of Sleep: 6.5 Sleep Comments: pt on q-15 minute checks Meal Information Percent Meal Consumed - Breakfast: 100 Percent Meal Consumed - Lunch: 100 Percent Meal Consumed - Dinner: 100 Nutrition Comment: pt. had fluids only Subjective Subjective Patient seen, chart reviewed and case discussed with treatment team, nursing and social work. Patient reports a good night of sleep and strong appetite. No side effects reported or observed. Regarding mood, patient reports some improvement which they attribute to the medications as well as the therapy they have received on the unit. Today we discussed with the patient the idea of Haldol decannulate. Patient decided to think about it and let the team know. Overall reports feeling better, speech still remains somewhat tangential and thought processes still at this time circumstantial. I spent 30 minutes with the patient, 50% of which was dedicated to counselling and coordination of care. Physical Exam Psychiatric Orientation: alert Apperance: appropriately dressed, appropriately groomed and + disheveled Eye Contact: + fair eye contact and + poor eye contact Motor Behavior: no abnormal motor movements Affect: euthymic affect, + flat affect, + labile affect and + constricted affect Mood: no anxious mood Thought Process: + thought blocking, + tangential thought process and + concrete thought process Thought Content: + paranoid, + delusions and + ideas of reference Suicidal Thoughts: denies suicidal thoughts Homicidal Thoughts: denies homicidal thoughts Hallucinations: no auditory hallucinations and no visual hallucinations Cognition: language grossly intact; + attention not intact Estimated Intelligence: + below average estimated intelligence Insight: + impaired insight and + severely impaired insight Judgement: + impaired judgement and + severely impaired judgement Vital Signs (Past 24 Hours) Last Vital Signs Temp 36.7 C 01/02/21 06:33 Pulse 87 01/02/21 06:33 Resp 16 01/02/21 06:33 BP 120/80 01/02/21 06:33 Pulse Ox 100 12/05/20 06:00 Results & Data ([facility]) Current Inpatient Medications Current Inpatient Medications: Current Inpatient Medications Acetaminophen (Acetaminophen 325 Mg Tab) 650 mg PO Q4H PRN PRN Reason: Headache or Minor Fever Stop: 01/12/21 20:02 Al Hydrox/Mg Hydrox/Simethicone (Aluminum/Magnesium Susp 30 Ml Udc) 30 ml PO Q4H PRN PRN Reason: GI Upset Stop: 01/12/21 20:02 Atorvastatin Calcium (Atorvastatin 10 Mg Tab) 10 mg PO QAM [facility] Stop: 01/12/21 08:59 Last Admin: 01/02/21 08:51 Dose: 10 mg Documented by: Benztropine Mesylate (Benztropine Mesylate 1 Mg Tab) 1 mg PO BID [facility] Stop: 01/12/21 20:59 Last Admin: 01/02/21 08:51 Dose: 1 mg Documented by: Bismuth Subsalicylate (Bismuth Subsalicylate Liqd 236 Ml) 15 ml PO PRN PRN PRN Reason: Loose Stool Stop: 01/12/21 20:02 Docusate Sodium (Docusate Sodium 100 Mg Cap) 100 mg PO BID [facility] Stop: 01/12/21 20:59 Last Admin: 01/02/21 08:51 Dose: 100 mg Documented by: Haloperidol (Haloperidol 5 Mg Tab) 7.5 mg PO QAM [facility] Stop: 01/30/21 08:59 Last Admin: 01/02/21 08:51 Dose: 7.5 mg Documented by: Haloperidol (Haloperidol 5 Mg Tab) 10 mg PO HS [facility] Stop: 01/29/21 21:59 Last Admin: 01/01/21 20:39 Dose: 10 mg Documented by: Hydroxyzine HCl (Hydroxyzine Hcl 25 Mg Tab) 50 mg PO HSZ PRN PRN Reason: Insomnia Stop: 01/12/21 20:02 Last Admin: 12/06/20 01:06 Dose: 50 mg Documented by: Hydroxyzine HCl (Hydroxyzine Hcl 25 Mg Tab) 25 mg PO Q4H PRN PRN Reason: Anxiety Stop: 01/12/21 20:02 Last Admin: 12/04/20 04:03 Dose: 25 mg Documented by: Lamotrigine (Lamotrigine 100 Mg Tab) 100 mg PO QAM [facility] Stop: 01/26/21 08:59 Last Admin: 01/02/21 08:53 Dose: 100 mg Documented by: Levothyroxine Sodium (Levothyroxine Sodium 25 Mcg Tablet) 25 mcg PO DAILYBB [facility] Stop: 01/12/21 07:59 Last Admin: 01/02/21 08:51 Dose: 25 mcg Documented by: [place] Carbonate ([place] Carbonate 300 Mg Tab) 300 mg PO QAM [facility] Stop: 01/26/21 08:59 Last Admin: 01/02/21 08:53 Dose: 300 mg Documented by: [place] Carbonate ([place] Carbonate 300 Mg Tab) 450 mg PO HS [facility] Stop: 01/25/21 21:59 Last Admin: 01/01/21 20:40 Dose: 450 mg Documented by: Lorazepam (Lorazepam 1 Mg Tab) 1 mg PO Q6 PRN PRN Reason: Anxiety/Agitation Stop: 01/12/21 10:10 Last Admin: 12/19/20 11:25 Dose: 1 mg Documented by: Lorazepam (Lorazepam 1 Mg Tab) 1 mg PO TID [facility] Stop: 01/12/21 13:59 Last Admin: 01/02/21 14:38 Dose: Not Given Documented by: Magnesium Hydroxide (Magnesium Hydroxide Susp 30 Ml Udc) 30 ml PO DAILY PRN PRN Reason: Constipation Stop: 01/12/21 20:02 Olanzapine (Olanzapine Zydis 5 Mg Orally Dis. Tab) 5 mg PO Q6 PRN PRN Reason: Anxiety/Agitation Stop: 01/12/21 10:10 Last Admin: 12/12/20 11:32 Dose: 5 mg Documented by: Olanzapine (Olanzapine 20 Mg Tablet) 20 mg PO HS [place] Stop: 01/12/21 21:59 Last Admin: 01/01/21 20:40 Dose: 20 mg Documented by: Sertraline HCl (Sertraline Hcl 50 Mg Tablet) 50 mg PO QAM [facility] Stop: 01/23/21 08:59 Last Admin: 01/02/21 08:53 Dose: 50 mg Documented by: Sodium Chloride (Sodium Chloride 0.65% Na Soln 45 Ml ([place])) 1 - 2 sprays NA PRN PRN PRN Reason: Nasal Dryness/Congestion Stop: 01/12/21 20:02 Vitamin D (Cholecalciferol 1,000 Units 25 Mcg Tab) 2,000 units PO QAM [facility] Stop: 01/12/21 08:59 Last Admin: 01/02/21 08:51 Dose: 2,000 units Documented by: Mental Health & Subst Abuse Tx Psychiatrist Name of Psychiatrist: Bruno Mcleod Psychiatrist's Psychiatric Appointment Comment: [address] [place] [address] [place], [place] [address] Therapist Name of Therapist: Bruno Therapist's Therapy Appointment Comment: [address] [facility], [place] [address] [employer] Name of [employer] Teacher: . Post Discharge Appointments Primary Care Physician Name Of Family Doctor: Thornton [place] [facility] - Dr. Shi Primary Care Provider Appointment Comment: [address] [facility] [place] [address] Neurologist Name of Neurologist: Thornton [place] - Dr. Arroyo Neurologist's Neurology Appointment Comment: [address] [place] [address], [address], [place] [address] Contact Information Discharge Discharge Address: [place] [address], [place] [address] (1) Psychosis Psychosis type: schizophrenia Schizophrenia type: unspecified Qualified Code(s): F20.9 - Schizophrenia, unspecified
[2021-01-02] MEDS ORDERED: FLUARIX QUADRIVALENT 0.5 ML SYR IM ONE (17:11)
[2021-01-02] MEDS: OLANZapine 20 MG TABLET PO SCH (20:27)
[2021-01-03] MEDS: LEVOTHYROXINE SODIUM 25 MCG TABLET PO SCH (08:11)
[2021-01-03] MEDS: ATORVASTATIN 10 MG TAB PO SCH (08:57)
[2021-01-03] MEDS: BENZTROPINE MESYLATE 1 MG TAB PO SCH ×2 (08:58→21:06)
[2021-01-03] MEDS: DOCUSATE SODIUM 100 MG CAP PO SCH ×2 (08:58→21:06)
[2021-01-03] MEDS: CHOLECALCIFEROL 1,000 UNITS 25 MCG TAB PO SCH (08:58)
[2021-01-03] MEDS: lamoTRIgine 100 MG TAB PO SCH (08:59)
[2021-01-03] MEDS: haloperidoL 5 MG TAB PO SCH ×2 (08:59→21:06)
[2021-01-03] MEDS: LITHIUM CARBONATE 300 MG TAB PO SCH ×2 (09:00→21:07)
[2021-01-03] MEDS: SERTRALINE HCL 50 MG TABLET PO SCH (09:00)
[2021-01-03] MEDS: LORazepam 1 MG TAB PO SCH ×3 (09:00→21:08)
--- NOTE | 2021-01-03 16:36 | Psychiatric Progress Note ---
Date of Service January 03, 2021 Impression / Recommendations (1) Psychosis: 12/23/2020Will discontinue Invega and replace with haloperidol 2.5 mg 3 times daily. We will continue Lamictal, lithium, Zyprexa for now. Will consider Haldol Decanoate if helpful for patient. 12/24/1020we will continue current regimen for now, patient seems to be making improvements. 12/25/2020we will increase the haloperidol from 2.5 mg 3 times daily to 5 mg twice daily. We will also draw labs tomorrow for lithium level, CBC, CMP, LFTs 12/26/2020we will increase patient's nightly lithium to 450 mg. Will likely increase Haldol in the coming days as it seems to be helpful 12/27/2020atient's Lamictal was increased to 100 mg p.o. every morning. We will continue with Zyprexa, Haldol, lithium, Zoloft 12/28/2020we will increase Haldol to 7.5 mg twice daily 12/29/2020we will continue on the current regimen for now. Patient seems to be making good progress on the Haldol medication. We will consider long-acting injectable if she continues to do well on the current regimen. 12/30/2020atient still displaying some psychosis. Patient is taking a good amount of medication, and therefore we will continue to up titrate the dose of Haldol but in a slow fashion as to avoid any side effects. Plan to increase her nighttime dose of haloperidol to 10 mg and leave her morning dose of haloperidol at 7.5 mg for now. 12/31/2020ontinue current regimen. Patient making slow progress. 01/01/2021--continue current regimen for now. Patient making incremental progress we will discuss the idea of long-acting injectable Haldol with the patient and proceed with Depo shot if desired. 01/02/2021we will continue current regimen for now. 01/03/2021--tapering ativan from 1 mg TID to 1 mg qHS given improvement in sleep and agitation. She declines haldol long-acting injectable and prefers to keep her medications as they are. Will get repeat lithium level on Tuesday morning for steady state level. Risk Factors Assessment Male: No : Yes Do You Have Access To A Gun?: No Mental Health Diagnoses: Yes Substance Use Disorders: No Previous Psychiatric Hospitalization: Yes Protective Factors Assessment : No Responsible for Young Children: No Employed: No (Unknown) Supportive Family: Yes Interval History Identifying Information 30 yo woman with a history of schizoaffective disorder Chief Complaint "I'm just working on a puzzle". Review of Systems Sleep Information Total Hours of Sleep: 7 Sleep Comments: pt on q-15 minute checks Meal Information Percent Meal Consumed - Breakfast: 100 Percent Meal Consumed - Lunch: 75 Percent Meal Consumed - Dinner: 100 Nutrition Comment: pt. had fluids only Subjective Subjective Chart and events of last 24 hours reviewed and discussed with multidisciplinary treatment team including nursing and social work. No acute events reported overnight. Slept well. Eating well. Attending groups. Adherent with medications. They report stable mood and no reported side effects from their medication. Kelsey is not interested in haldol decanoate and wants to continue with the oral medication. She is willing to consider having a family meeting later this week. Discussed reducing her ativan dose which she would like to and feels "good about". Spent more than 20 minutes in the care and coordination of this patient of which greater than 50% was dedicated to counseling and coordination of care. Physical Exam Psychiatric Orientation: alert Apperance: appropriately dressed, appropriately groomed and + disheveled Eye Contact: + fair eye contact and + poor eye contact Motor Behavior: no abnormal motor movements Affect: euthymic affect, + flat affect, + labile affect and + constricted affect Mood: no anxious mood Thought Process: + thought blocking, + tangential thought process and + concrete thought process Thought Content: + paranoid, + delusions and + ideas of reference Suicidal Thoughts: denies suicidal thoughts Homicidal Thoughts: denies homicidal thoughts Hallucinations: no auditory hallucinations and no visual hallucinations Cognition: language grossly intact; + attention not intact Estimated Intelligence: + below average estimated intelligence Insight: + impaired insight and + severely impaired insight Judgement: + impaired judgement and + severely impaired judgement Vital Signs (Past 24 Hours) Last Vital Signs Temp 36.6 C 01/03/21 06:51 Pulse 95 H 01/03/21 06:52 Resp 16 01/03/21 06:51 BP 103/78 01/03/21 06:52 Pulse Ox 100 12/05/20 06:00 Results & Data ([facility]) Current Inpatient Medications Current Inpatient Medications: Current Inpatient Medications Acetaminophen (Acetaminophen 325 Mg Tab) 650 mg PO Q4H PRN PRN Reason: Headache or Minor Fever Stop: 01/12/21 20:02 Al Hydrox/Mg Hydrox/Simethicone (Aluminum/Magnesium Susp 30 Ml Udc) 30 ml PO Q4H PRN PRN Reason: GI Upset Stop: 01/12/21 20:02 Atorvastatin Calcium (Atorvastatin 10 Mg Tab) 10 mg PO QAM [facility] Stop: 01/12/21 08:59 Last Admin: 01/03/21 08:57 Dose: 10 mg Documented by: Benztropine Mesylate (Benztropine Mesylate 1 Mg Tab) 1 mg PO BID [facility] Stop: 01/12/21 20:59 Last Admin: 01/03/21 08:58 Dose: 1 mg Documented by: Bismuth Subsalicylate (Bismuth Subsalicylate Liqd 236 Ml) 15 ml PO PRN PRN PRN Reason: Loose Stool Stop: 01/12/21 20:02 Docusate Sodium (Docusate Sodium 100 Mg Cap) 100 mg PO BID [facility] Stop: 01/12/21 20:59 Last Admin: 01/03/21 08:58 Dose: 100 mg Documented by: Haloperidol (Haloperidol 5 Mg Tab) 7.5 mg PO QAM [facility] Stop: 01/30/21 08:59 Last Admin: 01/03/21 08:59 Dose: 7.5 mg Documented by: Haloperidol (Haloperidol 5 Mg Tab) 10 mg PO HS [facility] Stop: 01/29/21 21:59 Last Admin: 01/02/21 20:27 Dose: 10 mg Documented by: Hydroxyzine HCl (Hydroxyzine Hcl 25 Mg Tab) 50 mg PO HSZ PRN PRN Reason: Insomnia Stop: 01/12/21 20:02 Last Admin: 12/06/20 01:06 Dose: 50 mg Documented by: Hydroxyzine HCl (Hydroxyzine Hcl 25 Mg Tab) 25 mg PO Q4H PRN PRN Reason: Anxiety Stop: 01/12/21 20:02 Last Admin: 12/04/20 04:03 Dose: 25 mg Documented by: Lamotrigine (Lamotrigine 100 Mg Tab) 100 mg PO QAM [facility] Stop: 01/26/21 08:59 Last Admin: 01/03/21 08:59 Dose: 100 mg Documented by: Levothyroxine Sodium (Levothyroxine Sodium 25 Mcg Tablet) 25 mcg PO DAILYBB [facility] Stop: 01/12/21 07:59 Last Admin: 01/03/21 08:11 Dose: 25 mcg Documented by: [place] Carbonate ([place] Carbonate 300 Mg Tab) [facility] Stop: 01/26/21 08:59 Last Admin: 01/03/21 09:00 Dose: 300 mg Documented by: [place] Carbonate ([place] Carbonate 300 Mg Tab) 450 mg PO [facility] Stop: 01/25/21 21:59 Last Admin: 01/02/21 20:26 Dose: 450 mg Documented by: Lorazepam (Lorazepam 1 Mg Tab) 1 mg PO Q6 PRN PRN Reason: Anxiety/Agitation Stop: 01/12/21 10:10 Last Admin: 12/19/20 11:25 Dose: 1 mg Documented by: Lorazepam (Lorazepam 1 Mg Tab) 1 mg PO [facility] Stop: 02/02/21 21:59 Magnesium Hydroxide (Magnesium Hydroxide Susp 30 Ml Udc) 30 ml PO DAILY PRN PRN Reason: Constipation Stop: 01/12/21 20:02 Olanzapine (Olanzapine Zydis 5 Mg Orally Dis. Tab) 5 mg PO Q6 PRN PRN Reason: Anxiety/Agitation Stop: 01/12/21 10:10 Last Admin: 12/12/20 11:32 Dose: 5 mg Documented by: Olanzapine (Olanzapine 20 Mg Tablet) 20 mg PO [facility] Stop: 01/12/21 21:59 Last Admin: 01/02/21 20:27 Dose: 20 mg Documented by: Sertraline HCl (Sertraline Hcl 50 Mg Tablet) 50 mg PO [facility] Stop: 01/23/21 08:59 Last Admin: 01/03/21 09:00 Dose: 50 mg Documented by: Sodium Chloride (Sodium Chloride 0.65% Na Soln 45 Ml ([place])) 1 - 2 sprays NA PRN PRN PRN Reason: Nasal Dryness/Congestion Stop: 01/12/21 20:02 Vitamin D (Cholecalciferol 1,000 Units 25 Mcg Tab) 2,[facility] Stop: 01/12/21 08:59 Last Admin: 01/03/21 08:58 Dose: 2,000 units Documented by: Mental Health & Subst Abuse Tx Psychiatrist Name of Psychiatrist: Bruno Mcleod Psychiatrist's Psychiatric Appointment Comment: [address] [facility], [place] [address] Therapist Name of Therapist: Bruno Therapist's Therapy Appointment Comment: [address] [facility], [place] [address] Physician/Ophthalmologist Name of Physician/Ophthalmologist: . Post Discharge Appointments Primary Care Physician Name Of Family Doctor: [facility] [place] [facility] - Dr. Shi Primary Care Provider Appointment Comment: [address] [place] [address] Neurologist Name of Neurologist: Mac Strange - Dr. Arroyo Neurologist's Neurology Appointment Comment: [address] [place] [address], [address], [place] [address] Contact Information Discharge Discharge Address: [place] [address], [place] [address] (1) Psychosis Psychosis type: schizophrenia Schizophrenia type: unspecified Qualified Code(s): F20.9 - Schizophrenia, unspecified
[2021-01-03] MEDS: OLANZapine 20 MG TABLET PO SCH (21:08)
[2021-01-04] MEDS: LEVOTHYROXINE SODIUM 25 MCG TABLET PO SCH (08:30)
[2021-01-04] MEDS: ATORVASTATIN 10 MG TAB PO SCH (09:20)
[2021-01-04] MEDS: DOCUSATE SODIUM 100 MG CAP PO SCH ×2 (09:21→20:28)
[2021-01-04] MEDS: BENZTROPINE MESYLATE 1 MG TAB PO SCH ×2 (09:21→20:28)
[2021-01-04] MEDS: CHOLECALCIFEROL 1,000 UNITS 25 MCG TAB PO SCH (09:21)
[2021-01-04] MEDS: lamoTRIgine 100 MG TAB PO SCH (09:22)
[2021-01-04] MEDS: haloperidoL 5 MG TAB PO SCH ×2 (09:22→20:29)
[2021-01-04] MEDS: SERTRALINE HCL 50 MG TABLET PO SCH (09:23)
[2021-01-04] MEDS: LITHIUM CARBONATE 300 MG TAB PO SCH ×2 (09:23→20:27)
--- NOTE | 2021-01-04 15:25 | Psychiatric Progress Note ---
Date of Service January 04, 2021 Impression / Recommendations Impression The patient is a 30 year old with a history of schizoaffective disorder who was admitted for psychosis. They are slowly improving with support and medication adjustments. They continue to require inpatient level of care due to due to acute disorganized/bizarre behavior that interferes with ADLs and due to their psychiatric condition causing major disability in social, interpersonal, occupational and/or educational functioning that requires help for safety and stabilization. She tolerated the reduction in ativan well. Continues to have periods of anxiety and possibly some ideas of reference about her family. Still having difficulty engaging with peers outside of structured groups. (1) Psychosis: 12/23/2020Will discontinue Invega and replace with haloperidol 2.5 mg 3 times daily. We will continue Lamictal, lithium, Zyprexa for now. Will consider Haldol Decanoate if helpful for patient. 12/24/1020we will continue current regimen for now, patient seems to be making improvements. 12/25/2020we will increase the haloperidol from 2.5 mg 3 times daily to 5 mg twice daily. We will also draw labs tomorrow for lithium level, CBC, CMP, LFTs 12/26/2020we will increase patient's nightly lithium to 450 mg. Will likely increase Haldol in the coming days as it seems to be helpful 12/27/2020atient's Lamictal was increased to 100 mg p.o. every morning. We will continue with Zyprexa, Haldol, lithium, Zoloft 12/28/2020we will increase Haldol to 7.5 mg twice daily 12/29/2020we will continue on the current regimen for now. Patient seems to be making good progress on the Haldol medication. We will consider long-acting injectable if she continues to do well on the current regimen. 12/30/2020atient still displaying some psychosis. Patient is taking a good amount of medication, and therefore we will continue to up titrate the dose of Haldol but in a slow fashion as to avoid any side effects. Plan to increase her nighttime dose of haloperidol to 10 mg and leave her morning dose of haloperidol at 7.5 mg for now. 12/31/2020ontinue current regimen. Patient making slow progress. 01/01/2021--continue current regimen for now. Patient making incremental progress we will discuss the idea of long-acting injectable Haldol with the patient and proceed with Depo shot if desired. 01/02/2021we will continue current regimen for now. 01/03/2021--tapering ativan from 1 mg TID to 1 mg qHS given improvement in sleep and agitation. She declines haldol long-acting injectable and prefers to keep her medications as they are. Will get repeat lithium level on Tuesday morning for steady state level. 01/04/2021--Repeat lithium level trough tomorrow morning from last dose increase for steady-state level. Goal of tapering ativan to discontinuation in next few days if she continues to tolerate this reduction well. Risk Factors Assessment Male: No : Yes Do You Have Access To A Gun?: No Mental Health Diagnoses: Yes Substance Use Disorders: No Previous Psychiatric Hospitalization: Yes Protective Factors Assessment : No Responsible for Young Children: No Employed: No (Unknown) Supportive Family: Yes Interval History Identifying Information 30 yo woman with a history of schizoaffective disorder Chief Complaint "I'm thinking about stuff with my family". Review of Systems Sleep Information Total Hours of Sleep: 8 Sleep Comments: pt on q-15 minute checks Meal Information Percent Meal Consumed - Breakfast: 100 Percent Meal Consumed - Lunch: 0 Percent Meal Consumed - Dinner: 100 Nutrition Comment: pt. had fluids only Subjective Subjective Chart and events of last 24 hours reviewed and discussed with multidisciplinary treatment team including nursing and social work. No acute events reported overnight. Slept well. Eating well. Attending groups. Adherent with medications. She reports some anxiety about thinking about family stuff which she elaborates as some worries about disagreements they may have about where she will live once she leaves the hospital. She tolerated the reduction in ativan well and has no reported side effects from her medication. Initially sad and lying in bed but then smiling and showing me a stress worksheet she did during the one of the groups that she found helpful. Spent more than 20 minutes in the care and coordination of this patient of which greater than 50% was dedicated to counseling and coordination of care. Physical Exam Psychiatric Orientation: alert and oriented x 3 Apperance: appropriately dressed Eye Contact: + fair eye contact Motor Behavior: steady gait and station and no abnormal motor movements Speech: normal rate/rhythm/volume of speech Affect: + labile affect Mood: + anxious mood Thought Process: + circumstantial thought process and + looseness of associations Thought Content: + preoccupation and reality based without delusions Suicidal Thoughts: denies suicidal thoughts Homicidal Thoughts: denies homicidal thoughts Hallucinations: no auditory hallucinations Cognition: recent memory grossly intact, remote memory grossly intact and attention grossly intact Insight: + impaired insight Judgement: + fair judgement Vital Signs (Past 24 Hours) Last Vital Signs Temp 36.8 C 01/04/21 06:41 Pulse 91 H 01/04/21 06:41 Resp 14 01/04/21 06:41 BP 118/82 01/04/21 06:41 Pulse Ox 100 12/05/20 06:00 Results & Data ([facility]) Current Inpatient Medications Current Inpatient Medications: Current Inpatient Medications Acetaminophen (Acetaminophen 325 Mg Tab) 650 mg PO Q4H PRN PRN Reason: Headache or Minor Fever Stop: 01/12/21 20:02 Al Hydrox/Mg Hydrox/Simethicone (Aluminum/Magnesium Susp 30 Ml Udc) 30 ml PO Q4H PRN PRN Reason: GI Upset Stop: 01/12/21 20:02 Atorvastatin Calcium (Atorvastatin 10 Mg Tab) 10 mg PO QAM [facility] Stop: 01/12/21 08:59 Last Admin: 01/04/21 09:20 Dose: 10 mg Documented by: Benztropine Mesylate (Benztropine Mesylate 1 Mg Tab) 1 mg PO BID [facility] Stop: 01/12/21 20:59 Last Admin: 01/04/21 09:21 Dose: 1 mg Documented by: Bismuth Subsalicylate (Bismuth Subsalicylate Liqd 236 Ml) 15 ml PO PRN PRN PRN Reason: Loose Stool Stop: 01/12/21 20:02 Docusate Sodium (Docusate Sodium 100 Mg Cap) 100 mg PO BID [facility] Stop: 01/12/21 20:59 Last Admin: 01/04/21 09:21 Dose: 100 mg Documented by: Haloperidol (Haloperidol 5 Mg Tab) 7.5 mg PO QAM [facility] Stop: 01/30/21 08:59 Last Admin: 01/04/21 09:22 Dose: 7.5 mg Documented by: Haloperidol (Haloperidol 5 Mg Tab) 10 mg PO HS [facility] Stop: 01/29/21 21:59 Last Admin: 01/03/21 21:06 Dose: 10 mg Documented by: Hydroxyzine HCl (Hydroxyzine Hcl 25 Mg Tab) 50 mg PO HSZ PRN PRN Reason: Insomnia Stop: 01/12/21 20:02 Last Admin: 12/06/20 01:06 Dose: 50 mg Documented by: Hydroxyzine HCl (Hydroxyzine Hcl 25 Mg Tab) 25 mg PO Q4H PRN PRN Reason: Anxiety Stop: 01/12/21 20:02 Last Admin: 12/04/20 04:03 Dose: 25 mg Documented by: Lamotrigine (Lamotrigine 100 Mg Tab) 100 mg PO QAM [facility] Stop: 01/26/21 08:59 Last Admin: 01/04/21 09:22 Dose: 100 mg Documented by: Levothyroxine Sodium (Levothyroxine Sodium 25 Mcg Tablet) 25 mcg PO DAILYBB [facility] Stop: 01/12/21 07:59 Last Admin: 01/04/21 08:30 Dose: 25 mcg Documented by: [place] Carbonate ([place] Carbonate 300 Mg Tab) 300 mg PO QAM [facility] Stop: 01/26/21 08:59 Last Admin: 01/04/21 09:23 Dose: 300 mg Documented by: [place] Carbonate ([place] Carbonate 300 Mg Tab) 450 mg PO HS [facility] Stop: 01/25/21 21:59 Last Admin: 01/03/21 21:07 Dose: 450 mg Documented by: Lorazepam (Lorazepam 1 Mg Tab) 1 mg PO Q6 PRN PRN Reason: Anxiety/Agitation Stop: 01/12/21 10:10 Last Admin: 12/19/20 11:25 Dose: 1 mg Documented by: Lorazepam (Lorazepam 1 Mg Tab) 1 mg PO HS [facility] Stop: 02/02/21 21:59 Last Admin: 01/03/21 21:08 Dose: 1 mg Documented by: Magnesium Hydroxide (Magnesium Hydroxide Susp 30 Ml Udc) 30 ml PO DAILY PRN PRN Reason: Constipation Stop: 01/12/21 20:02 Olanzapine (Olanzapine Zydis 5 Mg Orally Dis. Tab) 5 mg PO Q6 PRN PRN Reason: Anxiety/Agitation Stop: 01/12/21 10:10 Last Admin: 12/12/20 11:32 Dose: 5 mg Documented by: Olanzapine (Olanzapine 20 Mg Tablet) 20 mg PO HS [facility] Stop: 01/12/21 21:59 Last Admin: 01/03/21 21:08 Dose: 20 mg Documented by: Sertraline HCl (Sertraline Hcl 50 Mg Tablet) 50 mg PO QAM [facility] Stop: 01/23/21 08:59 Last Admin: 01/04/21 09:23 Dose: 50 mg Documented by: Sodium Chloride (Sodium Chloride 0.65% Na Soln 45 Ml ([place])) 1 - 2 sprays NA PRN PRN PRN Reason: Nasal Dryness/Congestion Stop: 01/12/21 20:02 Vitamin D (Cholecalciferol 1,000 Units 25 Mcg Tab) 2,000 units PO QAM [facility] Stop: 01/12/21 08:59 Last Admin: 01/04/21 09:21 Dose: 2,000 units Documented by: Mental Health & Subst Abuse Tx Psychiatrist Name of Psychiatrist: Bruno Mcleod Psychiatrist's Psychiatric Appointment Comment: [address], [place] [address] Therapist Name of Therapist: Bruno Therapist's Therapy Appointment Comment: [address] [facility] [address], [place] [address] Unit Leader Name of Unit Leader: . Post Discharge Appointments Primary Care Physician Name Of Family Doctor: [facility] [place] [facility] - Dr. Shi Primary Care Provider Appointment Comment: [address] [facility] [place] [address] Neurologist Name of Neurologist: Mac Arroyo Neurologist's Neurology Appointment Comment: [address] [place] [address], [address], [place] [address] Contact Information Discharge Discharge Address: [address] [address], [place] [address] (1) Psychosis Psychosis type: schizophrenia Schizophrenia type: unspecified Qualified Code(s): F20.9 - Schizophrenia, unspecified
[2021-01-04] MEDS: LORazepam 1 MG TAB PO SCH (20:28)
[2021-01-04] MEDS: OLANZapine 20 MG TABLET PO SCH (20:28)
[2021-01-05] MEDS: LEVOTHYROXINE SODIUM 25 MCG TABLET PO SCH (08:22)
[2021-01-05] MEDS: ATORVASTATIN 10 MG TAB PO SCH (10:24)
[2021-01-05] MEDS: BENZTROPINE MESYLATE 1 MG TAB PO SCH ×2 (10:25→22:02)
[2021-01-05] MEDS: DOCUSATE SODIUM 100 MG CAP PO SCH ×2 (10:26→22:02)
[2021-01-05] MEDS: CHOLECALCIFEROL 1,000 UNITS 25 MCG TAB PO SCH (10:26)
[2021-01-05] MEDS: lamoTRIgine 100 MG TAB PO SCH (10:27)
[2021-01-05] MEDS: haloperidoL 5 MG TAB PO SCH ×2 (10:27→22:02)
[2021-01-05] MEDS: SERTRALINE HCL 50 MG TABLET PO SCH (10:28)
[2021-01-05] MEDS: LITHIUM CARBONATE 300 MG TAB PO SCH ×2 (10:28→22:01)
--- NOTE | 2021-01-05 11:36 | Psychiatric Progress Note ---
Date of Service January 05, 2021 Impression / Recommendations Impression The patient is a 30 year old with a history of schizoaffective disorder who was admitted for psychosis. They are slowly improving with support and medication adjustments. They continue to require inpatient level of care due to due to acute disorganized/bizarre behavior that interferes with ADLs and due to their psychiatric condition causing major disability in social, interpersonal, occupational and/or educational functioning that requires help for safety and stabilization. MNPR due to psychiatric symptoms including disorganization and difficulty tolerating peer interactions. She continues to show stable progress with increased participation in groups and no apparent psychotic symptoms. Remains withdrawn around peers. She consents to plan to discontinue ativan tomorrow. (1) Psychosis: 12/23/2020Will discontinue Invega and replace with haloperidol 2.5 mg 3 times daily. We will continue Lamictal, lithium, Zyprexa for now. Will consider Haldol Decanoate if helpful for patient. 12/24/1020 will continue current regimen for now, patient seems to be making improvements. 12/25/2020we will increase the haloperidol from 2.5 mg 3 times daily to 5 mg twice daily. We will also draw labs tomorrow for lithium level, CBC, CMP, LFTs 12/26/2020we will increase patient's nightly lithium to 450 mg. Will likely increase Haldol in the coming days as it seems to be helpful 12/27/2020atient's Lamictal was increased to 100 mg p.o. every morning. We will continue with Zyprexa, Haldol, lithium, Zoloft 12/28/2020we will increase Haldol to 7.5 mg twice daily 12/29/2020we will continue on the current regimen for now. Patient seems to be making good progress on the Haldol medication. We will consider long-acting injectable if she continues to do well on the current regimen. 12/30/2020atient still displaying some psychosis. Patient is taking a good amount of medication, and therefore we will continue to up titrate the dose of Haldol but in a slow fashion as to avoid any side effects. Plan to increase her nighttime dose of haloperidol to 10 mg and leave her morning dose of haloperidol at 7.5 mg for now. 12/31/2020ontinue current regimen. Patient making slow progress. 01/01/2021--continue current regimen for now. Patient making incremental progress we will discuss the idea of long-acting injectable Haldol with the patient and proceed with Depo shot if desired. 01/02/2021we will continue current regimen for now. 01/03/2021--tapering ativan from 1 mg TID to 1 mg qHS given improvement in sleep and agitation. She declines haldol long-acting injectable and prefers to keep her medications as they are. Will get repeat lithium level on Tuesday morning for steady state level. 01/04/2021--Repeat lithium level trough tomorrow morning from last dose increase for steady-state level. Goal of tapering ativan to discontinuation in next few days if she continues to tolerate this reduction well. 01/05/2021--Li level 0.9 and wnl. Taper ativan to discontinuation with last dose tonight which she consents to. Risk Factors Assessment Male: No : Yes Do You Have Access To A Gun?: No Mental Health Diagnoses: Yes Substance Use Disorders: No Previous Psychiatric Hospitalization: Yes Protective Factors Assessment : No Responsible for Young Children: No Employed: No (Unknown) Supportive Family: Yes Interval History Identifying Information 30 yo woman with a history of schizoaffective disorder Chief Complaint "I'm feeling calm today". Review of Systems Sleep Information Total Hours of Sleep: 8 Sleep Comments: pt given vistaril per rn. pt on q-15 minute checks Meal Information Percent Meal Consumed - Breakfast: 100 Percent Meal Consumed - Lunch: 0 Percent Meal Consumed - Dinner: 100 Nutrition Comment: pt. had fluids only Subjective Subjective Chart and events of last 24 hours reviewed and discussed with multidisciplinary treatment team including nursing and social work. No acute events reported overnight. Slept well. Eating well. Attending groups. Adherent with medications. She notes stable mood this morning with some depressive symptoms and some anxiety. No reported side effects from their medication. Pleased about continuing ativan taper to discontinuation, no withdrawal side effects or issues with taper. Discussed lithium level being appropriate. She is agreeable to having a family meeting via phone. She remains unsure about accuracy of diagnosis of schzioaffective disorder or schizophrenia. She wonders if her seizures better explain some of her symptoms. Notes that her thoughts are feeling clearer and more organized compared to when she came into the hospital. Spent more than 20 minutes in the care and coordination of this patient of which greater than 50% was dedicated to counseling and coordination of care. Physical Exam Psychiatric Orientation: alert and oriented x 3 Apperance: appropriately dressed Eye Contact: + fair eye contact Motor Behavior: steady gait and station and no abnormal motor movements Speech: normal rate/rhythm/volume of speech Affect: euthymic affect Mood: + depressed mood and + anxious mood Thought Process: goal directed thought process Thought Content: reality based without delusions Suicidal Thoughts: denies suicidal thoughts Homicidal Thoughts: denies homicidal thoughts Hallucinations: no auditory hallucinations and no visual hallucinations Cognition: recent memory grossly intact and remote memory grossly intact Estimated Intelligence: consistent with education level Insight: + fair insight Judgement: + fair judgement Vital Signs (Past 24 Hours) Last Vital Signs Temp 36.6 C 01/05/21 06:50 Pulse 96 H 01/05/21 06:50 Resp 16 01/05/21 06:50 BP 107/77 01/05/21 06:50 Pulse Ox 100 12/05/20 06:00 Results & Data ([facility]) Laboratory Results Laboratory Results - last 24 hr 01/05/21 09:22 [place] 0.9 Current Inpatient Medications Current Inpatient Medications: Current Inpatient Medications Acetaminophen (Acetaminophen 325 Mg Tab) 650 mg PO Q4H PRN PRN Reason: Headache or Minor Fever Stop: 01/12/21 20:02 Al Hydrox/Mg Hydrox/Simethicone (Aluminum/Magnesium Susp 30 Ml Udc) 30 ml PO Q4H PRN PRN Reason: GI Upset Stop: 01/12/21 20:02 Atorvastatin Calcium (Atorvastatin 10 Mg Tab) 10 mg PO QAM [facility] Stop: 01/12/21 08:59 Last Admin: 01/05/21 10:24 Dose: 10 mg Documented by: Benztropine Mesylate (Benztropine Mesylate 1 Mg Tab) 1 mg PO BID [facility] Stop: 01/12/21 20:59 Last Admin: 01/05/21 10:25 Dose: 1 mg Documented by: Bismuth Subsalicylate (Bismuth Subsalicylate Liqd 236 Ml) 15 ml PO PRN PRN PRN Reason: Loose Stool Stop: 01/12/21 20:02 Docusate Sodium (Docusate Sodium 100 Mg Cap) 100 mg PO BID [facility] Stop: 01/12/21 20:59 Last Admin: 01/05/21 10:26 Dose: 100 mg Documented by: Haloperidol (Haloperidol 5 Mg Tab) 7.5 mg PO QAM [facility] Stop: 01/30/21 08:59 Last Admin: 01/05/21 10:27 Dose: 7.5 mg Documented by: Haloperidol (Haloperidol 5 Mg Tab) 10 mg PO [facility] Stop: 01/29/21 21:59 Last Admin: 01/04/21 20:29 Dose: 10 mg Documented by: Hydroxyzine HCl (Hydroxyzine Hcl 25 Mg Tab) 50 mg PO HSZ PRN PRN Reason: Insomnia Stop: 01/12/21 20:02 Last Admin: 12/06/20 01:06 Dose: 50 mg Documented by: Hydroxyzine HCl (Hydroxyzine Hcl 25 Mg Tab) 25 mg PO Q4H PRN PRN Reason: Anxiety Stop: 01/12/21 20:02 Last Admin: 12/04/20 04:03 Dose: 25 mg Documented by: Lamotrigine (Lamotrigine 100 Mg Tab) [facility] Stop: 01/26/21 08:59 Last Admin: 01/05/21 10:27 Dose: 100 mg Documented by: Levothyroxine Sodium (Levothyroxine Sodium 25 Mcg Tablet) [facility] Stop: 01/12/21 07:59 Last Admin: 01/05/21 08:22 Dose: 25 mcg Documented by: [place] Carbonate ([place] Carbonate 300 Mg Tab) 300 [facility] Stop: 01/26/21 08:59 Last Admin: 01/05/21 10:28 Dose: 300 mg Documented by: [place] Carbonate ([place] Carbonate 300 Mg Tab) 450 mg PO [facility] Stop: 01/25/21 21:59 Last Admin: 01/04/21 20:27 Dose: 450 mg Documented by: Lorazepam (Lorazepam 1 Mg Tab) 1 mg PO Q6 PRN PRN Reason: Anxiety/Agitation Stop: 01/12/21 10:10 Last Admin: 12/19/20 11:25 Dose: 1 mg Documented by: Lorazepam (Lorazepam 1 Mg Tab) 1 mg PO [facility] Stop: 02/02/21 21:59 Last Admin: 01/04/21 20:28 Dose: 1 mg Documented by: Magnesium Hydroxide (Magnesium Hydroxide Susp 30 Ml Udc) 30 ml PO DAILY PRN PRN Reason: Constipation Stop: 01/12/21 20:02 Olanzapine (Olanzapine Zydis 5 Mg Orally Dis. Tab) 5 mg PO Q6 PRN PRN Reason: Anxiety/Agitation Stop: 01/12/21 10:10 Last Admin: 12/12/20 11:32 Dose: 5 mg Documented by: Olanzapine (Olanzapine 20 Mg Tablet) 20 mg PO HS [facility] Stop: 01/12/21 21:59 Last Admin: 01/04/21 20:28 Dose: 20 mg Documented by: Sertraline HCl (Sertraline Hcl 50 Mg Tablet) 50 mg PO QAM [facility] Stop: 01/23/21 08:59 Last Admin: 01/05/21 10:28 Dose: 50 mg Documented by: Sodium Chloride (Sodium Chloride 0.65% Na Soln 45 Ml ([place])) 1 - 2 sprays NA PRN PRN PRN Reason: Nasal Dryness/Congestion Stop: 01/12/21 20:02 Vitamin D (Cholecalciferol 1,000 Units 25 Mcg Tab) 2,000 units PO QAM [facility] Stop: 01/12/21 08:59 Last Admin: 01/05/21 10:26 Dose: 2,000 units Documented by: Mental Health & Subst Abuse Tx Psychiatrist Name of Psychiatrist: Bruno Mcleod Psychiatrist's Date of Appointment with Psychiatrist: 01/15/21 Time of Appointment with Psychiatrist: 11am Psychiatric Appointment Comment: [address] [facility], [place] [address] Therapist Name of Therapist: Tex Sherwood Therapist's Date of Therapist Appointment: 01/12/21 Time of Therapist Appointment: 11a.m Therapy Appointment Comment: [address] [facility], [place] [address] Repairer Name of Repairer: . Post Discharge Appointments Primary Care Physician Name Of Family Doctor: Dr. Shi Primary Care Date of Appointment with PCP: 01/19/21 Time of Appointment with PCP: 1pm Provider Appointment Comment: [address] [facility], [place] [address] Neurologist Name of Neurologist: Mac Arroyo Neurologist's Date of Appointment with Neurologist: 01/22/21 Time of Appointment with Neurologist: 8:40 a.m Neurology Appointment Comment: [address] [place] [address] Avenue, [address], [place] [address] Contact Information Discharge Discharge Address: [address] [address], [place] [address] (1) Psychosis Psychosis type: schizophrenia Schizophrenia type: unspecified Qualified Code(s): F20.9 - Schizophrenia, unspecified
[2021-01-05] MEDS: LORazepam 1 MG TAB PO SCH (22:00)
[2021-01-05] MEDS: OLANZapine 20 MG TABLET PO SCH (22:06)
[2021-01-06] MEDS: LEVOTHYROXINE SODIUM 25 MCG TABLET PO SCH (08:29)
[2021-01-06] MEDS: ATORVASTATIN 10 MG TAB PO SCH (10:22)
[2021-01-06] MEDS: BENZTROPINE MESYLATE 1 MG TAB PO SCH ×2 (10:23→21:25)
[2021-01-06] MEDS: CHOLECALCIFEROL 1,000 UNITS 25 MCG TAB PO SCH (10:23)
[2021-01-06] MEDS: DOCUSATE SODIUM 100 MG CAP PO SCH ×2 (10:23→21:26)
[2021-01-06] MEDS: lamoTRIgine 100 MG TAB PO SCH (10:24)
[2021-01-06] MEDS: haloperidoL 5 MG TAB PO SCH ×2 (10:24→21:26)
[2021-01-06] MEDS: LITHIUM CARBONATE 300 MG TAB PO SCH ×2 (10:24→21:27)
[2021-01-06] MEDS: SERTRALINE HCL 50 MG TABLET PO SCH (10:25)
--- NOTE | 2021-01-06 16:58 | Psychiatric Progress Note ---
Date of Service January 06, 2021 Impression / Recommendations Impression The patient is a 30 year old with a history of schizoaffective disorder who was admitted for psychosis. They are slowly improving with support and medication adjustments. They continue to require inpatient level of care due to due to acute disorganized/bizarre behavior that interferes with ADLs and due to their psychiatric condition causing major disability in social, interpersonal, occupational and/or educational functioning that requires help for safety and stabilization. -MNPR due to psychiatric symptoms including disorganization and difficulty tolerating peer interactions. Worsened mood today and isolative to her room for most of the day. May be due to internal preoccupation but could also be due to more social engagement occurring in common spaces of the unit which can be challenging for her to navigate. (1) Psychosis: 12/23/2020Will discontinue Invega and replace with haloperidol 2.5 mg 3 times daily. We will continue Lamictal, lithium, Zyprexa for now. Will consider Haldol Decanoate if helpful for patient. 12/24/1020 will continue current regimen for now, patient seems to be making improvements. 12/25/2020we will increase the haloperidol from 2.5 mg 3 times daily to 5 mg twice daily. We will also draw labs tomorrow for lithium level, CBC, CMP, LFTs 12/26/2020we will increase patient's nightly lithium to 450 mg. Will likely increase Haldol in the coming days as it seems to be helpful 12/27/2020atient's Lamictal was increased to 100 mg p.o. every morning. We will continue with Zyprexa, Haldol, lithium, Zoloft 12/28/2020we will increase Haldol to 7.5 mg twice daily 12/29/2020we will continue on the current regimen for now. Patient seems to be making good progress on the Haldol medication. We will consider long-acting injectable if she continues to do well on the current regimen. 12/30/2020atient still displaying some psychosis. Patient is taking a good amount of medication, and therefore we will continue to up titrate the dose of Haldol but in a slow fashion as to avoid any side effects. Plan to increase her nighttime dose of haloperidol to 10 mg and leave her morning dose of haloperidol at 7.5 mg for now. 12/31/2020ontinue current regimen. Patient making slow progress. 01/01/2021--continue current regimen for now. Patient making incremental progress we will discuss the idea of long-acting injectable Haldol with the patient and proceed with Depo shot if desired. 01/02/2021we will continue current regimen for now. 01/03/2021--tapering ativan from 1 mg TID to 1 mg qHS given improvement in sleep and agitation. She declines haldol long-acting injectable and prefers to keep her medications as they are. Will get repeat lithium level on Tuesday morning for steady state level. 01/04/2021--Repeat lithium level trough tomorrow morning from last dose increase for steady-state level. Goal of tapering ativan to discontinuation in next few days if she continues to tolerate this reduction well. 01/05/2021--Li level 0.9 and wnl. Taper ativan to discontinuation with last dose tonight which she consents to. 01/06/2021--Continue current regimen. More socially isolative today and appears more dysthymic and withdrawn. Risk Factors Assessment Male: No : Yes Do You Have Access To A Gun?: No Mental Health Diagnoses: Yes Substance Use Disorders: No Previous Psychiatric Hospitalization: Yes Protective Factors Assessment : No Responsible for Young Children: No Employed: No (Unknown) Supportive Family: Yes Interval History Identifying Information 30 yo woman with a history of schizoaffective disorder Chief Complaint "I don't want to talk". Review of Systems Sleep Information Total Hours of Sleep: 6 Sleep Comments: pt given vistaril per rn. pt on q-15 minute checks Meal Information Percent Meal Consumed - Breakfast: 100 Percent Meal Consumed - Lunch: 100 Percent Meal Consumed - Dinner: 100 Nutrition Comment: pt. had fluids only Subjective Subjective Chart and events of last 24 hours reviewed and discussed with multidisciplinary treatment team including nursing and social work. No acute events reported overnight. Slept well. Eating well. Did not attend some of the groups today. Adherent with medications. Reports unwillingness to discuss mood today. Sitting on bed alone in her room and appears sad. Physical Exam Psychiatric Orientation: alert and + guarded Apperance: appropriately dressed Eye Contact: + fair eye contact Motor Behavior: steady gait and station and no abnormal motor movements Speech: normal rate/rhythm/volume of speech Affect: + depressed affect Mood: + depressed mood Thought Process: goal directed thought process sparse thought content, possibility of internal stimuli causing preoccupation Cognition: attention grossly intact Estimated Intelligence: consistent with education level Insight: + limited insight Judgement: + fair judgement Vital Signs (Past 24 Hours) Last Vital Signs Temp 36.6 C 01/06/21 06:31 Pulse 93 H 01/06/21 06:32 Resp 16 01/06/21 06:31 BP 111/79 01/06/21 06:32 Pulse Ox 100 12/05/20 06:00 Results & Data ([facility]) Current Inpatient Medications Current Inpatient Medications: Current Inpatient Medications Acetaminophen (Acetaminophen 325 Mg Tab) 650 mg PO Q4H PRN PRN Reason: Headache or Minor Fever Stop: 01/12/21 20:02 Al Hydrox/Mg Hydrox/Simethicone (Aluminum/Magnesium Susp 30 Ml Udc) 30 ml PO Q4H PRN PRN Reason: GI Upset Stop: 01/12/21 20:02 Atorvastatin Calcium (Atorvastatin 10 Mg Tab) 10 mg PO QAM [facility] Stop: 01/12/21 08:59 Last Admin: 01/06/21 10:22 Dose: 10 mg Documented by: Benztropine Mesylate (Benztropine Mesylate 1 Mg Tab) 1 mg PO BID [facility] Stop: 01/12/21 20:59 Last Admin: 01/06/21 10:23 Dose: 1 mg Documented by: Bismuth Subsalicylate (Bismuth Subsalicylate Liqd 236 Ml) 15 ml PO PRN PRN PRN Reason: Loose Stool Stop: 01/12/21 20:02 Docusate Sodium (Docusate Sodium 100 Mg Cap) 100 mg PO BID [facility] Stop: 01/12/21 20:59 Last Admin: 01/06/21 10:23 Dose: 100 mg Documented by: Haloperidol (Haloperidol 5 Mg Tab) 7.5 mg PO QAM [facility] Stop: 01/30/21 08:59 Last Admin: 01/06/21 10:24 Dose: 7.5 mg Documented by: Haloperidol (Haloperidol 5 Mg Tab) 10 mg PO HS [facility] Stop: 01/29/21 21:59 Last Admin: 01/05/21 22:02 Dose: 10 mg Documented by: Hydroxyzine HCl (Hydroxyzine Hcl 25 Mg Tab) 50 mg PO HSZ PRN PRN Reason: Insomnia Stop: 01/12/21 20:02 Last Admin: 12/06/20 01:06 Dose: 50 mg Documented by: Hydroxyzine HCl (Hydroxyzine Hcl 25 Mg Tab) 25 mg PO Q4H PRN PRN Reason: Anxiety Stop: 01/12/21 20:02 Last Admin: 12/04/20 04:03 Dose: 25 mg Documented by: [facility]otrigine ([facility]ot[facility]ine 100 Mg Tab) [facility] [place]: 01/26/21 08:59 Last Admin: 01/06/21 10:24 Dose: 100 mg Documented by: Levothyroxine Sodium (Levothyroxine Sodium 25 Mcg Tablet) 25 mcg PO DAILYBB [facility] Stop: 01/12/21 07:59 Last Admin: 01/06/21 08:29 Dose: 25 mcg Documented by: [place] Carbonate ([place] Carbonate 300 Mg Tab) 300 mg PO QAM [facility] Stop: 01/26/21 08:59 Last Admin: 01/06/21 10:24 Dose: 300 mg Documented by: [place] Carbonate ([place] Carbonate 300 Mg Tab) 450 mg PO HS [facility] Stop: 01/25/21 21:59 Last Admin: 01/05/21 22:01 Dose: 450 mg Documented by: Magnesium Hydroxide (Magnesium Hydroxide Susp 30 Ml Udc) 30 ml PO DAILY PRN PRN Reason: Constipation Stop: 01/12/21 20:02 Olanzapine (Olanzapine Zydis 5 Mg Orally Dis. Tab) 5 mg PO Q6 PRN PRN Reason: Anxiety/Agitation Stop: 01/12/21 10:10 Last Admin: 12/12/20 11:32 Dose: 5 mg Documented by: Olanzapine (Olanzapine 20 Mg Tablet) 20 mg PO HS [facility] Stop: 01/12/21 21:59 Last Admin: 01/05/21 22:06 Dose: 20 mg Documented by: Sertraline HCl (Sertraline Hcl 50 Mg Tablet) 50 mg PO QAM [facility] Stop: 01/23/21 08:59 Last Admin: 01/06/21 10:25 Dose: 50 mg Documented by: Sodium Chloride (Sodium Chloride 0.65% Na Soln 45 Ml ([place])) 1 - 2 sprays NA PRN PRN PRN Reason: Nasal Dryness/Congestion Stop: 01/12/21 20:02 Vitamin D (Cholecalciferol 1,000 Units 25 Mcg Tab) 2,000 units PO QAM [facility] Stop: 01/12/21 08:59 Last Admin: 01/06/21 10:23 Dose: 2,000 units Documented by: Mental Health & Subst Abuse Tx Psychiatrist Name of Psychiatrist: Bruno Mcleod Psychiatrist's Date of Appointment with Psychiatrist: 01/15/21 Time of Appointment with Psychiatrist: 11am Psychiatric Appointment Comment: [address], [place] [address] Therapist Name of Therapist: Tex Sherwood Therapist's Date of Therapist Appointment: 01/12/21 Time of Therapist Appointment: 11a.m Therapy Appointment Comment: [address], [place] [address] Bobbin Coil Winder Name of Bobbin Coil Winder: . Post Discharge Appointments Primary Care Physician Name Of Family Doctor: Dr. Shi Primary [facility] Date of Appointment with PCP: 01/19/21 Time of Appointment with PCP: 1pm Provider Appointment Comment: [address] [facility] [place] [address] Neurologist Name of Neurologist: Mac Arroyo Neurologist's Date of Appointment with Neurologist: 01/22/21 Time of Appointment with Neurologist: 8:40 a.m Neurology Appointment Comment: [address] [place] [address], [address], [place] [address] Contact Information Discharge Discharge Address: [place] [address], [place] [address] (1) Psychosis Psychosis type: schizophrenia Schizophrenia type: unspecified Qualified Code(s): F20.9 - Schizophrenia, unspecified
[2021-01-06] MEDS: OLANZapine 20 MG TABLET PO SCH (21:31)
[2021-01-07] MEDS: ATORVASTATIN 10 MG TAB PO SCH (09:30)
[2021-01-07] MEDS: LEVOTHYROXINE SODIUM 25 MCG TABLET PO SCH (09:30)
[2021-01-07] MEDS: haloperidoL 5 MG TAB PO SCH ×2 (09:31→21:23)
[2021-01-07] MEDS: CHOLECALCIFEROL 1,000 UNITS 25 MCG TAB PO SCH (09:31)
[2021-01-07] MEDS: DOCUSATE SODIUM 100 MG CAP PO SCH ×2 (09:31→21:22)
[2021-01-07] MEDS: BENZTROPINE MESYLATE 1 MG TAB PO SCH ×2 (09:31→21:22)
[2021-01-07] MEDS: SERTRALINE HCL 50 MG TABLET PO SCH (09:32)
[2021-01-07] MEDS: lamoTRIgine 100 MG TAB PO SCH (09:32)
[2021-01-07] MEDS: LITHIUM CARBONATE 300 MG TAB PO SCH ×2 (09:32→21:24)
--- NOTE | 2021-01-07 16:28 | Psychiatric Progress Note ---
Date of Service January 07, 2021 Impression / Recommendations Impression The patient is a 30 year old with a history of schizoaffective disorder who was admitted for psychosis. They are slowly improving with support and medication adjustments. They continue to require inpatient level of care due to due to acute disorganized/bizarre behavior that interferes with ADLs and due to their psychiatric condition causing major disability in social, interpersonal, occupational and/or educational functioning that requires help for safety and stabilization. -MNPR due to psychiatric symptoms including disorganization and difficulty tolerating peer interactions. Remains isolative to her room today which may be due to internal preoccupation but could also be due to more social engagement occurring in common spaces of the unit which can be challenging for her to navigate. Showing slow progress, peer interactions remain difficult. (1) Psychosis: 12/23/2020Will discontinue Invega and replace with haloperidol 2.5 mg 3 times daily. We will continue Lamictal, lithium, Zyprexa for now. Will consider Haldol Decanoate if helpful for patient. 12/24/1020 will continue current regimen for now, patient seems to be making improvements. 12/25/2020we will increase the haloperidol from 2.5 mg 3 times daily to 5 mg twice daily. We will also draw labs tomorrow for lithium level, CBC, CMP, LFTs 12/26/2020we will increase patient's nightly lithium to 450 mg. Will likely increase Haldol in the coming days as it seems to be helpful 12/27/2020atient's Lamictal was increased to 100 mg p.o. every morning. We will continue with Zyprexa, Haldol, lithium, Zoloft 12/28/2020we will increase Haldol to 7.5 mg twice daily 12/29/2020we will continue on the current regimen for now. Patient seems to be making good progress on the Haldol medication. We will consider long-acting injectable if she continues to do well on the current regimen. 12/30/2020atient still displaying some psychosis. Patient is taking a good amount of medication, and therefore we will continue to up titrate the dose of Haldol but in a slow fashion as to avoid any side effects. Plan to increase her nighttime dose of haloperidol to 10 mg and leave her morning dose of haloperidol at 7.5 mg for now. 12/31/2020ontinue current regimen. Patient making slow progress. 01/01/2021--continue current regimen for now. Patient making incremental progress we will discuss the idea of long-acting injectable Haldol with the patient and proceed with Depo shot if desired. 01/02/2021we will continue current regimen for now. 01/03/2021--tapering ativan from 1 mg TID to 1 mg qHS given improvement in sleep and agitation. She declines haldol long-acting injectable and prefers to keep her medications as they are. Will get repeat lithium level on Tuesday morning for steady state level. 01/04/2021--Repeat lithium level trough tomorrow morning from last dose increase for steady-state level. Goal of tapering ativan to discontinuation in next few days if she continues to tolerate this reduction well. 01/05/2021--Li level 0.9 and wnl. Taper ativan to discontinuation with last dose tonight which she consents to. 01/06/2021--Continue current regimen. More socially isolative today and appears more dysthymic and withdrawn. 01/07/2021--Continue current regimen. Could consider increasing sertraline if isolation and depressive symptoms persist as this seemed to be driven somewhat by strict patterns and need for repetition consistent with likely OCD challenges but also want to avoid polypharmacy and side effects given already extensive medication regimen. Risk Factors Assessment Male: No : Yes Do You Have Access To A Gun?: No Mental Health Diagnoses: Yes Substance Use Disorders: No Previous Psychiatric Hospitalization: Yes Protective Factors Assessment : No Responsible for Young Children: No Employed: No (Unknown) Supportive Family: Yes Interval History Identifying Information 30 yo woman with a history of schizoaffective disorder Chief Complaint "I just needed to sit in here". Review of Systems Sleep Information Total Hours of Sleep: 4.25 Sleep Comments: pt given vistaril per rn. pt on q-15 minute checks Meal Information Percent Meal Consumed - Breakfast: 0 Percent Meal Consumed - Lunch: 50 Percent Meal Consumed - Dinner: 100 Nutrition Comment: pt drank several containers of juice Subjective Subjective Chart and events of last 24 hours reviewed and discussed with multidisciplinary treatment team including nursing and social work. No acute events reported overnight. Slept less last night which she attributes to peers talking outside her room (?AH). Eating well. Attending most groups. Adherent with medications. Sitting in her room in the dark with blinds all closed today. Reports it was difficult to engage yesterday after another peer sat at the table she usually eats at. She continues to struggle with anxiety and low mood intermittently. Feels glad she was able to have a bowel movement today. Spent more than 20 minutes in the care and coordination of this patient of which greater than 50% was dedicated to counseling and coordination of care. Physical Exam Psychiatric Orientation: alert, oriented x 3 and + guarded Apperance: appropriately dressed and appropriately groomed Eye Contact: + fair eye contact Motor Behavior: steady gait and station and no abnormal motor movements Speech: normal rate/rhythm/volume of speech Affect: + constricted affect Mood: + depressed mood and + anxious mood Thought Process: + thought blocking, + circumstantial thought process, + looseness of associations and + concrete thought process Thought Content: + preoccupation, + delusions and + ideas of reference Suicidal Thoughts: denies suicidal thoughts Homicidal Thoughts: denies homicidal thoughts Hallucinations: no auditory hallucinations and no visual hallucinations Cognition: recent memory grossly intact, remote memory grossly intact, attention grossly intact and language grossly intact Estimated Intelligence: consistent with education level and + below average estimated intelligence Insight: + limited insight Judgement: + fair judgement Vital Signs (Past 24 Hours) Last Vital Signs Temp 36.7 C 01/07/21 06:00 Pulse 120 H 01/07/21 06:40 Resp 14 01/07/21 06:00 BP 137/93 01/07/21 06:40 Pulse Ox 100 12/05/20 06:00 Results & Data ([facility]) Current Inpatient Medications Current Inpatient Medications: Current Inpatient Medications Acetaminophen (Acetaminophen 325 Mg Tab) 650 mg PO Q4H PRN PRN Reason: Headache or Minor Fever Stop: 01/12/21 20:02 Al Hydrox/Mg Hydrox/Simethicone (Aluminum/Magnesium Susp 30 Ml Udc) 30 ml PO Q4H PRN PRN Reason: GI Upset Stop: 01/12/21 20:02 Atorvastatin Calcium (Atorvastatin 10 Mg Tab) 10 mg PO QAM [facility] Stop: 01/12/21 08:59 Last Admin: 01/07/21 09:30 Dose: 10 mg Documented by: Benztropine Mesylate (Benztropine Mesylate 1 Mg Tab) 1 mg PO BID [facility] Stop: 01/12/21 20:59 Last Admin: 01/07/21 09:31 Dose: 1 mg Documented by: Bismuth Subsalicylate (Bismuth Subsalicylate Liqd 236 Ml) 15 ml PO PRN PRN PRN Reason: Loose Stool Stop: 01/12/21 20:02 Docusate Sodium (Docusate Sodium 100 Mg Cap) 100 mg PO BID [facility] Stop: 01/12/21 20:59 Last Admin: 01/07/21 09:31 Dose: 100 mg Documented by: Haloperidol (Haloperidol 5 Mg Tab) 7.5 mg PO QAM [facility] Stop: 01/30/21 08:59 Last Admin: 01/07/21 09:31 Dose: 7.5 mg Documented by: Haloperidol (Haloperidol 5 Mg Tab) 10 mg PO HS [facility] Stop: 01/29/21 21:59 Last Admin: 01/06/21 21:26 Dose: 10 mg Documented by: Hydroxyzine HCl (Hydroxyzine Hcl 25 Mg Tab) 50 mg PO HSZ PRN PRN Reason: Insomnia Stop: 01/12/21 20:02 Last Admin: 12/06/20 01:06 Dose: 50 mg Documented by: Hydroxyzine HCl (Hydroxyzine Hcl 25 Mg Tab) 25 mg PO Q4H PRN PRN Reason: Anxiety Stop: 01/12/21 20:02 Last Admin: 12/04/20 04:03 Dose: 25 mg Documented by: Lamotrigine (Lamotrigine 100 Mg Tab) 100 mg PO QAM [facility] Stop: 01/26/21 08:59 Last Admin: 01/07/21 09:32 Dose: 100 mg Documented by: Levothyroxine Sodium (Levothyroxine Sodium 25 Mcg Tablet) 25 mcg PO DAILYBB [facility] Stop: 01/12/21 07:59 Last Admin: 01/07/21 09:30 Dose: 25 mcg Documented by: [place] Carbonate ([place] Carbonate 300 Mg Tab) 300 mg PO QAM [facility] Stop: 01/26/21 08:59 Last Admin: 01/07/21 09:32 Dose: 300 mg Documented by: [place] Carbonate ([place] Carbonate 300 Mg Tab) 450 mg PO HS [facility] Stop: 01/25/21 21:59 Last Admin: 01/06/21 21:27 Dose: 450 mg Documented by: Magnesium Hydroxide (Magnesium Hydroxide Susp 30 Ml Udc) 30 ml PO DAILY PRN PRN Reason: Constipation Stop: 01/12/21 20:02 Olanzapine (Olanzapine Zydis 5 Mg Orally Dis. Tab) 5 mg PO Q6 PRN PRN Reason: Anxiety/Agitation Stop: 01/12/21 10:10 Last Admin: 12/12/20 11:32 Dose: 5 mg Documented by: Olanzapine (Olanzapine 20 Mg Tablet) 20 mg PO HS [facility] Stop: 01/12/21 21:59 Last Admin: 01/06/21 21:31 Dose: 20 mg Documented by: Sertraline HCl (Sertraline Hcl 50 Mg Tablet) 50 mg PO QAM [facility] Stop: 01/23/21 08:59 Last Admin: 01/07/21 09:32 Dose: 50 mg Documented by: Sodium Chloride (Sodium Chloride 0.65% Na Soln 45 Ml ([place])) 1 - 2 sprays NA PRN PRN PRN Reason: Nasal Dryness/Congestion Stop: 01/12/21 20:02 Vitamin D (Cholecalciferol 1,000 Units 25 Mcg Tab) 2,000 units PO QAM [facility] Stop: 01/12/21 08:59 Last Admin: 01/07/21 09:31 Dose: 2,000 units Documented by: Mental Health & Subst Abuse Tx Psychiatrist Name of Psychiatrist: Bruno Mcleod Psychiatrist's Date of Appointment with Psychiatrist: 01/15/21 Time of Appointment with Psychiatrist: 11am Psychiatric Appointment Comment: [address], [place] [address] Therapist Name of Therapist: Tex Sherwood Therapist's Date of Therapist Appointment: 01/12/21 Time of Therapist Appointment: 11a.m Therapy Appointment Comment: [address] [facility] [place] [address] [address] [address] Business Resiliency Manager Name of Business Resiliency Manager: . Post Discharge Appointments Primary Care Physician Name Of Family Doctor: Dr. Shi Primary [facility] Date of Appointment with PCP: 01/19/21 Time of Appointment with PCP: 1pm Provider Appointment Comment: [address] [facility], [place] [address] Neurologist Name of Neurologist: Mac Arroyo Neurologist's Date of Appointment with Neurologist: 01/22/21 Time of Appointment with Neurologist: 8:40 a.m Neurology Appointment Comment: [address] [place] [address], [address], [place] [address] Contact Information Discharge Discharge Address: [place] [address], [place] [address] (1) Psychosis Psychosis type: schizophrenia Schizophrenia type: unspecified Qualified Code(s): F20.9 - Schizophrenia, unspecified
[2021-01-07] MEDS: OLANZapine ZYDIS 5 MG ORALLY DIS. TAB PO PRN (18:58)
[2021-01-07] MEDS: OLANZapine 20 MG TABLET PO SCH (21:23)
[2021-01-08] MEDS: LEVOTHYROXINE SODIUM 25 MCG TABLET PO SCH (08:01)
[2021-01-08] MEDS: ATORVASTATIN 10 MG TAB PO SCH (08:41)
[2021-01-08] MEDS: DOCUSATE SODIUM 100 MG CAP PO SCH ×2 (08:42→21:03)
[2021-01-08] MEDS: BENZTROPINE MESYLATE 1 MG TAB PO SCH ×2 (08:42→21:02)
[2021-01-08] MEDS: CHOLECALCIFEROL 1,000 UNITS 25 MCG TAB PO SCH (08:42)
[2021-01-08] MEDS: lamoTRIgine 100 MG TAB PO SCH (08:43)
[2021-01-08] MEDS: haloperidoL 5 MG TAB PO SCH ×2 (08:43→21:03)
[2021-01-08] MEDS: SERTRALINE HCL 50 MG TABLET PO SCH (08:44)
[2021-01-08] MEDS: LITHIUM CARBONATE 300 MG TAB PO SCH ×2 (08:44→21:03)
[2021-01-08] MEDS ORDERED: LORazepam 1 MG TAB PO STA (12:08)
--- NOTE | 2021-01-08 13:55 | Psychiatric Progress Note ---
Date of Service January 08, 2021 Impression / Recommendations Impression The patient is a 30 year old with a history of schizoaffective disorder who was admitted for psychosis. They are slowly improving with support and medication adjustments. They continue to require inpatient level of care due to due to acute disorganized/bizarre behavior that interferes with ADLs and due to their psychiatric condition causing major disability in social, interpersonal, occupational and/or educational functioning that requires help for safety and stabilization. -MNPR due to psychiatric symptoms including disorganization and difficulty tolerating peer interactions. Again had a very difficult day yesterday and into today. Discussed restarting the ativan as maybe it was offering more benefit than we realized for reducing some of her anxiety about family stressors, helping her engage socially and reducing some of her internal preoccupations. Discussed risks, benefits and alternatives and she consented to re-starting this and having a one time dose to help her engage today. She responded well to the one time dose quickly joining the rest of the unit and having a social conversation with smiles with a peer. Therefore will go back to once daily ativan and can increase again if needed. (1) Psychosis: 12/23/2020Will discontinue Invega and replace with haloperidol 2.5 mg 3 times daily. We will continue Lamictal, lithium, Zyprexa for now. Will consider Haldol Decanoate if helpful for patient. 12/24/1020we will continue current regimen for now, patient seems to be making improvements. 12/25/2020we will increase the haloperidol from 2.5 mg 3 times daily to 5 mg twice daily. We will also draw labs tomorrow for lithium level, CBC, CMP, LFTs 12/26/2020we will increase patient's nightly lithium to 450 mg. Will likely increase Haldol in the coming days as it seems to be helpful 12/27/2020atient's Lamictal was increased to 100 mg p.o. every morning. We will continue with Zyprexa, Haldol, lithium, Zoloft 12/28/2020we will increase Haldol to 7.5 mg twice daily 12/29/2020we will continue on the current regimen for now. Patient seems to be making good progress on the Haldol medication. We will consider long-acting injectable if she continues to do well on the current regimen. 12/30/2020atient still displaying some psychosis. Patient is taking a good amount of medication, and therefore we will continue to up titrate the dose of Haldol but in a slow fashion as to avoid any side effects. Plan to increase her nighttime dose of haloperidol to 10 mg and leave her morning dose of haloperidol at 7.5 mg for now. 12/31/2020ontinue current regimen. Patient making slow progress. 01/01/2021--continue current regimen for now. Patient making incremental progress we will discuss the idea of long-acting injectable Haldol with the patient and proceed with Depo shot if desired. 01/02/2021we will continue current regimen for now. 01/03/2021--tapering ativan from 1 mg TID to 1 mg qHS given improvement in sleep and agitation. She declines haldol long-acting injectable and prefers to keep her medications as they are. Will get repeat lithium level on Tuesday morning for steady state level. 01/04/2021--Repeat lithium level trough tomorrow morning from last dose increase for steady-state level. Goal of tapering ativan to discontinuation in next few days if she continues to tolerate this reduction well. 01/05/2021--Li level 0.9 and wnl. Taper ativan to discontinuation with last dose tonight which she consents to. 01/06/2021--Continue current regimen. More socially isolative today and appears more dysthymic and withdrawn. 01/07/2021--Continue current regimen. Could consider increasing sertraline if isolation and depressive symptoms persist as this seemed to be driven somewhat by strict patterns and need for repetition consistent with likely OCD challenges but also want to avoid polypharmacy and side effects given already extensive medication regimen. 01/08/2021--Restarting ativan 1 mg qhs given worsening anxiety, preoccupations and tearfulness after taper. Kelsey consented to this. Risk Factors Assessment Male: No : Yes Do You Have Access To A Gun?: No Mental Health Diagnoses: Yes Substance Use Disorders: No Previous Psychiatric Hospitalization: Yes Protective Factors Assessment : No Responsible for Young Children: No Employed: No (Unknown) Supportive Family: Yes Interval History Identifying Information 30 yo woman with a history of schizoaffective disorder Chief Complaint "I'm sorry". Review of Systems Sleep Information Total Hours of Sleep: 6.0 Sleep Comments: pt given vistaril per rn. pt on q-15 minute checks Meal Information Percent Meal Consumed - Breakfast: 100 Percent Meal Consumed - Lunch: 100 Percent Meal Consumed - Dinner: 25 Nutrition Comment: pt drank several containers of juice Subjective Subjective Chart and events of last 24 hours reviewed and discussed with multidisciplinary treatment team including nursing and social work. Was suspicious last night and got prn dose of zyprexa. Slept well. No groups last night and very isolative through yesterday and into today. Adherent with medications. Kelsey was crying and isolative to her room through mid-day. She was unable to identify the cause but noted that she tried to attend a group and had to leave due to worries about "family things". She had difficulty expanding on her thoughts. Was unable to do family meeting due to feeling overwhelmed and tearful. Spent more than 20 minutes in the care and coordination of this patient of which greater than 50% was dedicated to counseling and coordination of care. Physical Exam Psychiatric Orientation: alert, oriented x 3 and + guarded Apperance: appropriately dressed and appropriately groomed Eye Contact: + poor eye contact Motor Behavior: steady gait and station and no abnormal motor movements Speech: normal rate/rhythm/volume of speech Affect: + depressed affect and + constricted affect Mood: + depressed mood Thought Process: + thought blocking, + looseness of associations and + concrete thought process Thought Content: + preoccupation Suicidal Thoughts: denies suicidal thoughts Homicidal Thoughts: denies homicidal thoughts Hallucinations: no auditory hallucinations and no visual hallucinations Cognition: recent memory grossly intact, remote memory grossly intact, attention grossly intact and language grossly intact Estimated Intelligence: consistent with education level and + below average estimated intelligence Insight: + impaired insight Judgement: + impaired judgement Vital Signs (Past 24 Hours) Last Vital Signs Temp 36.8 C 01/08/21 06:00 Pulse 98 H 01/08/21 06:36 Resp 16 01/08/21 06:00 BP 139/90 01/08/21 06:36 Pulse Ox 100 12/05/20 06:00 Results & Data ([facility]) Current Inpatient Medications Current Inpatient Medications: Current Inpatient Medications Acetaminophen (Acetaminophen 325 Mg Tab) 650 mg PO Q4H PRN PRN Reason: Headache or Minor Fever Stop: 01/12/21 20:02 Al Hydrox/Mg Hydrox/Simethicone (Aluminum/Magnesium Susp 30 Ml Udc) 30 ml PO Q4H PRN PRN Reason: GI Upset Stop: 01/12/21 20:02 Atorvastatin Calcium (Atorvastatin 10 Mg Tab) 10 mg PO QAM [facility] Stop: 01/12/21 08:59 Last Admin: 01/08/21 08:41 Dose: 10 mg Documented by: Benztropine Mesylate (Benztropine Mesylate 1 Mg Tab) 1 mg PO BID [facility] Stop: 01/12/21 20:59 Last Admin: 01/08/21 08:42 Dose: 1 mg Documented by: Bismuth Subsalicylate (Bismuth Subsalicylate Liqd 236 Ml) 15 ml PO PRN PRN PRN Reason: Loose Stool Stop: 01/12/21 20:02 Docusate Sodium (Docusate Sodium 100 Mg Cap) 100 mg PO BID [facility] Stop: 01/12/21 20:59 Last Admin: 01/08/21 08:42 Dose: 100 mg Documented by: Haloperidol (Haloperidol 5 Mg Tab) 7.5 mg PO QAM [facility] Stop: 01/30/21 08:59 Last Admin: 01/08/21 08:43 Dose: 7.5 mg Documented by: Haloperidol (Haloperidol 5 Mg Tab) 10 mg PO HS [facility] Stop: 01/29/21 21:59 Last Admin: 01/07/21 21:23 Dose: 10 mg Documented by: Hydroxyzine HCl (Hydroxyzine Hcl 25 Mg Tab) 50 mg PO HSZ PRN PRN Reason: Insomnia Stop: 01/12/21 20:02 Last Admin: 12/06/20 01:06 Dose: 50 mg Documented by: Hydroxyzine HCl (Hydroxyzine Hcl 25 Mg Tab) 25 mg PO Q4H PRN PRN Reason: Anxiety Stop: 01/12/21 20:02 Last Admin: 12/04/20 04:03 Dose: 25 mg Documented by: Lamotrigine (Lamotrigine 100 Mg Tab) 100 mg PO QAM [facility] Stop: 01/26/21 08:59 Last Admin: 01/08/21 08:43 Dose: 100 mg Documented by: Levothyroxine Sodium (Levothyroxine Sodium 25 Mcg Tablet) [facility] Stop: 01/12/21 07:59 Last Admin: 01/08/21 08:01 Dose: 25 mcg Documented by: [place] Carbonate ([place] Carbonate 300 Mg Tab) 300 mg PO QAM [facility] Stop: 01/26/21 08:59 Last Admin: 01/08/21 08:44 Dose: 300 mg Documented by: [place] Carbonate ([place] Carbonate 300 Mg Tab) 450 mg PO HS [facility] Stop: 01/25/21 21:59 Last Admin: 01/07/21 21:24 Dose: 450 mg Documented by: Lorazepam (Lorazepam 1 Mg Tab) 1 mg PO HS [facility] Stop: 02/07/21 21:59 Magnesium Hydroxide (Magnesium Hydroxide Susp 30 Ml Udc) 30 ml PO DAILY PRN PRN Reason: Constipation Stop: 01/12/21 20:02 Olanzapine (Olanzapine Zydis 5 Mg Orally Dis. Tab) 5 mg PO Q6 PRN PRN Reason: Anxiety/Agitation Stop: 01/12/21 10:10 Last Admin: 01/07/21 18:58 Dose: 5 mg Documented by: Olanzapine (Olanzapine 20 Mg Tablet) 20 mg PO [facility] Stop: 01/12/21 21:59 Last Admin: 01/07/21 21:23 Dose: 20 mg Documented by: Sertraline HCl (Sertraline Hcl 50 Mg Tablet) 50 mg PO QAM [facility] Stop: 01/23/21 08:59 Last Admin: 01/08/21 08:44 Dose: 50 mg Documented by: Sodium Chloride (Sodium Chloride 0.65% Na Soln 45 Ml ([place])) 1 - 2 sprays NA PRN PRN PRN Reason: Nasal Dryness/Congestion Stop: 01/12/21 20:02 Vitamin D (Cholecalciferol 1,000 Units 25 Mcg Tab) 2,000 units PO QAM [facility] Stop: 01/12/21 08:59 Last Admin: 01/08/21 08:42 Dose: 2,000 units Documented by: Mental Health & Subst Abuse Tx Psychiatrist Name of Psychiatrist: Brnuo Mcleod Psychiatrist's Date of Appointment with Psychiatrist: 01/15/21 Time of Appointment with Psychiatrist: 11am Psychiatric Appointment Comment: [address], [place] [address] Therapist Name of Therapist: Tex Sherwood Therapist's Date of Therapist Appointment: 01/12/21 Time of Therapist Appointment: 11a.m Therapy Appointment Comment: [address] [facility], [place] [address] Labor Relations Representative Name of Labor Relations Representative: . Post Discharge Appointments Primary Care Physician Name Of Family Doctor: Dr. Shi Primary [facility] Date of Appointment with PCP: 01/19/21 Time of Appointment with PCP: 1pm Provider Appointment Comment: [address] [facility], [place] [address] Neurologist Name of Neurologist: Mac Strange - Dr. Arroyo Neurologist's Date of Appointment with Neurologist: 01/22/21 Time of Appointment with Neurologist: 8:40 a.m Neurology Appointment Comment: [address] [place] [address], [address], [place] [address] Contact Information Discharge Discharge Address: [place] [address], [place] [address] (1) Psychosis Psychosis type: schizophrenia Schizophrenia type: unspecified Qualified Code(s): F20.9 - Schizophrenia, unspecified
[2021-01-08] MEDS: LORazepam 1 MG TAB PO SCH (21:03)
[2021-01-08] MEDS: OLANZapine 20 MG TABLET PO SCH (21:03)
[2021-01-09] MEDS: ATORVASTATIN 10 MG TAB PO SCH (08:59)
[2021-01-09] MEDS: LEVOTHYROXINE SODIUM 25 MCG TABLET PO SCH (08:59)
[2021-01-09] MEDS: BENZTROPINE MESYLATE 1 MG TAB PO SCH ×2 (09:00→20:25)
[2021-01-09] MEDS: DOCUSATE SODIUM 100 MG CAP PO SCH ×2 (09:00→20:25)
[2021-01-09] MEDS: haloperidoL 5 MG TAB PO SCH ×2 (09:00→20:25)
[2021-01-09] MEDS: CHOLECALCIFEROL 1,000 UNITS 25 MCG TAB PO SCH (09:00)
[2021-01-09] MEDS: SERTRALINE HCL 50 MG TABLET PO SCH (09:01)
[2021-01-09] MEDS: LITHIUM CARBONATE 300 MG TAB PO SCH ×2 (09:01→20:24)
[2021-01-09] MEDS: lamoTRIgine 100 MG TAB PO SCH (09:01)
--- NOTE | 2021-01-09 12:13 | Psychiatric Progress Note ---
Date of Service January 09, 2021 Impression / Recommendations Impression The patient is a 30 year old with a history of schizoaffective disorder who was admitted for psychosis. They are slowly improving with support and medication adjustments. They continue to require inpatient level of care due to due to acute disorganized/bizarre behavior that interferes with ADLs and due to their psychiatric condition causing major disability in social, interpersonal, occupational and/or educational functioning that requires help for safety and stabilization. -MNPR due to psychiatric symptoms including disorganization and difficulty tolerating peer interactions. Since restarting ativan she's showing increased engagement, less internal preoccupation and less emotional lability. Seems to be offering benefit for reducing some of the residual psychotic symptoms and anxious distress that can emerge for her throughout the day. Certainly possibility that some of these symptoms were due to scheduled family meeting on , which was canceled due to her emotional state. Will be important to monitor symptoms leading up to next family meeting once rescheduled as medication taper occurred in the same time frame so it's unclear what the major precipitating factor was. (1) Psychosis: 12/23/2020Will discontinue Invega and replace with haloperidol 2.5 mg 3 times daily. We will continue Lamictal, lithium, Zyprexa for now. Will conside r Haldol Decanoate if helpful for patient. 12/24/1020 will continue current regimen for now, patient seems to be making improvements. 12/25/2020we will increase the haloperidol from 2.5 mg 3 times daily to 5 mg twice daily. We will also draw labs tomorrow for lithium level, CBC, CMP, LFTs 12/26/2020we will increase patient's nightly lithium to 450 mg. Will likely increase Haldol in the coming days as it seems to be helpful 12/27/2020atient's Lamictal was increased to 100 mg p.o. every morning. We will continue with Zyprexa, Haldol, lithium, Zoloft 12/28/2020we will increase Haldol to 7.5 mg twice daily 12/29/2020we will continue on the current regimen for now. Patient seems to be making good progress on the Haldol medication. We will consider long-acting injectable if she continues to do well on the current regimen. 12/30/2020atient still displaying some psychosis. Patient is taking a good amount of medication, and therefore we will continue to up titrate the dose of Haldol but in a slow fashion as to avoid any side effects. Plan to increase her nighttime dose of haloperidol to 10 mg and leave her morning dose of haloperidol at 7.5 mg for now. 12/31/2020ontinue current regimen. Patient making slow progress. 01/01/2021--continue current regimen for now. Patient making incremental progress we will discuss the idea of long-acting injectable Haldol with the patient and proceed with Depo shot if desired. 01/02/2021we will continue current regimen for now. 01/03/2021--tapering ativan from 1 mg TID to 1 mg qHS given improvement in sleep and agitation. She declines haldol long-acting injectable and prefers to keep her medications as they are. Will get repeat lithium level on Tuesday morning for steady state level. 01/04/2021--Repeat lithium level trough tomorrow morning from last dose increase for steady-state level. Goal of tapering ativan to discontinuation in next few days if she continues to tolerate this reduction well. 01/05/2021--Li level 0.9 and wnl. Taper ativan to discontinuation with last dose tonight which she consents to. 01/06/2021--Continue current regimen. More socially isolative today and appears more dysthymic and withdrawn. 01/07/2021--Continue current regimen. Could consider increasing sertraline if isolation and depressive symptoms persist as this seemed to be driven somewhat by strict patterns and need for repetition consistent with likely OCD challenges but also want to avoid polypharmacy and side effects given already extensive medication regimen. 01/08/2021--Restarting ativan 1 mg qhs given worsening anxiety, preoccupations and tearfulness after taper. Kelsey consented to this. 01/09/2021--Showing clinical improvement with scheduled ativan 1 mg qhs with decreased emotionally lability, residual psychotic symptoms and internal preoccupations. Continue with current regimen and reschedule family meeting which is a significant stressor for her. Risk Factors Assessment Male: No : Yes Do You Have Access To A Gun?: No Mental Health Diagnoses: Yes Substance Use Disorders: No Previous Psychiatric Hospitalization: Yes Protective Factors Assessment : No Responsible for Young Children: No Employed: No (Unknown) Supportive Family: Yes Interval History Identifying Information 30 yo woman with a history of schizoaffective disorder Chief Complaint "I'm good". Review of Systems Sleep Information Total Hours of Sleep: 6.5 Sleep Comments: pt given vistaril per rn. pt on q-15 minute checks Meal Information Percent Meal Consumed - Breakfast: 100 Percent Meal Consumed - Lunch: 100 Percent Meal Consumed - Dinner: 100 Nutrition Comment: pt drank several containers of juice Subjective Subjective Chart and events of last 24 hours reviewed and discussed with multidisciplinary treatment team including nursing and social work. No acute events reported overnight. Slept well. Eating well. Less isolative last night and more engaged in groups and being in common spaces on the unit. Adherent with medications. Kelsey reports stable mood this morning with improvement since yesterday. She denies any medication side effects. Continues to worry about family meeting and interactions with her family. Spent more than 20 minutes in the care and coordination of this patient of which greater than 50% was dedicated to counseling and coordination of care. Physical Exam Psychiatric Orientation: alert, oriented x 3 and + guarded Apperance: appropriately dressed and appropriately groomed Eye Contact: + fair eye contact Motor Behavior: steady gait and station and no abnormal motor movements Speech: normal rate/rhythm/volume of speech Affect: + constricted affect Mood: + depressed mood and + anxious mood Thought Process: + thought blocking, + looseness of associations and + concrete thought process Thought Content: + preoccupation, + paranoid, + delusions and + ideas of reference Suicidal Thoughts: denies suicidal thoughts Homicidal Thoughts: denies homicidal thoughts Hallucinations: no auditory hallucinations and no visual hallucinations Cognition: recent memory grossly intact, remote memory grossly intact, attention grossly intact and language grossly intact Estimated Intelligence: consistent with education level Insight: + limited insight Judgement: + impaired judgement Vital Signs (Past 24 Hours) Last Vital Signs Temp 36.8 C 01/09/21 06:34 Pulse 106 H 01/09/21 06:35 Resp 16 01/09/21 06:34 BP 103/71 01/09/21 06:35 Pulse Ox 100 12/05/20 06:00 Results & Data ([facility]) Current Inpatient Medications Current Inpatient Medications: Current Inpatient Medications Acetaminophen (Acetaminophen 325 Mg Tab) 650 mg PO Q4H PRN PRN Reason: Headache or Minor Fever Stop: 01/12/21 20:02 Al Hydrox/Mg Hydrox/Simethicone (Aluminum/Magnesium Susp 30 Ml Udc) 30 ml PO Q4H PRN PRN Reason: GI Upset Stop: 01/12/21 20:02 Atorvastatin Calcium (Atorvastatin 10 Mg Tab) 10 mg PO QAM [facility] Stop: 01/12/21 08:59 Last Admin: 01/09/21 08:59 Dose: 10 mg Documented by: Benztropine Mesylate (Benztropine Mesylate 1 Mg Tab) 1 mg PO BID [facility] Stop: 01/12/21 20:59 Last Admin: 01/09/21 09:00 Dose: 1 mg Documented by: Bismuth Subsalicylate (Bismuth Subsalicylate Liqd 236 Ml) 15 ml PO PRN PRN PRN Reason: Loose Stool Stop: 01/12/21 20:02 Docusate Sodium (Docusate Sodium 100 Mg Cap) 100 mg PO BID [facility] Stop: 01/12/21 20:59 Last Admin: 01/09/21 09:00 Dose: 100 mg Documented by: Haloperidol (Haloperidol 5 Mg Tab) 7.5 mg PO QAM [facility] Stop: 01/30/21 08:59 Last Admin: 01/09/21 09:00 Dose: 7.5 mg Documented by: Haloperidol (Haloperidol 5 Mg Tab) 10 mg PO HS [facility] Stop: 01/29/21 21:59 Last Admin: 01/08/21 21:03 Dose: 10 mg Documented by: Hydroxyzine HCl (Hydroxyzine Hcl 25 Mg Tab) 50 mg PO HSZ PRN PRN Reason: Insomnia Stop: 01/12/21 20:02 Last Admin: 12/06/20 01:06 Dose: 50 mg Documented by: Hydroxyzine HCl (Hydroxyzine Hcl 25 Mg Tab) 25 mg PO Q4H PRN PRN Reason: Anxiety Stop: 01/12/21 20:02 Last Admin: 12/04/20 04:03 Dose: 25 mg Documented by: Lamotrigine (Lamotrigine 100 Mg Tab) 100 mg PO QAM [facility] Stop: 01/26/21 08:59 Last Admin: 01/09/21 09:01 Dose: 100 mg Documented by: Levothyroxine Sodium (Levothyroxine Sodium 25 Mcg Tablet) [facility] Stop: 01/12/21 07:59 Last Admin: 01/09/21 08:59 Dose: 25 mcg Documented by: [place] Carbonate ([place] Carbonate 300 Mg Tab) 300 mg PO QAM [facility] Stop: 01/26/21 08:59 Last Admin: 01/09/21 09:01 Dose: 300 mg Documented by: [place] Carbonate ([place] Carbonate 300 Mg Tab) 450 mg PO HS [facility] Stop: 01/25/21 21:59 Last Admin: 01/08/21 21:03 Dose: 450 mg Documented by: Lorazepam (Lorazepam 1 Mg Tab) 1 mg PO HS [facility] Stop: 02/07/21 21:59 Last Admin: 01/08/21 21:03 Dose: 1 mg Documented by: Magnesium Hydroxide (Magnesium Hydroxide Susp 30 Ml Udc) 30 ml PO DAILY PRN PRN Reason: Constipation Stop: 01/12/21 20:02 Olanzapine (Olanzapine Zydis 5 Mg Orally Dis. Tab) 5 mg PO Q6 PRN PRN Reason: Anxiety/Agitation Stop: 01/12/21 10:10 Last Admin: 01/07/21 18:58 Dose: 5 mg Documented by: Olanzapine (Olanzapine 20 Mg Tablet) 20 mg PO [facility] Stop: 01/12/21 21:59 Last Admin: 01/08/21 21:03 Dose: 20 mg Documented by: Sertraline HCl (Sertraline Hcl 50 Mg Tablet) [facility] Stop: 01/23/21 08:59 Last Admin: 01/09/21 09:01 Dose: 50 mg Documented by: Sodium Chloride (Sodium Chloride 0.65% Na Soln 45 Ml ([place])) 1 - 2 sprays NA PRN PRN PRN Reason: Nasal Dryness/Congestion Stop: 01/12/21 20:02 Vitamin D (Cholecalciferol 1,000 Units 25 Mcg Tab) 2,[facility] Stop: 01/12/21 08:59 Last Admin: 01/09/21 09:00 Dose: 2,000 units Documented by: Mental Health & Subst Abuse Tx Psychiatrist Name of Psychiatrist: Bruno Mcleod Psychiatrist's Date of Appointment with Psychiatrist: 01/15/21 Time of Appointment with Psychiatrist: 11am Psychiatric Appointment Comment: [address] [place] [address] Therapist Name of Therapist: MihaiAshely Limae Kaela Therapist's Date of Therapist Appointment: 01/12/21 Time of Therapist Appointment: 11a.m Therapy Appointment Comment: [address], [place] [address] Crew Chief Name of Crew Chief: . Post Discharge Appointments Primary Care Physician Name Of Family Doctor: Dr. Shi Primary [facility] Date of Appointment with PCP: 01/19/21 Time of Appointment with PCP: 1pm Provider Appointment Comment: [address] [facility] [place] [address] Neurologist Name of Neurologist: Mac Strange - Dr. Arroyo Neurologist's Date of Appointment with Neurologist: 01/22/21 Time of Appointment with Neurologist: 8:40 a.m Neurology Appointment Comment: [address] [place] [address], [address], [place] [address] Contact Information Discharge Discharge Address: [place] [address], [place] [address] (1) Psychosis Psychosis type: schizophrenia Schizophrenia type: unspecified Qualified Code(s): F20.9 - Schizophrenia, unspecified
[2021-01-09] MEDS: OLANZapine 20 MG TABLET PO SCH (20:24)
[2021-01-09] MEDS: LORazepam 1 MG TAB PO SCH (20:25)
[2021-01-10] MEDS: LEVOTHYROXINE SODIUM 25 MCG TABLET PO SCH (08:47)
[2021-01-10] MEDS: DOCUSATE SODIUM 100 MG CAP PO SCH ×2 (09:16→21:00)
[2021-01-10] MEDS: ATORVASTATIN 10 MG TAB PO SCH (09:16)
[2021-01-10] MEDS: lamoTRIgine 100 MG TAB PO SCH (09:16)
[2021-01-10] MEDS: CHOLECALCIFEROL 1,000 UNITS 25 MCG TAB PO SCH (09:16)
[2021-01-10] MEDS: haloperidoL 5 MG TAB PO SCH ×2 (09:16→20:38)
[2021-01-10] MEDS: BENZTROPINE MESYLATE 1 MG TAB PO SCH ×2 (09:16→20:37)
[2021-01-10] MEDS: LITHIUM CARBONATE 300 MG TAB PO SCH ×2 (09:16→20:39)
[2021-01-10] MEDS: SERTRALINE HCL 50 MG TABLET PO SCH (09:16)
--- NOTE | 2021-01-10 11:51 | Psychiatric Progress Note ---
Date of Service January 10, 2021 Impression / Recommendations Impression The patient is a 30 year old with a history of schizoaffective disorder who was admitted for psychosis. They are slowly improving with support and medication adjustments. They continue to require inpatient level of care due to due to acute disorganized/bizarre behavior that interferes with ADLs and due to their psychiatric condition causing major disability in social, interpersonal, occupational and/or educational functioning that requires help for safety and stabilization. 01/10/21--improved since last contact Plan: family meeting today, continue current medications. Risk Factors Assessment Male: No : Yes Do You Have Access To A Gun?: No Mental Health Diagnoses: Yes Substance Use Disorders: No Previous Psychiatric Hospitalization: Yes Protective Factors Assessment : No Responsible for Young Children: No Employed: No (Unknown) Supportive Family: Yes Interval History Identifying Information 30 yo woman with a history of schizoaffective disorder, admit on 302, converted to 201 upon expiration of 303. Chief Complaint "I feel great but you know about that clipboard thing". Review of Systems Sleep Information Total Hours of Sleep: 6.5 Sleep Comments: pt given vistaril per rn. pt on q-15 minute checks Meal Information Percent Meal Consumed - Breakfast: 100 Percent Meal Consumed - Lunch: 100 Percent Meal Consumed - Dinner: 100 Nutrition Comment: pt drank several containers of juice Subjective Subjective Patient was seen & assessed and interval progress reviewed with nursing and social work. Patient is more alert and interacting in the ams. She is anticipating a family meeting today (previously cancelled due to anxiety/disorganization). Continues to require MNPR as very sensitive to changes in routine and paranoid re: staff doing checks (with clipboard) but can't state why. Physical Exam Psychiatric Orientation: alert and oriented x 3 Apperance: appropriately dressed and appropriately groomed Eye Contact: good eye contact Motor Behavior: no abnormal motor movements Speech: normal rate/rhythm/volume of speech Affect: euthymic affect Mood: + anxious mood Thought Process: + concrete thought process Thought Content: + paranoid Suicidal Thoughts: denies suicidal thoughts Homicidal Thoughts: denies homicidal thoughts Hallucinations: no auditory hallucinations and no visual hallucinations Cognition: attention grossly intact and language grossly intact Estimated Intelligence: consistent with education level Insight: + limited insight Judgement: + limited judgement Vital Signs (Past 24 Hours) Last Vital Signs Temp 36.7 C 01/10/21 06:28 Pulse 98 H 01/10/21 06:29 Resp 16 01/10/21 06:28 BP 117/87 01/10/21 06:29 Pulse Ox 100 12/05/20 06:00 Results & Data ([facility]) Current Inpatient Medications Current Inpatient Medications: Current Inpatient Medications Acetaminophen (Acetaminophen 325 Mg Tab) 650 mg PO Q4H PRN PRN Reason: Headache or Minor Fever Stop: 01/12/21 20:02 Al Hydrox/Mg Hydrox/Simethicone (Aluminum/Magnesium Susp 30 Ml Udc) 30 ml PO Q4H PRN PRN Reason: GI Upset Stop: 01/12/21 20:02 Atorvastatin Calcium (Atorvastatin 10 Mg Tab) 10 mg PO QAM [facility] Stop: 01/12/21 08:59 Last Admin: 01/10/21 09:16 Dose: 10 mg Documented by: Benztropine Mesylate (Benztropine Mesylate 1 Mg Tab) 1 mg PO BID [facility] Stop: 01/12/21 20:59 Last Admin: 01/10/21 09:16 Dose: 1 mg Documented by: Bismuth Subsalicylate (Bismuth Subsalicylate Liqd 236 Ml) 15 ml PO PRN PRN PRN Reason: Loose Stool Stop: 01/12/21 20:02 Docusate Sodium (Docusate Sodium 100 Mg Cap) 100 mg PO BID [facility] Stop: 01/12/21 20:59 Last Admin: 01/10/21 09:16 Dose: 100 mg Documented by: Haloperidol (Haloperidol 5 Mg Tab) 7.5 mg PO QAM [facility] Stop: 01/30/21 08:59 Last Admin: 01/10/21 09:16 Dose: 7.5 mg Documented by: Haloperidol (Haloperidol 5 Mg Tab) 10 mg PO HS [facility] Stop: 01/29/21 21:59 Last Admin: 01/09/21 20:25 Dose: 10 mg Documented by: Hydroxyzine HCl (Hydroxyzine Hcl 25 Mg Tab) 50 mg PO HSZ PRN PRN Reason: Insomnia Stop: 01/12/21 20:02 Last Admin: 12/06/20 01:06 Dose: 50 mg Documented by: Hydroxyzine HCl (Hydroxyzine Hcl 25 Mg Tab) 25 mg PO Q4H PRN PRN Reason: Anxiety Stop: 01/12/21 20:02 Last Admin: 12/04/20 04:03 Dose: 25 mg Documented by: Lamotrigine (Lamotrigine 100 Mg Tab) 100 mg PO [facility] Stop: 01/26/21 08:59 Last Admin: 01/10/21 09:16 Dose: 100 mg Documented by: Levothyroxine Sodium (Levothyroxine Sodium 25 Mcg Tablet) [facility]cg [facility] Stop: 01/12/21 07:59 Last Admin: 01/10/21 08:47 Dose: 25 mcg Documented by: [place] Carbonate ([place] Carbonate 300 Mg Tab) 300 mg PO [facility] Stop: 01/26/21 08:59 Last Admin: 01/10/21 09:16 Dose: 300 mg Documented by: [place] Carbonate ([place] Carbonate 300 Mg Tab) 450 mg PO [facility] Stop: 01/25/21 21:59 Last Admin: 01/09/21 20:24 Dose: 450 mg Documented by: Lorazepam (Lorazepam 1 Mg Tab) 1 mg PO [facility] Stop: 02/07/21 21:59 Last Admin: 01/09/21 20:25 Dose: 1 mg Documented by: Magnesium Hydroxide (Magnesium Hydroxide Susp 30 Ml Udc) 30 ml PO DAILY PRN PRN Reason: Constipation Stop: 01/12/21 20:02 Olanzapine (Olanzapine Zydis 5 Mg Orally Dis. Tab) 5 mg PO Q6 PRN PRN Reason: Anxiety/Agitation Stop: 01/12/21 10:10 Last Admin: 01/07/21 18:58 Dose: 5 mg Documented by: Olanzapine (Olanzapine 20 Mg Tablet) 20 mg PO [facility] Stop: 01/12/21 21:59 Last Admin: 01/09/21 20:24 Dose: 20 mg Documented by: Sertraline HCl (Sertraline Hcl 50 Mg Tablet) 50 mg PO [facility] Stop: 01/23/21 08:59 Last Admin: 01/10/21 09:16 Dose: 50 mg Documented by: Sodium Chloride (Sodium Chloride 0.65% Na Soln 45 Ml ([place])) 1 - 2 sprays NA PRN PRN PRN Reason: Nasal Dryness/Congestion Stop: 01/12/21 20:02 Vitamin D (Cholecalciferol 1,000 Units 25 Mcg Tab) 2,000 units PO [facility] Stop: 01/12/21 08:59 Last Admin: 01/10/21 09:16 Dose: 2,000 units Documented by: Mental Health & Subst Abuse Tx Psychiatrist Name of Psychiatrist: rBuno Mcleod Psychiatrist's Date of Appointment with Psychiatrist: 01/15/21 Time of Appointment with Psychiatrist: 11am Psychiatric Appointment Comment: [address], [place] [address] Therapist Name of Therapist: Tex Sherwood Therapist's Date of Therapist Appointment: 01/12/21 Time of Therapist Appointment: 11a.m Therapy Appointment Comment: [address] [facility] [address], [place] [address] Batch Freezer Operator Name of Batch Freezer Operator: . Post Discharge Appointments Primary Care Physician Name Of Family Doctor: Dr. Shi Primary Care Date of Appointment with PCP: 01/19/21 Time of Appointment with PCP: 1pm Provider Appointment Comment: [address] [facility], [place] [address] Neurologist Name of Neurologist: Mac Arroyo Neurologist's Date of Appointment with Neurologist: 01/22/21 Time of Appointment with Neurologist: 8:40 a.m Neurology Appointment Comment: [address] [place] [address], [address], [place] [address] Contact Information Discharge Discharge Address: [place] [address], [place] [address]
[2021-01-10] MEDS: OLANZapine 20 MG TABLET PO SCH (20:37)
[2021-01-10] MEDS: LORazepam 1 MG TAB PO SCH (20:42)
[2021-01-11] MEDS: LEVOTHYROXINE SODIUM 25 MCG TABLET PO SCH (08:03)
[2021-01-11] MEDS: CHOLECALCIFEROL 1,000 UNITS 25 MCG TAB PO SCH (09:06)
[2021-01-11] MEDS: SERTRALINE HCL 50 MG TABLET PO SCH (09:07)
[2021-01-11] MEDS: haloperidoL 5 MG TAB PO SCH ×2 (09:07→20:58)
[2021-01-11] MEDS: lamoTRIgine 100 MG TAB PO SCH (09:07)
[2021-01-11] MEDS: LITHIUM CARBONATE 300 MG TAB PO SCH ×2 (09:07→21:00)
[2021-01-11] MEDS: ATORVASTATIN 10 MG TAB PO SCH (09:07)
[2021-01-11] MEDS: DOCUSATE SODIUM 100 MG CAP PO SCH ×2 (09:07→20:58)
[2021-01-11] MEDS: BENZTROPINE MESYLATE 1 MG TAB PO SCH ×2 (09:07→20:57)
--- NOTE | 2021-01-11 13:11 | Psychiatric Progress Note ---
Date of Service January 11, 2021 Impression / Recommendations Impression The patient is a 30 year old with a history of schizoaffective disorder who was admitted for psychosis. They are slowly improving with support and medication adjustments. They continue to require inpatient level of care due to due to acute disorganized/bizarre behavior that interferes with ADLs and due to their psychiatric condition causing major disability in social, interpersonal, occupational and/or educational functioning that requires help for safety and stabilization. 01/11/21--maintaining improvement following family meeting Plan: continue current medications. Still no viable discharge plan as family couldn't agree on county affiliation. (1) Psychosis: Risk Factors Assessment Male: No : Yes Do You Have Access To A Gun?: No Mental Health Diagnoses: Yes Substance Use Disorders: No Previous Psychiatric Hospitalization: Yes Protective Factors Assessment : No Responsible for Young Children: No Employed: No (Unknown) Supportive Family: Yes Interval History Identifying Information 30 yo woman with a history of schizoaffective disorder, admit on 302, converted to 201 upon expiration of 303. Chief Complaint "I'll still stay with my parents". Review of Systems Sleep Information Total Hours of Sleep: 6.5 Sleep Comments: pt given vistaril per rn. pt on q-15 minute checks Meal Information Percent Meal Consumed - Breakfast: 100 Percent Meal Consumed - Lunch: 100 Percent Meal Consumed - Dinner: 100 Nutrition Comment: pt drank several containers of juice Subjective Subjective Patient was seen & assessed and interval progress reviewed with nursing and social work. Patient identifies her need for structure and desires to volunteer or go to library when able to reintegrate into the community. Family session difficult per sw and patient as parents upset re: her dislike/refusal of [facility] and plan to sell her home in [place]. Patient doesn't want to pursue assisted or personal custodial. Physical Exam Psychiatric Orientation: alert and oriented x 3 Apperance: appropriately dressed and appropriately groomed Eye Contact: good eye contact Motor Behavior: no abnormal motor movements Speech: normal rate/rhythm/volume of speech Affect: euthymic affect Mood: + depressed mood Thought Process: + tangential thought process and + concrete thought process Thought Content: + paranoid Suicidal Thoughts: denies suicidal thoughts Homicidal Thoughts: denies homicidal thoughts Hallucinations: no auditory hallucinations and no visual hallucinations Cognition: attention grossly intact and language grossly intact Estimated Intelligence: consistent with education level Insight: + limited insight Judgement: + limited judgement Vital Signs (Past 24 Hours) Last Vital Signs Temp 36 C L 01/11/21 06:44 Pulse 92 H 01/11/21 06:56 Resp 16 01/11/21 06:44 BP 102/69 01/11/21 06:44 Pulse Ox 100 12/05/20 06:00 Results & Data ([facility]) Current Inpatient Medications Current Inpatient Medications: Current Inpatient Medications Acetaminophen (Acetaminophen 325 Mg Tab) 650 mg PO Q4H PRN PRN Reason: Headache or Minor Fever Stop: 01/12/21 20:02 Al Hydrox/Mg Hydrox/Simethicone (Aluminum/Magnesium Susp 30 Ml Udc) 30 ml PO Q4H PRN PRN Reason: GI Upset Stop: 01/12/21 20:02 Atorvastatin Calcium (Atorvastatin 10 Mg Tab) 10 mg PO QAM [facility] Stop: 01/12/21 08:59 Last Admin: 01/11/21 09:07 Dose: 10 mg Documented by: Benztropine Mesylate (Benztropine Mesylate 1 Mg Tab) 1 mg PO BID [facility] Stop: 01/12/21 20:59 Last Admin: 01/11/21 09:07 Dose: 1 mg Documented by: Bismuth Subsalicylate (Bismuth Subsalicylate Liqd 236 Ml) 15 ml PO PRN PRN PRN Reason: Loose Stool Stop: 01/12/21 20:02 Docusate Sodium (Docusate Sodium 100 Mg Cap) 100 mg PO BID [facility] Stop: 01/12/21 20:59 Last Admin: 01/11/21 09:07 Dose: 100 mg Documented by: Haloperidol (Haloperidol 5 Mg Tab) 7.5 mg PO QAM [facility] Stop: 01/30/21 08:59 Last Admin: 01/11/21 09:07 Dose: 7.5 mg Documented by: Haloperidol (Haloperidol 5 Mg Tab) 10 mg PO HS [facility] Stop: 01/29/21 21:59 Last Admin: 01/10/21 20:38 Dose: 10 mg Documented by: Hydroxyzine HCl (Hydroxyzine Hcl 25 Mg Tab) 50 mg PO HSZ PRN PRN Reason: Insomnia Stop: 01/12/21 20:02 Last Admin: 12/06/20 01:06 Dose: 50 mg Documented by: Hydroxyzine HCl (Hydroxyzine Hcl 25 Mg Tab) 25 mg PO Q4H PRN PRN Reason: Anxiety Stop: 01/12/21 20:02 Last Admin: 12/04/20 04:03 Dose: 25 mg Documented by: Lamotrigine (Lamotrigine 100 Mg Tab) [facility] Stop: 01/26/21 08:59 Last Admin: 01/11/21 09:07 Dose: 100 mg Documented by: Levothyroxine Sodium (Levothyroxine Sodium 25 Mcg Tablet) [facility] mcg [facility] Stop: 01/12/21 07:59 Last Admin: 01/11/21 08:03 Dose: 25 mcg Documented by: [place] Carbonate ([place] Carbonate 300 Mg Tab) 300 mg PO [facility] Stop: 01/26/21 08:59 Last Admin: 01/11/21 09:07 Dose: 300 mg Documented by: [place] Carbonate ([place] Carbonate 300 Mg Tab) 450 mg PO [facility] Stop: 01/25/21 21:59 Last Admin: 01/10/21 20:39 Dose: 450 mg Documented by: Lorazepam (Lorazepam 1 Mg Tab) 1 mg PO [facility] Stop: 02/07/21 21:59 Last Admin: 01/10/21 20:42 Dose: 1 mg Documented by: Magnesium Hydroxide (Magnesium Hydroxide Susp 30 Ml Udc) 30 ml PO DAILY PRN PRN Reason: Constipation Stop: 01/12/21 20:02 Olanzapine (Olanzapine Zydis 5 Mg Orally Dis. Tab) 5 mg PO Q6 PRN PRN Reason: Anxiety/Agitation Stop: 01/12/21 10:10 Last Admin: 01/07/21 18:58 Dose: 5 mg Documented by: Olanzapine (Olanzapine 20 Mg Tablet) 20 mg PO [facility] Stop: 01/12/21 21:59 Last Admin: 01/10/21 20:37 Dose: 20 mg Documented by: Sertraline HCl (Sertraline Hcl 50 Mg Tablet) 50 mg PO [facility] Stop: 01/23/21 08:59 Last Admin: 01/11/21 09:07 Dose: 50 mg Documented by: Sodium Chloride (Sodium Chloride 0.65% Na Soln 45 Ml ([place])) 1 - 2 sprays NA PRN PRN PRN Reason: Nasal Dryness/Congestion Stop: 01/12/21 20:02 Vitamin D (Cholecalciferol 1,000 Units 25 Mcg Tab) 2,000 units PO QAM [facility] Stop: 01/12/21 08:59 Last Admin: 01/11/21 09:06 Dose: 2,000 units Documented by: Mental Health & Subst Abuse Tx Psychiatrist Name of Psychiatrist: Bruno Mcleod Psychiatrist's Date of Appointment with Psychiatrist: 01/15/21 Time of Appointment with Psychiatrist: 11am Psychiatric Appointment Comment: [address], [place] [address] Therapist Name of Therapist: Tex Sherwood Therapist's Date of Therapist Appointment: 01/12/21 Time of Therapist Appointment: 11a.m Therapy Appointment Comment: [address] [place] [address] Clam Sorter Name of Clam Sorter: . Post Discharge Appointments Primary Care Physician Name Of Family Doctor: Dr. Shi Primary Care Date of Appointment with PCP: 01/19/21 Time of Appointment with PCP: 1pm Provider Appointment Comment: [address] [place] [address] Neurologist Name of Neurologist: Mac Arroyo Neurologist's Date of Appointment with Neurologist: 01/22/21 Time of Appointment with Neurologist: 8:40 a.m Neurology Appointment Comment: [address] [place] [address], [address], [place] [address] Contact Information Discharge Discharge Address: [place] [address], [place] [address] (1) Psychosis Psychosis type: schizophrenia Schizophrenia type: unspecified Qualified Code(s): F20.9 - Schizophrenia, unspecified
[2021-01-11] MEDS: OLANZapine 20 MG TABLET PO SCH (20:59)
[2021-01-11] MEDS: LORazepam 1 MG TAB PO SCH (21:03)
[2021-01-12] MEDS: LITHIUM CARBONATE 300 MG TAB PO SCH ×2 (08:49→20:46)
[2021-01-12] MEDS: haloperidoL 5 MG TAB PO SCH ×2 (08:49→20:45)
[2021-01-12] MEDS: lamoTRIgine 100 MG TAB PO SCH (08:49)
[2021-01-12] MEDS: SERTRALINE HCL 50 MG TABLET PO SCH (08:49)
[2021-01-12] MEDS: DOCUSATE SODIUM 100 MG CAP PO SCH (08:49)
[2021-01-12] MEDS: BENZTROPINE MESYLATE 1 MG TAB PO SCH (08:49)
[2021-01-12] MEDS: ATORVASTATIN 10 MG TAB PO SCH (10:46)
[2021-01-12] MEDS: CHOLECALCIFEROL 1,000 UNITS 25 MCG TAB PO SCH (10:46)
[2021-01-12] MEDS: LEVOTHYROXINE SODIUM 25 MCG TABLET PO SCH (10:48)
--- NOTE | 2021-01-12 14:04 | Psychiatric Progress Note ---
Date of Service January 12, 2021 Impression / Recommendations Impression The patient is a 30 year old with a history of schizoaffective disorder who was admitted for psychosis. They are slowly improving with support and medication adjustments. They continue to require inpatient level of care due to due to acute disorganized/bizarre behavior that interferes with ADLs and due to their psychiatric condition causing major disability in social, interpersonal, occupational and/or educational functioning that requires help for safety and stabilization. 01/12/21--maintaining Plan: safety and discharge planning, continue current meds. (1) Psychosis: Risk Factors Assessment Male: No : Yes Do You Have Access To A Gun?: No Mental Health Diagnoses: Yes Substance Use Disorders: No Previous Psychiatric Hospitalization: Yes Protective Factors Assessment : No Responsible for Young Children: No Employed: No (Unknown) Supportive Family: Yes Interval History Identifying Information 30 yo woman with a history of schizoaffective disorder, admit on 302, converted to 201 upon expiration of 303. Chief Complaint "I'm just reading to prepare". Review of Systems Sleep Information Total Hours of Sleep: 6 Sleep Comments: pt on q-15 minute checks Meal Information Percent Meal Consumed - Breakfast: 100 Percent Meal Consumed - Lunch: 100 Percent Meal Consumed - Dinner: 100 Nutrition Comment: pt drank several containers of juice Subjective Subjective Patient was seen & assessed and interval progress reviewed with treatment team. [facility] offices closed today for [employer] day. Patient continues to report feeling calmer and resigned to staying with parents though also had difficulty problem solving how she would get home from hospital. Continues to decline [facility]. Physical Exam Psychiatric Orientation: alert and oriented x 3 Apperance: appropriately dressed and appropriately groomed Eye Contact: good eye contact Motor Behavior: no abnormal motor movements Speech: normal rate/rhythm/volume of speech Affect: euthymic affect Mood: + anxious mood Thought Process: + concrete thought process Thought Content: reality based without delusions Suicidal Thoughts: denies suicidal thoughts Homicidal Thoughts: denies homicidal thoughts Hallucinations: no auditory hallucinations and no visual hallucinations Cognition: attention grossly intact and language grossly intact Estimated Intelligence: consistent with education level Insight: + limited insight Judgement: + limited judgement Vital Signs (Past 24 Hours) Last Vital Signs Temp 36.6 C 01/12/21 06:35 Pulse 95 H 01/12/21 06:35 Resp 16 01/12/21 06:35 BP 105/74 01/12/21 06:35 Pulse Ox 100 12/05/20 06:00 Results & Data ([facility]) Current Inpatient Medications Current Inpatient Medications: Current Inpatient Medications Acetaminophen (Acetaminophen 325 Mg Tab) 650 mg PO Q4H PRN PRN Reason: Headache or Minor Fever Stop: 01/12/21 20:02 Al Hydrox/Mg Hydrox/Simethicone (Aluminum/Magnesium Susp 30 Ml Udc) 30 ml PO Q4H PRN PRN Reason: GI Upset Stop: 01/12/21 20:02 Atorvastatin Calcium (Atorvastatin 10 Mg Tab) 10 mg PO QAM [facility] Stop: 02/11/21 09:59 Last Admin: 01/12/21 10:46 Dose: 10 mg Documented by: Benztropine Mesylate (Benztropine Mesylate 1 Mg Tab) 1 mg PO BID [facility] Stop: 01/12/21 20:59 Last Admin: 01/12/21 08:49 Dose: 1 mg Documented by: Bismuth Subsalicylate (Bismuth Subsalicylate Liqd 236 Ml) 15 ml PO PRN PRN PRN Reason: Loose Stool Stop: 01/12/21 20:02 Docusate Sodium (Docusate Sodium 100 Mg Cap) 100 mg PO BID [facility] Stop: 01/12/21 20:59 Last Admin: 01/12/21 08:49 Dose: 100 mg Documented by: Haloperidol (Haloperidol 5 Mg Tab) 7.5 mg PO QAM [facility] Stop: 01/30/21 08:59 Last Admin: 01/12/21 08:49 Dose: 7.5 mg Documented by: Haloperidol (Haloperidol 5 Mg Tab) 10 mg PO HS [facility] Stop: 01/29/21 21:59 Last Admin: 01/11/21 20:58 Dose: 10 mg Documented by: Hydroxyzine HCl (Hydroxyzine Hcl 25 Mg Tab) 50 mg PO HSZ PRN PRN Reason: Insomnia Stop: 01/12/21 20:02 Last Admin: 12/06/20 01:06 Dose: 50 mg Documented by: Hydroxyzine HCl (Hydroxyzine Hcl 25 Mg Tab) 25 mg PO Q4H PRN PRN Reason: Anxiety Stop: 01/12/21 20:02 Last Admin: 12/04/20 04:03 Dose: 25 mg Documented by: Lamotrigine (Lamotrigine 100 Mg Tab) 100 mg PO [facility] Stop: 01/26/21 08:59 Last Admin: 01/12/21 08:49 Dose: 100 mg Documented by: Levothyroxine Sodium (Levothyroxine Sodium 25 Mcg Tablet) [facility] Stop: 02/11/21 09:59 Last Admin: 01/12/21 10:48 Dose: 25 mcg Documented by: [place] Carbonate ([place] Carbonate 300 Mg Tab) 300 mg PO [facility] Stop: 01/26/21 08:59 Last Admin: 01/12/21 08:49 Dose: 300 mg Documented by: [place] Carbonate ([place] Carbonate 300 Mg Tab) 450 mg PO [facility] Stop: 01/25/21 21:59 Last Admin: 01/11/21 21:00 Dose: 450 mg Documented by: Lorazepam (Lorazepam 1 Mg Tab) 1 mg PO [facility] Stop: 02/07/21 21:59 Last Admin: 01/11/21 21:03 Dose: 1 mg Documented by: Magnesium Hydroxide (Magnesium Hydroxide Susp 30 Ml Udc) 30 ml PO DAILY PRN PRN Reason: Constipation Stop: 01/12/21 20:02 Olanzapine (Olanzapine 20 Mg Tablet) 20 mg PO [facility] Stop: 01/12/21 21:59 Last Admin: 01/11/21 20:59 Dose: 20 mg Documented by: Sertraline HCl (Sertraline Hcl 50 Mg Tablet) 50 mg PO [facility] Stop: 01/23/21 08:59 Last Admin: 01/12/21 08:49 Dose: 50 mg Documented by: Sodium Chloride (Sodium Chloride 0.65% Na Soln 45 Ml ([place])) 1 - 2 sprays NA PRN PRN PRN Reason: Nasal Dryness/Congestion Stop: 01/12/21 20:02 Vitamin D (Cholecalciferol 1,000 Units 25 Mcg Tab) 2,000 units PO [facility] Stop: 02/11/21 09:59 Last Admin: 01/12/21 10:46 Dose: 2,000 units Documented by: Mental Health & Subst Abuse Tx Psychiatrist Name of Psychiatrist: Bruno Mcleod Psychiatrist's Date of Appointment with Psychiatrist: 01/22/21 Time of Appointment with Psychiatrist: 10:30am Psychiatric Appointment Comment: [address] [place] [address] Therapist Name of Therapist: MihaiAshely Limae Kaela Therapist's Date of Therapist Appointment: 01/19/21 Time of Therapist Appointment: 11 am Therapy Appointment Comment: [address] [place] [address] Traffic Technician Name of Traffic Technician: [employer] Phone Number for Traffic Technician: [phone] Case Management Appointment Comment: [address] [facility] [address] Post Discharge Appointments Primary Care Physician Name Of Family Doctor: Dr. Shi Primary [facility] Date of Appointment with PCP: 01/19/21 Time of Appointment with PCP: 1pm Provider Appointment Comment: [address] [place] [address] Neurologist Name of Neurologist: Mac Strange - Dr. Arroyo Neurologist's Date of Appointment with Neurologist: 01/22/21 Time of Appointment with Neurologist: 8:40 a.m Neurology Appointment Comment: [address] [place] [address], [address], [place] [address] Contact Information Discharge Discharge Address: [address] [place] [address] [place] [address] (1) Psychosis Psychosis type: schizophrenia Schizophrenia type: unspecified Qualified Code(s): F20.9 - Schizophrenia, unspecified
[2021-01-12] MEDS: LORazepam 1 MG TAB PO SCH (20:48)
[2021-01-13] MEDS: LEVOTHYROXINE SODIUM 25 MCG TABLET PO SCH (08:02)
[2021-01-13] MEDS ORDERED: MAGNESIUM HYDROXIDE SUSP 30 ML UDC PO PRN (08:10)
[2021-01-13] MEDS ORDERED: hydrOXYzine HCl 25 MG TAB PO PRN ×2 (08:10)
[2021-01-13] MEDS ORDERED: BISMUTH SUBSALICYLATE LIQD 236 ML PO PRN (08:10)
[2021-01-13] MEDS ORDERED: ACETAMINOPHEN 325 MG TAB PO PRN (08:10)
[2021-01-13] MEDS ORDERED: ALUMINUM/MAGNESIUM SUSP 30 ML UDC PO PRN (08:10)
[2021-01-13] MEDS ORDERED: SODIUM CHLORIDE 0.65% NA SOLN 45 ML (OCEAN) PRN (08:10)
[2021-01-13] MEDS: CHOLECALCIFEROL 1,000 UNITS 25 MCG TAB PO SCH (09:00)
[2021-01-13] MEDS: ATORVASTATIN 10 MG TAB PO SCH (09:00)
[2021-01-13] MEDS: lamoTRIgine 100 MG TAB PO SCH (09:01)
[2021-01-13] MEDS: haloperidoL 5 MG TAB PO SCH ×2 (09:01→20:57)
[2021-01-13] MEDS: LITHIUM CARBONATE 300 MG TAB PO SCH ×2 (09:02→20:57)
[2021-01-13] MEDS: SERTRALINE HCL 50 MG TABLET PO SCH (09:02)
[2021-01-13] MEDS ORDERED: OLANZapine 5 MG TABLET PO PRN (10:11)
[2021-01-13] MEDS: BENZTROPINE MESYLATE 1 MG TAB PO SCH ×2 (10:52→20:58)
[2021-01-13] MEDS: DOCUSATE SODIUM 100 MG CAP PO SCH ×2 (10:52→20:58)
--- NOTE | 2021-01-13 13:50 | Psychiatric Progress Note ---
Date of Service January 13, 2021 Impression / Recommendations Impression The patient is a 30 year old with a history of schizoaffective disorder who was admitted for psychosis. They are slowly improving with support and medication adjustments. They continue to require inpatient level of care due to due to acute disorganized/bizarre behavior that interferes with ADLs and due to their psychiatric condition causing major disability in social, interpersonal, occupational and/or educational functioning that requires help for safety and stabilization. 01/13/21--maintaining despite lack of supportive living environment Plan: safety and discharge planning, continue current meds but time to increase Lamictal to previously effective dose 150 mg. (1) Psychosis: Risk Factors Assessment Male: No : Yes Do You Have Access To A Gun?: No Mental Health Diagnoses: Yes Substance Use Disorders: No Previous Psychiatric Hospitalization: Yes Protective Factors Assessment : No Responsible for Young Children: No Employed: No (Unknown) Supportive Family: Yes Interval History Identifying Information 30 yo woman with a history of schizoaffective disorder, admit on 302, converted to 201 upon expiration of 303. Chief Complaint "I'm just relaxing, I know it's them". Review of Systems Sleep Information Total Hours of Sleep: 7.25 Sleep Comments: pt on q-15 minute checks Meal Information Percent Meal Consumed - Breakfast: 100 Percent Meal Consumed - Lunch: 100 Percent Meal Consumed - Dinner: 100 Nutrition Comment: pt drank several containers of juice Subjective Subjective Patient was seen & assessed and interval progress reviewed with nursing and social work. Parents are not allowing her to live with them, parents haven't been in agreement and they have been saying unsupportive comments to patient who was tearful last night. She was understanding that exploring more options in [place] will likely increase her LOS. Physical Exam Psychiatric Orientation: alert and oriented x 3 Apperance: appropriately dressed and appropriately groomed Eye Contact: good eye contact Motor Behavior: no abnormal motor movements Speech: normal rate/rhythm/volume of speech Affect: + depressed affect Mood: + depressed mood Thought Process: + tangential thought process and + concrete thought process Thought Content: + paranoid Suicidal Thoughts: denies suicidal thoughts Homicidal Thoughts: denies homicidal thoughts Hallucinations: no auditory hallucinations and no visual hallucinations Cognition: language grossly intact Estimated Intelligence: consistent with education level Insight: + limited insight Judgement: + limited judgement Vital Signs (Past 24 Hours) Last Vital Signs Temp 36.7 C 01/13/21 06:30 Pulse 102 H 01/13/21 06:30 Resp 16 01/13/21 06:30 BP 105/68 01/13/21 06:30 Pulse Ox 100 12/05/20 06:00 Results & Data ([facility]) Current Inpatient Medications Current Inpatient Medications: Current Inpatient Medications Acetaminophen (Acetaminophen 325 Mg Tab) 650 mg PO Q4H PRN PRN Reason: Headache or Minor Fever Stop: 02/12/21 08:09 Al Hydrox/Mg Hydrox/Simethicone (Aluminum/Magnesium Susp 30 Ml Udc) 30 ml PO Q4H PRN PRN Reason: GI Upset Stop: 02/12/21 08:09 Atorvastatin Calcium (Atorvastatin 10 Mg Tab) 10 mg PO QAM [facility] Stop: 02/11/21 09:59 Last Admin: 01/13/21 09:00 Dose: 10 mg Documented by: Benztropine Mesylate (Benztropine Mesylate 1 Mg Tab) 1 mg PO BID [facility] Stop: 02/12/21 10:14 Last Admin: 01/13/21 10:52 Dose: 1 mg Documented by: Bismuth Subsalicylate (Bismuth Subsalicylate Liqd 236 Ml) 15 ml PO PRN PRN PRN Reason: Loose Stool Stop: 02/12/21 08:09 Docusate Sodium (Docusate Sodium 100 Mg Cap) 100 mg PO BID [facility] Stop: 02/12/21 10:14 Last Admin: 01/13/21 10:52 Dose: 100 mg Documented by: Haloperidol (Haloperidol 5 Mg Tab) 7.5 mg PO QAM [facility] Stop: 01/30/21 08:59 Last Admin: 01/13/21 09:01 Dose: 7.5 mg Documented by: Haloperidol (Haloperidol 5 Mg Tab) 10 mg PO HS [facility] Stop: 01/29/21 21:59 Last Admin: 01/12/21 20:45 Dose: 10 mg Documented by: Hydroxyzine HCl (Hydroxyzine Hcl 25 Mg Tab) 50 mg PO HSZ PRN PRN Reason: Insomnia Stop: 02/12/21 08:09 Hydroxyzine HCl (Hydroxyzine Hcl 25 Mg Tab) 25 mg PO Q4H PRN PRN Reason: Anxiety Stop: 02/12/21 08:09 Lamotrigine (Lamotrigine 25 Mg Tab) 150 mg PO QAM [facility] Stop: 02/13/21 08:59 Levothyroxine Sodium (Levothyroxine Sodium 25 Mcg Tablet) [facility] Stop: 02/11/21 09:59 Last Admin: 01/13/21 08:02 Dose: 25 mcg Documented by: [place] Carbonate ([place] Carbonate 300 Mg Tab) 300 mg PO QAM [facility] Stop: 01/26/21 08:59 Last Admin: 01/13/21 09:02 Dose: 300 mg Documented by: [place] Carbonate ([place] Carbonate 300 Mg Tab) 450 mg PO [facility] Stop: 01/25/21 21:59 Last Admin: 01/12/21 20:46 Dose: 450 mg Documented by: Lorazepam (Lorazepam 1 Mg Tab) 1 mg PO [facility] Stop: 02/07/21 21:59 Last Admin: 01/12/21 20:48 Dose: 1 mg Documented by: Magnesium Hydroxide (Magnesium Hydroxide Susp 30 Ml Udc) 30 ml PO DAILY PRN PRN Reason: Constipation Stop: 02/12/21 08:09 Olanzapine (Olanzapine 20 Mg Tablet) 20 mg PO [facility] Stop: 02/12/21 21:59 Olanzapine (Olanzapine 5 Mg Tablet) 5 mg PO Q6 PRN PRN Reason: Anxiety/Agitation Stop: 02/12/21 10:10 Sertraline HCl (Sertraline Hcl 50 Mg Tablet) [facility] Stop: 01/23/21 08:59 Last Admin: 01/13/21 09:02 Dose: 50 mg Documented by: Sodium Chloride (Sodium Chloride 0.65% Na Soln 45 Ml ([place])) 1 - 2 sprays NA PRN PRN PRN Reason: Nasal Dryness/Congestion Stop: 02/12/21 08:09 Vitamin D (Cholecalciferol 1,000 Units 25 Mcg Tab) 2,000 units [facility] Stop: 02/11/21 09:59 Last Admin: 01/13/21 09:00 Dose: 2,000 units Documented by: Mental Health & Subst Abuse Tx Psychiatrist Name of Psychiatrist: Bruno Mcleod Psychiatrist's Date of Appointment with Psychiatrist: 01/22/21 Time of Appointment with Psychiatrist: 10:30am Psychiatric Appointment Comment: [address] [place] [address] Therapist Name of Therapist: MihaiAshely Kailee Kaela Therapist's Date of Therapist Appointment: 01/19/21 Time of Therapist Appointment: 11 am Therapy Appointment Comment: [address] [place] [address] Career Based Intervention Coordinator Name of Career Based Intervention Coordinator: [employer] Phone Number for Career Based Intervention Coordinator: [phone] Case Management Appointment Comment: [address] [facility], [place] [address] Post Discharge Appointments Primary Care Physician Name Of Family Doctor: Dr. Shi Primary Care Date of Appointment with PCP: 01/19/21 Time of Appointment with PCP: 1pm Provider Appointment Comment: [address] [facility] [place] [address] Neurologist Name of Neurologist: Mac Strange - Dr. Arroyo Neurologist's Date of Appointment with Neurologist: 01/22/21 Time of Appointment with Neurologist: 8:40 a.m Neurology Appointment Comment: [address] [place] [address], [address], [place] [address] Contact Information Discharge Discharge Address: [address] [place], [place] [address] [address] (1) Psychosis Psychosis type: schizophrenia Schizophrenia type: unspecified Qualified Code(s): F20.9 - Schizophrenia, unspecified
[2021-01-13] MEDS: LORazepam 1 MG TAB PO SCH (20:56)
[2021-01-13] MEDS: OLANZapine 20 MG TABLET PO SCH (20:56)
[2021-01-14] MEDS: LEVOTHYROXINE SODIUM 25 MCG TABLET PO SCH (08:06)
[2021-01-14] MEDS: CHOLECALCIFEROL 1,000 UNITS 25 MCG TAB PO SCH (09:13)
[2021-01-14] MEDS: lamoTRIgine 100 MG TAB PO SCH (09:13)
[2021-01-14] MEDS: haloperidoL 5 MG TAB PO SCH ×2 (09:13→20:59)
[2021-01-14] MEDS: BENZTROPINE MESYLATE 1 MG TAB PO SCH ×2 (09:13→20:58)
[2021-01-14] MEDS: ATORVASTATIN 10 MG TAB PO SCH (09:13)
[2021-01-14] MEDS: DOCUSATE SODIUM 100 MG CAP PO SCH ×2 (09:13→20:58)
[2021-01-14] MEDS: SERTRALINE HCL 50 MG TABLET PO SCH (09:14)
[2021-01-14] MEDS: LITHIUM CARBONATE 300 MG TAB PO SCH ×2 (09:14→20:59)
--- NOTE | 2021-01-14 14:13 | Psychiatric Progress Note ---
Date of Service January 14, 2021 Impression / Recommendations Impression The patient is a 30 year old with a history of schizoaffective disorder who was admitted for psychosis. They are slowly improving with support and medication adjustments. They continue to require inpatient level of care due to due to acute disorganized/bizarre behavior that interferes with ADLs and due to their psychiatric condition causing major disability in social, interpersonal, occupational and/or educational functioning that requires help for safety and stabilization. 01/14/21--maintaining, lack of supportive living environment Plan: safety and discharge planning, continue current meds but adjust am Haldol and pm lithium for ease of dosing. Risk Factors Assessment Male: No : Yes Do You Have Access To A Gun?: No Mental Health Diagnoses: Yes Substance Use Disorders: No Previous Psychiatric Hospitalization: Yes Protective Factors Assessment : No Responsible for Young Children: No Employed: No (Unknown) Supportive Family: Yes Interval History Identifying Information 30 yo woman with a history of schizoaffective disorder, admit on 302, converted to 201 upon expiration of 303. Chief Complaint "I'm just reading/relaxing". Review of Systems Sleep Information Total Hours of Sleep: 6.5 Sleep Comments: pt on q-15 minute checks Meal Information Percent Meal Consumed - Breakfast: 100 Percent Meal Consumed - Lunch: 100 Percent Meal Consumed - Dinner: 100 Nutrition Comment: pt drank several containers of juice Subjective Subjective Patient was seen & assessed and interval progress reviewed with treatment team. Working with county on options for day programming and clarifying what support parents are willing to provide (transportation to appointments, groceries, etc). Patient doesn't believe she can manage her own medications at home and would like dosing times adjusted for convenience if possible prior to discharge. . Physical Exam Psychiatric Orientation: alert and oriented x 3 Apperance: appropriately dressed and appropriately groomed Eye Contact: + fair eye contact Motor Behavior: no abnormal motor movements Speech: normal rate/rhythm/volume of speech Affect: + constricted affect Mood: no depressed mood Thought Process: goal directed thought process Thought Content: reality based without delusions Suicidal Thoughts: denies suicidal thoughts Homicidal Thoughts: denies homicidal thoughts Hallucinations: no auditory hallucinations and no visual hallucinations Cognition: attention grossly intact and language grossly intact Estimated Intelligence: consistent with education level Insight: + limited insight Judgement: + limited judgement Vital Signs (Past 24 Hours) Last Vital Signs Temp 36.4 C L 10/13/21 06:39 Pulse 74 01/14/21 06:40 Resp 16 01/14/21 06:39 BP 108/72 01/14/21 06:40 Pulse Ox 100 12/05/20 06:00 Results & Data ([facility]) Current Inpatient Medications Current Inpatient Medications: Current Inpatient Medications Acetaminophen (Acetaminophen 325 Mg Tab) 650 mg PO Q4H PRN PRN Reason: Headache or Minor Fever Stop: 02/12/21 08:09 Al Hydrox/Mg Hydrox/Simethicone (Aluminum/Magnesium Susp 30 Ml Udc) 30 ml PO Q4H PRN PRN Reason: GI Upset Stop: 02/12/21 08:09 Atorvastatin Calcium (Atorvastatin 10 Mg Tab) 10 mg PO QAM [facility] Stop: 02/11/21 09:59 Last Admin: 01/14/21 09:13 Dose: 10 mg Documented by: Benztropine Mesylate (Benztropine Mesylate 1 Mg Tab) 1 mg PO BID [facility] Stop: 02/12/21 10:14 Last Admin: 01/14/21 09:13 Dose: 1 mg Documented by: Bismuth Subsalicylate (Bismuth Subsalicylate Liqd 236 Ml) 15 ml PO PRN PRN PRN Reason: Loose Stool Stop: 02/12/21 08:09 Docusate Sodium (Docusate Sodium 100 Mg Cap) 100 mg PO BID [facility] Stop: 02/12/21 10:14 Last Admin: 01/14/21 09:13 Dose: 100 mg Documented by: Haloperidol (Haloperidol 5 Mg Tab) 7.5 mg PO QAM [facility] Stop: 01/30/21 08:59 Last Admin: 01/14/21 09:13 Dose: 7.5 mg Documented by: Haloperidol (Haloperidol 5 Mg Tab) 10 mg PO HS [facility] Stop: 01/29/21 21:59 Last Admin: 01/13/21 20:57 Dose: 10 mg Documented by: Hydroxyzine HCl (Hydroxyzine Hcl 25 Mg Tab) 50 mg PO HSZ PRN PRN Reason: Insomnia Stop: 02/12/21 08:09 Hydroxyzine HCl (Hydroxyzine Hcl 25 Mg Tab) 25 mg PO Q4H PRN PRN Reason: Anxiety Stop: 02/12/21 08:09 Lamotrigine (Lamotrigine 100 Mg Tab) [address] [facility] Stop: 02/13/21 08:59 Last Admin: 01/14/21 09:13 Dose: 150 mg Documented by: Levothyroxine Sodium (Levothyroxine Sodium 25 Mcg Tablet) [facility] Stop: 02/11/21 09:59 Last Admin: 01/14/21 08:06 Dose: 25 mcg Documented by: [place] Carbonate ([place] Carbonate 300 Mg Tab) [address] [facility] Stop: 01/26/21 08:59 Last Admin: 01/14/21 09:14 Dose: 300 mg Documented by: [place] Carbonate ([place] Carbonate 300 Mg Tab) 450 mg PO [facility] Stop: 01/25/21 21:59 Last Admin: 01/13/21 20:57 Dose: 450 mg Documented by: Lorazepam (Lorazepam 1 Mg Tab) 1 mg PO [facility] Stop: 02/07/21 21:59 Last Admin: 01/13/21 20:56 Dose: 1 mg Documented by: Magnesium Hydroxide (Magnesium Hydroxide Susp 30 Ml Udc) 30 ml PO DAILY PRN PRN Reason: Constipation Stop: 02/12/21 08:09 Olanzapine (Olanzapine 20 Mg Tablet) 20 mg PO [facility] Stop: 02/12/21 21:59 Last Admin: 01/13/21 20:56 Dose: 20 mg Documented by: Olanzapine (Olanzapine 5 Mg Tablet) 5 mg PO Q6 PRN PRN Reason: Anxiety/Agitation Stop: 02/12/21 10:10 Sertraline HCl (Sertraline Hcl 50 Mg Tablet) [address] [facility] Stop: 01/23/21 08:59 Last Admin: 01/14/21 09:14 Dose: 50 mg Documented by: Sodium Chloride (Sodium Chloride 0.65% Na Soln 45 Ml ([place])) 1 - 2 sprays NA PRN PRN PRN Reason: Nasal Dryness/Congestion Stop: 02/12/21 08:09 Vitamin D (Cholecalciferol 1,000 Units 25 Mcg Tab) 2,[address] [facility] Stop: 02/11/21 09:59 Last Admin: 01/14/21 09:13 Dose: 2,000 units Documented by: Mental Health & Subst Abuse Tx Psychiatrist Name of Psychiatrist: Bruno Mlceod Psychiatrist's Date of Appointment with Psychiatrist: 01/22/21 Time of Appointment with Psychiatrist: 10:30am Psychiatric Appointment Comment: [address], [place] [address] Therapist Name of Therapist: Tex Limae Kaela Therapist's Date of Therapist Appointment: 01/20/21 Time of Therapist Appointment: 1:00 PM Therapy Appointment Comment: [address] [facility] [address], [place] [address] Clinic Specialist Name of Clinic Specialist: BEE Jensen Phone Number for Clinic Specialist: [phone] Case Management Appointment Comment: [address] [place] [address] [address] [place] [address] Post Discharge Appointments Primary Care Physician Name Of Family Doctor: Dr. Shi Primary Care Date of Appointment with PCP: 01/19/21 Time of Appointment with PCP: 1pm Provider Appointment Comment: [address] [facility], [place] [address] Neurologist Name of Neurologist: Mac Strange - Dr. Arroyo Neurologist's Date of Appointment with Neurologist: 01/22/21 Time of Appointment with Neurologist: 8:40 a.m Neurology Appointment Comment: [address] [place] [address], [address], [place] [address] Contact Information Discharge Discharge Address: [address] [place] [address] [place] [address]
[2021-01-14] MEDS: LORazepam 1 MG TAB PO SCH (20:58)
[2021-01-14] MEDS: OLANZapine 20 MG TABLET PO SCH (21:00)
[2021-01-15] MEDS: LEVOTHYROXINE SODIUM 25 MCG TABLET PO SCH (07:50)
[2021-01-15] MEDS: ATORVASTATIN 10 MG TAB PO SCH (08:59)
[2021-01-15] MEDS: BENZTROPINE MESYLATE 1 MG TAB PO SCH ×2 (09:01→20:32)
[2021-01-15] MEDS: CHOLECALCIFEROL 1,000 UNITS 25 MCG TAB PO SCH (09:01)
[2021-01-15] MEDS: haloperidoL 5 MG TAB PO SCH ×2 (09:02→20:31)
[2021-01-15] MEDS: lamoTRIgine 100 MG TAB PO SCH (09:02)
[2021-01-15] MEDS: DOCUSATE SODIUM 100 MG CAP PO SCH ×2 (09:02→20:32)
[2021-01-15] MEDS: LITHIUM CARBONATE 300 MG TAB PO SCH ×2 (09:03→20:32)
[2021-01-15] MEDS: SERTRALINE HCL 50 MG TABLET PO SCH (09:03)
--- NOTE | 2021-01-15 11:59 | Psychiatric Progress Note ---
Date of Service January 15, 2021 Impression / Recommendations Impression The patient is a 30 year old with a history of schizoaffective disorder who was admitted for psychosis. They are slowly improving with support and medication adjustments. They continue to require inpatient level of care due to due to acute disorganized/bizarre behavior that interferes with ADLs and due to their psychiatric condition causing major disability in social, interpersonal, occupational and/or educational functioning that requires help for safety and stabilization. 01/15/21--requires structure of unit until can transition to therapeutic day programming. (1) Schizoaffective disorder, bipolar type: Given the patient's extended length of stay, a condensed care summary includes the following: Patient was admitted on a 302 and restarted on previous medications with the exception of Zoloft initially as manic/mixed state in appearance. Ativan TID was added for catatonic features with some benefit but ongoing psychosis. Lamictal was titrated slowly over the course of her stay to previously effective dose for seizures of 150 mg. Trilafon was increased for residual symptoms with minimal to no benefit and parents preferred an agent that could be given as a GARNER. Invega replaced Trilafon on 12/16/20. The patient improved to the point she was able to understand treatment and agreed to sign in volunarily on 12/19/20. On 12/23/20 she was clearly feeling worse on Invega and she was transitioned to Haldol with escalating doses. She did not want Haldol decanoate. On 01/03/21 an Ativan taper was initiated but she failed taper of the hs dose due to worsening anxiety. The focus of 01/12/21-01/16/21 (after family meeting) was on establishing care supports to support transition given extended stay, it was determined that returning to [place] was her best option for day programming and med support. Risk Factors Assessment Male: No : Yes Do You Have Access To A Gun?: No Mental Health Diagnoses: Yes Substance Use Disorders: No Previous Psychiatric Hospitalization: Yes Protective Factors Assessment : No Responsible for Young Children: No Employed: No (Unknown) Supportive Family: Yes Interval History Identifying Information 30 yo woman with a history of schizoaffective disorder, admit on 302, converted to 201 upon expiration of 303. Chief Complaint "I know I need structure" Review of Systems Sleep Information Total Hours of Sleep: 7 Sleep Comments: pt on q-15 minute checks Meal Information Percent Meal Consumed - Breakfast: 100 Percent Meal Consumed - Lunch: 100 Percent Meal Consumed - Dinner: 75 Nutrition Comment: pt drank several containers of juice Subjective Subjective Patient was seen & assessed and interval progress reviewed with nursing and social human services assistants. She will be able to have medication support and daily SKILLS programming starting next week. Looking into options to prepackage meds for convenience for patient. Parents are willing to transport to appointments next week/support transition to her previous residence. Physical Exam Psychiatric Orientation: alert and oriented x 3 Apperance: appropriately dressed and appropriately groomed Eye Contact: + fair eye contact Motor Behavior: no abnormal motor movements Speech: normal rate/rhythm/volume of speech Affect: + depressed affect Mood: + depressed mood Thought Process: + concrete thought process Thought Content: reality based without delusions Suicidal Thoughts: denies suicidal thoughts Homicidal Thoughts: denies homicidal thoughts Hallucinations: no auditory hallucinations and no visual hallucinations Cognition: attention grossly intact and language grossly intact Estimated Intelligence: consistent with education level Insight: + fair insight Judgement: + limited judgement Vital Signs (Past 24 Hours) Last Vital Signs Temp 36.6 C 01/15/21 06:27 Pulse 94 H 01/15/21 06:27 Resp 16 01/15/21 06:27 BP 106/75 01/15/21 06:27 Pulse Ox 100 12/05/20 06:00 Results & Data ([facility]) Current Inpatient Medications Current Inpatient Medications: Current Inpatient Medications Acetaminophen (Acetaminophen 325 Mg Tab) 650 mg PO Q4H PRN PRN Reason: Headache or Minor Fever Stop: 02/12/21 08:09 Al Hydrox/Mg Hydrox/Simethicone (Aluminum/Magnesium Susp 30 Ml Udc) 30 ml PO Q4H PRN PRN Reason: GI Upset Stop: 02/12/21 08:09 Atorvastatin Calcium (Atorvastatin 10 Mg Tab) 10 mg PO QAM [facility] Stop: 02/11/21 09:59 Last Admin: 01/15/21 08:59 Dose: 10 mg Documented by: Benztropine Mesylate (Benztropine Mesylate 1 Mg Tab) 1 mg PO BID [facility] Stop: 02/12/21 10:14 Last Admin: 01/15/21 09:01 Dose: 1 mg Documented by: Bismuth Subsalicylate (Bismuth Subsalicylate Liqd 236 Ml) 15 ml PO PRN PRN PRN Reason: Loose Stool Stop: 02/12/21 08:09 Docusate Sodium (Docusate Sodium 100 Mg Cap) 100 mg PO BID [facility] Stop: 02/12/21 10:14 Last Admin: 01/15/21 09:02 Dose: 100 mg Documented by: Haloperidol (Haloperidol 5 Mg Tab) 10 mg PO HS [facility] Stop: 01/29/21 21:59 Last Admin: 01/14/21 20:59 Dose: 10 mg Documented by: Haloperidol (Haloperidol 5 Mg Tab) 5 mg PO QAM [facility] Stop: 02/14/21 08:59 Last Admin: 01/15/21 09:02 Dose: 5 mg Documented by: Hydroxyzine HCl (Hydroxyzine Hcl 25 Mg Tab) 50 mg PO HSZ PRN PRN Reason: Insomnia Stop: 02/12/21 08:09 Hydroxyzine HCl (Hydroxyzine Hcl 25 Mg Tab) 25 mg PO Q4H PRN PRN Reason: Anxiety Stop: 02/12/21 08:09 Lamotrigine (Lamotrigine 100 Mg Tab) 150 mg PO QAM [facility] Stop: 02/13/21 08:59 Last Admin: 01/15/21 09:02 Dose: 150 mg Documented by: Levothyroxine Sodium (Levothyroxine Sodium 25 Mcg Tablet) 25 mcg PO DAILYBB [facility] Stop: 02/11/21 09:59 Last Admin: 01/15/21 07:50 Dose: 25 mcg Documented by: [place] Carbonate ([place] Carbonate 300 Mg Tab) 300 mg PO BID [facility] Stop: 02/13/21 20:59 Last Admin: 01/15/21 09:03 Dose: 300 mg Documented by: Lorazepam (Lorazepam 1 Mg Tab) 1 mg PO HS [facility] Stop: 02/07/21 21:59 Last Admin: 01/14/21 20:58 Dose: 1 mg Documented by: Magnesium Hydroxide (Magnesium Hydroxide Susp 30 Ml Udc) 30 ml PO DAILY PRN PRN Reason: Constipation Stop: 02/12/21 08:09 Olanzapine (Olanzapine 20 Mg Tablet) 20 mg PO HS [facility] Stop: 02/12/21 21:59 Last Admin: 01/14/21 21:00 Dose: 20 mg Documented by: Olanzapine (Olanzapine 5 Mg Tablet) 5 mg PO Q6 PRN PRN Reason: Anxiety/Agitation Stop: 02/12/21 10:10 Sertraline HCl (Sertraline Hcl 50 Mg Tablet) 50 mg PO QAM [facility] Stop: 01/23/21 08:59 Last Admin: 01/15/21 09:03 Dose: 50 mg Documented by: Sodium Chloride (Sodium Chloride 0.65% Na Soln 45 Ml ([place])) 1 - 2 sprays NA PRN PRN PRN Reason: Nasal Dryness/Congestion Stop: 02/12/21 08:09 Vitamin D (Cholecalciferol 1,000 Units 25 Mcg Tab) 2,000 units PO QAM [facility] Stop: 02/11/21 09:59 Last Admin: 01/15/21 09:01 Dose: 2,000 units Documented by: Mental Health & Subst Abuse Tx Psychiatrist Name of Psychiatrist: Bruno Mcleod Psychiatrist's Date of Appointment with Psychiatrist: 01/22/21 Time of Appointment with Psychiatrist: 10:30am Psychiatric Appointment Comment: [address] [place] [address] Therapist Name of Therapist: Tex Sherwood Therapist's Date of Therapist Appointment: 01/20/21 Time of Therapist Appointment: 1:00 PM Therapy Appointment Comment: [address] [place] [address] Viscose Department Worker Name of Viscose Department Worker: BEE Jensen Phone Number for Viscose Department Worker: [phone] Case Management Appointment Comment: [address] [place] [address] [place] [address] Post Discharge Appointments Primary Care Physician Name Of Family Doctor: Dr. Shi Primary Care Date of Appointment with PCP: 01/19/21 Time of Appointment with PCP: 1pm Provider Appointment Comment: [address] [facility] [place] [address] Neurologist Name of Neurologist: Mac Strange - Dr. Arroyo Neurologist's Date of Appointment with Neurologist: 02/13/21 Time of Appointment with Neurologist: 9:20 a.m Neurology Appointment Comment: [address] [place] [address], [address], [place] [address] Contact Information Discharge Discharge Address: [address] [place] [address]
[2021-01-15] MEDS: LORazepam 1 MG TAB PO SCH (20:31)
[2021-01-15] MEDS: OLANZapine 20 MG TABLET PO SCH (20:31)
[2021-01-16] MEDS: BENZTROPINE MESYLATE 1 MG TAB PO SCH ×2 (08:45→21:04)
[2021-01-16] MEDS: LEVOTHYROXINE SODIUM 25 MCG TABLET PO SCH (08:45)
[2021-01-16] MEDS: ATORVASTATIN 10 MG TAB PO SCH (08:45)
[2021-01-16] MEDS: CHOLECALCIFEROL 1,000 UNITS 25 MCG TAB PO SCH (08:46)
[2021-01-16] MEDS: DOCUSATE SODIUM 100 MG CAP PO SCH ×2 (08:46→21:04)
[2021-01-16] MEDS: haloperidoL 5 MG TAB PO SCH ×2 (08:46→21:04)
[2021-01-16] MEDS: lamoTRIgine 100 MG TAB PO SCH (08:46)
[2021-01-16] MEDS: SERTRALINE HCL 50 MG TABLET PO SCH (08:47)
[2021-01-16] MEDS: LITHIUM CARBONATE 300 MG TAB PO SCH ×2 (08:47→21:04)
--- NOTE | 2021-01-16 13:02 | Psychiatric Progress Note ---
Date of Service January 16, 2021 Impression / Recommendations Impression The patient is a 30 year old with a history of schizoaffective disorder who was admitted for psychosis. Requires structure of unit until can transition to therapeutic day programming to avoid decompensation/rehospitalization. 01/16/21: improving Plan for 01/16/21: continue current meds and tx plan. (1) Schizoaffective disorder, bipolar type: Given the patient's extended length of stay, a condensed care summary includes the following: Patient was admitted on a 302 and restarted on previous medications with the exception of Zoloft initially as manic/mixed state in appearance. Ativan TID was added for catatonic features with some benefit but ongoing psychosis. Lamictal was titrated slowly over the course of her stay to previously effective dose for seizures of 150 mg. Trilafon was increased for residual symptoms with minimal to no benefit and parents preferred an agent that could be given as a GARNER. Invega replaced Trilafon on 12/16/20. The patient improved to the point she was able to understand treatment and agreed to sign in volunarily on 12/19/20. On 12/23/20 she was clearly feeling worse on Invega and she was transitioned to Haldol with escalating doses. She did not want Haldol decanoate. On 01/03/21 an Ativan taper was initiated but she failed taper of the hs dose due to worsening anxiety. The focus of 01/12/21-01/16/21 (after family meeting) was on establishing care supports to support transition given extended stay, it was determined that returning to [place] was her best option for day programming and med support. Risk Factors Assessment Male: No : Yes Do You Have Access To A Gun?: No Mental Health Diagnoses: Yes Substance Use Disorders: No Previous Psychiatric Hospitalization: Yes Protective Factors Assessment : No Responsible for Young Children: No Employed: No (Unknown) Supportive Family: Yes Interval History Identifying Information 30 yo woman with a history of schizoaffective disorder, admit on 302, converted to 201 upon expiration of 303. Chief Complaint "I've been to some SKILLS program before, I'll be fine.". Review of Systems Sleep Information Total Hours of Sleep: 8 Sleep Comments: pt on q-15 minute checks Meal Information Percent Meal Consumed - Breakfast: 100 Percent Meal Consumed - Lunch: 100 Percent Meal Consumed - Dinner: 100 Nutrition Comment: pt drank several containers of juice Subjective Subjective Patient was seen & assessed and interval progress reviewed with treatment team. Arranging transportation for day program. Patient has been cooperative, smiling more often, still insistent on her routine (same table for meals). Physical Exam Psychiatric Orientation: alert Apperance: appropriately dressed and appropriately groomed Eye Contact: + fair eye contact Motor Behavior: no abnormal motor movements Speech: normal rate/rhythm/volume of speech (but doesn't tend to initiate) Affect: + constricted affect Mood: no depressed mood Thought Process: + concrete thought process Thought Content: reality based without delusions; not paranoid Suicidal Thoughts: denies suicidal thoughts Homicidal Thoughts: denies homicidal thoughts Hallucinations: no auditory hallucinations and no visual hallucinations Cognition: attention grossly intact and language grossly intact Estimated Intelligence: consistent with education level Insight: + fair insight Judgement: + limited judgement Vital Signs (Past 24 Hours) Last Vital Signs Temp 36.3 C L 01/16/21 06:20 Pulse 102 H 01/16/21 06:20 Resp 16 01/16/21 06:20 BP 102/67 01/16/21 06:20 Pulse Ox 100 12/05/20 06:00 Results & Data ([facility]) Current Inpatient Medications Current Inpatient Medications: Current Inpatient Medications Acetaminophen (Acetaminophen 325 Mg Tab) 650 mg PO Q4H PRN PRN Reason: Headache or Minor Fever Stop: 02/12/21 08:09 Al Hydrox/Mg Hydrox/Simethicone (Aluminum/Magnesium Susp 30 Ml Udc) 30 ml PO Q4H PRN PRN Reason: GI Upset Stop: 02/12/21 08:09 Atorvastatin Calcium (Atorvastatin 10 Mg Tab) 10 mg PO QAM [facility] Stop: 02/11/21 09:59 Last Admin: 01/16/21 08:45 Dose: 10 mg Documented by: Benztropine Mesylate (Benztropine Mesylate 1 Mg Tab) 1 mg PO BID [facility] Stop: 02/12/21 10:14 Last Admin: 01/16/21 08:45 Dose: 1 mg Documented by: Bismuth Subsalicylate (Bismuth Subsalicylate Liqd 236 Ml) 15 ml PO PRN PRN PRN Reason: Loose Stool Stop: 02/12/21 08:09 Docusate Sodium (Docusate Sodium 100 Mg Cap) 100 mg PO BID [facility] Stop: 02/12/21 10:14 Last Admin: 01/16/21 08:46 Dose: 100 mg Documented by: Haloperidol (Haloperidol 5 Mg Tab) 10 mg PO HS [facility] Stop: 01/29/21 21:59 Last Admin: 01/15/21 20:31 Dose: 10 mg Documented by: Haloperidol (Haloperidol 5 Mg Tab) 5 mg PO QAM [facility] Stop: 02/14/21 08:59 Last Admin: 01/16/21 08:46 Dose: 5 mg Documented by: Hydroxyzine HCl (Hydroxyzine Hcl 25 Mg Tab) 50 mg PO HSZ PRN PRN Reason: Insomnia Stop: 02/12/21 08:09 Hydroxyzine HCl (Hydroxyzine Hcl 25 Mg Tab) 25 mg PO Q4H PRN PRN Reason: Anxiety Stop: 02/12/21 08:09 Lamotrigine (Lamotrigine 100 Mg Tab) 150 mg PO QAM [facility] Stop: 02/13/21 08:59 Last Admin: 01/16/21 08:46 Dose: 150 mg Documented by: Levothyroxine Sodium (Levothyroxine Sodium 25 Mcg Tablet) 25 mcg PO DAILYBB [facility] Stop: 02/11/21 09:59 Last Admin: 01/16/21 08:45 Dose: 25 mcg Documented by: [place] Carbonate ([place] Carbonate 300 Mg Tab) 300 mg PO BID [facility] Stop: 02/13/21 20:59 Last Admin: 01/16/21 08:47 Dose: 300 mg Documented by: Lorazepam (Lorazepam 1 Mg Tab) 1 mg PO HS [facility] Stop: 02/07/21 21:59 Last Admin: 01/15/21 20:31 Dose: 1 mg Documented by: Magnesium Hydroxide (Magnesium Hydroxide Susp 30 Ml Udc) 30 ml PO DAILY PRN PRN Reason: Constipation Stop: 02/12/21 08:09 Olanzapine (Olanzapine 20 Mg Tablet) 20 mg PO HS [facility] Stop: 02/12/21 21:59 Last Admin: 01/15/21 20:31 Dose: 20 mg Documented by: Olanzapine (Olanzapine 5 Mg Tablet) 5 mg PO Q6 PRN PRN Reason: Anxiety/Agitation Stop: 02/12/21 10:10 Sertraline HCl (Sertraline Hcl 50 Mg Tablet) 50 mg PO QAM [facility] Stop: 01/23/21 08:59 Last Admin: 01/16/21 08:47 Dose: 50 mg Documented by: Sodium Chloride (Sodium Chloride 0.65% Na Soln 45 Ml ([place])) 1 - 2 sprays NA PRN PRN PRN Reason: Nasal Dryness/Congestion Stop: 02/12/21 08:09 Vitamin D (Cholecalciferol 1,000 Units 25 Mcg Tab) 2,000 units PO QAM [facility] Stop: 02/11/21 09:59 Last Admin: 01/16/21 08:46 Dose: 2,000 units Documented by: Mental Health & Subst Abuse Tx Psychiatrist Name of Psychiatrist: Bruno Mcleod Psychiatrist's Date of Appointment with Psychiatrist: 01/22/21 Time of Appointment with Psychiatrist: 10:30am Psychiatric Appointment Comment: [address], [place] [address] Therapist Name of Therapist: Tex Sherwood Therapist's Date of Therapist Appointment: 01/20/21 Time of Therapist Appointment: 1:00 PM Therapy Appointment Comment: [address] [facility] [address], [place] [address] Orthopedically Impaired Teacher Name of Orthopedically Impaired Teacher: BEE Phone Number for Orthopedically Impaired Teacher: [phone] Case Management Appointment Comment: [address] [address], [place] [address] Post Discharge Appointments Primary Care Physician Name Of Family Doctor: Dr. Shi Primary Care Date of Appointment with PCP: 01/19/21 Time of Appointment with PCP: 1pm Provider Appointment Comment: [address] [facility], [place] [address] Neurologist Name of Neurologist: Mac Arroyo Neurologist's Date of Appointment with Neurologist: 02/13/21 Time of Appointment with Neurologist: 9:20 a.m Neurology Appointment Comment: [address] [place] [address], [address], [place] [address] Contact Information Discharge Discharge Address: [address] [place] [address]. [place] [address]
[2021-01-16] MEDS: LORazepam 1 MG TAB PO SCH (21:04)
[2021-01-16] MEDS: OLANZapine 20 MG TABLET PO SCH (21:04)
[2021-01-17] MEDS: ATORVASTATIN 10 MG TAB PO SCH (09:23)
[2021-01-17] MEDS: LEVOTHYROXINE SODIUM 25 MCG TABLET PO SCH (09:23)
[2021-01-17] MEDS: CHOLECALCIFEROL 1,000 UNITS 25 MCG TAB PO SCH (09:24)
[2021-01-17] MEDS: BENZTROPINE MESYLATE 1 MG TAB PO SCH ×2 (09:24→21:07)
[2021-01-17] MEDS: DOCUSATE SODIUM 100 MG CAP PO SCH ×2 (09:24→21:07)
[2021-01-17] MEDS: lamoTRIgine 100 MG TAB PO SCH (09:25)
[2021-01-17] MEDS: haloperidoL 5 MG TAB PO SCH ×2 (09:25→21:07)
[2021-01-17] MEDS: LITHIUM CARBONATE 300 MG TAB PO SCH ×2 (09:26→21:07)
[2021-01-17] MEDS: SERTRALINE HCL 50 MG TABLET PO SCH (09:26)
--- NOTE | 2021-01-17 16:21 | Psychiatric Progress Note ---
Date of Service January 17, 2021 Impression / Recommendations Impression The patient is a 30 year old with a history of schizoaffective disorder who was admitted for psychosis. Requires structure of unit until can transition to therapeutic day programming to avoid decompensation/rehospitalization. 01/17/21: ongoing slow improvement, continue current medications and tx plan 01/16/21: improving Plan for 01/16/21: continue current meds and tx plan. (1) Schizoaffective disorder, bipolar type: Given the patient's extended length of stay, a condensed care summary includes the following: Patient was admitted on a 302 and restarted on previous medications with the exception of Zoloft initially as manic/mixed state in appearance. Ativan TID was added for catatonic features with some benefit but ongoing psychosis. Lamictal was titrated slowly over the course of her stay to previously effective dose for seizures of 150 mg. Trilafon was increased for residual symptoms with minimal to no benefit and parents preferred an agent that could be given as a GARNER. Invega replaced Trilafon on 12/16/20. The patient improved to the point she was able to understand treatment and agreed to sign in volunarily on 12/19/20. On 12/23/20 she was clearly feeling worse on Invega and she was transitioned to Haldol with escalating doses. She did not want Haldol decanoate. On 01/03/21 an Ativan taper was initiated but she failed taper of the hs dose due to worsening anxiety. The focus of 01/12/21-01/16/21 (after family meeting) was on establishing care supports to support transition given extended stay, it was determined that returning to [place] was her best option for day programming and med support. Risk Factors Assessment Male: No : Yes Do You Have Access To A Gun?: No Mental Health Diagnoses: Yes Substance Use Disorders: No Previous Psychiatric Hospitalization: Yes Protective Factors Assessment : No Responsible for Young Children: No Employed: No (Unknown) Supportive Family: Yes Interval History Identifying Information 30 yo woman with a history of schizoaffective disorder, admit on 302, converted to 201 upon expiration of 303. Chief Complaint "I'm good". Review of Systems Sleep Information Total Hours of Sleep: 7 Sleep Comments: pt on q-15 minute checks Meal Information Percent Meal Consumed - Breakfast: 100 Percent Meal Consumed - Lunch: 100 Percent Meal Consumed - Dinner: 100 Nutrition Comment: pt drank several containers of juice Subjective Subjective Chart and events of last 24 hours reviewed and discussed with multidisciplinary treatment team including nursing and social work. No acute events reported overnight. Slept well. Eating well. Attending groups. Adherent with medications. Less engaged during the day but socializes more in the evenings. Stable mood today and looking forward to restarting art therapy at some point soon. No reported side effects from their medication. Spent more than 20 minutes in the care and coordination of this patient of which greater than 50% was dedicated to counseling and coordination of care. Physical Exam Psychiatric Orientation: alert and oriented x 3 Apperance: appropriately dressed and appropriately groomed Eye Contact: good eye contact Motor Behavior: steady gait and station and no abnormal motor movements Speech: normal rate/rhythm/volume of speech (but doesn't tend to initiate) Affect: euthymic affect Mood: no depressed mood Thought Process: goal directed thought process and + concrete thought process Thought Content: reality based without delusions; not paranoid Suicidal Thoughts: denies suicidal thoughts Homicidal Thoughts: denies homicidal thoughts Hallucinations: no auditory hallucinations and no visual hallucinations Cognition: recent memory grossly intact, remote memory grossly intact, attention grossly intact and language grossly intact Insight: + fair insight Judgement: + fair judgement Vital Signs (Past 24 Hours) Last Vital Signs Temp 36.7 C 01/17/21 06:00 Pulse 118 H 01/17/21 06:43 Resp 14 01/17/21 06:00 BP 104/74 01/17/21 06:43 Pulse Ox 100 12/05/20 06:00 Results & Data ([facility]) Current Inpatient Medications Current Inpatient Medications: Current Inpatient Medications Acetaminophen (Acetaminophen 325 Mg Tab) 650 mg PO Q4H PRN PRN Reason: Headache or Minor Fever Stop: 02/12/21 08:09 Al Hydrox/Mg Hydrox/Simethicone (Aluminum/Magnesium Susp 30 Ml Udc) 30 ml PO Q4H PRN PRN Reason: GI Upset Stop: 02/12/21 08:09 Atorvastatin Calcium (Atorvastatin 10 Mg Tab) 10 mg PO QAM [facility] Stop: 02/11/21 09:59 Last Admin: 01/17/21 09:23 Dose: 10 mg Documented by: Benztropine Mesylate (Benztropine Mesylate 1 Mg Tab) 1 mg PO BID [facility]O Stop: 02/12/21 10:14 Last Admin: 01/17/21 09:24 Dose: 1 mg Documented by: Bismuth Subsalicylate (Bismuth Subsalicylate Liqd 236 Ml) 15 ml PO PRN PRN PRN Reason: Loose Stool Stop: 02/12/21 08:09 Docusate Sodium (Docusate Sodium 100 Mg Cap) 100 mg PO BID [facility] Stop: 02/12/21 10:14 Last Admin: 01/17/21 09:24 Dose: 100 mg Documented by: Haloperidol (Haloperidol 5 Mg Tab) 10 mg PO HS [facility] Stop: 01/29/21 21:59 Last Admin: 01/16/21 21:04 Dose: 10 mg Documented by: Haloperidol (Haloperidol 5 Mg Tab) 5 mg PO QAM [facility] Stop: 02/14/21 08:59 Last Admin: 01/17/21 09:25 Dose: 5 mg Documented by: Hydroxyzine HCl (Hydroxyzine Hcl 25 Mg Tab) 50 mg PO HSZ PRN PRN Reason: Insomnia Stop: 02/12/21 08:09 Hydroxyzine HCl (Hydroxyzine Hcl 25 Mg Tab) 25 mg PO Q4H PRN PRN Reason: Anxiety Stop: 02/12/21 08:09 Lamotrigine (Lamotrigine 100 Mg Tab) 150 mg PO QAM [facility] Stop: 02/13/21 08:59 Last Admin: 01/17/21 09:25 Dose: 150 mg Documented by: Levothyroxine Sodium (Levothyroxine Sodium 25 Mcg Tablet) 25 mcg PO DAILYBB [facility] Stop: 02/11/21 09:59 Last Admin: 01/17/21 09:23 Dose: 25 mcg Documented by: [place] Carbonate ([place] Carbonate 300 Mg Tab) 300 mg PO BID [facility] Stop: 02/13/21 20:59 Last Admin: 01/17/21 09:26 Dose: 300 mg Documented by: Lorazepam (Lorazepam 1 Mg Tab) 1 mg PO HS [facility] Stop: 02/07/21 21:59 Last Admin: 01/16/21 21:04 Dose: 1 mg Documented by: Magnesium Hydroxide (Magnesium Hydroxide Susp 30 Ml Udc) 30 ml PO DAILY PRN PRN Reason: Constipation Stop: 02/12/21 08:09 Olanzapine (Olanzapine 20 Mg Tablet) 20 mg PO HS [facility] Stop: 02/12/21 21:59 Last Admin: 01/16/21 21:04 Dose: 20 mg Documented by: Olanzapine (Olanzapine 5 Mg Tablet) 5 mg PO Q6 PRN PRN Reason: Anxiety/Agitation Stop: 02/12/21 10:10 Sertraline HCl (Sertraline Hcl 50 Mg Tablet) 50 mg PO QAM [facility] Stop: 01/23/21 08:59 Last Admin: 01/17/21 09:26 Dose: 50 mg Documented by: Sodium Chloride (Sodium Chloride 0.65% Na Soln 45 Ml ([place])) 1 - 2 sprays NA PRN PRN PRN Reason: Nasal Dryness/Congestion Stop: 02/12/21 08:09 Vitamin D (Cholecalciferol 1,000 Units 25 Mcg Tab) 2,000 units PO QAM [facility] Stop: 02/11/21 09:59 Last Admin: 01/17/21 09:24 Dose: 2,000 units Documented by: Vitamin D (Cholecalciferol 400 Units 10 Mcg Tab) 2,000 units PO QAM [facility] Stop: 01/18/21 09:01 Mental Health & Subst Abuse Tx Psychiatrist Name of Psychiatrist: Bruno Mcleod Psychiatrist's Date of Appointment with Psychiatrist: 01/22/21 Time of Appointment with Psychiatrist: 10:30am Psychiatric Appointment Comment: [address] [place] [address] Therapist Name of Therapist: Tex Sherwood Therapist's Date of Therapist Appointment: 01/20/21 Time of Therapist Appointment: 1:00 PM Therapy Appointment Comment: [address] [place] [address] Licensed Surveyor Name of Licensed Surveyor: BEE Jensen Phone Number for Licensed Surveyor: [phone] Time of Appointment with Licensed Surveyor: Will follow up with you to assign a upper caserrefuge manager Appointment Comment: [address] [place], [place] [address] [address] Post Discharge Appointments Primary Care Physician Name Of Family Doctor: Dr. Shi Primary Care Date of Appointment with PCP: 01/19/21 Time of Appointment with PCP: 1pm Provider App[facility]ment [facility] [address] [facility] [address] Neurologist Name of Neurologist: Mac Strange - Dr. Arroyo Neurologist's Date of Appointment with Neurologist: 02/13/21 Time of Appointment with Neurologist: 9:20 a.m Neurology Appointment Comment: [address] [place] [address], [address], [place] [address] Contact Information Discharge Discharge Address: [address] [place], [place] [address] [address]
[2021-01-17] MEDS: OLANZapine 20 MG TABLET PO SCH (21:07)
[2021-01-17] MEDS: LORazepam 1 MG TAB PO SCH (21:07)
[2021-01-18] MEDS: LEVOTHYROXINE SODIUM 25 MCG TABLET PO SCH (08:52)
[2021-01-18] MEDS ORDERED: CHOLECALCIFEROL 400 UNITS 10 MCG TAB PO SCH (09:00)
[2021-01-18] MEDS: ATORVASTATIN 10 MG TAB PO SCH (09:08)
[2021-01-18] MEDS: BENZTROPINE MESYLATE 1 MG TAB PO SCH ×2 (09:08→21:02)
[2021-01-18] MEDS: DOCUSATE SODIUM 100 MG CAP PO SCH ×2 (09:09→21:02)
[2021-01-18] MEDS: haloperidoL 5 MG TAB PO SCH ×2 (09:10→21:02)
[2021-01-18] MEDS: LITHIUM CARBONATE 300 MG TAB PO SCH ×2 (09:11→21:02)
[2021-01-18] MEDS: lamoTRIgine 100 MG TAB PO SCH (09:11)
[2021-01-18] MEDS: SERTRALINE HCL 50 MG TABLET PO SCH (09:12)
--- NOTE | 2021-01-18 13:07 | Psychiatric Progress Note ---
Date of Service January 18, 2021 Impression / Recommendations Impression The patient is a 30 year old with a history of schizoaffective disorder who was admitted for psychosis. Requires structure of unit until can transition to therapeutic day programming to avoid decompensation/rehospitalization. 01/18/21: stable improvement, continue current medications and tx plan 01/17/21: ongoing slow improvement, continue current medications and tx plan 01/16/21: improving Plan for 01/16/21: continue current meds and tx plan. (1) Schizoaffective disorder, bipolar type: Given the patient's extended length of stay, a condensed care summary includes the following: Patient was admitted on a 302 and restarted on previous medications with the exception of Zoloft initially as manic/mixed state in appearance. Ativan TID was added for catatonic features with some benefit but ongoing psychosis. Lamictal was titrated slowly over the course of her stay to previously effective dose for seizures of 150 mg. Trilafon was increased for residual symptoms with minimal to no benefit and parents preferred an agent that could be given as a GARNER. Invega replaced Trilafon on 12/16/20. The patient improved to the point she was able to understand treatment and agreed to sign in volunarily on 12/19/20. On 12/23/20 she was clearly feeling worse on Invega and she was transitioned to Haldol with escalating doses. She did not want Haldol decanoate. On 01/03/21 an Ativan taper was initiated but she failed taper of the hs dose due to worsening anxiety. The focus of 01/12/21-01/16/21 (after family meeting) was on establishing care supports to support transition given extended stay, it was determined that returning to [facility] was her best option for day programming and med support. Risk Factors Assessment Male: No : Yes Do You Have Access To A Gun?: No Mental Health Diagnoses: Yes Substance Use Disorders: No Previous Psychiatric Hospitalization: Yes Protective Factors Assessment : No Responsible for Young Children: No Employed: No (Unknown) Supportive Family: Yes Interval History Identifying Information 30 yo woman with a history of schizoaffective disorder, admit on 302, converted to 201 upon expiration of 303. Chief Complaint "I'm good". Review of Systems Sleep Information Total Hours of Sleep: 7.25 Sleep Comments: pt on q-15 minute checks Meal Information Percent Meal Consumed - Breakfast: 100 Percent Meal Consumed - Lunch: 100 Percent Meal Consumed - Dinner: 100 Nutrition Comment: pt drank several containers of juice Subjective Subjective Chart and events of last 24 hours reviewed and discussed with multidisciplinary treatment team including nursing and social work. No acute events reported overnight. Slept well. Eating well. Attending groups. Adherent with medications. She reports stable mood and no reported side effects from her medication. She's pleased that Colace helps with constipation and plans to eat raw veggies after discharge to help with getting enough fiber. Spent more than 20 minutes in the care and coordination of this patient of which greater than 50% was dedicated to counseling and coordination of care. Physical Exam Psychiatric Orientation: alert and oriented x 3 Apperance: appropriately dressed and appropriately groomed Eye Contact: good eye contact Motor Behavior: steady gait and station and no abnormal motor movements Speech: normal rate/rhythm/volume of speech (but doesn't tend to initiate) Affect: euthymic affect Mood: no depressed mood Thought Process: goal directed thought process and + concrete thought process Thought Content: reality based without delusions; not paranoid Suicidal Thoughts: denies suicidal thoughts Homicidal Thoughts: denies homicidal thoughts Hallucinations: no auditory hallucinations and no visual hallucinations Cognition: recent memory grossly intact, remote memory grossly intact, attention grossly intact and language grossly intact Estimated Intelligence: consistent with education level Insight: + limited insight Judgement: + fair judgement Vital Signs (Past 24 Hours) Last Vital Signs Temp 36.6 C 01/18/21 06:00 Pulse 109 H 01/18/21 06:30 Resp 14 01/18/21 06:00 BP 96/71 L 01/18/21 06:30 Pulse Ox 100 12/05/20 06:00 Results & Data ([facility]) Current Inpatient Medications Current Inpatient Medications: Current Inpatient Medications Acetaminophen (Acetaminophen 325 Mg Tab) 650 mg PO Q4H PRN PRN Reason: Headache or Minor Fever Stop: 02/12/21 08:09 Al Hydrox/Mg Hydrox/Simethicone (Aluminum/Magnesium Susp 30 Ml Udc) 30 ml PO Q4H PRN PRN Reason: GI Upset Stop: 02/12/21 08:09 Atorvastatin Calcium (Atorvastatin 10 Mg Tab) 10 mg PO QAM AGAPITO Stop: 02/11/21 09:59 Last Admin: 01/18/21 09:08 Dose: 10 mg Documented by: Benztropine Mesylate (Benztropine Mesylate 1 Mg Tab) 1 mg PO BID AGAPITO Stop: 02/12/21 10:14 Last Admin: 01/18/21 09:08 Dose: 1 mg Documented by: Bismuth Subsalicylate (Bismuth Subsalicylate Liqd 236 Ml) 15 ml PO PRN PRN PRN Reason: Loose Stool Stop: 02/12/21 08:09 Docusate Sodium (Docusate Sodium 100 Mg Cap) 100 mg PO BID AGAPITO Stop: 02/12/21 10:14 Last Admin: 01/18/21 09:09 Dose: 100 mg Documented by: Haloperidol (Haloperidol 5 Mg Tab) 10 mg PO HS [facility] Stop: 01/29/21 21:59 Last Admin: 01/17/21 21:07 Dose: 10 mg Documented by: Haloperidol (Haloperidol 5 Mg Tab) 5 mg PO QAM AGAPITO Stop: 02/14/21 08:59 Last Admin: 01/18/21 09:10 Dose: 5 mg Documented by: Hydroxyzine HCl (Hydroxyzine Hcl 25 Mg Tab) 50 mg PO HSZ PRN PRN Reason: Insomnia Stop: 02/12/21 08:09 Hydroxyzine HCl (Hydroxyzine Hcl 25 Mg Tab) 25 mg PO Q4H PRN PRN Reason: Anxiety Stop: 02/12/21 08:09 Lamotrigine (Lamotrigine 100 Mg Tab) 150 mg PO QAM AGAPITO Stop: 02/13/21 08:59 Last Admin: 01/18/21 09:11 Dose: 150 mg Documented by: Levothyroxine Sodium (Levothyroxine Sodium 25 Mcg Tablet) 25 mcg PO DAILYBB AGAPITO Stop: 02/11/21 09:59 Last Admin: 01/18/21 08:52 Dose: 25 mcg Documented by: [place] Carbonate ([place] Carbonate 300 Mg Tab) 300 mg PO BID AGAPITO Stop: 02/13/21 20:59 Last Admin: 01/18/21 09:11 Dose: 300 mg Documented by: Lorazepam (Lorazepam 1 Mg Tab) 1 mg PO HS AGAPITO Stop: 02/07/21 21:59 Last Admin: 01/17/21 21:07 Dose: 1 mg Documented by: Magnesium Hydroxide (Magnesium Hydroxide Susp 30 Ml Udc) 30 ml PO DAILY PRN PRN Reason: Constipation Stop: 02/12/21 08:09 Olanzapine (Olanzapine 20 Mg Tablet) 20 mg PO HS AGAPITO Stop: 02/12/21 21:59 Last Admin: 01/17/21 21:07 Dose: 20 mg Documented by: Olanzapine (Olanzapine 5 Mg Tablet) 5 mg PO Q6 PRN PRN Reason: Anxiety/Agitation Stop: 02/12/21 10:10 Sertraline HCl (Sertraline Hcl 50 Mg Tablet) 50 mg PO QAM AGAP[place]O Stop: 01/23/21 08:59 Last Admin: 01/18/21 09:12 Dose: 50 mg Documented by: Sodium Chloride (Sodium Chloride 0.65% Na Soln 45 Ml ([place])) 1 - 2 sprays NA PRN PRN PRN Reason: Nasal Dryness/Congestion Stop: 02/12/21 08:09 Vitamin D (Cholecalciferol 1,000 Units 25 Mcg Tab) 2,000 units PO QAM AGAPITO Stop: 02/11/21 09:59 Last Admin: 01/17/21 09:24 Dose: 2,000 units Documented by: Mental Health & Subst Abuse Tx Psychiatrist Name of Psychiatrist: Bruno Mcleod Psychiatrist's Date of Appointment with Psychiatrist: 01/22/21 Time of Appointment with Psychiatrist: 10:30am Psychiatric Appointment Comment: [address] [place] [address] Therapist Name of Therapist: Tex Sherwood Therapist's Date of Therapist Appointment: 01/20/21 Time of Therapist Appointment: 1:00 PM Therapy Appointment Comment: [address] [place] [address] Cena Name of Cena: BEE Jensen Phone Number for Cena: [phone] Time of Appointment with Cena: Will follow up with you to assign a case investigatorracing manager Appointment Comment: [address] [place] [address] [place] [id number] Post Discharge Appointments Primary Care Physician Name Of Family Doctor: Dr. Shi [facility] Date of Appointment with PCP: 01/19/21 Time of Appointment with PCP: 1pm Provider Appointment Comment: [address] [facility] [place] [address] Neurologist Name of Neurologist: Mac Arroyo Neurologist's Date of Appointment with Neurologist: 02/13/21 Time of Appointment with Neurologist: 9:20 a.m Neurology Appointment Comment: [address] [place] [address], [address], [place] [address] Contact Information Discharge Discharge Address: [address] [place], [place] [address] [id number]
[2021-01-18] MEDS: LORazepam 1 MG TAB PO SCH (21:02)
[2021-01-18] MEDS: OLANZapine 20 MG TABLET PO SCH (21:02)
[2021-01-19] MEDS: BENZTROPINE MESYLATE 1 MG TAB PO SCH (08:51)
[2021-01-19] MEDS: CHOLECALCIFEROL 1,000 UNITS 25 MCG TAB PO SCH (08:51)
[2021-01-19] MEDS: ATORVASTATIN 10 MG TAB PO SCH (08:51)
[2021-01-19] MEDS: DOCUSATE SODIUM 100 MG CAP PO SCH (08:51)
[2021-01-19] MEDS: LEVOTHYROXINE SODIUM 25 MCG TABLET PO SCH (08:51)
[2021-01-19] MEDS: lamoTRIgine 100 MG TAB PO SCH (08:52)
[2021-01-19] MEDS: haloperidoL 5 MG TAB PO SCH (08:52)
[2021-01-19] MEDS: LITHIUM CARBONATE 300 MG TAB PO SCH (08:52)
[2021-01-19] MEDS: SERTRALINE HCL 50 MG TABLET PO SCH (08:53)
[2021-01-19] MEDS ORDERED: DESTROY THIS MEDICATION ONE (09:44)
--- NOTE | 2021-01-19 09:55 | Discharge Summary ---
Date of Service January 19, 2021 History of Present Illness Per Dr. Ortiz's H&P on 12/01/20: Patient was brought to ED by police on a 302 warrant as she was found wandering without clothes on and appearing confused, responding to internal stimuli, and seeming dehydrated. Patient admitted to not taking her medication and experiencing auditory and visual miner but would not elaborate. Did receive Zyprexa 5 mg in the ED for symptoms (no agitated) and tolerated transfer to the unit thought given timing only slep 4 hrs. She took fluids this am but hasn't touched her breakfast thus far in her room. She appears to be responding to internal stimuli. She states she hasn't taken medication for about 1 month. She is a poor historian and ended the interview abruptly. She states "I'll eat, sleep when I want to" and did accept her am medication. We are in the process of contacting mother for collateral. She has a significant history of psychosis but has not been hospitalized on our unit since 2009. Her first break (per records) occured in her senior year of high school. She did require hospitalization at [facility] until 2019. It is unclear what other services she is receiving, lists Dr. Mcleod[facility]. Southside level was not obtained in the ED due to fact she reported non- compliance. Meds were ordered by electroneurodiagnostic technician psychiatrist as per med rec as records are pending. Nursing staff were directed to decrease Lamictal to 25 mg as effectively a restart of medication and Zoloft was held pending further evaluation/retitration of Southside. Orientation: alert Apperance: + disheveled Eye Contact: + poor eye contact Motor Behavior: no abnormal motor movements non spontaneous Affect: + labile affect Mood: + anxious mood Thought Process: + thought blocking and + concrete thought process Thought Content: no delusions Suicidal Thoughts: denies suicidal thoughts Homicidal Thoughts: denies homicidal thoughts Hallucinations: + auditory hallucinations (won't elaborate) and + visual hallucinations (won't elaborate) Cognition: language grossly intact; + atten tion not intact Estimated Intelligence: + below average estimated intelligence Insight: + severely impaired insight Judgement: + severely impaired judgement Physical Exam Vital Signs (Past 24 Hours) Last Vital Signs Temp 36.6 C 01/19/21 06:40 Pulse 108 H 01/19/21 06:40 Resp 16 01/19/21 06:40 BP 109/74 01/19/21 06:40 Pulse Ox 100 12/05/20 06:00 See admission H&P and DOD summary. Principal Diagnosis Schizoaffective disorder Psychiatric Data See daily stay summary. In short, patient was engaged with the social/therapeutic milieu of the unit, safety was maintained and the patient was cooperative with care. Medication changes included initiation of ativan, lamictal titration, and haldol and she tolerated this well. Baseline labs of fasting glucose, HbA1c, fasting lipid profile, and weight were preformed and WNL with the exception of low HDL. Recommend repeat weight in one month. Recommend repeat fasting glucose, HbA1c and fasting lipid profile every 12 weeks and then annually. If symptoms arise recommend checking BP, EKG, prolactin level as clinically indicated or relevant. A family session was held and safety plan was completed prior to discharge. Day of Discharge Assessment Today the patient voices readiness for discharge. They note improvement in mood and anxiety. They deny thoughts of harm to self or others. Thoughts are organized and they are clinically improved from admission. There is no evidence of psychosis. They improved in the hospital with support and medication adjust ments. They agree to take medications as prescribed and keep follow-up appointments. At the time of the discharge they are deemed to be stable and appropriate for outpatient level of care. They are not deemed to be at imminent risk of harm to self or others. They are aware of emergency and crisis services. Knows to call 911 or go to nearest emergency care center if in a crisis which cannot be handled as an outpatient. Transition of Care Transition Of Care Record: was reviewed with the patient Advance Directives Advance Directives Information Provided: Yes Advance Directives: No Mental Health Advance Directive: No Advance Directives on File: No Living Will: Yes Power of Sales Support Advisor: Yes Advance Directives Reason:: Declines as Mental Health Visit. Risk Factors Assessment Male: No : Yes Do You Have Access To A Gun?: No Mental Health Diagnoses: Yes Substance Use Disorders: No Previous Psychiatric Hospitalization: Yes Hopelessness: No Protective Factors Assessment : No Responsible for Young Children: No Employed: No Stable Relationships: Yes Supportive Family: Yes Antipsychotic Medications Patient is on two antipsychotics due to a history, confirmed through review of medical records, of more than three failed trials of monotherapy and clinical improvement only once an additional antipsychotic, haldol, was added to her regimen. Ideally if she remains stable in the outpatient setting with good supports then efforts should be made to eventually taper to monotherapy. Discharge Data Lab Results 11/30/20 11/30/20 11/30/20 12:54 12:54 12:54 WBC 9.22 RBC 4.65 Hgb 13.5 Hct 39.4 MCV 84.7 MCH 29.0 MCHC 34.3 RDW Std Deviation 39.3 RDW Coeff of Kelli 12.8 Plt Count 427 H MPV 8.6 Immature Gran % (Auto) 0.3 Neut % (Auto) 66.6 Lymph % (Auto) 26.2 [place] % (Auto) 6.7 Eos % (Auto) 0.0 Baso % (Auto) 0.2 Neut # (Auto) 6.13 Lymph # (Auto) 2.42 [place] # (Auto) 0.62 H Eos # (Auto) 0.00 Baso # (Auto) 0.02 Immature Gran # (Auto) 0.03 H Sodium 137 Potassium 3.6 Chloride 105 Carbon Dioxide 21 Anion Gap 11.0 BUN 22 H Creatinine 0.97 Est Cr Clr Drug Dosing 81.1 Est GFR ( Amer) 90.8 Est GFR (Non-Af Amer) 78.4 BUN/Creatinine Ratio 23.1 H Glucose 91 Fasting Glucose Calcium 9.5 Total Bilirubin 0.4 Direct Bilirubin AST 43 H ALT 86 H Alkaline Phosphatase 59 Total Protein 8.6 H Albumin 4.2 Globulin 4.4 H Albumin/Globulin Ratio 1.0 Triglycerides Cholesterol LDL Cholesterol, Calc VLDL Cholesterol, Calc HDL Cholesterol Cholesterol/HDL Ratio TSH 3.190 HCG, Qual Urine Color Urine Appearance Urine pH Ur Specific [place] Urine Protein Urine Glucose (UA) Urine Ketones Urine Blood Urine Nitrite Urine Bilirubin Urine Urobilinogen Ur Leukocyte Esterase Urine WBC (Auto) Urine RBC (Auto) U Hyaline Cast (Auto) U Epithel Cells (Auto) Urine Bacteria (Auto) Salicylates 2.9 Urine Opiates Screen Ur Methadone, Qual Acetaminophen < 2 L Urine Barbiturates Lamotrigine Ur Phencyclidine (PCP) U Amphetamin/Meth Scrn MDMA (Ecstasy) Screen U Benzodiazepines Scrn Southside < 0.2 L Ur Cocaine Metabolite U Marijuana (THC) Screen Ethyl Alcohol mg/dL COVID-19 Eval Order SARS-CoV-2, RNA, NAAT 11/30/20 11/30/20 11/30/20 12:54 12:54 12:54 WBC RBC Hgb Hct MCV MCH MCHC RDW Std Deviation RDW Coeff of Kelli Plt Count MPV Immature Gran % (Auto) Neut % (Auto) Lymph % (Auto) [place] % (Auto) Eos % (Auto) Baso % (Auto) Neut # (Auto) Lymph # (Auto) [place] # (Auto) Eos # (Auto) Baso # (Auto) Immature Gran # (Auto) Sodium Potassium Chloride Carbon Dioxide Anion Gap BUN Creatinine Est Cr Clr Drug Dosing Est GFR ( Amer) Est GFR (Non-Af Amer) BUN/Creatinine Ratio Glucose Fasting Glucose Calcium Total Bilirubin Direct Bilirubin AST ALT Alkaline Phosphatase Total Protein Albumin Globulin Albumin/Globulin Ratio Triglycerides Cholesterol LDL Cholesterol, Calc VLDL Cholesterol, Calc HDL Cholesterol Cholesterol/HDL Ratio TSH HCG, Qual Negative Urine Color Urine Appearance Urine pH Ur Specific [place] Urine Protein Urine Glucose (UA) Urine Ketones Urine Blood Urine Nitrite Urine Bilirubin Urine Urobilinogen Ur Leukocyte Esterase Urine WBC (Auto) Urine RBC (Auto) U Hyaline Cast (Auto) U Epithel Cells (Auto) Urine Bacteria (Auto) Salicylates Urine Opiates Screen Ur Methadone, Qual Acetaminophen Urine Barbiturates Lamotrigine <0.5 L Ur Phencyclidine (PCP) U Amphetamin/Meth Scrn MDMA (Ecstasy) Screen U Benzodiazepines Scrn Southside Ur Cocaine Metabolite U Marijuana (THC) Screen Ethyl Alcohol mg/dL < 3.0 COVID-19 Eval Order SARS-CoV-2, RNA, NAAT 11/30/20 11/30/20 11/30/20 13:23 13:23 17:15 WBC RBC Hgb Hct MCV MCH MCHC RDW Std Deviation RDW Coeff of Kelli Plt Count MPV Immature Gran % (Auto) Neut % (Auto) Lymph % (Auto) [place] % (Auto) Eos % (Auto) Baso % (Auto) Neut # (Auto) Lymph # (Auto) [place] # (Auto) Eos # (Auto) Baso # (Auto) Immature Gran # (Auto) Sodium Potassium Chloride Carbon Dioxide Anion Gap BUN Creatinine Est Cr Clr Drug Dosing Est GFR ( Amer) Est GFR (Non-Af Amer) BUN/Creatinine Ratio Glucose Fasting Glucose Calcium Total Bilirubin Direct Bilirubin AST ALT Alkaline Phosphatase Total Protein Albumin Globulin Albumin/Globulin Ratio Triglycerides Cholesterol LDL Cholesterol, Calc VLDL Cholesterol, Calc HDL Cholesterol Cholesterol/HDL Ratio TSH HCG, Qual Urine Color Dark Yellow Urine Appearance Cloudy A Urine pH 6.0 Ur Specific [place] 1.031 H Urine Protein 1+ H Urine Glucose (UA) Negative Urine Ketones 4+ H Urine Blood 3+ H Urine Nitrite Negative Urine Bilirubin Negative Urine Urobilinogen Negative Ur Leukocyte Esterase Negative Urine WBC (Auto) 5-10 H Urine RBC (Auto) 10-30 H U Hyaline Cast (Auto) 5-10 H U Epithel Cells (Auto) >30 H Urine Bacteria (Auto) 1+ H Salicylates Urine Opiates Screen Ur Methadone, Qual Acetaminophen Urine Barbiturates Lamotrigine Ur Phencyclidine (PCP) U Amphetamin/Meth Scrn MDMA (Ecstasy) Screen U Benzodiazepines Scrn [place]side Ur Cocaine Metabolite U Marijuana (THC) Screen Ethyl Alcohol mg/dL COVID-19 Eval Order Covid19 IDNow atMWYC SARS-CoV-2, RNA, NAAT NEGATIVE 11/30/20 11/30/20 12/02/20 17:15 Unknown 07:31 WBC RBC Hgb Hct MCV MCH MCHC RDW Std Deviation RDW Coeff of Kelli Plt Count MPV Immature Gran % (Auto) Neut % (Auto) Lymph % (Auto) [place] % (Auto) Eos % (Auto) Baso % (Auto) Neut # (Auto) Lymph # (Auto) [place] # (Auto) Eos # (Auto) Baso # (Auto) Immature Gran # (Auto) Sodium Potassium Chloride Carbon Dioxide Anion Gap BUN Creatinine Est Cr Clr Drug Dosing Est GFR ( Amer) Est GFR (Non-Af Amer) BUN/Creatinine Ratio Glucose Fasting Glucose 89 Calcium Total Bilirubin Direct Bilirubin AST ALT Alkaline Phosphatase Total Protein Albumin Globulin Albumin/Globulin Ratio Triglycerides 87 Cholesterol 189 LDL Cholesterol, Calc 143 VLDL Cholesterol, Calc 17 HDL Cholesterol 29 Cholesterol/HDL Ratio 7 TSH HCG, Qual Urine Color Urine Appearance Urine pH Ur Specific [place] Urine Protein Urine Glucose (UA) Urine Ketones Urine Blood Urine Nitrite Urine Bilirubin Urine Urobilinogen Ur Leukocyte Esterase Urine WBC (Auto) Urine RBC (Auto) U Hyaline Cast (Auto) U Epithel Cells (Auto) Urine Bacteria (Auto) Salicylates Urine Opiates Screen Neg Ur Methadone, Qual Neg Acetaminophen Urine Barbiturates Neg Lamotrigine Ur Phencyclidine (PCP) Neg U Amphetamin/Meth Scrn Neg MDMA (Ecstasy) Screen Neg U Benzodiazepines Scrn Neg Southside Ur Cocaine Metabolite Neg U Marijuana (THC) Screen Neg Ethyl Alcohol mg/dL COVID-19 Eval Order Cancelled SARS-CoV-2, RNA, NAAT 12/05/20 12/26/20 12/26/20 08:19 07:20 07:20 WBC 8.83 RBC 5.30 Hgb 15.2 Hct 46.7 MCV 88.1 MCH 28.7 MCHC 32.5 RDW Std Deviation 43.0 RDW Coeff of Kelli 13.3 Plt Count 397 MPV 9.1 Immature Gran % (Auto) 0.2 Neut % (Auto) 65.8 Lymph % (Auto) 26.3 [place] % (Auto) 7.5 Eos % (Auto) 0.0 Baso % (Auto) 0.2 Neut # (Auto) 5.81 Lymph # (Auto) 2.32 [place] # (Auto) 0.66 H Eos # (Auto) 0.00 Baso # (Auto) 0.02 Immature Gran # (Auto) 0.02 Sodium 138 Potassium 3.7 Chloride 105 Carbon Dioxide 26 Anion Gap 6.0 BUN 7 Creatinine 1.00 Est Cr Clr Drug Dosing 80.2 Est GFR ( Amer) 87.6 Est GFR (Non-Af Amer) 75.5 BUN/Creatinine Ratio 6.9 L Glucose 100 H Fasting Glucose Calcium 9.8 Total Bilirubin 0.3 Direct Bilirubin 0.1 AST 33 ALT 117 H Alkaline Phosphatase 58 Total Protein 8.6 H Albumin 4.3 Globulin 4.3 H Albumin/Globulin Ratio 1.0 Triglycerides Cholesterol LDL Cholesterol, Calc VLDL Cholesterol, Calc HDL Cholesterol Cholesterol/HDL Ratio TSH HCG, Qual Urine Color Urine Appearance Urine pH Ur Specific [place] Urine Protein Urine Glucose (UA) Urine Ketones Urine Blood Urine Nitrite Urine Bilirubin Urine Urobilinogen Ur Leukocyte Esterase Urine WBC (Auto) Urine RBC (Auto) U Hyaline Cast (Auto) U Epithel Cells (Auto) Urine Bacteria (Auto) Salicylates Urine Opiates Screen Ur Methadone, Qual Acetaminophen Urine Barbiturates Lamotrigine Ur Phencyclidine (PCP) U Amphetamin/Meth Scrn MDMA (Ecstasy) Screen U Benzodiazepines Scrn Southside 0.7 Ur Cocaine Metabolite U Marijuana (THC) Screen Ethyl Alcohol mg/dL COVID-19 Eval Order SARS-CoV-2, RNA, NAAT 12/26/20 01/05/21 07:20 09:22 WBC RBC Hgb Hct MCV MCH MCHC RDW Std Deviation RDW Coeff of Kelli Plt Count MPV Immature Gran % (Auto) Neut % (Auto) Lymph % (Auto) [place] % (Auto) Eos % (Auto) Baso % (Auto) Neut # (Auto) Lymph # (Auto) [place] # (Auto) Eos # (Auto) Baso # (Auto) Immature Gran # (Auto) Sodium Potassium Chloride Carbon Dioxide Anion Gap BUN Creatinine Est Cr Clr Drug Dosing Est GFR ( Amer) Est GFR (Non-Af Amer) BUN/Creatinine Ratio Glucose Fasting Glucose Calcium Total Bilirubin Direct Bilirubin AST ALT Alkaline Phosphatase Total Protein Albumin Globulin Albumin/Globulin Ratio Triglycerides Cholesterol LDL Cholesterol, Calc VLDL Cholesterol, Calc HDL Cholesterol Cholesterol/HDL Ratio TSH HCG, Qual Urine Color Urine Appearance Urine pH Ur Specific [place] Urine Protein Urine Glucose (UA) Urine Ketones Urine Blood Urine Nitrite Urine Bilirubin Urine Urobilinogen Ur Leukocyte Esterase Urine WBC (Auto) Urine RBC (Auto) U Hyaline Cast (Auto) U Epithel Cells (Auto) Urine Bacteria (Auto) Salicylates Urine Opiates Screen Ur Methadone, Qual Acetaminophen Urine Barbiturates Lamotrigine Ur Phencyclidine (PCP) U Amphetamin/Meth Scrn MDMA (Ecstasy) Screen U Benzodiazepines Scrn [place]side 0.7 0.9 Ur Cocaine Metabolite U Marijuana (THC) Screen Ethyl Alcohol mg/dL COVID-19 Eval Order SARS-CoV-2, RNA, NAAT Hospital Course (1) Schizoaffective disorder, bipolar type: Given the patient's extended length of stay, a condensed care summary includes the following: Patient was admitted on a 302 and restarted on previous medications with the exception of Zoloft initially as manic/mixed state in appearance. Ativan TID was added for catatonic features with some benefit but ongoing psychosis. Lamictal was titrated slowly over the course of her stay to previously effective dose for seizures of 150 mg. Trilafon was increased for residual symptoms with minimal to no benefit and parents preferred an agent that could be given as a GARNER. Invega replaced Trilafon on 12/16/20. The patient improved to the point she was able to understand treatment and agreed to sign in volunarily on 12/19/20. On 12/23/20 she was clearly feeling worse on Invega and she was transitioned to Haldol with escalating doses. She did not want Haldol decanoate. On 01/03/21 an Ativan taper was initiated but she failed taper of the hs dose due to worsening anxiety. The focus of 01/12/21-01/16/21 (after family meeting) was on establishing care supports to support transition given extended stay, it was determined that returning to [facility] was her best option for day programming and med support. Mental Health & Subst Abuse Tx Psychiatrist Name of Psychiatrist: Bruno Mcleod Psychiatrist's Date of Appointment with Psychiatrist: 01/22/21 Time of Appointment with Psychiatrist: 10:30am Psychiatric Appointment Comment: [address], [place] [address] Psychiatrist Release of Information: Obtained, Reviewed and Signed Therapist Name of Therapist: Tex Sherwood Therapist's Date of Therapist Appointment: 01/20/21 Time of Therapist Appointment: 1:00 PM Therapy Appointment Comment: [address] [place] [address] Therapist Release of Information: Obtained, Reviewed and Signed [place] Name of [place]: BEE Jensen Phone Number for [place]: [phone] Time of Appointment with [place]: Will follow up with you to assign a pillowcase makermanager analysis Appointment Comment: [address] [place] [id number] [place] Release of Information: Obtained, Reviewed and Signed Post Discharge Appointments Primary Care Physician Name Of Family Doctor: Dr. Shi [facility] Date of Appointment with PCP: 01/19/21 Time of Appointment with PCP: 1pm Provider Appointment Comment: [address] [facility] [place] [address] Primary Care Release of Information: Obtained, Reviewed and Signed Neurologist Name of Neurologist: Mac Arroyo Neurologist's Date of Appointment with Neurologist: 02/13/21 Time of Appointment with Neurologist: 9:20 a.m Neurology Appointment Comment: [address] [place] [address], [address], [place] [address] Release of Information for Neurologist: Obtained, Reviewed and Signed Contact Information Discharge Discharge Address: [address] [place] [address] Discharge Plan Discharge Items Patient Disposition: Home - Self-Care Reason For Visit: MHE Discharge Diagnosis: Schizoaffective disorder Activity: Resume your previous activity Non-emergency contact: Primary Care Provider, Psychiatrist, Therapist and Promotion Manager Call non-emergency contact if: you have any medication questions and your symptoms worsen Follow-up/Referrals: PCP,NO [Primary Care Provider] - Diet: Regular Addtl Attending Provider Instructions: SPECIAL CARE INSTRUCTIONS: 1. Follow through with your scheduled aftercare appointments. If unable to keep an appointment, please call to reschedule. 2. Take your medication only as prescribed. Medication should not be changed or stopped without the approval of your doctor. In the event of worsening symptoms or concerns about side effects, contact your doctor immediately. 3. Utilize new healthy coping skills, anger management skills, and stress management skills learned during your hospitalization. Journal feelings and process them with a support person. Identify stressors or situations that may result in relapse, deterioration or inappropriate behaviors and develop a plan to deal with those issues. 4. If your coping skills are ineffective and you are in crisis, contact your outpatient providers for direction. If unable to reach your providers, please call the [facility] CRISIS LINE AT , go to the [facility] walk-in center at [address] [place] [address] [facility], or go to the closest Emergency Room. 5. Avoid alcohol and un-prescribed drugs. 6. You have been provided with the Mental Health Advance Directives Pamphlet for your review. 7. Your condition is stable for discharge to outpatient level of care, but recovery is an ongoing process. Ifthoughts to harm yourself or others return, follow the safety plan developed during your stay. Planning for a safe return home includes securing weapons. Our treatment team recommends weaponsbe removed from the home until your outpatient provider reassesses your progress. In rare cases where the items themselvescannot be removed, guns and ammunitionshould be secured separatelyand keys stored by a reliable personoutside of the home. If you were admitted on an involuntary commitment, the police or other legal authorities may be involved in this process. AFTERCARE APPOINTMENTS: * Please call your insurance company prior to your scheduled appointment to confirm your aftercare providers are covered. Take your insurance information to your appointments. WHO TO CALL AND WHEN: Medical Emergencies: For questions or emergencies related to your hospital stay, please contact the Inpatient Behavioral Health Unit at [phone]. A caster helper is on-call 25/10 for the Behavioral Health Unit for emergencies At any time you feel your situation is an emergency, you may also call 911 immediately. Pending Studies at Discharge: No Stand-Alone Forms: [facility] Medications and DC Order Prescriptions: New haloperidol 5 mg Tablet 5 mg PO QAM 30 Days Qty: 30 RF: 0 haloperidol 10 mg tablet 10 mg PO HS 30 Days Qty: 30 RF: 0 lamotrigine 150 mg tablet 150 mg PO QAM 30 Days Qty: 30 RF: 0 docusate sodium 100 mg Capsule 100 mg PO BID 30 Days Qty: 60 RF: 0 lorazepam 1 mg Tablet 1 mg PO HS 30 Days Qty: 30 RF: 0 sertraline 50 mg Tablet 50 mg PO QAM 30 Days Qty: 30 RF: 0 olanzapine [Zyprexa] 20 mg Tablet 20 mg PO HS 30 Days Qty: 30 RF: 0 Continued atorvastatin [Lipitor] 10 mg tablet 10 mg PO DAILY 30 Days Qty: 30 RF: 0 levothyroxine 25 mcg tablet 25 mcg PO QAM 30 Days Qty: 30 RF: 0 benztropine 1 mg tablet 1 mg PO BID 30 Days Qty: 60 RF: 0 lithium carbonate 300 mg tablet 300 mg PO BID 30 Days Qty: 60 RF: 0 cholecalciferol (vitamin D3) 50 mcg (2,000 unit) capsule 2,000 unit PO DAILY 30 Days Qty: 30 RF: 0 Discontinued perphenazine 2 mg tablet 2 mg PO BID RF: 0 sertraline 100 mg tablet 100 mg PO DAILY RF: 0 docusate sodium [Colace] 100 mg capsule 100 mg PO QPM RF: 0 lamotrigine 100 mg tablet 125 mg PO BID RF: 0 olanzapine 10 mg tablet,disintegrating 10 mg PO BID RF: 0 Discharge Orders: Discharge Order (Routine); Ordered 01/19/21 Ordered By: Karena Bynum Admission Data Admit Date/Time: 11/30/20 20:39 Attending Provider: Karena Bynum Admit Provider: Tello Alarcon Primary Care Provider: PCP,NO Other Providers: Tello Alarcon Other Interventions: PSY Interdisciplinary Discharge Planning Last Done: 01/19/21 09:23 Coding Level of Care Code 28976 D/C day mgmt > 30 min Diagnoses Schizoaffective disorder, bipolar type F25.0 Time Spent (min) 35
== END 2021-01-19 11:12 | disposition home or self-care (01) | DRG 885 ==
LOC: ED 12:18 → 3S 20:33 → SUATTDRO 20:39 → 3S 12-19 17:21